=== PATIENT | female | born 1950 | race Caucasian/White ===

== ENCOUNTER 2017-09-19 11:42 | Emergency (ER) | payer MEDICARE, SELFPAY ==
[2017-09-19 11:43] VITALS: BP 149/78; PULSE 68; RESP 20; TEMP 36.5; O2SAT 95; BMI 23.8
--- NOTE | 2017-09-19 11:48 | EKG12_ITS ---
Test Reason : SOB Blood Pressure : / mmHG Vent. Rate : 060 BPM Atrial Rate : 060 BPM P-R Int : 176 ms QRS Dur : 076 ms QT Int : 402 ms P-R-T Axes : 073 049 053 degrees QTc Int : 402 ms Normal sinus rhythm Normal ECG Confirmed by GHULAM KIM, REJI ([id number]), marketing editor BAIRON DONOHUE ([id number] on 09/22/2017 10:47:05 AM Referred By: DIANA Confirmed By:REJI PARMAR MD
[2017-09-19 12:00] VITALS: O2SAT 97
--- NOTE | 2017-09-19 12:07 | RAD_ITS ---
STUDY: X-RAY CHEST REASON FOR EXAM: Female, 66 years old. Shortness of breath. Dyspnea. TECHNIQUE: AP upright portable view. COMPARISON: 06/14/2016. FINDINGS: Pulmonary hyperinflation with flattening of the hemidiaphragms. Asymmetric bilateral upper lobe bullous emphysema, right greater than left. No confluent infiltrates. No suspicious pulmonary nodules. Oblique linear scarring in the left lower lobe. Left pleural thickening is unchanged. Normal size heart. Normal mediastinum and mateus. Normal visualized pulmonary arteries. Normal visualized aortic arch and descending thoracic aorta. Dextroscoliosis of the thoracolumbar junction may be positional. Normal visualized ribs, clavicles, and shoulders. There is no demonstrated abnormality of the visualized soft tissue structures of the upper abdomen. RAD/Chest 1 View (Portable) IMPRESSION: 1. No acute cardiopulmonary pathology. 2. 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 3. No interval changes when compared to 06/14/2016. Electronically Signed: Gaston Sanders MD at 12:28 EDT , Service support ,
--- NOTE | 2017-09-19 12:11 | ED.DCSUM_ITS ---
- ER Visit Summary Date of Service: 09/19/17 Chief Complaint: [] Cough right sided chest pain with cough history of COPD on home O2 History of Present Illness: The patient is a 66 F [] patient has COPD home O2 chronic cough she gets for the last 3 days every time she coughs she has sharp pain to the right upper chest when she is not coughing she has no pain her COPD and general medical conditions have been stable no fever cough is dry minimally productive something she has had long-standing she has all her home meds she is eating and drinking well bowel bladder habits have been normal Physical Examination: [] Her vital signs are within normal range she is in no distress speaking full sentences her lungs are markedly diminished bilaterally the heart tones are regular the abdomen is soft nontender upper lower extremities unremarkable she is very thin and frail-appearing woman Has a history of left-sided pneumothorax and prior lower extremity DVT related to long prolonged hospitalization no history she can recall of PE Test Results: [] Emergency Department Course and Treatment: [] Fluids screening labs Chest x-ray shows nothing acute EKG labs are unremarkable except her d-dimer returns at 0.5 on reevaluation she is feeling better I discussed the d-dimer with her the concept of PE potential lethal nature of PE she understands all the above but she does not wish to have a CTA done she is feeling better wants to go home, she her chief concern was whether she had a pneumothorax, at this time should continue all of her therapy at home she will be given Continental to use as needed and to follow with her doctors tomorrow return for change in symptoms Treatment Plan: [] Disposition: [] Home stable Impression: [] Sharp right-sided chest pain with coughing COPD exacerbation This note was generated with [employer] dictation software. It may contain incorrect words, spelling, and punctuation that were not noted in review of the chart prior to signing ED Disposition - Plan for ED Patient: Chief Complaint: Shortness of Breath Referrals: Sally Fan DO [Primary Care Provider] -
[2017-09-19 12:38] LABS: Anion Gap 5 (5-15); BUN 19 mg/dL (7-18); BUN/Creat Ratio 28.6 RATIO (10-20); Calcium,Total 9.7 mg/dL (8.5-10.1); Chloride 105 mmol/L (98-107); Creatinine, Serum 0.66 mg/dL (0.55-1.02); EST Glomerular Filtration Rate 94 mL/min (>60); Est Glom Filt Rate - Afr Amer 114 mL/min (>60); Estimated Creatinine Clearance 41.19 ml/min; Glucose 87 mg/dL (74-106); Potassium 4.5 mmol/L (3.5-5.1); Sodium Level 143 mmol/L (136-145)
[2017-09-19 12:41] LABS: Absolute Lymphocyte Count 1.16 X10^3/ul (0.83-4.51); Absolute Neutrophil Count 4.4 X10^3/uL (2.0-7.7); Basophil# 0.01 X10^3/uL; Basophil% 0.2 % (0-1); Eosinophil# 0.27 X10^3/uL; Eosinophils% 4.2 % (0-5); Hematocrit 39.6 % (37-47); Hemoglobin 11.8 g/dl (12.0-15.0); Lymphocyte # 1.16 X10^3/ul (4.0); Lymphocyte % 18.2 % (19-41); Mean Corp Hgb Conc 29.8 g/gl (32-36); Mean Corpuscular Hgb 25.7 pg (27.0-32.0); Mean Corpuscular Volume 86.3 fL (81-99); Mean Platelet Vol. 12.3 fl (6.2-12.0); Monocyte# 0.55 X10^3/uL; Monocyte% 8.6 % (0-10); Neutrophil # 4.38 X10^3/uL (2.7-7.7); Neutrophil % 68.6 % (47-70); Platelet Count 160 K/mm3 (150-450); RBC Distribution Width CV 14.8 % (11.6-14.6); RBC Distribution Width SD 46.6 fl (35.1-43.9); Red Blood Count 4.59 M/mm3 (4.2-5.4); White Blood Count 6.4 K/mm3 (4.4-11.0)
[2017-09-19 12:46] LABS: POSITIVE DIFFERENTIAL NO
[2017-09-19 12:47] LABS: Differential Indicated SCAN CRITERIA MET; POSITIVE COUNT YES; POSITIVE MORPHOLOGY YES
[2017-09-19 13:00] LABS: Differential Comment SCANNED
[2017-09-19 13:24] LABS: D-Dimer Quantitative (DVT/PE) 0.53 FEU/ug/m (0.27-0.49)
--- NOTE | 2017-09-19 13:25 | ED.RN ---
CRITICAL VALUED CALLED BY LAB. FINDINGS GIVEN TO DR. ORTIZ.
[2017-09-19 14:01] VITALS: BP 154/64; PULSE 60; RESP 20; O2SAT 97
--- NOTE | 2017-09-19 14:31 | ED.DEP ---
ED Disposition - Plan for ED Patient: Chief Complaint: Shortness of Breath Instructions: ED COPD Flare Referrals: Sally Fan DO [Primary Care Provider] -
[2017-09-19 14:47] VITALS: BP 150/81; PULSE 67; RESP 24; O2SAT 98
--- NOTE | 2017-09-21 11:10 | CM.ED ---
ED CALLBACK: Follow-up call placed to patient with no answer. Voicemail left with return contact information.
== END 2017-09-19 14:50 | disposition home or self-care (01) ==
PROVIDERS: Emergency Provider Emergency Medicine; Family Provider Internal Medicine; PCP Internal Medicine
DX: J44.1 Chronic obstructive pulmonary disease with (acute) exacerbation (principal); R74.8 Abnormal levels of other serum enzymes; R06.02 Shortness of breath; Z99.81 Dependence on supplemental oxygen; Z79.82 Long term (current) use of aspirin; Z79.899 Other long term (current) drug therapy; Z86.718 Personal history of other venous thrombosis and embolism
CPT/HCPCS: 71045; 80048; 83880; 84484; 85025; 85379; 93005; 99284; A4216

== ENCOUNTER 2017-10-05 19:25 | Emergency (ER) | payer MEDICARE, SELFPAY ==
[2017-10-05] VITALS (8 sets, daily range): BP systolic 119–155; BP diastolic 63–129; PULSE 87–105; RESP 16–24; TEMP 37.2; O2SAT 86–96; BMI 24.0
[2017-10-05 20:23] LABS: Absolute Neutrophil Count 5.8 X10^3/uL (2.0-7.7); Basophil# 0.02 X10^3/uL; Basophil% 0.2 % (0-1); Eosinophil# 0.24 X10^3/uL; Eosinophils% 2.8 % (0-5); Hematocrit 39.4 % (37-47); Hemoglobin 11.7 g/dl (12.0-15.0); Mean Corp Hgb Conc 29.7 g/gl (32-36); Mean Corpuscular Hgb 25.8 pg (27.0-32.0); Mean Platelet Vol. 11.6 fl (6.2-12.0); Monocyte# 0.71 X10^3/uL; Monocyte% 8.2 % (0-10); Neutrophil # 5.76 X10^3/uL (2.7-7.7); Neutrophil % 66.7 % (47-70); Platelet Count 252 K/mm3 (150-450); RBC Distribution Width CV 14.7 % (11.6-14.6); RBC Distribution Width SD 46.6 fl (35.1-43.9); Red Blood Count 4.53 M/mm3 (4.2-5.4); White Blood Count 8.6 K/mm3 (4.4-11.0)
[2017-10-05 20:24] LABS: POSITIVE COUNT NO; POSITIVE DIFFERENTIAL NO; POSITIVE MORPHOLOGY NO
[2017-10-05] MEDS: Albuterol 2.5 MG/3 ML VIAL.NEB. INHALATION ×2 (20:30)
[2017-10-05] MEDS: Ipratropium/Albuterol Sulfate 3 ML AMPUL.NEB INHALATION (20:30)
[2017-10-05 20:45] LABS: Anion Gap 7 (5-15); BUN 22 mg/dL (7-18); BUN/Creat Ratio 26.9 RATIO (10-20); Calcium,Total 9.6 mg/dL (8.5-10.1); Chloride 103 mmol/L (98-107); Creatinine, Serum 0.82 mg/dL (0.55-1.02); EST Glomerular Filtration Rate 74 mL/min (>60); Est Glom Filt Rate - Afr Amer 90 mL/min (>60); Estimated Creatinine Clearance 50.24 ml/min; Glucose 123 mg/dL (74-106); Sodium Level 140 mmol/L (136-145)
--- NOTE | 2017-10-05 23:37 | ED.DCSUM_ITS ---
- ER Visit Summary Date of Service: 10/05/17 Chief Complaint: inhaled corn History of Present Illness: The patient is a 66 F who presents for cough after concern she inhaled corn while eating dinner. It occurred 1 hr prior to presentation. Patient accidentally inhaled a piece of corn and immediately began coughing. Since episode, she has had a persistent cough. History of significant COPD, on home O2, and patient denies any change in her breathing or speech. No chest pain, fever, or other complaints other than the continued cough. Physical Examination: Vital signs: afebrile, normotensive, mild tachycardia, 87% on NC, hypoxic General: well nourished, well developed, appears SOB, frequent moist cough Skin: warm, dry, no rash, no pallor HEENT: normocephalic, atraumatic; PERRL, EOMI, moist mucous membranes Cardiovascular: tachycardic rate and rhythm without murmurs,no peripheral edema , 2+ pulses all distal extremities Respiratory: Mild tachypnea with mild increased work of breathing, lungs are diffusely rhonchorous and wheezing all ritchie, no stridor Abdominal: Abdomen is soft, nontender with normoactive bowel sounds, no guarding or rebound, no masses MSK: Moves all extremities, no deformities, normal strength Neuro: Awake and alert, oriented ?4. No facial droop, sensation and motor function intact and symmetric Test Results: Abnormal Lab Results 10/05/17 10/05/17 19:35 19:35 WBC 8.6 RBC 4.53 Hgb 11.7 L Hct 39.4 MCV 87.0 MCH 25.8 L MCHC 29.7 L RDW 14.7 H RDW Differential 46.6 H Plt Count 252 MPV 11.6 Immature Gran % (Auto) 0.100 Neut % (Auto) 66.7 Lymph % (Auto) 22.0 [place] % (Auto) 8.2 Eos % (Auto) 2.8 Baso % (Auto) 0.2 Absolute Neuts (auto) 5.8 Absolute Lymphs (auto) 1.90 Total Counted Not Reportable Sodium 140 Potassium 4.0 Chloride 103 Carbon Dioxide 30.0 Anion Gap 7 BUN 22 H Creatinine 0.82 Estim Creat Clear Calc 50.24 Est GFR (MDRD) Af Amer 90 Est GFR (MDRD) Non-Af 74 BUN/Creatinine Ratio 26.9 H Glucose 123 H Calcium 9.6 Troponin I < 0.015 Clinical Impression(s) from Imaging Studies Chest X-Ray 10/05/17 21:30 IMPRESSION: COPD and right lower lobe airspace disease. Small effusions. Electronically Signed: Ever Don MD at 21:49 EDT , Service support , Medications Given Discontinued Medications Albuterol Sulfate (Ventolin Aerosols) 2.5 mg INHALATION Q20M SATINDER Stop: 10/05/17 20:56 Last Admin: 10/05/17 20:53 Dose: Not Given Admin: 10/05/17 20:30 Dose: 2.5 mg Admin: 10/05/17 20:30 Dose: 2.5 mg Albuterol/Ipratropium (Duoneb) 3 ml INHALATION X1 ONE Stop: 10/05/17 20:15 Last Admin: 10/05/17 20:30 Dose: 3 ml Azithromycin (Zithromax) 500 mg PO X1 ONE Stop: 10/05/17 23:35 Last Admin: 10/05/17 23:53 Dose: 500 mg Prednisone () 40 mg PO X1 ONE Stop: 10/05/17 23:36 Last Admin: 10/05/17 23:53 Dose: 40 mg Emergency Department Course and Treatment: Patient presents concerned for persistent cough after suspected aspiration of a kernel of corn. Patient is below her baseline O2 sat on her home O2 on presentation, and lung exam is consistent with COPD. Patient was given breathing treatments and had resolution of her cough and improvement in her O2 sat, respiratory effort, and subjective breathing effort. Chest XR showed concern for RLL infiltrate, although it would be too early for a change due to 1 hour of corn aspiration. EKG showed no ischemic changes, and trop negative. Labs unremarkable. Given that patient had remarkable improvement with treatment for COPD exacerbation, she was started on azithromycin and prednisone, with the antibiotic also being for coverage of the concerning RLL finding. Patient was discussed with her partner manager, Dr Caldera , who requests patient to call office in the AM to arrange for a re-evaluation within 48 hours. He encouraged hydration of patient at home to help mobilize respiratory secretions to help cough up corn if it is in her lungs. Patient agreed with this plan and was dc home with rx for azithromycin and prednisone. Treatment Plan: [] Disposition: [] Impression: COPD exacerbation, suspected foreign body aspiration This note was generated with [employer] dictation software. It may contain incorrect words, spelling, and punctuation that were not noted in review of the chart prior to signing ED Disposition - Plan for ED Patient: Disposition: Home or Assisted Living Chief Complaint: Shortness of Breath Instructions: ED COPD Flare Prescriptions: Azithromycin [Zithromax] 250 mg PO DAILY #4 tab Prednisone 40 mg PO DAILY #8 tab Referrals: Sally Fan DO [Primary Care Provider] - As Needed Willy Caldera MD [STAFF PHYSICIAN] - 1 Day Additional Instructions: Call Dr. Caldera's office first thing in the morning tomorrow to make an appointment for within 24-48 hours for reevaluation of the possible inhaled corn. Take the antibiotic daily as prescribed. Take the first dose tomorrow evening. Take the prednisone as prescribed, again taking the first dose tomorrow evening. Continue your home medications for COPD as prescribed. Return to the emergency department if you develop fever, worsening shortness of breath, or any other concerns.
[2017-10-05] MEDS: Azithromycin 250 MG Tablet 500 MG PO (23:53)
[2017-10-05] MEDS: predniSONE 20 MG Tablet 40 MG PO (23:53)
== END 2017-10-06 00:06 | disposition home or self-care (01) ==
PROVIDERS: Emergency Provider Emergency Medicine; Family Provider Internal Medicine; PCP Internal Medicine
DX: J44.1 Chronic obstructive pulmonary disease with (acute) exacerbation (principal); R09.02 Hypoxemia; R91.8 Other nonspecific abnormal finding of lung field; Z99.81 Dependence on supplemental oxygen; Z79.82 Long term (current) use of aspirin; Z79.899 Other long term (current) drug therapy
CPT/HCPCS: 71046; 80048; 84484; 85025; 93005; 94640; 99285; A4216

== ENCOUNTER → 2017-11-08 15:35 | Outpatient (CLI) | payer MEDICARE, SELFPAY ==
--- NOTE | 2017-11-08 15:37 | RAD_ITS ---
STUDY: X-RAY CHEST REASON FOR EXAM: Female, 67 years old. Cough. TECHNIQUE: PA and lateral views of the chest. COMPARISON: Comparison is made with prior study dated October 05, 2017. FINDINGS: Hyperinflation. Stable increased markings at both lung bases with blunting of both costophrenic angle. This most likely advance chronic pleural parenchymal changes. There is also evidence of increased markings in the left upper lobe suggestive of scarring. Decreased bronchovascular markings in the right upper lobe suggestive of emphysematous changes. Normal size heart. Normal mediastinum and mateus. Normal visualized pulmonary arteries. Normal visualized aortic arch and descending thoracic aorta. Normal visualized thoracic spine. Normal visualized ribs, clavicles, and shoulders. There is no demonstrated abnormality of the visualized soft tissue structures of the upper abdomen. RAD/Chest PA and Lateral IMPRESSION: Stable increased markings at both lung bases with blunting of both costophrenic angles suggestive of chronic scarring. Hyperinflation. Electronically Signed: Jose Grayson MD at 15:56 EDT Tel [phone], Service support ,
== END ==
PROVIDERS: Family Provider Internal Medicine; PCP Internal Medicine; Visit Provider Nurse Practitioner Gerontology
DX: R05 Cough (principal)
CPT/HCPCS: 71046

== ENCOUNTER → 2017-12-10 14:19 | Outpatient (CLI) | payer MEDICARE, SELFPAY ==
[2017-12-10 16:01] LABS: Absolute Lymphocyte Count 1.43 X10^3/ul (0.83-4.51); Absolute Neutrophil Count 3.6 X10^3/uL (2.0-7.7); Basophil# 0.01 X10^3/uL; Basophil% 0.2 % (0-1); Eosinophil# 0.26 X10^3/uL; Eosinophils% 4.6 % (0-5); Hematocrit 37.8 % (37-47); Hemoglobin 11.2 g/dl (12.0-15.0); Lymphocyte # 1.43 X10^3/ul (4.0); Lymphocyte % 25.1 % (19-41); Mean Corp Hgb Conc 29.6 g/gl (32-36); Mean Corpuscular Volume 87.7 fL (81-99); Mean Platelet Vol. 11.1 fl (6.2-12.0); Monocyte# 0.38 X10^3/uL; Monocyte% 6.7 % (0-10); Neutrophil # 3.61 X10^3/uL (2.7-7.7); Neutrophil % 63.2 % (47-70); Platelet Count 227 K/mm3 (150-450); RBC Distribution Width CV 15.6 % (11.6-14.6); RBC Distribution Width SD 49.7 fl (35.1-43.9); Red Blood Count 4.31 M/mm3 (4.2-5.4); White Blood Count 5.7 K/mm3 (4.4-11.0)
[2017-12-10 16:03] LABS: POSITIVE COUNT NO; POSITIVE DIFFERENTIAL NO; POSITIVE MORPHOLOGY NO
[2017-12-10 16:41] LABS: ALB/GLOB Ratio 0.9 RATIO (0.9-2.4); AST(SGOT) 15 U/L (15-37); Alanine Aminotransfer ALT/SGPT 20 U/L (13-56); Albumin, Serum 3.4 g/dL (3.2-5.0); Alkaline Phosphatase 60 U/L (45-117); Anion Gap 7 (5-15); BUN 21 mg/dL (7-18); BUN/Creat Ratio 30.2 RATIO (10-20); Calcium,Total 9.4 mg/dL (8.5-10.1); Chloride 104 mmol/L (98-107); Cholesterol 154 mg/dL (200); EST Glomerular Filtration Rate 89 mL/min (>60); Est Glom Filt Rate - Afr Amer 108 mL/min (>60); Globulin 3.6 g/dL (2.2-4.2); Glucose 86 mg/dL (74-106); High Density Lipoprotein 79 mg/dL; Potassium 4.6 mmol/L (3.5-5.1); Sodium Level 142 mmol/L (136-145); Thyroid Stim Hormone (TSH) 1.58 uIU/mL (0.358-3.74); Triglycerides 69 mg/dL; Very Low Density Lipoprotein 14 mg/dL (5-40)
[2017-12-10 16:45] LABS: Vitamin D,25 Hydroxy 23.4 ng/mL (29.95-100.01)
== END ==
PROVIDERS: Family Provider Internal Medicine; PCP Internal Medicine; Referring Provider Internal Medicine; Visit Provider Internal Medicine
DX: E78.2 Mixed hyperlipidemia (principal); E55.9 Vitamin D deficiency, unspecified; R41.3 Other amnesia
CPT/HCPCS: 36415; 80053; 80061; 82306; 84443; 85025

== ENCOUNTER 2018-02-25 13:28 | Emergency (ER) | payer MEDICARE, SELFPAY ==
[2018-02-25 13:29] VITALS: PULSE 69; RESP 18; TEMP 36.6; O2SAT 93; BMI 23.0
--- NOTE | 2018-02-25 13:59 | CT_ITS ---
STUDY: CT BRAIN WITHOUT CONTRAST REASON FOR EXAM: Female, 67 years old. Status post fall with contusion to the left chin/jaw RADIATION DOSAGE (If Supplied By Facility): CTDIvol = ( 44.99 ) mGy, DLP = ( 779.24 ) mGycm TECHNIQUE: Transaxial CT imaging of the brain was performed without administration of intravenous contrast material. Individualized dose optimization techniques were used for this CT. COMPARISON: None. FINDINGS: Normal soft tissue structures. Normal calvarium. There is mild cerebral atrophy with widening of the extra-axial spaces and ventricular dilatation. There are areas of decreased attenuation within the white matter tracts of the supratentorial brain, consistent with microvascular disease changes. Normal basal ganglia and thalami. Normal brainstem. There is mild cerebellar atrophy. There is no intracranial hemorrhage. There are no findings of an acute ischemic infarction. There is mucoperiosteal inflammatory disease of the paranasal sinuses consistent with mild chronic sinusitis. CT/Brain/Head without Contrast IMPRESSION: Chronic involutional changes of the brain. Electronically Signed: Janes Montano DO at 14:22 EST Tel , Service support ,
--- NOTE | 2018-02-25 13:59 | RAD_ITS ---
STUDY: X-RAY CHEST REASON FOR EXAM: Female, 67 years old. Status post fall at home. Right-sided chest pain. TECHNIQUE: PA and lateral views of the chest. COMPARISON: None. FINDINGS: There is hyperinflation of the lungs consistent with chronic obstructive lung disease (COPD). No acute airspace disease. There is no demonstrated pleural abnormality. There is borderline cardiomegaly. Normal mediastinum and mateus. Normal visualized pulmonary arteries. Normal visualized aortic arch and descending thoracic aorta. Normal visualized thoracic spine. Normal visualized ribs, clavicles, and shoulders. There is no demonstrated abnormality of the visualized soft tissue structures of the upper abdomen. RAD/Chest PA and Lateral IMPRESSION: COPD. Borderline cardiomegaly. No acute airspace disease. Electronically Signed: Janes Montano DO at 14:30 EST Tel , Service support ,
--- NOTE | 2018-02-25 15:45 | ED.VISSUMM ---
- ER Visit Summary Date of Service: 02/25/18 Chief Complaint: Fall History of Present Illness: The patient is a 67 F who sustained a mechanical fall walking on ice. No loss of consciousness she sustained facial injuries and she is complaining of right chest wall pain. She has no other complaints. No wrist injury no ankle injury. No loss of consciousness. Physical Examination: Not appear in acute distress. Moist mucous membranes, there are few abrasions, nasal contusion. No nasal septal hematoma normal bite. No tenderness over the mandible or maxilla. No C-spine tenderness supple neck. Regular rate and rhythm without any obvious murmurs Course lungs bilaterally speaking in full sentences without any obvious respiratory distress Abdomen soft and nontender no guarding or rebound Moves all extremities without any difficulty or pain. Skin does not show any obvious rashes or lesions, no trauma. Alert oriented ?3 with no gross focal deficit Emergency Department Course and Treatment: CT head and chest x-ray were negative. Patient was reassured L discharged in stable condition. Disposition: Discharge stable condition Impression: Concussion without loss of consciousness Chest wall contusion This note was generated with [employer] dictation software. It may contain incorrect words, spelling, and punctuation that were not noted in review of the chart prior to signing ED Disposition - Plan for ED Patient: Chief Complaint: Fall Instructions: ED Mechanical Fall Referrals: Sally Fan DO [Primary Care Provider] - 3-5 Days
[2018-02-25 15:59] VITALS: BP 143/71; PULSE 72; RESP 16; O2SAT 94
== END 2018-02-25 16:00 | disposition home or self-care (01) ==
LOC: ED 14:00
PROVIDERS: Emergency Provider Emergency Medicine; Family Provider Internal Medicine; PCP Internal Medicine
DX: S06.0X0A Concussion without loss of consciousness, initial encounter (principal); S20.211A Contusion of right front wall of thorax, initial encounter; S00.33XA Contusion of nose, initial encounter; W00.0XXA Fall on same level due to ice and snow, initial encounter; Y93.01 Activity, walking, marching and hiking; Y92.9 Unspecified place or not applicable; Y99.9 Unspecified external cause status; J44.9 Chronic obstructive pulmonary disease, unspecified; I10 Essential (primary) hypertension; Z79.899 Other long term (current) drug therapy
CPT/HCPCS: 70450; 71046; 99283

== ENCOUNTER 2018-02-28 10:13 | Emergency (ER) | payer MEDICARE, SELFPAY ==
[2018-02-28 10:15] VITALS: BP 164/87; PULSE 90; RESP 18; RESP 20; TEMP 36.9; O2SAT 91; O2SAT 98; BMI 23.6
[2018-02-28 10:24] VITALS: O2SAT 98
--- NOTE | 2018-02-28 10:27 | CT_ITS ---
STUDY: CT CHEST WITHOUT CONTRAST REASON FOR EXAM: Female, 67 years old. Fall on 02/25/2018, right rib pain RADIATION DOSAGE (If Supplied By Facility): CTDIvol = ( 11.55 ) mGy, DLP = ( 418.61 ) mGycm TECHNIQUE: Transaxial imaging was performed without the administration of intravenous contrast material. Individualized dose optimization techniques were used for this CT. COMPARISON: 06/14/2016 FINDINGS: Pulmonary emphysema. Tracheobronchial calcifications. There is no demonstrated pleural abnormality. Normal heart and pericardium. Normal mediastinum. Normal hilar regions. Normal unenhanced pulmonary arteries. Normal aorta arch and descending thoracic aorta. Debris is present in the left upper lobe bronchus, left mainstem bronchus, and trachea. There is significant narrowing of the left upper lobe bronchus. Extensive left upper lobe and left lower lobe atelectasis and left lung volume loss. Normal osseous structures. There is no demonstrated abnormality of the visualized upper abdomen. CT/Chest without Contrast IMPRESSION: No CT evidence of acute injury involving the chest. Secretions are present in the left upper lobe bronchus, left mainstem bronchus, and trachea. There is significant narrowing of the left upper lobe bronchus. Extensive left upper lobe and left lower lobe atelectasis and left lung volume loss. Electronically Signed: Kane Blanco MD at 11:16 EST Tel , Service support ,
--- NOTE | 2018-02-28 11:43 | ED.DCSUM_ITS ---
- ER Visit Summary Date of Service: 02/28/18 Chief Complaint: Chest pain History of Present Illness: The patient is a 67 F who states that she is post trauma day 3 from a fall. She was seen on Wednesday had a chest x-ray is negative. She states that she feels a popping sensation of the right anterior chest where it is bruised. She states that she is not taking anything for the pain. She is concerned that something is wrong with her lungs. Physical Examination: Afebrile vital signs are stable Gen: Well-nourished well-developed Head: Normocephalic contusion of the face and the chin Eyes: Perrl EOMI ENT: TMs clear no rhinorrhea moist mucous membranes Neck: Supple no lymphadenopathy no JVD nontender CVS: Regular rate rhythm no murmurs normal S1-S2 Respiratory: No distress clear to auscultation bilaterally ecchymosis and tenderness over the right anterior chest Abdomen: Soft nontender nondistended normal bowel sounds no masses Back: Nontender Extremity: Nontender no edema Skin: Normal color no rash Neuro: alert orientated ?3 CN II-XII intact normal strength sensation reflexes gait cerebellar Psych: Normal affect normal mood Test Results: Chest CT was reviewed by myself and demonstrates a nondisplaced rib fracture on the right Emergency Department Course and Treatment: Patient will be discharged home with supportive care return if worsening or concerns Impression: 1. Right rib fracture This note was generated with [employer] dictation software. It may contain incorrect words, spelling, and punctuation that were not noted in review of the chart prior to signing ED Disposition - Plan for ED Patient: Disposition: Home or Assisted Living Chief Complaint: Chest Other Instructions: Rib Fracture (Broken Rib) Referrals: Sally Fan DO [Primary Care Provider] - 1-2 Weeks
[2018-02-28 11:56] VITALS: BP 134/77; PULSE 61; RESP 17; O2SAT 97
== END 2018-02-28 12:36 | disposition home or self-care (01) ==
PROVIDERS: Emergency Provider Emergency Medicine; Family Provider Internal Medicine; PCP Internal Medicine
DX: S22.31XA Fracture of one rib, right side, initial encounter for closed fracture (principal); W19.XXXA Unspecified fall, initial encounter; Y93.9 Activity, unspecified; Y92.9 Unspecified place or not applicable; Y99.9 Unspecified external cause status; S00.83XD Contusion of other part of head, subsequent encounter; W19.XXXD Unspecified fall, subsequent encounter; Z79.899 Other long term (current) drug therapy
CPT/HCPCS: 71250; 99284

== ENCOUNTER → 2018-11-09 15:10 | Outpatient (CLI) | payer MEDICARE, SELFPAY ==
--- NOTE | 2018-11-09 15:31 | BI_ITS ---
MAMMOGRAPHY - BILATERAL SCREENING REASON FOR EXAM: Female, 68 years old. Routine annual screening examination. PERTINENT HISTORY: Non-contributory. TECHNIQUE: Digital bilateral breast socrates (3D mammographic acquisition) in the CC and MLO projections. 2-D mediolateral oblique (MLO) and craniocaudad (CC) views of both breasts were obtained. CAD: Full Field Digital Mammography with Computer Added Detection was performed. COMPARISON: Comparison is made with prior examination dated January 19, 2017 and June 07, 2014. FINDINGS: Breast Composition: The breasts are almost entirely fatty. There are no dominant masses or suspicious calcifications. Stable appearance of the benign appearing axillary lymph nodes. Stable 7.7 mm well-defined nodule in the upper lateral aspect of the left breast. This most likely represents a small lymph node. No other significant abnormalities are identified. There has been no significant change since the prior study. BI/SCREEN MAMM (CAD) W/SOCRATES BILAT IMPRESSION: Stable bilateral screening mammogram. Yearly follow-up mammogram recommended. (A) ASSESSMENT CATEGORY: BIRADS Category 2: Benign. A letter regarding these results will be sent to the patient by the facility within 30 days. Approximately 10% of breast cancers are not detected by mammography. A normal mammogram should not delay biopsy of a clinically suspicious abnormality. [id number] Electronically Signed: Jose Grayson, at 8:25 EDT , Service support ,
== END ==
PROVIDERS: Family Provider Internal Medicine; PCP Internal Medicine; Referring Provider Internal Medicine; Visit Provider Internal Medicine
DX: Z12.31 Encounter for screening mammogram for malignant neoplasm of breast (principal)
CPT/HCPCS: 77063; 77067

== ENCOUNTER → 2019-01-10 14:48 | Outpatient (CLI) | payer MEDICARE, SELFPAY ==
[2019-01-10 16:04] LABS: Potassium 4.8 mmol/L (3.5-5.1)
== END ==
PROVIDERS: Family Provider Internal Medicine; PCP Internal Medicine; Referring Provider Internal Medicine; Visit Provider Internal Medicine
DX: E87.5 Hyperkalemia (principal)
CPT/HCPCS: 36415; 84132

== ENCOUNTER → 2019-11-15 13:28 | Outpatient (CLI) | payer MEDICARE, MEDICAID, SELFPAY ==
--- NOTE | 2019-11-15 13:45 | CT_ITS ---
STUDY: CT ABDOMEN AND PELVIS WITHOUT CONTRAST REASON FOR EXAM: Female, 69 years old. LLQ pain x 2 months. Prior tubal ligation, hypertension, COPD, emphysema. RADIATION DOSAGE (If Supplied By Facility): CTDIvol = ( 9.57 ) mGy, DLP = ( 411.89 ) mGycm TECHNIQUE: Transaxial images were obtained from the dome of the diaphragm to the symphysis pubis without oral contrast, and without intravenous contrast. Sagittal and coronal images were reconstructed. Individualized dose optimization techniques were used for this CT. COMPARISON: None. FINDINGS: There are increased linear markings at the left lung base suggestive of a left basilar scarring. Mild degree of scarring at the right lung base. This is unchanged as compared to prior CT scan of thorax dated 02/28/2018. Small pericardial effusion. Coronary artery calcification. Normal liver. Normal gallbladder and extrahepatic biliary system. Normal spleen. Suspect small cysts in the head and uncinate process of the pancreas. A repeat CT scan with IV contrast and thin cuts through the pancreas is recommended Normal bilateral adrenal glands. Normal right kidney. Normal left kidney. There is a small hiatal hernia. Normal small intestine. There are multiple colonic diverticula consistent with diverticulosis. The appendix is visualized and appears normal. There is diffuse atherosclerotic calcification of the abdominal aorta and its major visceral branches, without a demonstrated aneurysm. Normal inferior vena cava. Normal retroperitoneum. Normal urinary bladder. Small benign-appearing bilateral inguinal lymph nodes. Normal abdominal wall. There are degenerative changes of the visualized lumbar spine. CT/Abdomen/Pelvis without Cont IMPRESSION: Sigmoid diverticulosis. Findings suggestive of multiple small cysts in the region of the head of the pancreas and uncinate process. A dedicated CT scan of the pancreas is recommended for further evaluation. Stable scarring in the left lower lobe. Small pericardial effusion. Electronically Signed: Jose Grayson, at 14:45 EDT , Service support ,
[2019-11-15 13:58] LABS: Absolute Lymphocyte Count 1.26 X10^3/uL (0.83-4.51); Absolute Neutrophil Count 5.2 X10^3/uL (2.0-7.7); Basophil# 0.02 X10^3/uL; Basophil% 0.3 % (0-1); Eosinophil# 0.17 X10^3/uL; Eosinophils% 2.4 % (0-5); Hematocrit 40.5 % (37-47); Lymphocyte # 1.26 X10^3/ul (4.0); Lymphocyte % 17.4 % (19-41); Mean Corp Hgb Conc 29.6 g/dL (32-36); Mean Corpuscular Hgb 26.4 pg (27.0-32.0); Mean Platelet Vol. 10.9 fl (6.2-12.0); Monocyte# 0.58 X10^3/uL; NRBC Flagged by Analyzer 0 % (0-5); Neutrophil # 5.17 X10^3/uL (2.7-7.7); Neutrophil % 71.5 % (47-70); Platelet Count 229 K/mm3 (150-450); RBC Distribution Width CV 14.2 % (11.6-14.6); RBC Distribution Width SD 45.7 fl (35.1-43.9); Red Blood Count 4.55 M/mm3 (4.2-5.4); White Blood Count 7.2 K/mm3 (4.4-11.0)
[2019-11-15 14:36] LABS: Vitamin D,25 Hydroxy 71.8 ng/mL
[2019-11-15 14:47] LABS: ALB/GLOB Ratio 0.8 RATIO (0.9-2.4); AST(SGOT) 18 U/L (15-37); Alanine Aminotransfer ALT/SGPT 20 U/L (13-56); Albumin, Serum 3.5 g/dL (3.2-5.0); Alkaline Phosphatase 66 U/L (45-117); Anion Gap 2 (5-15); BUN 22 mg/dL (7-18); BUN/Creat Ratio 30.1 RATIO (10-20); Calcium,Total 9.8 mg/dL (8.5-10.1); Chloride 102 mmol/L (98-107); Cholesterol 151 mg/dL (200); Creatinine, Serum 0.73 mg/dL (0.55-1.02); EST Glomerular Filtration Rate 84 mL/min (>60); Est Glom Filt Rate - Afr Amer 101 mL/min (>60); Globulin 4.2 g/dL (2.2-4.2); Glucose 92 mg/dL (74-106); High Density Lipoprotein 82 mg/dL; Potassium 4.5 mmol/L (3.5-5.1); Protein, Total 7.7 g/dL (6.4-8.2); Sodium Level 137 mmol/L (136-145); Thyroid Stim Hormone (TSH) 1.97 uIU/mL (0.358-3.74); Triglycerides 79 mg/dL; Very Low Density Lipoprotein 16 mg/dL (5-40)
== END ==
PROVIDERS: PCP Internal Medicine; Referring Provider Internal Medicine; Visit Provider Internal Medicine
DX: R10.32 Left lower quadrant pain (principal); E78.2 Mixed hyperlipidemia; E55.9 Vitamin D deficiency, unspecified; F41.9 Anxiety disorder, unspecified
CPT/HCPCS: 36415; 74176; 80053; 80061; 82306; 84443; 85025

== ENCOUNTER → 2019-12-16 08:39 | Outpatient (CLI) | payer MEDICARE, MEDICAID, SELFPAY ==
--- NOTE | 2019-12-16 08:41 | US_ITS ---
STUDY: ABDOMINAL ULTRASOUND - RIGHT UPPER QUADRANT REASON FOR VISIT: Female, [address] TECHNIQUE: Ultrasound evaluation of the right upper quadrant was performed with real-time and static arredondo-scale imaging. TECHNICAL QUALITY: Adequate. COMPARISON: CT 11/15/2019 FINDINGS: Liver: The liver measures 14.8 cm. There is normal echogenicity of the liver. The bile ducts are within normal limits. There is hepatic color flow. The direction of portal flow is hepatopetal. There is no demonstrated mass lesion. Gallbladder: Normal distended gallbladder. The gallbladder wall measures 2 mm. There is a negative sonographic Olmstead''s sign. There is no pericholecystic fluid. There are no gallstones. Common Bile Duct (C.B.D.): The common bile duct measures 2 mm. Pancreas: Normal size of the head, body and tail of the pancreas. There is normal echogenicity of the pancreas. There is no demonstrated pancreatic mass or cyst. Right Kidney: Normal size of the right kidney. The right kidney measures 10.4 cm. Normal renal cortex. The right cortex measures 1.3 cm. 8 mm cyst in the midsection of the right kidney. There is no right hydronephrosis. US/Abdomen Limited IMPRESSION: Normal right upper quadrant ultrasound examination. Correlation with pancreas protocol CT or MRI with contrast is recommended for evaluation of pancreatic lesions. Electronically Signed: Noel Meza MD at 10:01 EDT Tel , Service support ,
== END ==
PROVIDERS: PCP Internal Medicine; Referring Provider Internal Medicine; Visit Provider Internal Medicine
DX: R93.5 Abnormal findings on diagnostic imaging of other abdominal regions, including retroperitoneum (principal)
CPT/HCPCS: 76705

== ENCOUNTER → 2019-12-26 10:11 | Outpatient (CLI) | payer MEDICARE, MEDICAID, SELFPAY ==
--- NOTE | 2019-12-26 10:13 | US_ITS ---
STUDY: ABDOMINAL ULTRASOUND - left lower QUADRANT REASON FOR VISIT: Female, 69 years old LLQ PAIN TECHNIQUE: Ultrasound evaluation of the left lower quadrant was performed with real-time and static arredondo-scale imaging. TECHNICAL QUALITY: Adequate. COMPARISON: None. FINDINGS: Left Kidney: Normal size of the left kidney. The left kidney measures 10.6 cm x 4.4 cm x 4.4 cm. Normal renal cortex. The left cortex measures 1.0 cm. There is no demonstrated renal mass or cyst. There is no left hydronephrosis. Imaging of the left lower quadrant was unremarkable. US/Abdomen Limited IMPRESSION: Normal left lower quadrant ultrasound examination. Electronically Signed: Jose Grayson, at 12:10 EST , Service support ,
== END ==
PROVIDERS: PCP Internal Medicine; Referring Provider Internal Medicine; Visit Provider Internal Medicine
DX: R10.32 Left lower quadrant pain (principal)
CPT/HCPCS: 76705

== ENCOUNTER 2020-01-11 08:41 | Emergency (ER) | payer MEDICARE, MEDICAID, SELFPAY ==
[2020-01-11 08:42] VITALS: BP 164/70; PULSE 78; RESP 12; TEMP 35.9; O2SAT 95; BMI 25.4
--- NOTE | 2020-01-11 09:04 | EKG12_ITS ---
Test Reason : EB Blood Pressure : / mmHG Vent. Rate : 075 BPM Atrial Rate : 075 BPM P-R Int : 162 ms QRS Dur : 078 ms QT Int : 402 ms P-R-T Axes : 077 055 055 degrees QTc Int : 448 ms Normal sinus rhythm Normal ECG Confirmed by NEVIN KIM, LAVINIA ([id number]), managing editor MAHSA LOPEZ ([id number]) on 01/12/2020 11:13:52 AM Referred By: MR Confirmed By:LAVINIA ROONEY MD
--- NOTE | 2020-01-11 09:04 | RAD_ITS ---
STUDY: X-RAY CHEST REASON FOR EXAM: Female, 69 years old. DIZZINESS AND SHORTNESS OF BREATH, HX COPD TECHNIQUE: Single AP portable view of the chest. COMPARISON: 02/25/2018. FINDINGS: The lungs are hyperexpanded. There are coarsened interstitial markings suggestive of mild chronic fibrosis. Stable prominent scarring in both lung bases. Stable blunting of the left costophrenic angle most consistent with scarring. No gross focal infiltrates. No gross effusions. Normal size heart. Normal mediastinum and mateus. Normal visualized pulmonary arteries. Normal visualized aortic arch and descending thoracic aorta. Normal visualized thoracic spine. Normal visualized ribs, clavicles, and shoulders. There is no demonstrated abnormality of the visualized soft tissue structures of the upper abdomen. RAD/Chest 1 View (Portable) IMPRESSION: No change or acute abnormality. COPD with areas of fibrosis and scarring most pronounced in the left lung base. Electronically Signed: Johnny Pathak MD at 12:23 EST , Service support ,
[2020-01-11 09:12] LABS: Absolute Lymphocyte Count 1.53 X10^3/uL (0.83-4.51); Absolute Neutrophil Count 5.3 X10^3/uL (2.0-7.7); Basophil# 0.02 X10^3/uL; Basophil% 0.3 % (0-1); Eosinophil# 0.39 X10^3/uL; Eosinophils% 4.9 % (0-5); Hematocrit 39.5 % (37-47); Hemoglobin 11.8 g/dL (12.0-15.0); Lymphocyte # 1.53 X10^3/ul (4.0); Lymphocyte % 19.3 % (19-41); Mean Corp Hgb Conc 29.9 g/dL (32-36); Mean Corpuscular Hgb 26.7 pg (27.0-32.0); Mean Corpuscular Volume 89.4 fL (81-99); Mean Platelet Vol. 11.4 fl (6.2-12.0); Monocyte# 0.66 X10^3/uL; Monocyte% 8.3 % (0-10); NRBC Flagged by Analyzer 0 % (0-5); Neutrophil # 5.27 X10^3/uL (2.7-7.7); Neutrophil % 66.4 % (47-70); Platelet Count 240 K/mm3 (150-450); RBC Distribution Width CV 13.7 % (11.6-14.6); RBC Distribution Width SD 44.7 fl (35.1-43.9); Red Blood Count 4.42 M/mm3 (4.2-5.4); White Blood Count 7.9 K/mm3 (4.4-11.0)
[2020-01-11] MEDS: Ipratropium/Albuterol Sulfate 3 ML AMPUL.NEB INHALATION ×2 (09:18→10:13)
[2020-01-11 09:19] VITALS: PULSE 70; RESP 14
[2020-01-11 09:25] LABS: Anion Gap 2 (5-15); BUN 25 mg/dL (7-18); BUN/Creat Ratio 38.1 RATIO (10-20); Calcium,Total 9.4 mg/dL (8.5-10.1); Chloride 107 mmol/L (98-107); Creatinine, Serum 0.66 mg/dL (0.55-1.02); EST Glomerular Filtration Rate 95 mL/min (>60); Est Glom Filt Rate - Afr Amer 114 mL/min (>60); Glucose 112 mg/dL (74-106); Potassium 4.1 mmol/L (3.5-5.1); Sodium Level 142 mmol/L (136-145)
--- NOTE | 2020-01-11 09:28 | ED.VIS.GEN ---
History of Present Illness Chief Complaint: Dizziness Narrative: Patient presenting for evaluation secondary to lightheadedness. Patient has an underlying history of COPD, she is chronically on 2-1/2 L nasal cannula. Patient states that she has been dealing with some left-sided abdominal pain recently, and has been undergoing work-up by her primary care. She states that she had normal ultrasounds recently. Patient states that typically in the morning she will get lightheaded upon awakening and trying to get out of bed. This morning she had a similar presentation but it was somewhat worse and it did not relent, and it resulted in her having a controlled fall to the floor where she could not get up. She states that this was a lightheadedness, denies vertigo. She denies any preceding chest pain palpitations. She has baseline shortness of breath secondary to her COPD. She denies recent infectious signs or symptoms such as fever cough nausea vomiting or diarrhea. Patient denies any lateralizing weakness associated with this. She denies any urinary signs or symptoms. She denies that when she went to the ground that she hit her head or loss consciousness. Review of systems otherwise negative. Past Medical History - Allergies and Home Meds Allergies/Adverse Reactions: Allergies No Known Allergies Allergy (Verified 02/28/18 10:14) Primary Care Physician: Sally Fan DO [Primary Care Provider] - Prior records reviewed: Yes Past Medical History: - - Lung abscess, COPD, hypertension, hyperlipidemia Surgical History: no surgical history, - - Tubal ligation chest 2 Smoking Status: Former smoker Alcohol: None Drugs: None - Family History Maternal Family History: Reports: Unknown Review of Systems All systems negative except as indicated General: Reports: - - Lightheadedness Eyes: Denies: Visual changes - bilaterally, Diplopia ENT: Denies: Rhinorrhea, Sore throat Cardiovascular: Denies: Chest pain, Palpitations Respiratory: Reports: Dyspnea - At baseline unchanged Gastrointestinal: Reports: Abdominal pain Genitourinary: Denies: Dysuria, Hematuria, Frequency Musculoskeletal: Denies: Back pain, Extremity Pain Skin: Denies: Rash, Wounds Neurological: Denies: Headache, Weakness, Numbness Physical Exam Vital Signs/Narrative: Vital Signs Temp Pulse Resp BP Pulse Ox 01/11/20 09:19 70 14 01/11/20 08:42 96.6 F L 78 12 164/70 H 95 Inital Vital Signs reviewed: Yes General: Well nourished, Well developed, No Acute Distress Head: Normocephalic, Atraumatic Eyes: Perrl, EOMI ENT: Moist mucous membranes, No rhinorrhea Neck: Supple, Nontender Cardiovascular: Regular rate, Regular rhythm, No murmurs Respiratory: - - Poor air movement throughout the lung ritchie with wheezes, slightly diminished at the right base. No evidence of rhonchi or rales. Abdomen: Soft, Nontender - No reproducible tenderness upon palpation. No evidence of pulsatile mass or palpable masses or organomegaly, Nondistended, Normal bowel sounds Back: Nontender, Normal Inspection Extremities: Nontender, No edema, - - 2+ radial, 2+ DP pulses bilaterally symmetric Neurological: Alert, Oriented x3, Cranial nerves II-XII grossly intact, Normal Strength, Normal Sensation Psychological: Normal affect, Normal Mood Diagnostic/Tx/Re-eval Laboratory Data 01/11/20 01/11/20 01/11/20 08:45 08:45 11:00 WBC 7.9 RBC 4.42 Hgb 11.8 L Hct 39.5 MCV 89.4 MCH 26.7 L MCHC 29.9 L RDW Std Deviation 44.7 H RDW Coeff of Mary 13.7 Plt Count 240 MPV 11.4 Immature Gran % (Auto) 0.800 Neut % (Auto) 66.4 Lymph % (Auto) 19.3 [place] % (Auto) 8.3 Eos % (Auto) 4.9 Baso % (Auto) 0.3 Absolute Neuts (auto) 5.3 Absolute Lymphs (auto) 1.53 Nucleated RBC % 0 Sodium 142 Potassium 4.1 Chloride 107 Carbon Dioxide 33.0 H Anion Gap 2 L BUN 25 H Creatinine 0.66 Estim Creat Clear Calc 39.50 Est GFR (MDRD) Af Amer 114 Est GFR (MDRD) Non-Af 95 BUN/Creatinine Ratio 38.1 H Glucose 112 H Calcium 9.4 Troponin I < 0.015 Urine Color Yellow Urine Clarity Sl. Cloudy Urine pH 5.0 Ur Specific [place] 1.020 Urine Protein Negative Urine Glucose (UA) Normal Urine Ketones Negative Urine Occult Blood Negative Urine Nitrite Negative Urine Bilirubin Negative Urine Urobilinogen Normal Ur Leukocyte Esterase 100 H Urine RBC 0 SEEN Urine WBC 0-5 SEEN Ur Squamous Epith Cells 0-5 SEEN Urine Bacteria 1+ Urine Mucus RARE - EKG Initial EKG Interpretation: - - Sinus rhythm at [address] segments, normal T waves, normal MD and QTc intervals, normal QRS duration. No gross changes from September 2017. No acute ischemia or arrhythmia. - Medical Decision Making Patient presented secondary to a near syncopal episode. Patient reported that she had been dealing with these basically every morning, today was just slightly worse and was not associated with any concerning symptoms such as chest pain or palpitations. Work-up was obtained. EKG was found to be unchanged. Chest x-ray by my personal interpretation demonstrates chronic changes with elevation of the patient's left hemidiaphragm, no evidence of discrete infiltrates. CBC, chemistry, troponin unremarkable. Urinalysis does not show signs of infection, shows trace bacteria but no evidence of white blood cells. Coronavirus antigen testing was found to be negative. Patient was given gentle fluids in the ED, as well as couple of breathing treatments and states that she feels well. Given the fact that this is a chronic issue, she really was not syncopal completely, and likely this was more associated with some orthostasis at home feel that the patient requires admission. Patient was given reassurance, she was discharged in stable condition. ED Disposition - Plan for ED Patient: Disposition: Home or Assisted Living Diagnosis: Near syncope Instructions: ED Hypotension Orthostatic Referrals: Sally Fan DO [Primary Care Provider] - 3-5 Days
[2020-01-11 10:13] VITALS: PULSE 87; RESP 17
[2020-01-11 10:42] VITALS: BP 137/67; PULSE 76; RESP 18; O2SAT 100
[2020-01-11 11:05] LABS: Red Blood Cells-Urine 0 SEEN /hpf (0-5)
[2020-01-11 11:06] LABS: Color, Urine Yellow (Yellow); Glucose, Dipstick Normal (Normal); Ketone-Dipstick Negative (Negative); Leukocyte Esterase-Dipstick 100 /ul (Negative); Nitrite-Dipstick Negative (Negative); Occult Blood-Urine Negative /ul (Negative); Protein-Dipstick Negative (Negative); Urine Bilirubin Dipstick Negative (Negative); Urine Clarity Sl. Cloudy (Clear); Urine Urobilinogen Normal (Normal)
[2020-01-11 11:21] LABS: Bacteria 1+ /hpf (None Seen); Mucous, Urine RARE /hpf (<or=2+); Squamous Epithelial Cells - UA 0-5 SEEN /hpf (5-10); White Blood Cells 0-5 SEEN /hpf (0-5)
[2020-01-11 12:39] VITALS: BP 154/71; PULSE 71; RESP 16; O2SAT 98
== END 2020-01-11 12:46 | disposition home or self-care (01) ==
PROVIDERS: Emergency Provider Emergency Medicine; PCP Internal Medicine
DX: R55 Syncope and collapse (principal); J44.9 Chronic obstructive pulmonary disease, unspecified; I10 Essential (primary) hypertension; E78.5 Hyperlipidemia, unspecified; R10.9 Unspecified abdominal pain; Z99.81 Dependence on supplemental oxygen; Z79.899 Other long term (current) drug therapy; Z87.891 Personal history of nicotine dependence
CPT/HCPCS: 71045; 80048; 81001; 84484; 85025; 87426; 93005; 94640; 96360; 99285

== ENCOUNTER 2020-07-04 22:19 | Emergency (ER) | payer MEDICARE, MEDICAID, SELFPAY ==
[2020-07-04 22:24] VITALS: BP 158/67; PULSE 81; RESP 20; TEMP 36.8; O2SAT 95; BMI 26.2
[2020-07-04 22:27] VITALS: BP 158/67; PULSE 81; RESP 20; TEMP 36.8; O2SAT 95
[2020-07-04 22:28] VITALS: O2SAT 95
--- NOTE | 2020-07-04 22:38 | RAD_ITS ---
HISTORY: SOB EXAMINATION/TECHNIQUE: XR Chest 1 View: Portable upright AP chest x-ray COMPARISON: None FINDINGS: LINES/DEVICES: None. LUNGS: Hazy airspace opacities right lower lung field, minimally at the left lung base with persistent blunting of the left costophrenic angle. No pneumothorax. MEDIASTINUM AND CARDIOVASCULAR STRUCTURES: Cardiac silhouette not enlarged. Central airways and mediastinal contour are unremarkable. BONES AND SOFT TISSUES: No acute bony abnormalities. RAD/Chest 1 View (Portable) IMPRESSION: Hazy bibasilar airspace disease suspicious for pneumonia. Left pleural thickening versus small left pleural effusion. at 0008 Reported and signed by: Darrel Guevara MD Electronically Signed: Darrel Guevara MD at 0:07 EDT Tel , Service support ,
--- NOTE | 2020-07-04 22:39 | EKG12_ITS ---
Test Reason : SOB Blood Pressure : / mmHG Vent. Rate : 073 BPM Atrial Rate : 073 BPM P-R Int : 150 ms QRS Dur : 086 ms QT Int : 392 ms P-R-T Axes : 072 050 041 degrees QTc Int : 431 ms Normal sinus rhythm Normal ECG Confirmed by TRACY KIM, CANDY ([id number]), technical editor MAHSA LOPEZ ([id number]) on 07/09/2020 10:07:35 A M Referred By: JUNIOR Confirmed By:SHALOM MOLINA MD
[2020-07-04] MEDS: Ipratropium/Albuterol Sulfate 3 ML AMPUL.NEB INHALATION (22:52)
[2020-07-04 22:53] VITALS: PULSE 79; RESP 16
--- NOTE | 2020-07-04 22:55 | US_ITS ---
HISTORY: SOB EXAMINATION: US Venous Duplex LE Bilat Complete: TECHNIQUE: Butt scale, pulse wave, and color flow Doppler imaging was performed of the lower extremity venous system. The bilateral greater saphenous, common femoral, femoral, popliteal, peroneal and posterior tibial veins were interrogated. COMPARISON: None FINDINGS: # of images incl. paperwork: 29 There is normal compression, augmentation, and color flow signal throughout the visualized deep lower extremity veins. US/Venous Duplex Imag/Giuseppe Extrem IMPRESSION: No sonographic evidence of deep venous thrombosis. at 2340 Reported and signed by: Darrel Guevara MD Electronically Signed: Darrel Guevara MD at 23:39 EDT Tel , Service support ,
[2020-07-04 23:27] VITALS: BP 141/66; PULSE 85; RESP 21; TEMP 36.8; O2SAT 95
[2020-07-04] MEDS: MethylPREDNISolone 125 MG/2 ML Vial IV (23:43)
[2020-07-05] VITALS: BP 148/71; PULSE 82; RESP 19; TEMP 36.7; O2SAT 96
[2020-07-05 00:06] LABS: Absolute Neutrophil Count 7.3 X10^3/uL (2.0-7.7); Basophil# 0.03 X10^3/uL; Basophil% 0.3 % (0-1); Eosinophil# 0.38 X10^3/uL; Eosinophils% 3.5 % (0-5); Hematocrit 37.3 % (37-47); Hemoglobin 10.9 g/dL (12.0-15.0); Lymphocyte % 20.4 % (19-41); Mean Corp Hgb Conc 29.2 g/dL (32-36); Mean Platelet Vol. 11.6 fl (6.2-12.0); Monocyte# 0.81 X10^3/uL; Monocyte% 7.5 % (0-10); NRBC Flagged by Analyzer 0 % (0-5); Neutrophil # 7.34 X10^3/uL (2.7-7.7); Platelet Count 228 K/mm3 (150-450); RBC Distribution Width CV 14.6 % (11.6-14.6); RBC Distribution Width SD 46.8 fl (35.1-43.9); Red Blood Count 4.19 M/mm3 (4.2-5.4); White Blood Count 10.8 K/mm3 (4.4-11.0)
[2020-07-05 00:11] LABS: Lactic Acid 0.9 mmol/L (0.4-1.9)
[2020-07-05 00:18] LABS: Anion Gap 1 (5-15); BUN 26 mg/dL (7-18); BUN/Creat Ratio 19.7 RATIO (10-20); Calcium,Total 9.7 mg/dL (8.5-10.1); Chloride 104 mmol/L (98-107); Creatinine, Serum 1.32 mg/dL (0.55-1.02); EST Glomerular Filtration Rate 42 mL/min (>60); Est Glom Filt Rate - Afr Amer 51 mL/min (>60); Estimated Creatinine Clearance 29.93 ml/min; Glucose 113 mg/dL (74-106); Potassium 4.5 mmol/L (3.5-5.1); Sodium Level 140 mmol/L (136-145)
[2020-07-05 00:19] VITALS: PULSE 86
[2020-07-05 00:35] LABS: BNP,B-Type NATRIURETIC PEPTIDE 45.8 pg/mL (0-100)
[2020-07-05] MEDS: Doxycycline 100 MG CAPSULE PO (01:04)
[2020-07-05 01:09] VITALS: RESP 19; O2SAT 97
--- NOTE | 2020-07-05 01:10 | EX.ED.DYSGE1 ---
HPI History of Present Illness Chief Complaint: Shortness of Breath Narrative Narrative: Patient reports that she has chronic shortness of breath that has worsened over the past 2 days. It is severe at worst and moderate currently. It is worsened by exertion or laying flat. She states that she is on 3 L of home O2 and has not had to increase this. She is using her albuterol with minimal relief. Patient denies any fever, chills, cough, or chest pain. Patient is concerned because she had cramping in her feet bilaterally a week and a half ago. This resolved, but she now has left ankle swelling and pain. States that she is worried that this may be due to a DVT. She does have a history of DVT. She has not been on Coumadin for approximately 2 years. [facility] Medical History Asthma COPD (chronic obstructive pulmonary disease) Former smoker On home oxygen therapy Home Medications Cetirizine Hcl [Zyrtec] 10 mg PO DAILY 09/21/15 [History Last Taken Unknown] albuterol sulfate 2.5 mg INHALATION Q2H PRN PRN 09/21/15 [History Last Taken Unknown] fluticasone furoate-vilanterol [Breo Ellipta Inhaler] 1 ea IH DAILY 09/21/15 [History Last Taken Unknown] mirtazapine 30 mg PO QHS 09/21/15 [History Last Taken Unknown] montelukast 10 mg PO DAILY 09/21/15 [History Last Taken Unknown] oxybutynin chloride 15 mg PO BID 09/21/15 [History Last Taken Unknown] roflumilast [Daliresp] 500 mcg PO DAILY 09/21/15 [History Last Taken Unknown] umeclidinium [Incruse Ellipta] 62.5 mcg IH DAILY 09/21/15 [History Last Taken Unknown] metoprolol succinate 50 mg PO DAILY 06/14/16 [History Last Taken Unknown] rosuvastatin 10 mg PO DAILY 09/19/17 [History Last Taken Unknown] lorazepam 1 tab PO TID PRN 02/25/18 [History Last Taken Unknown] Cholecalciferol (Vitamin D3) [Vitamin D3] 5,000 unit PO DAILY 01/11/20 [History Last Taken Unknown] multivitamin with minerals 1 ea PO DAILY 01/11/20 [History Last Taken Unknown] doxycycline monohydrate 100 mg PO BID #14 cap 07/05/20 [Rx Last Taken Unknown] prednisone 40 mg PO DAILY #10 tab 07/05/20 [Rx Last Taken Unknown] Allergy/AdvReac Type Severity Reaction Status Date / Time No Known Allergies Allergy Verified 07/04/20 22:28 Social History Smoking Status: Former smoker ROS ROS ED Constitutional Constitutional ED: Denies chills, fever(s) or sweats Eyes Eyes: Denies change in vision ENT ENT ED: Denies sore throat Cardiovascular Cardiovascular: Denies chest pain Respiratory/Chest Respiratory/Chest: Reports dyspnea; Denies cough or dyspnea on exertion Gastrointestinal Gastrointestinal: Denies abdominal pain, diarrhea, melena, nausea or vomiting Genitourinary Genitourinary ED: Denies dysuria or urinary frequency Musculoskeletal Musculoskeletal: Denies myalgias Integumentary Reports rash Neurologic Neurologic: Denies headache(s), paresthesias or weakness EXAM Physical Exam Const Vital Signs: 07/04/20 22:24 07/04/20 22:27 07/04/20 22:28 Temperature 98.3 F 98.3 F Temperature Source Oral Oral Pulse Rate 81 81 Respiratory Rate 20 H 20 H Respiratory Effort Normal Non-Labored Respiratory Depth Normal Respiratory Pattern Normal Blood Pressure 158/67 H 158/67 H Blood Pressure Mean 97 97 Pulse Ox 95 95 Oxygen Delivery Method Nasal Cannula Nasal Cannula Nasal Cannula Oxygen Flow Rate (L/min) 6 6 3 07/04/20 22:53 07/04/20 23:27 07/05/20 00:00 Temperature 98.3 F 98.1 F Temperature Source Temporal Oral Pulse Rate 79 85 82 Respiratory Rate 16 21 H 19 H Respiratory Effort Respiratory Depth Respiratory Pattern Blood Pressure 141/66 H 148/71 H Blood Pressure Mean 91 96 Pulse Ox 95 96 Oxygen Delivery Method Nasal Cannula Nasal Cannula Oxygen Flow Rate (L/min) 3 3 07/05/20 00:19 07/05/20 01:09 Temperature Temperature Source Pulse Rate 86 Respiratory Rate 19 H Respiratory Effort Respiratory Depth Respiratory Pattern Blood Pressure Blood Pressure Mean Pulse Ox 97 Oxygen Delivery Method Oxygen Flow Rate (L/min) Positive well nourished and well developed General Appearance ED: well developed HEENT Reports normocephalic and head/scalp atraumatic Eyes PERRL Neck no lymphadenopathy, supple and no JVD General: Negative for tenderness Resp normal respiratory effort and clear to auscultation bilaterally Resp Narrative: Very poor air movement. Cardio regular rate, regular rhythm and no murmurs GI normal to inspection, nondistended, normoactive bowel sounds and non-tender GI Narrative: No guarding, rebound, or peritoneal signs. Palpation: soft Back/Spine Back/Spine Narrative: Nontender. Extremity Extremity Narrative: Slight erythema to the medial side of her left distal leg. There is mild warmth here. 2+ dorsalis pedis pulse bilaterally. General Extremety ED: Negative for edema or tenderness General Extremity: Negative for edema Neuro oriented x3, CN's II-XII intact bilaterally and no sensory deficits noted Sensorium / Orientation: alert Motor Exam: strength 5/5 throughout Psych mental status grossly normal Skin no rashes or lesions noted MDM MDM Lab Data Labs: Laboratory Results - last 24 hr 07/04/20 07/04/20 07/04/20 23:35 23:35 23:35 WBC Cancelled Corrected WBC Cancelled RBC Cancelled Hgb Cancelled Hct Cancelled MCV Cancelled MCH Cancelled MCHC Cancelled RDW Std Deviation Cancelled RDW Coeff of Mary Cancelled Plt Count Cancelled MPV Cancelled Immature Gran % (Auto) Cancelled Neut % (Auto) Cancelled Lymph % (Auto) Cancelled [place] % (Auto) Cancelled Eos % (Auto) Cancelled Baso % (Auto) Cancelled Absolute Neuts (auto) Cancelled Absolute Lymphs (auto) Cancelled Total Counted Cancelled Neutrophils % (Manual) Cancelled Band Neutrophils % Cancelled Lymphocytes % (Manual) Cancelled Monocytes % (Manual) Cancelled Eosinophils % (Manual) Cancelled Basophils % (Manual) Cancelled Metamyelocytes % Cancelled Myelocytes % Cancelled Promyelocytes % Cancelled Blast Cells % Cancelled Plasma Cell % (Manual) Cancelled Other Cells % Cancelled Nucleated RBC % Cancelled Nucleated RBCs/100 WBC Cancelled Differential Comment Cancelled Diff Path Review Cancelled Hypersegmented Neuts Cancelled Atypical Lymphocytes Cancelled Reactive Lymphocytes Cancelled Smudge Cells Cancelled Toxic Granulation Cancelled Toxic Vacuolation Cancelled Dohle Bodies Cancelled Velia Rods Cancelled Platelet Estimate Cancelled Plt Morphology Comment Cancelled RBC Morphology Cancelled Polychromasia Cancelled Hypochromasia Cancelled Poikilocytosis Cancelled Basophilic Stippling Cancelled Anisocytosis Cancelled Microcytosis Cancelled Macrocytosis Cancelled Spherocytes Cancelled Sickle Cells Cancelled Target Cells Cancelled Tear Drop Cells Cancelled Ovalocytes Cancelled Stomatocytes Cancelled [place] Bodies Cancelled Jesus Cells Cancelled Bite Cells Cancelled Crenated Cell Cancelled Acanthocytes (Spur) Cancelled Rouleaux Cancelled Schistocytes Cancelled Sodium 140 Potassium 4.5 Chloride 104 Carbon Dioxide 35.0 H Anion Gap 1 L BUN 26 H Creatinine 1.32 H Estim Creat Clear Calc 29.93 Est GFR (MDRD) Af Amer 51 L Est GFR (MDRD) Non-Af 42 L BUN/Creatinine Ratio 19.7 Glucose 113 H Lactic Acid 0.9 Calcium 9.7 Troponin I < 0.015 B-Natriuretic Peptide 07/04/20 07/04/20 23:58 23:58 WBC 10.8 Corrected WBC RBC 4.19 L Hgb 10.9 L Hct 37.3 MCV 89.0 MCH 26.0 L MCHC 29.2 L RDW Std Deviation 46.8 H RDW Coeff of Mary 14.6 Plt Count 228 MPV 11.6 Immature Gran % (Auto) 0.300 Neut % (Auto) 68.0 Lymph % (Auto) 20.4 [place] % (Auto) 7.5 Eos % (Auto) 3.5 Baso % (Auto) 0.3 Absolute Neuts (auto) 7.3 Absolute Lymphs (auto) 2.20 Total Counted Neutrophils % (Manual) Band Neutrophils % Lymphocytes % (Manual) Monocytes % (Manual) Eosinophils % (Manual) Basophils % (Manual) Metamyelocytes % Myelocytes % Promyelocytes % Blast Cells % Plasma Cell % (Manual) Other Cells % Nucleated RBC % 0 Nucleated RBCs/100 WBC Differential Comment Diff Path Review Hypersegmented Neuts Atypical Lymphocytes Reactive Lymphocytes Smudge Cells Toxic Granulation Toxic Vacuolation Dohle Bodies Velia Rods Platelet Estimate Plt Morphology Comment RBC Morphology Polychromasia Hypochromasia Poikilocytosis Basophilic Stippling Anisocytosis Microcytosis Macrocytosis Spherocytes Sickle Cells Target Cells Tear Drop Cells Ovalocytes Stomatocytes [place] Bodies [place] Cells Bite Cells Crenated Cell Acanthocytes (Spur) Rouleaux Schistocytes Sodium Potassium Chloride Carbon Dioxide Anion Gap BUN Creatinine Estim Creat Clear Calc Est GFR (MDRD) Af Amer Est GFR (MDRD) Non-Af BUN/Creatinine Ratio Glucose Lactic Acid Calcium Troponin I B-Natriuretic Peptide 45.8 Radiography Chest X-Ray - ED: 1 View, Read by ED Physician and Read by Radiologist Diagnostic Testing: Radiology Impression Chest X-Ray 07/04/20 22:38 IMPRESSION: Hazy bibasilar airspace disease suspicious for pneumonia. Left pleural thickening versus small left pleural effusion. at 0008 Reported and signed by: Darrel Guevara MD Electronically Signed: Darrel Guevara MD at 0:07 EDT Tel , Service support , Venous Duplex 07/04/20 22:55 IMPRESSION: No sonographic evidence of deep venous thrombosis. at 2340 Reported and signed by: Darrel Guevara MD Electronically Signed: Darrel Guevara MD at 23:39 EDT Tel , Service support , In my opinion her chest x-ray shows chronic changes and is underpenetrated compared to prior. I do not appreciate an acute infiltrate. EKG Initial EKG: Attestation: I personally reviewed and interpreted this EKG as follows: Interpretation: Sinus Rhythm and Non-Specific ST Changes Comments: Normal sinus rhythm at 73. Nonspecific ST changes. Unchanged from 2018. Prior: Unchanged Treatment and Re-Evaluation Comments:: Emergency department course: Patient had an IV placed. She was given a dose of Solu-Medrol IV. She was given albuterol/Atrovent aerosol. Following this her air movement is much improved and her dyspnea has improved greatly. Treatment plan: The radiologist read her chest x-ray as possible pneumonia. Patient denies a cough. She has a normal white count. She has a normal lactic acid. I discussed with her these findings and she does not feel as though she has a cough. In my opinion her chest x-ray is underpenetrated compared to her past. I do not appreciate an acute infiltrate. Patient feels well and would like to go home. She will be discharged with doxycycline which will cover her for her COPD as well as this mild erythema to her left leg. She will be placed on a 5-day burst of prednisone. Instructed follow-up with Dr. Fan in 2 days for repeat exam. Return to the emergency department for any worsening symptoms. Disposition: To home in improved and stable condition. Discharge Plan Triage Chief Complaint: Shortness of Breath ED Provider: Jesus Healy Dx/Rx/DC Orders Clinical Impression: Acute exacerbation of chronic obstructive pulmonary disease, Acute renal insufficiency Instructions: ED COPD Flare Prescriptions: New prednisone 20 MG tablet 40 mg PO DAILY Qty: 10 RF: 0 doxycycline monohydrate 100 MG capsule 100 mg PO BID Qty: 14 RF: 0 No Action albuterol sulfate 2.5 MG/3 ML solution for nebulization 2.5 mg inhalation Q2H PRN PRN (Reason: Sob &/Or Wheezing) RF: 0 mirtazapine 30 MG tablet 30 mg PO QHS RF: 0 montelukast 10 MG tablet 10 mg PO DAILY RF: 0 oxybutynin chloride 5 MG tablet 15 mg PO BID RF: 0 Daliresp 500 MCG tablet 500 mcg PO DAILY RF: 0 Breo Ellipta 1 EACH blister with device 1 ea IH DAILY RF: 0 Incruse Ellipta 62.5 MCG blister with device 62.5 mcg IH DAILY RF: 0 Cetirizine Hcl [Zyrtec] 10 MG tablet 10 mg PO DAILY RF: 0 metoprolol succinate 50 MG tablet 50 mg PO DAILY RF: 0 rosuvastatin 10 MG tablet 10 mg PO DAILY RF: 0 lorazepam 0.5 MG tablet 1 tab PO TID PRN (Reason: Anxiety) RF: 0 multivitamin with minerals 1 EACH tablet 1 ea PO DAILY RF: 0 Cholecalciferol (Vitamin D3) [Vitamin D3] 5,000 UNIT capsule 5,000 unit PO DAILY RF: 0 Primary Care Provider: Sally Fan Referrals: Sally Fan DO [Primary Care Provider] - 2 Days
== END 2020-07-05 01:25 | disposition home or self-care (01) ==
LOC: ED 22:59
PROVIDERS: Emergency Provider Emergency Medicine; PCP Internal Medicine
DX: J44.1 Chronic obstructive pulmonary disease with (acute) exacerbation (principal); N28.9 Disorder of kidney and ureter, unspecified; M79.89 Other specified soft tissue disorders; Z99.81 Dependence on supplemental oxygen; Z79.52 Long term (current) use of systemic steroids; Z79.51 Long term (current) use of inhaled steroids; Z87.891 Personal history of nicotine dependence; Z86.718 Personal history of other venous thrombosis and embolism
CPT/HCPCS: 36415; 71045; 80048; 83605; 83880; 84484; 85025; 87040; 93005; 93970; 94640; 96374; 99285; A4216

== ENCOUNTER 2021-01-28 12:54 | Emergency (ER) | payer MEDICARE, MEDICAID, SELFPAY ==
[2021-01-28 12:56] VITALS: BP 137/64; PULSE 77; RESP 18; TEMP 38.8; O2SAT 100; BMI 24.1
[2021-01-28 13:50] LABS: Absolute Lymphocyte Count 0.42 X10^3/uL (0.83-4.51); Absolute Neutrophil Count 2.7 X10^3/uL (2.0-7.7); Eosinophil# 0.01 X10^3/uL; Eosinophils% 0.3 % (0-5); Hematocrit 39.5 % (37-47); Hemoglobin 11.6 g/dL (12.0-15.0); Lymphocyte # 0.42 X10^3/ul (0.83-4.51); Lymphocyte % 11.7 % (19-41); Mean Corp Hgb Conc 29.4 g/dL (32-36); Mean Corpuscular Hgb 25.8 pg (27.0-32.0); Mean Platelet Vol. 11.3 fl (6.2-12.0); Monocyte# 0.48 X10^3/uL; Monocyte% 13.3 % (0-10); NRBC Flagged by Analyzer 0 % (0-5); Neutrophil # 2.68 X10^3/uL (2.7-7.7); Neutrophil % 74.4 % (47-70); POSITIVE DIFFERENTIAL YES; Platelet Count 167 K/mm3 (150-450); RBC Distribution Width CV 14.6 % (11.6-14.6); RBC Distribution Width SD 46.8 fl (35.1-43.9); Red Blood Count 4.49 M/mm3 (4.2-5.4); White Blood Count 3.6 K/mm3 (4.4-11.0)
[2021-01-28 13:52] LABS: Differential Indicated SCAN CRITERIA MET
[2021-01-28 14:03] LABS: Anion Gap 4 (5-15); BUN 21 mg/dL (7-18); BUN/Creat Ratio 26.5 RATIO (10-20); Calcium,Total 9.8 mg/dL (8.5-10.1); Chloride 100 mmol/L (98-107); Creatinine, Serum 0.79 mg/dL (0.55-1.02); EST Glomerular Filtration Rate 76 mL/min (>60); Est Glom Filt Rate - Afr Amer 92 mL/min (>60); Estimated Creatinine Clearance 38.94 ml/min; Glucose 93 mg/dL (74-106); Potassium 4.5 mmol/L (3.5-5.1); Sodium Level 138 mmol/L (136-145)
--- NOTE | 2021-01-28 14:14 | RAD_ITS ---
STUDY: X-RAY CHEST REASON FOR EXAM: Female, 70 years old. SOB and fever, cough X 3 days TECHNIQUE: Single AP portable view of the chest. COMPARISON: 07/04/2020. FINDINGS: The lungs are normally expanded with the subtle linear densities within the right lower lobe likely representing confluence of markings and stable in the interval. Cannot exclude mild superimposed right lower lobe atelectasis. There is minimal left lower lobe atelectasis, stable. There is suggestion of bullous changes within the mid upper lung field with mild suprahilar scarring. There is no demonstrated pleural abnormality. Normal size heart. Normal mediastinum and mateus. Normal visualized pulmonary arteries. There is atherosclerotic calcification of the aortic arch with tortuosity. There are diffuse degenerative changes of the visualized thoracic spine. There is degenerative osteoarthritis of the bilateral shoulders. Diffuse osteopenia. There is no demonstrated abnormality of the visualized soft tissue structures of the upper abdomen. RAD/Chest 1 View IMPRESSION: Bilateral basilar atelectasis, stable. Emphysematous changes with mild suprahilar scarring, otherwise no acute cardiopulmonary process visualized. Electronically Signed: Clare Carpenter MD at 2:13 EST , Service support ,
--- NOTE | 2021-01-28 15:21 | ED.VIS.DYS ---
HPI History of Present Illness Chief Complaint: Shortness of Breath Informant: patient Narrative Narrative: History of COPD on chronic 3.5 L nasal cannula. States her oxygen was increased 2 weeks ago from 3 L by the oxygen team. Reports over the last 3 days mild productive clear sputum fevers headaches myalgias and chills. No vomiting or diarrhea. Denies sore throat. States urine is darker. No dysuria. Using Motrin for her fevers. She is not vaccinated for Covid. Denies any sick contacts, reports since April and only 3 people's visit her home. No one was sick. Oxycodone denies any cardiac history. No chest pains. Not a diabetic. [facility] Medical History Asthma COPD (chronic obstructive pulmonary disease) Former smoker On home oxygen therapy Home Medications Cetirizine Hcl [Zyrtec] 10 mg PO DAILY 09/21/15 [History Last Taken Unknown] albuterol sulfate 2.5 mg INHALATION Q2H PRN PRN 09/21/15 [History Last Taken Unknown] fluticasone furoate-vilanterol [Breo Ellipta Inhaler] 1 ea IH DAILY 09/21/15 [History Last Taken Unknown] mirtazapine 30 mg PO QHS 09/21/15 [History Last Taken Unknown] montelukast 10 mg PO DAILY 09/21/15 [History Last Taken Unknown] oxybutynin chloride 15 mg PO BID 09/21/15 [History Last Taken Unknown] roflumilast [Daliresp] 500 mcg PO DAILY 09/21/15 [History Last Taken Unknown] umeclidinium [Incruse Ellipta] 62.5 mcg IH DAILY 09/21/15 [History Last Taken Unknown] metoprolol succinate 50 mg PO DAILY 06/14/16 [History Last Taken Unknown] rosuvastatin 10 mg PO DAILY 09/19/17 [History Last Taken Unknown] lorazepam 1 tab PO TID PRN 02/25/18 [History Last Taken Unknown] Cholecalciferol (Vitamin D3) [Vitamin D3] 5,000 unit PO DAILY 01/11/20 [History Last Taken Unknown] multivitamin with minerals 1 ea PO DAILY 01/11/20 [History Last Taken Unknown] doxycycline monohydrate 100 mg PO BID #14 cap 07/05/20 [Rx Last Taken Unknown] prednisone 40 mg PO DAILY #10 tab 07/05/20 [Rx Last Taken Unknown] dexamethasone 6 mg PO DAILY #9 tab 01/28/21 [Rx Last Taken Unknown] Allergy/AdvReac Type Severity Reaction Status Date / Time No Known Allergies Allergy Verified 01/28/21 12:55 Social History Smoking Status: Former smoker ROS ROS ED Constitutional Constitutional ED: Reports chills and fever(s); Denies sweats Eyes Eyes: Denies change in vision ENT ENT ED: Denies dysphagia or sore throat Cardiovascular Cardiovascular: Denies chest pain, leg edema, palpitations or racing heartbeat Respiratory/Chest Respiratory/Chest: Reports cough; Denies dyspnea or dyspnea on exertion Gastrointestinal Gastrointestinal: Denies abdominal pain, diarrhea, nausea or vomiting Genitourinary Genitourinary ED: Denies dysuria, hematuria or urinary frequency Musculoskeletal Musculoskeletal: Reports myalgias; Denies back pain, extremity pain or neck pain Integumentary Denies rash or wounds Neurologic Neurologic: Reports headache(s); Denies paresthesias or weakness EXAM Physical Exam Const Vital Signs: 01/28/21 12:56 01/28/21 15:34 01/28/21 15:36 Temperature 102 F H Temperature Source Temporal Pulse Rate 77 Respiratory Rate 18 22 H 22 H Respiratory Effort Respiratory Depth Respiratory Pattern Blood Pressure 137/64 H Blood Pressure Mean 88 Pulse Ox 100 94 93 Oxygen Delivery Method Nasal Cannula Nasal Cannula Nasal Cannula Oxygen Flow Rate (L/min) 3 3 3 01/28/21 15:42 01/28/21 16:06 01/28/21 16:29 Temperature 99.6 F H Temperature Source Pulse Rate 75 83 Respiratory Rate 20 H 20 H Respiratory Effort Short of Breath Respiratory Depth Normal Respiratory Pattern Normal Blood Pressure Blood Pressure Mean Pulse Ox 96 96 Oxygen Delivery Method Nasal Cannula Nasal Cannula Oxygen Flow Rate (L/min) 3 3 Positive well nourished and well developed Constitutional Narrative: Stable on 3.5 L oxygen with no respiratory distress pulse ox to be 92 to 93%. General Appearance ED: well developed and NAD HEENT HEENT Narrative: Mild dry mucosal membranes. normocephalic and atraumatic Eyes PERRL, EOMs intact bilaterally and conjunctivae normal General Eye ED: Yes normal appearance of both eyes Neck no lymphadenopathy and supple General: Negative for tenderness Chest Wall Chest: Negative for tenderness Resp normal respiratory effort and normal air movement Effort and Inspection: symmetric chest movement; Negative for respiratory distress Cardio regular rate, regular rhythm and no murmurs Peripheral Pulses: pulses 2+ throughout GI normal to inspection, nondistended, normoactive bowel sounds and non-tender Palpation: Negative for guarding or rebound tenderness present Back/Spine no CVA tenderness and no thoracic nor lumbar tenderness Extremity normal to inspection General Extremety ED: Negative for edema or tenderness General Extremity: Negative for edema Neuro oriented x3 and no sensory deficits noted Sensorium / Orientation: awake and alert Skin no rashes or lesions noted and no wounds MDM MDM MDM Narrative Medical decision making narrative: Patient febrile nontoxic. Work-up was initiated from triage, Covid testing returned positive. She is currently on her 3.5 L of oxygen. Nurses only able to ambulate her on 3 L of oxygen with the oxygen tank, she only went down to 90%. She was started on dexamethasone. Chest x-ray 1 view reviewed by myself did not note any acute process. Labs are stable urine was negative. Patient with difficulty with mobility on oxygen, she does qualify for monoclonal antibody treatment as she is on day 3 with chronic lung disease. She is not requiring more oxygen than her baseline. Fevers improved with Tylenol. I placed a consult into the Covid clinic, I spoke with fitter and turner and nursing there, she is discharged from the emergency room up to their facility to receive the monoclonal antibody treatment. Patient reports she did have a ride from someone who can pick her up from the department after she is finished. Return precautions discussed. Patient is being discharged under pandemic conditions under declared global, national and state disaster activation, with limited medical resources. Patient and community understands this. Results discussed in layman's terms to the patient satisfaction. All questions answered in layman's terms. Patient understands importance of follow-up care as directed. Patient has been instructed to return to the ED immediately if new symptoms, problems, or questions occur. We mutually agree with the plan of disposition. The patient understand that they may call or return with any questions or concerns at any time. Lab Data Attestation: I reviewed the patient's lab results. Labs: Laboratory Results - last 24 hr 01/28/21 01/28/21 01/28/21 13:40 13:40 15:39 WBC 3.6 L RBC 4.49 Hgb 11.6 L Hct 39.5 MCV 88.0 MCH 25.8 L MCHC 29.4 L RDW Std Deviation 46.8 H RDW Coeff of Mary 14.6 Plt Count 167 MPV 11.3 Immature Gran % (Auto) 0.300 Neut % (Auto) 74.4 H Lymph % (Auto) 11.7 L [place] % (Auto) 13.3 H Eos % (Auto) 0.3 Baso % (Auto) 0.0 Absolute Neuts (auto) 2.7 Absolute Lymphs (auto) 0.42 L Nucleated RBC % 0 Differential Comment COMMENT Diff Path Review May foll Sodium 138 Potassium 4.5 Chloride 100 Carbon Dioxide 34.0 H Anion Gap 4 L BUN 21 H Creatinine 0.79 Estim Creat Clear Calc 38.94 Est GFR (MDRD) Af Amer 92 Est GFR (MDRD) Non-Af 76 BUN/Creatinine Ratio 26.5 H Glucose 93 Calcium 9.8 Urine Color Yellow Urine Clarity Clear Urine pH 5.0 Ur Specific [place] 1.020 Urine Protein 15 H Urine Glucose (UA) Normal Urine Ketones 50 H Urine Occult Blood 10 H Urine Nitrite Negative Urine Bilirubin Negative Urine Urobilinogen Normal Ur Leukocyte Esterase Negative Urine RBC 0-5 SEEN Urine WBC 0-5 SEEN Ur Squamous Epith Cells 0-5 SEEN Urine Bacteria 0 SEEN Urine Mucus 0 SEEN Radiography Chest X-Ray - ED: 1 View, Read by ED Physician and No Acute Disease Discharge Plan Triage Chief Complaint: Shortness of Breath Other Complaint: Fever ED Provider: Stevie Parrish Dx/Rx/DC Orders Clinical Impression: COVID-19 virus infection, COPD (chronic obstructive pulmonary disease) Instructions: Coronavirus Disease 2019 (COVID-19): Caring for Yourself or Others, Discharge Instructions: COPD Prescriptions: New dexamethasone 6 mg tablet 6 mg PO DAILY Qty: 9 RF: 0 No Action albuterol sulfate 2.5 MG/3 ML solution for nebulization 2.5 mg inhalation Q2H PRN PRN (Reason: Sob &/Or Wheezing) RF: 0 mirtazapine 30 MG tablet 30 mg PO QHS RF: 0 montelukast 10 MG tablet 10 mg PO DAILY RF: 0 oxybutynin chloride 5 MG tablet 15 mg PO BID RF: 0 Daliresp 500 MCG tablet 500 mcg PO DAILY RF: 0 Breo Ellipta 1 EACH blister with device 1 ea IH DAILY RF: 0 Incruse Ellipta 62.5 MCG blister with device 62.5 mcg IH DAILY RF: 0 Cetirizine Hcl [Zyrtec] 10 MG tablet 10 mg PO DAILY RF: 0 metoprolol succinate 50 MG tablet 50 mg PO DAILY RF: 0 rosuvastatin 10 MG tablet 10 mg PO DAILY RF: 0 lorazepam 0.5 MG tablet 1 tab PO TID PRN (Reason: Anxiety) RF: 0 multivitamin with minerals 1 EACH tablet 1 ea PO DAILY RF: 0 Cholecalciferol (Vitamin D3) [Vitamin D3] 5,000 UNIT capsule 5,000 unit PO DAILY RF: 0 prednisone 20 MG tablet 40 mg PO DAILY Qty: 10 RF: 0 doxycycline monohydrate 100 MG capsule 100 mg PO BID Qty: 14 RF: 0 Other Ambulatory Orders: COVID Outpatient Monoclonal Antibody Referral (Routine) Timeframe: 1 Day Facility: [facility] - Location: [facility] Ordered By: Dr. Stevie Parrish Primary Care Provider: Sally Fan Referrals: Sally Fan DO [Primary Care Provider] - 3-5 Days Activity Restrictions/Additional Instructions: Covid infection noted. Labs are stable. Are stable on her chronic 3.5 L of oxygen. You are started on dexamethasone, 9 additional days are sent to your pharmacy. You are being discharged up to the infusion center to get your monoclonal antibody treatment. Follow-up with your doctor. Return if any worsening symptoms. Disposition Disposition: Home, Self Care Discharge Date/Time: 01/28/21 16:32
[2021-01-28 15:34] VITALS: RESP 22; O2SAT 92; O2SAT 94
[2021-01-28 15:36] VITALS: RESP 22; O2SAT 93
[2021-01-28] MEDS: Acetaminophen 500 MG Tablet 1000 MG PO (15:37)
[2021-01-28] MEDS: dexAMETHasone 4 MG Tablet 6 MG PO (15:37)
[2021-01-28 15:42] VITALS: O2SAT 92
[2021-01-28 15:49] LABS: Bacteria 0 SEEN /hpf (None Seen); Mucous, Urine 0 SEEN /hpf (<or=2+)
[2021-01-28 16:01] LABS: Color, Urine Yellow (Yellow); Glucose, Dipstick Normal (Normal); Ketone-Dipstick 50 mg/dl (Negative); Leukocyte Esterase-Dipstick Negative /ul (Negative); Nitrite-Dipstick Negative (Negative); Occult Blood-Urine 10 /ul (Negative); Protein-Dipstick 15 mg/dl (Negative); Urine Bilirubin Dipstick Negative (Negative); Urine Clarity Clear (Clear); Urine Urobilinogen Normal (Normal)
[2021-01-28 16:06] VITALS: PULSE 75; RESP 20; O2SAT 96
[2021-01-28 16:10] LABS: Red Blood Cells-Urine 0-5 SEEN /hpf (0-5); Squamous Epithelial Cells - UA 0-5 SEEN /hpf (5-10); White Blood Cells 0-5 SEEN /hpf (0-5)
[2021-01-28 16:29] VITALS: PULSE 83; RESP 20; TEMP 37.6; O2SAT 96
[2021-01-29 14:01] LABS: Pathologist Review Reviewed
== END 2021-01-28 16:32 | disposition home or self-care (01) ==
PROVIDERS: Emergency Provider Emergency Medicine; PCP Internal Medicine
DX: U07.1 COVID-19 (principal); J44.9 Chronic obstructive pulmonary disease, unspecified; Z99.81 Dependence on supplemental oxygen; Z79.51 Long term (current) use of inhaled steroids; Z79.899 Other long term (current) drug therapy; Z87.891 Personal history of nicotine dependence
CPT/HCPCS: 71045; 80048; 81001; 85025; 87426; 94760; J7040; A4216

== ENCOUNTER 2021-01-28 16:46 | Outpatient (CLI) | payer MEDICARE, MEDICAID, SELFPAY ==
[2021-01-28 16:58] VITALS: BP 104/50; PULSE 78; RESP 18; TEMP 37.6; O2SAT 97; BMI 23.8
[2021-01-28] MEDS: 0.9% Saline Lock 10 ML Syringe IV (16:59)
[2021-01-28 17:36] VITALS: BP 122/96; PULSE 73; RESP 16; TEMP 37.4; O2SAT 98
[2021-01-28 18:11] VITALS: BP 115/55; PULSE 70; RESP 18; TEMP 37.1; O2SAT 96
== END 2021-01-28 18:36 | disposition home or self-care (01) ==
LOC: MS3OUT 16:46 → MS3 16:47
PROVIDERS: PCP Internal Medicine; Referring Provider Nurse Practitioner Acute Care; Visit Provider Nurse Practitioner Acute Care
DX: Z23 Encounter for immunization (principal); U07.1 COVID-19; J44.9 Chronic obstructive pulmonary disease, unspecified; Z99.81 Dependence on supplemental oxygen; Z79.51 Long term (current) use of inhaled steroids; Z79.899 Other long term (current) drug therapy; Z87.891 Personal history of nicotine dependence
CPT/HCPCS: 71045; 80048; 81001; 85025; 87426; 94760; 96360; 99285; J7040; J7050; M0243; A4216; Q0244

== ENCOUNTER 2021-03-14 15:47 | Outpatient (CLI) | payer MEDICAID, MEDICARE, SELFPAY ==
--- NOTE | 2021-03-14 15:51 | RAD_ITS ---
STUDY: X-RAY CHEST REASON FOR EXAM: Female, 70 years old. CHEST PAIN COPD TECHNIQUE: XR Chest 2 Views COMPARISON: 01.28.[address] of 02.28.18 FINDINGS: There are bilateral pleural effusions. There are bilateral infiltrates. Normal size heart. Normal mediastinum and mateus. Normal visualized pulmonary arteries. There is atherosclerotic calcification of the aortic arch with tortuosity. There are diffuse degenerative changes of the visualized thoracic spine. There is degenerative osteoarthritis of the bilateral shoulders. There is no demonstrated abnormality of the visualized soft tissue structures of the upper abdomen. Slight increase in the degree of the compression deformity in the lower thoracic spine since the prior CT scan. RAD/Chest PA and Lateral IMPRESSION: There are bilateral pleural effusions. There are bilateral infiltrates. Slight increase in the degree of the compression deformity in the lower thoracic spine since the prior CT scan. Electronically Signed: Gareth Crabtree MD at 19:01 EST ,
== END 2021-03-14 23:59 | disposition short-term general hospital (02) ==
PROVIDERS: PCP Internal Medicine; Referring Provider Internal Medicine Pulmonary Disease; Visit Provider Internal Medicine Pulmonary Disease
DX: J44.9 Chronic obstructive pulmonary disease, unspecified (principal)
CPT/HCPCS: 71046

== ENCOUNTER 2021-05-01 09:02 | Inpatient (IN) | payer MEDICARE, MEDICAID, SELFPAY ==
[2021-05-01] VITALS (20 sets, daily range): BP systolic 124–206; BP diastolic 63–84; PULSE 96–114; RESP 12–31; TEMP 36.5–37.2; O2SAT 87–100; BMI 24.2; BMI 22.6
--- NOTE | 2021-05-01 09:12 | RAD_ITS ---
STUDY: X-RAY CHEST REASON FOR EXAM: Female, 70 years old. Shortness of Breath TECHNIQUE: AP COMPARISON: 03/14/2021, 01/11/2020 FINDINGS: EKG leads project over the chest. There are interstitial fibrotic changes of the lungs, similar since 2019. There is pleural fibrotic scarring of the bilateral costophrenic angles. Normal size heart. Normal mediastinum and mateus. Normal visualized pulmonary arteries. There is atherosclerotic calcification of the aortic arch with tortuosity. Normal visualized thoracic spine. Normal visualized ribs, clavicles, and shoulders. There is no demonstrated abnormality of the visualized soft tissue structures of the upper abdomen. RAD/Chest 1 View (Portable) IMPRESSION: No airspace consolidation or pleural effusion. Bibasilar parenchymal and pleural fibrotic changes similar since 2019. Electronically Signed: Bjorn Kaur MD ([place]) at 9:50 EDT ,
--- NOTE | 2021-05-01 09:12 | EKG12_ITS ---
Test Reason : SOB Blood Pressure : / mmHG Vent. Rate : 100 BPM Atrial Rate : 100 BPM P-R Int : 144 ms QRS Dur : 074 ms QT Int : 348 ms P-R-T Axes : 074 045 037 degrees QTc Int : 448 ms Normal sinus rhythm Normal ECG Confirmed by TRACY KIM, CANDY ([id number]), editor producer MAHSA LOPEZ ([id number]) on 05/05/2021 9:52:44 AM Referred By: SAMMY Confirmed By:SHALOM MOLINA MD
--- NOTE | 2021-05-01 09:15 | EDS_ITS ---
HPI History of Present Illness Chief Complaint: Shortness of Breath Narrative Narrative: History and physical is limited secondary to patient condition. She presents via EMS with difficulty breathing. She has past medical history of COPD and wears 4 L of oxygen. She received a DuoNeb aerosolized treatment per EMS. She has difficulty breathing and shortness of breath. She told the respiratory therapist that she has never been intubated or wore BiPAP for her breathing difficulties. 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 She is a non-smoker. [facility] Medical History Asthma COPD (chronic obstructive pulmonary disease) Former smoker On home oxygen therapy Home Medications Cetirizine Hcl [Zyrtec] 10 mg PO DAILY 09/21/15 [History Last Taken Unknown] albuterol sulfate 2.5 mg INHALATION Q2H PRN PRN 09/21/15 [History Last Taken Unknown] fluticasone furoate-vilanterol [Breo Ellipta Inhaler] 1 ea IH DAILY 09/21/15 [History Last Taken Unknown] mirtazapine 30 mg PO QHS 09/21/15 [History Last Taken Unknown] montelukast 10 mg PO DAILY 09/21/15 [History Last Taken Unknown] oxybutynin chloride 15 mg PO BID 09/21/15 [History Last Taken Unknown] roflumilast [Daliresp] 500 mcg PO DAILY 09/21/15 [History Last Taken Unknown] umeclidinium [Incruse Ellipta] 62.5 mcg IH DAILY 09/21/15 [History Last Taken Unknown] metoprolol succinate 50 mg PO DAILY 06/14/16 [History Last Taken Unknown] rosuvastatin 10 mg PO DAILY 09/19/17 [History Last Taken Unknown] lorazepam 1 tab PO TID PRN 02/25/18 [History Last Taken Unknown] Cholecalciferol (Vitamin D3) [Vitamin D3] 5,000 unit PO DAILY 01/11/20 [History Last Taken Unknown] multivitamin with minerals 1 ea PO DAILY 01/11/20 [History Last Taken Unknown] doxycycline monohydrate 100 mg PO BID #14 cap 07/05/20 [Rx Last Taken Unknown] prednisone 40 mg PO DAILY #10 tab 07/05/20 [Rx Last Taken Unknown] dexamethasone 6 mg PO DAILY #9 tab 01/28/21 [Rx Last Taken Unknown] Allergy/AdvReac Type Severity Reaction Status Date / Time No Known Allergies Allergy Verified 05/01/21 09:08 Social History Smoking Status: Former smoker EXAM Physical Exam Narrative Exam Narrative: Afebrile. Vital signs noted. HEENT: Normocephalic. Atraumatic. PERRL, EOMI. Neck soft and supple. No point tenderness or step off. Cardiovascular: Positive tachycardia at 107. No murmurs, rubs, or gallops appreciated. Respiratory: Positive tachypnea. Diminished breath sounds diffusely. Patient moving a fair amount of air. Mild to moderate respiratory distress. Gastrointestinal: Abdomen soft, nontender, with normoactive bowel sounds. No rebound or guarding. Neurological: Awake. Alert. Nonfocal, nonlateralizing. Skin: No rash. Normal color. No pallor. Musculoskeletal: No pedal edema. Full range of motion extremities. Const Vital Signs: 05/01/21 09:03 05/01/21 09:08 05/01/21 09:14 Temperature 98.6 F Temperature Source Temporal Pulse Rate 107 H 102 H Respiratory Rate 31 H 24 H Respiratory Effort Short of Breath Labored Accessory Muscle Use Respiratory Pattern Tachypnea Blood Pressure 206/81 H 192/84 H Blood Pressure Mean 122 120 Pulse Ox 87 100 Oxygen Delivery Method Nasal Cannula Nasal Cannula Nasal Cannula Oxygen Flow Rate (L/min) 5 6 6 Fraction of Inspired Oxygen (FIO2) 05/01/21 09:20 05/01/21 09:59 05/01/21 10:30 Temperature Temperature Source Pulse Rate 102 H 101 H 97 Respiratory Rate 22 H 21 H 16 Respiratory Effort Respiratory Pattern Blood Pressure 159/74 H Blood Pressure Mean 102 Pulse Ox 93 97 93 Oxygen Delivery Method Bi-pap Oxygen Flow Rate (L/min) Fraction of Inspired Oxygen (FIO2) 40 40 35 05/01/21 10:49 Temperature Temperature Source Pulse Rate 98 Respiratory Rate 17 Respiratory Effort Respiratory Pattern Blood Pressure 129/67 H Blood Pressure Mean 87 Pulse Ox 94 Oxygen Delivery Method Bi-pap Oxygen Flow Rate (L/min) Fraction of Inspired Oxygen (FIO2) 35 MDM MDM MDM Narrative Medical decision making narrative: Upon arrival, she was given albuterol aerosolized treatments. She will also be administered Solu-Medrol. COPD work- up was pursued. I reviewed her chart. I will obtain further history upon improvement of the patient's respiratory status. After Solu-Medrol and the patient being placed on BiPAP at 01/20, she is improving. Her oxygen requirement was weaned to 35% on BiPAP. Her chest x-ray shows chronic changes but no acute infiltrate. This is upon my interpretation of her chest x-ray. Radiology confirms and states no significant change in her bilateral pleural and fibrotic changes since 2019. She has a slightly elevated white count of 12.9 which I think is nonspecific. Hemoglobin normal at 12.7. CO2 on BMP is elevated chronically, today at 35. Troponin negative at 9. BNP elevated at 108. EKG demonstrates normal sinus rhythm at 100 bpm without ectopy or acute ST changes. I do feel that this is more of a COPD exacerbation. Currently, I do not feel that antibiotics are indicated. Patient states that her symptoms began this morning and that she was doing well on her 4 L of oxygen yesterday. I will discuss patient with the hospitalist for admission for COPD exacerbation. As the patient is on BiPAP, I discussed the patient with Dr. Guidry. I then discussed the patient with Dr. Roth who states that the patient can be placed on PCU stepdown status while on BiPAP. She will be admitted to PCU stepdown in improved, and stable condition. Lab Data Labs: Laboratory Results - last 24 hr 05/01/21 05/01/21 05/01/21 09:15 09:15 09:15 WBC 12.9 H RBC 4.50 Hgb 12.7 Hct 40.8 MCV 90.7 MCH 28.2 MCHC 31.1 L RDW Std Deviation 49.1 H RDW Coeff of Mary 14.7 H Plt Count 226 MPV 11.6 Immature Gran % (Auto) 0.400 Neut % (Auto) 80.6 H Lymph % (Auto) 10.2 L [place] % (Auto) 7.5 Eos % (Auto) 1.1 Baso % (Auto) 0.2 Absolute Neuts (auto) 10.4 H Absolute Lymphs (auto) 1.32 Nucleated RBC % 0 Sodium 139 Potassium 4.4 Chloride 104 Carbon Dioxide 35.0 H Anion Gap 0 L BUN 22 H Creatinine 0.61 Estim Creat Clear Calc 38.94 Est GFR (MDRD) Af Amer 123 Est GFR (MDRD) Non-Af 102 BUN/Creatinine Ratio 35.9 H Glucose 135 H Calcium 10.0 Troponin I High Sens 9 B-Natriuretic Peptide 108.0 H Radiography Diagnostic Testing: Clinical Impression(s) from Imaging Studies Chest X-Ray 05/01/21 09:12 IMPRESSION: No airspace consolidation or pleural effusion. Bibasilar parenchymal and pleural fibrotic changes similar since 2019. Electronically Signed: Bjorn Kaur MD ([place]) at 9:50 EDT , Discharge Plan Triage Chief Complaint: Shortness of Breath ED Provider: Gaston Irizarry Dx/Rx/DC Orders Prescriptions: No Action albuterol sulfate 2.5 MG/3 ML solution for nebulization 2.5 mg inhalation Q2H PRN PRN (Reason: Sob &/Or Wheezing) RF: 0 mirtazapine 30 MG tablet 30 mg PO QHS RF: 0 montelukast 10 MG tablet 10 mg PO DAILY RF: 0 oxybutynin chloride 5 MG tablet 15 mg PO BID RF: 0 Daliresp 500 MCG tablet 500 mcg PO DAILY RF: 0 Breo Ellipta 1 EACH blister with device 1 ea IH DAILY RF: 0 Incruse Ellipta 62.5 MCG blister with device 62.5 mcg IH DAILY RF: 0 Cetirizine Hcl [Zyrtec] 10 MG tablet 10 mg PO DAILY RF: 0 metoprolol succinate 50 MG tablet 50 mg PO DAILY RF: 0 rosuvastatin 10 MG tablet 10 mg PO DAILY RF: 0 lorazepam 0.5 MG tablet 1 tab PO TID PRN (Reason: Anxiety) RF: 0 multivitamin with minerals 1 EACH tablet 1 ea PO DAILY RF: 0 Cholecalciferol (Vitamin D3) [Vitamin D3] 5,000 UNIT capsule 5,000 unit PO DAILY RF: 0 prednisone 20 MG tablet 40 mg PO DAILY Qty: 10 RF: 0 doxycycline monohydrate 100 MG capsule 100 mg PO BID Qty: 14 RF: 0 dexamethasone 6 mg tablet 6 mg PO DAILY Qty: 9 RF: 0 Primary Care Provider: Sally Fan
--- NOTE | 2021-05-01 09:20 | CPS ---
Patient on 6lpm nasal cannula, tripoding in bed, unable to tolerate albuterol aerosol. Verbal order from Dr obtained for BiPAP, if needed. Patient stated she has not had to have BiPAP at the hospital before. Patient was reluctant to try. Patient encouraged, BiPAP pressures slowly increased as tolerated. Dr burris.
[2021-05-01] MEDS: MethylPREDNISolone 125 MG/2 ML Vial IV (09:21)
[2021-05-01] MEDS: Albuterol 2.5 MG/3 ML VIAL.NEB. INHALATION ×3 (09:28→10:29)
[2021-05-01 09:31] LABS: Absolute Lymphocyte Count 1.32 X10^3/uL (0.83-4.51); Absolute Neutrophil Count 10.4 X10^3/uL (2.0-7.7); Basophil# 0.03 X10^3/uL; Basophil% 0.2 % (0-1); Eosinophil# 0.14 X10^3/uL; Eosinophils% 1.1 % (0-5); Hematocrit 40.8 % (37-47); Hemoglobin 12.7 g/dL (12.0-15.0); Lymphocyte # 1.32 X10^3/ul (0.83-4.51); Lymphocyte % 10.2 % (19-41); Mean Corp Hgb Conc 31.1 g/dL (32-36); Mean Corpuscular Hgb 28.2 pg (27.0-32.0); Mean Corpuscular Volume 90.7 fL (81-99); Mean Platelet Vol. 11.6 fl (6.2-12.0); Monocyte# 0.97 X10^3/uL; Monocyte% 7.5 % (0-10); NRBC Flagged by Analyzer 0 % (0-5); Neutrophil # 10.38 X10^3/uL (2.7-7.7); Neutrophil % 80.6 % (47-70); Platelet Count 226 K/mm3 (150-450); RBC Distribution Width CV 14.7 % (11.6-14.6); RBC Distribution Width SD 49.1 fl (35.1-43.9); White Blood Count 12.9 K/mm3 (4.4-11.0)
[2021-05-01 09:54] LABS: Anion Gap 0 (5-15); BUN 22 mg/dL (7-18); BUN/Creat Ratio 35.9 RATIO (10-20); Chloride 104 mmol/L (98-107); Creatinine, Serum 0.61 mg/dL (0.55-1.02); EST Glomerular Filtration Rate 102 mL/min (>60); Est Glom Filt Rate - Afr Amer 123 mL/min (>60); Estimated Creatinine Clearance 38.94 ml/min; Glucose 135 mg/dL (74-106); Potassium 4.4 mmol/L (3.5-5.1); Sodium Level 139 mmol/L (136-145); Troponin-I HS 9 pg/mL (3.0-54.0)
--- NOTE | 2021-05-01 10:32 | CPS ---
Addendum entered by Katerine Caraballo 05/01/21 10:35: Patient resting, sitting up in bed, with eyes closed, says she is still not able to lay back. Tolerating BiPAP well. Original Note: Decreased FiO2 to 35%.
--- NOTE | 2021-05-01 11:44 | PCM.HP.STD ---
HPI - General General Date of Admission: 05/01/21 HPI Narrative DALTON KRUGER, is a 70 F who presents to the hospital with worsening shortness of breath. She states that she is normally on 4 L nasal cannula because of her COPD but over the last 24 hours or so she has been feeling more more short of breath. She has little bit of a nonproductive cough and no fevers but she has noted some chills. She does not have any sick contacts at home. In the ER she was found to be tachypneic and tachycardic and had to be placed on 6 L nasal cannula admission when she presented in her respiratory status deteriorated to the point where she needed to be placed on BiPAP. She has been given a dose of steroids as well as breathing treatment in the ER. [facility] Medical History (Updated 05/01/21 @ 11:[address] Antolin Guidry MD) Asthma COPD (chronic obstructive pulmonary disease) Former smoker On home oxygen therapy Home Medications Cetirizine Hcl [Zyrtec] 10 mg PO DAILY 09/21/15 [History Last Taken Unknown] albuterol sulfate 2.5 mg INHALATION Q2H PRN PRN 09/21/15 [History Last Taken Unknown] fluticasone furoate-vilanterol [Breo Ellipta Inhaler] 1 ea IH DAILY 09/21/15 [History Last Taken Unknown] mirtazapine 30 mg PO QHS 09/21/15 [History Last Taken Unknown] montelukast 10 mg PO DAILY 09/21/15 [History Last Taken Unknown] oxybutynin chloride 15 mg PO BID 09/21/15 [History Last Taken Unknown] roflumilast [Daliresp] 500 mcg PO DAILY 09/21/15 [History Last Taken Unknown] umeclidinium [Incruse Ellipta] 62.5 mcg IH DAILY 09/21/15 [History Last Taken Unknown] metoprolol succinate 50 mg PO DAILY 06/14/16 [History Last Taken Unknown] rosuvastatin 10 mg PO DAILY 09/19/17 [History Last Taken Unknown] lorazepam 1 tab PO TID PRN 02/25/18 [History Last Taken Unknown] Cholecalciferol (Vitamin D3) [Vitamin D3] 5,000 unit PO DAILY 01/11/20 [History Last Taken Unknown] multivitamin with minerals 1 ea PO DAILY 01/11/20 [History Last Taken Unknown] doxycycline monohydrate 100 mg PO BID #14 cap 07/05/20 [Rx Last Taken Unknown] prednisone 40 mg PO DAILY #10 tab 07/05/20 [Rx Last Taken Unknown] dexamethasone 6 mg PO DAILY #9 tab 01/28/21 [Rx Last Taken Unknown] Allergy/AdvReac Type Severity Reaction Status Date / Time No Known Allergies Allergy Verified 05/01/21 09:08 Family History (Updated 05/01/21 @ 11:[address] Antolin Guidry MD) Other Heart disease Surgical History (Updated 05/01/21 @ 11:[address] Antolin Guidry MD) Status post insertion of percutaneous endoscopic gastrostomy (PEG) tube Social History Smoking Status: Former smoker ROS Constitutional Constitutional: Reports chills; Denies fatigue, fever(s) or malaise Eyes Eyes: Denies blurry vision ENT HEENT: Denies headache(s) or nasal discharge Cardiovascular Cardiovascular: Denies chest pain, dyspnea on exertion or syncope Respiratory/Chest Respiratory/Chest: Reports cough and shortness of breath at rest; Denies shortness of breath with exertion Gastrointestinal Gastrointestinal: Denies constipation, diarrhea, nausea or vomiting Genitourinary Genitourinary: Denies dysuria Neurologic Neurologic: Denies focal weakness, numbness or tremor(s) Psychiatric Psychiatric: Denies anxiety or depression Vital Signs Vital Signs Vital Signs: 05/01/21 09:03 05/01/21 09:08 05/01/21 09:14 Temperature 98.6 F Temperature Source Temporal Pulse Rate 107 H 102 H Respiratory Rate 31 H 24 H Respiratory Effort Short of Breath Labored Accessory Muscle Use Respiratory Pattern Tachypnea Blood Pressure 206/81 H 192/84 H Blood Pressure Mean 122 120 Pulse Ox 87 100 Oxygen Delivery Method Nasal Cannula Nasal Cannula Nasal Cannula Oxygen Flow Rate (L/min) 5 6 6 Fraction of Inspired Oxygen (FIO2) 05/01/21 09:20 05/01/21 09:59 05/01/21 10:30 Temperature Temperature Source Pulse Rate 102 H 101 H 97 Respiratory Rate 22 H 21 H 16 Respiratory Effort Respiratory Pattern Blood Pressure 159/74 H Blood Pressure Mean 102 Pulse Ox 93 97 93 Oxygen Delivery Method Bi-pap Oxygen Flow Rate (L/min) Fraction of Inspired Oxygen (FIO2) 40 40 35 05/01/21 10:49 05/01/21 11:06 Temperature 98.3 F Temperature Source Temporal Pulse Rate 98 103 H Respiratory Rate 17 15 Respiratory Effort Respiratory Pattern Blood Pressure 129/67 H 124/63 H Blood Pressure Mean 87 83 Pulse Ox 94 92 Oxygen Delivery Method Bi-pap Bi-pap Oxygen Flow Rate (L/min) Fraction of Inspired Oxygen (FIO2) 35 35 Weight Weight: 128 lb 1.417 oz Body Mass Index (BMI) 24.2 Physical Exam Const alert, oriented x3 and no apparent distress General Appearance: cooperative HEENT normocephalic and moist oral mucous membranes Eyes PERRL, EOMs intact bilaterally and conjunctivae normal Neck supple and no JVD Resp normal respiratory effort Effort and Inspection: tachypneic and uses accessory muscles Auscultation: wheezes expiratory wheezes and diminished lung sounds; Negative for crackles, rales or rhonchi Cardio regular rhythm, S1 normal heart sound, S2 normal heart sound and no murmurs Rate: tachycardic GI soft to palpation, non-tender and non-distended; Negative for hepatosplenomegaly Extremity no clubbing, cyanosis or edema Skin no rashes or lesions noted Neuro no focal motor deficits and no sensory deficits noted Psych affect normal Appearance: appropriate Results Lab / Micro Data Result Diagrams: 05/01/21 09:15 05/01/21 09:15 Labs: Laboratory Results - last 24 hr 05/01/21 09:15: WBC 12.9 H, RBC 4.50, Hgb 12.7, Hct 40.8, MCV 90.7, MCH 28.2, MCHC 31.1 L, RDW Std Deviation 49.1 H, RDW Coeff of Mary 14.7 H, Plt Count 226, MPV 11.6, Immature Gran % (Auto) 0.400, Neut % (Auto) 80.6 H, Lymph % (Auto) 10.2 L, [place] % (Auto) 7.5, Eos % (Auto) 1.1, Baso % (Auto) 0.2, Absolute Neuts (auto) 10.4 H, Absolute Lymphs (auto) 1.32, Nucleated RBC % 0 05/01/21 09:15: Sodium 139, Potassium 4.4, Chloride 104, Carbon Dioxide 35.0 H, Anion Gap 0 L, BUN 22 H, Creatinine 0.61, Estim Creat Clear Calc 38.94, Est GFR (MDRD) Af Amer 123, Est GFR (MDRD) Non-Af 102, BUN/Creatinine Ratio 35.9 H, Glucose 135 H, Calcium 10.0, Troponin I High Sens 9 05/01/21 09:15: B-Natriuretic Peptide 108.0 H Micro: Microbiology 05/01/21 09:15 Nasal Secretion SARS-CoV-2 Antigen (Rapid) - Final Radiology Impression Chest X-Ray 05/01/21 09:12 IMPRESSION: No airspace consolidation or pleural effusion. Bibasilar parenchymal and pleural fibrotic changes similar since 2019. Electronically Signed: Bjorn Kaur MD ([place]) at 9:50 EDT , Assessment & Plan Assessment/Plan (1) Acute and chronic respiratory failure with hypoxia: (2) Acute exacerbation of chronic obstructive pulmonary disease: PLAN: 1. Acute on chronic hypoxic respiratory failure secondary to COPD exacerbation ?Continue with BiPAP and transition to PCU stepdown ?Continue with steroids and breathing treatments ?We will try to restart her home medications once they have been verified ?Baseline oxygen requirements 4 L nasal cannula ?He does have a leukocytosis, this may be reactive, will obtain a respiratory panel DVT: Lovenox Charges/Coding Visit Charges Inpatient E&M: 07887 Init Hosp L2
[2021-05-01] MEDS: 0.9% Saline Lock 10 ML Syringe IV (13:46)
--- NOTE | 2021-05-01 14:00 | CASEMGMT ---
JUANY MILLS assessment: Face to Face with patient for initial transition planning/care coordination assessment. JUANY MILLS introduced self and role at [facility], pt's daughter voices understanding and consents to assessment. Pt is sitting up in bed tachypnic on continuous bipap. Pt is too SOB to answer questions and is ok with daughter answering questions for her at this time. Care providers, pharmacy, and demographics verified/updated. Presentation: Pt c/o SOB beginning this am, hx COPD-EMS stated 85% on home 4L nc-dry cough, rib pain Admitting dx: COPD PCP: Mita Specialists: mindy Caldera Preferred Pharmacy: [facility] Insurance: [employer]SC/CRSC Prescription Benefit: MyCare[employer]SC/CRSC Living Will/HPOA: Pt does not have LW/HPOA and declines AD info. LNOK: Donald Mcclendon, son; Jeanie Mcclendon, daughter; Allison Worrell, sister Living Arrangements: Pt lives alone in apt and daughter states no concerns at home. Pt is independent with ADL's. Transportation: Pt's family drives and states no transportation concerns. DME/HHC: Pt has the following DME: tub bench, rollator, suction, nebulizer, and home oxygen thru [facility]. Per pt, her home order is for 4L. Call to [facility] and they state pt's order is for 3L at bedtime only. Daughter states they would like to switch DME companies at discharge and daughter aware that pt/family will need to call and request transfer, voices understanding and provided contact info for in-network. Pt denies need for any further DME. Pt states has had HHC in the past and has been to [facility] and [facility] in the past. Pt/daughter unsure of plans for discharge at this time. Pt is retired. Pt states does not smoke cigarettes or drink ETOH. Pt states no further concerns/needs. CM to follow for any increased home oxygen, therapy evals, and any further discharge planning/needs. Advised pt/daughter to ask for CM if any further questions/concerns/needs arise, voices understanding. Pt Goal: Home Plan: TBD, pending increased home oxygen need [place] JUANY MILLS
[2021-05-01] MEDS: Ipratropium/Albuterol Sulfate 3 ML AMPUL.NEB INHALATION ×3 (14:52→23:34)
--- NOTE | 2021-05-01 15:39 | CHAPLAIN ---
Type of Pastoral Visit _x__ Initial Visit ___ Follow-up Visit ___ On-call Visit ___ General Patient Visit ___ Spiritual Assessment ___ Family Conference ___ Bereavement ___ Rapid Response ___ Code Blue ___ Other (describe below) Pastoral Care Referral From _x__ Patient ___ Family ___ Nurse ___ Physician ___ Paving Inspector ___ Floral Associate ___ Other (describe below) Sacrament/Intervention ___ Active listening ___ Anointing ___ Mandaen ___ Bereavement ___ Communion ___ Carleen exploration ___ ___ Life review _x__ Prayer ___ Reconciliation ___ Sacrament of Sick _x__ Supportive presence ___ Wedding ___ Other (describe below) Pastoral Comments patient is on the bi-pap; family member in room with her; offer of support and prayer given; pt is unable to talk much so the visit was brief
[2021-05-01] MEDS: LORazepam 0.5 MG Tablet PO ×2 (16:05→22:21)
[2021-05-01] MEDS: Mirtazapine 30 MG Tablet PO (22:21)
[2021-05-01] MEDS: Atorvastatin Calcium 20 MG Tablet PO (22:21)
[2021-05-02] VITALS (14 sets, daily range): BP systolic 115–138; BP diastolic 54–67; PULSE 80–104; RESP 12–24; TEMP 35.8–37; O2SAT 95–100
[2021-05-02 05:35] LABS: Absolute Lymphocyte Count 0.68 X10^3/uL (0.83-4.51); Absolute Neutrophil Count 16.1 X10^3/uL (2.0-7.7); Basophil# 0.02 X10^3/uL; Basophil% 0.1 % (0-1); Hematocrit 35.3 % (37-47); Hemoglobin 10.9 g/dL (12.0-15.0); Lymphocyte # 0.68 X10^3/ul (0.83-4.51); Lymphocyte % 3.8 % (19-41); Mean Corp Hgb Conc 30.9 g/dL (32-36); Mean Corpuscular Hgb 26.8 pg (27.0-32.0); Mean Corpuscular Volume 86.9 fL (81-99); Mean Platelet Vol. 11.4 fl (6.2-12.0); Monocyte# 0.92 X10^3/uL; Monocyte% 5.2 % (0-10); NRBC Flagged by Analyzer 0 % (0-5); Neutrophil % 90.3 % (47-70); Platelet Count 191 K/mm3 (150-450); RBC Distribution Width SD 48.1 fl (35.1-43.9); Red Blood Count 4.06 M/mm3 (4.2-5.4); White Blood Count 17.8 K/mm3 (4.4-11.0)
[2021-05-02 05:58] LABS: Anion Gap 2 (5-15); BUN 21 mg/dL (7-18); BUN/Creat Ratio 38.3 RATIO (10-20); Calcium,Total 9.7 mg/dL (8.5-10.1); Chloride 101 mmol/L (98-107); Creatinine, Serum 0.55 mg/dL (0.55-1.02); EST Glomerular Filtration Rate 116 mL/min (>60); Est Glom Filt Rate - Afr Amer 141 mL/min (>60); Estimated Creatinine Clearance 38.94 ml/min; Glucose 156 mg/dL (74-106); Potassium 4.5 mmol/L (3.5-5.1); Sodium Level 137 mmol/L (136-145)
[2021-05-02] MEDS: 0.9% Saline Lock 10 ML Syringe IV ×2 (06:28→09:51)
[2021-05-02] MEDS: Ipratropium/Albuterol Sulfate 3 ML AMPUL.NEB INHALATION ×3 (06:53→19:33)
[2021-05-02] MEDS: Enoxaparin 40 MG/0.4 ML Syringe SC (08:35)
[2021-05-02] MEDS: Tolterodine Tartrate 4 MG CAP.SA PO (08:35)
[2021-05-02] MEDS: Metoprolol(XL)Succ 50 MG Tablet PO (08:35)
[2021-05-02] MEDS: LORazepam 0.5 MG Tablet PO ×3 (08:35→23:52)
[2021-05-02] MEDS: levoFLOXacin IV 750 MG/150 ML BAG 100 MG IV (09:47)
[2021-05-02] MEDS: 0.9% Normal Saline 1,000 ML 75 ML IV ×2 (10:57→23:48)
--- NOTE | 2021-05-02 11:41 | PCM.PN.HOSP ---
Subjective Subjective Feels that she is breathing a little bit better, white count is elevated still no fevers but she was complaining of chills, respiratory panel was negative. Objective Data Objective Data Vital Signs: Vital Signs Temp Pulse Resp BP Pulse Ox 96.5 F L 91 17 120/54 L 96 05/02/21 08:30 05/02/21 08:35 05/02/21 08:30 05/02/21 08:30 05/02/21 08:30 Oxygen Flow Rate (L/min) 6 Oxygen Delivery Method Bi-pap Weight: 119 lb 7.849 oz Body Mass Index (BMI) 22.6 Intake & Output: Intake and Output for Last 24 Hours 05/01/21 05/02/21 05/03/21 03:59 03:59 03:59 Intake Total 220 / 220 401.25 / 401.25 Output Total 250 / 250 Balance 220 / 220 151.25 / 151.25 Medical Nutrition Assessment Dietitian: Malnutrition Criteria Met Start: 05/01/21 17:44 Freq: Status: Active Protocol: Document 05/01/21 17:44 RMA (Rec: 05/01/21 17:44 RMA [id number]) Nutrition Malnutrition Evidence of Malnutrition Exists Yes Malnutrition (severe): Chronic Evidenced By Suboptimal Energy Intake ( Severe),Weight Loss (Severe) Clinical Problem Chronic Disease or Condition Related Malnutrition Etiology Severe protein-calorie malnutrition in the context of chronic disease related to increased energy expenditure and inadequate oral intake Signs/Symptoms as evidenced by ~7% wt loss x 3 months and PO meeting less than 50% estimated nutrition needs Status Active Problem Recommendation Dietitian Recommendations/Changes Will liberalize diet to Regular given signs/symptoms of malnutrition. Will add 120 ml ensure enlive 4 times per day w/ medpass as tolerated. Adjust ONS as needed to optimize oral intake and prevent further weight loss. Lab / Micro Data Result Diagrams: 05/02/21 05:02 05/02/21 05:02 Labs: Laboratory Results - last 24 hr 05/02/21 05:02: WBC 17.8 H, RBC 4.06 L, Hgb 10.9 L, Hct 35.3 L, MCV 86.9, MCH 26.8 L, MCHC 30.9 L, RDW Std Deviation 48.1 H, RDW Coeff of Mary 15.0 H, Plt Count 191, MPV 11.4, Immature Gran % (Auto) 0.600, Neut % (Auto) 90.3 H, Lymph % (Auto) 3.8 L, Henry % (Auto) 5.2, Eos % (Auto) 0.0, Baso % (Auto) 0.1, Absolute Neuts (auto) 16.1 H, Absolute Lymphs (auto) 0.68 L, Nucleated RBC % 0 05/02/21 05:02: Sodium 137, Potassium 4.5, Chloride 101, Carbon Dioxide 34.0 H, Anion Gap 2 L, BUN 21 H, Creatinine 0.55, Estim Creat Clear Calc 38.94, Est GFR (MDRD) Af Amer 141, Est GFR (MDRD) Non-Af 116, BUN/Creatinine Ratio 38.3 H, Glucose 156 H, Calcium 9.7 Micro: Microbiology 05/01/21 13:05 Interface Orders Respiratory Panel (PCR) - Final 05/01/21 09:15 Nasal Secretion SARS-CoV-2 Antigen (Rapid) - Final Physical Exam Const alert, oriented x3 and no apparent distress General Appearance: cooperative HEENT normocephalic and moist oral mucous membranes Eyes PERRL, EOMs intact bilaterally and conjunctivae normal Neck supple and no JVD Resp normal respiratory effort Effort and Inspection: tachypneic and uses accessory muscles Auscultation: wheezes expiratory wheezes and diminished lung sounds; Negative for crackles, rales or rhonchi Cardio regular rhythm, S1 normal heart sound, S2 normal heart sound and no murmurs Rate: tachycardic GI soft to palpation, non-tender and non-distended; Negative for hepatosplenomegaly Extremity no clubbing, cyanosis or edema Skin no rashes or lesions noted Neuro no focal motor deficits and no sensory deficits noted Psych affect normal Appearance: appropriate Assessment & Plan Assessment/Plan (1) Acute and chronic respiratory failure with hypoxia: (2) Acute exacerbation of chronic obstructive pulmonary disease: PLAN: 1. Acute on chronic hypoxic respiratory failure secondary to COPD exacerbation ?Continue with BiPAP, will add Levaquin ?Continue with steroids and breathing treatments ?We will try to restart her home medications once they have been verified ?Baseline oxygen requirements 4 L nasal cannula ?He does have a leukocytosis, this may be reactive, respiratory panel was negative ?BNP was minimally elevated to 108 on admission, if there is no improvement in respiratory status may benefit from an echo for further evaluation. DVT: Lovenox Charges/Coding Visit Charges Inpatient E&M: 09261 Subs Hosp L2
--- NOTE | 2021-05-02 13:21 | CASEMGMT ---
Pt declines need for new nebulizer at this time. Green sheet on chart for increased home oxygen need. Per Noel, pt's order is for 3L at bedtime only, so pt will need tested on room air at rest and with exertion prior to discharge. Pt is still on 40% bipap. Daughter, Jeanie, updated and states she will be in later this afternoon to see pt. Erma HARRINGTON CM
--- NOTE | 2021-05-02 15:21 | NURSING ---
Addendum entered by Ro See 05/02/21 15:30: Pt off bipap for 20 mins. Original Note: Pt agreed to break from bipap. Placed on 4.5L NC. SpO2 remains 94-98%. Provided PRN for anxiety, see MAR.
[2021-05-02] MEDS: Mirtazapine 30 MG Tablet PO (21:04)
[2021-05-02] MEDS: Atorvastatin Calcium 20 MG Tablet PO (21:04)
[2021-05-03] VITALS (14 sets, daily range): BP systolic 147–153; BP diastolic 64–77; PULSE 71–107; RESP 12–21; TEMP 36.1–36.8; O2SAT 92–100
[2021-05-03] MEDS: LORazepam 0.5 MG Tablet PO ×3 (05:30→23:06)
[2021-05-03 05:31] LABS: Absolute Lymphocyte Count 0.52 X10^3/uL (0.83-4.51); Absolute Neutrophil Count 9.6 X10^3/uL (2.0-7.7); Basophil# 0.01 X10^3/uL; Basophil% 0.1 % (0-1); Hematocrit 36.4 % (37-47); Hemoglobin 11.2 g/dL (12.0-15.0); Lymphocyte # 0.52 X10^3/ul (0.83-4.51); Lymphocyte % 4.9 % (19-41); Mean Corp Hgb Conc 30.8 g/dL (32-36); Mean Corpuscular Hgb 27.5 pg (27.0-32.0); Mean Corpuscular Volume 89.4 fL (81-99); Mean Platelet Vol. 12.3 fl (6.2-12.0); Monocyte# 0.38 X10^3/uL; Monocyte% 3.6 % (0-10); NRBC Flagged by Analyzer 0 % (0-5); Neutrophil % 90.9 % (47-70); POSITIVE DIFFERENTIAL YES; Platelet Count 190 K/mm3 (150-450); RBC Distribution Width CV 15.2 % (11.6-14.6); RBC Distribution Width SD 49.9 fl (35.1-43.9); Red Blood Count 4.07 M/mm3 (4.2-5.4); White Blood Count 10.6 K/mm3 (4.4-11.0)
[2021-05-03 05:37] LABS: Differential Indicated SCAN CRITERIA MET
[2021-05-03 06:02] LABS: Differential Comment SCANNED
[2021-05-03 06:06] LABS: Anion Gap 1 (5-15); BUN 30 mg/dL (7-18); BUN/Creat Ratio 52.3 RATIO (10-20); Chloride 105 mmol/L (98-107); Creatinine, Serum 0.57 mg/dL (0.55-1.02); EST Glomerular Filtration Rate 110 mL/min (>60); Est Glom Filt Rate - Afr Amer 133 mL/min (>60); Estimated Creatinine Clearance 38.94 ml/min; Glucose 122 mg/dL (74-106); Potassium 4.8 mmol/L (3.5-5.1); Sodium Level 140 mmol/L (136-145)
[2021-05-03] MEDS: Ipratropium/Albuterol Sulfate 3 ML AMPUL.NEB INHALATION ×4 (06:48→19:38)
[2021-05-03] MEDS: levoFLOXacin IV 750 MG/150 ML BAG 100 MG IV (08:30)
[2021-05-03] MEDS: Metoprolol(XL)Succ 50 MG Tablet PO (08:32)
[2021-05-03] MEDS: Enoxaparin 40 MG/0.4 ML Syringe SC (08:33)
[2021-05-03] MEDS: Tolterodine Tartrate 4 MG CAP.SA PO (08:33)
--- NOTE | 2021-05-03 10:14 | PCM.PN.HOSP ---
Subjective Subjective Well, she tolerated the being off the BiPAP yesterday, she does get a little bit nervous when she is on her nasal cannula at this time. Objective Data Objective Data Vital Signs: Vital Signs Temp Pulse Resp BP Pulse Ox 97 F L 82 18 153/70 H 93 05/03/21 08:21 05/03/21 08:32 05/03/21 08:21 05/03/21 08:21 05/03/21 08:21 Oxygen Flow Rate (L/min) 4.5 Oxygen Delivery Method Bi-pap Weight: 119 lb 7.849 oz Body Mass Index (BMI) 22.6 Intake & Output: Intake and Output for Last 24 Hours 05/02/21 05/03/21 05/04/21 03:59 03:59 03:59 Intake Total 220 / 220 2060.00 / 2060.00 50 / 50 Output Total 850 / 850 120 / 120 Balance 220 / 220 1210.00 / 1210.00 -70 / -70 Medical Nutrition Assessment Dietitian: Malnutrition Criteria Met Start: 05/01/21 17:44 Freq: Status: Active Protocol: Document 05/01/21 17:44 RMA (Rec: 05/01/21 17:44 RMA [id number]) Nutrition Malnutrition Evidence of Malnutrition Exists Yes Malnutrition (severe): Chronic Evidenced By Suboptimal Energy Intake ( Severe),Weight Loss (Severe) Clinical Problem Chronic Disease or Condition Related Malnutrition Etiology Severe protein-calorie malnutrition in the context of chronic disease related to increased energy expenditure and inadequate oral intake Signs/Symptoms as evidenced by ~7% wt loss x 3 months and PO meeting less than 50% estimated nutrition needs Status Active Problem Recommendation Dietitian Recommendations/Changes Will liberalize diet to Regular given signs/symptoms of malnutrition. Will add 120 ml ensure enlive 4 times per day w/ medpass as tolerated. Adjust ONS as needed to optimize oral intake and prevent further weight loss. Lab / Micro Data Result Diagrams: 05/03/21 03:58 05/03/21 03:58 Labs: Laboratory Results - last 24 hr 05/03/21 03:58: WBC 10.6, RBC 4.07 L, Hgb 11.2 L, Hct 36.4 L, MCV 89.4, MCH 27.5, MCHC 30.8 L, RDW Std Deviation 49.9 H, RDW Coeff of Mary 15.2 H, Plt Count 190, MPV 12.3 H, Immature Gran % (Auto) 0.500, Neut % (Auto) 90.9 H, Lymph % (Auto) 4.9 L, [place] % (Auto) 3.6, Eos % (Auto) 0.0, Baso % (Auto) 0.1, Absolute Neuts (auto) 9.6 H, Absolute Lymphs (auto) 0.52 L, Nucleated RBC % 0, Differential Comment SCANNED 05/03/21 03:58: Sodium 140, Potassium 4.8, Chloride 105, Carbon Dioxide 34.0 H, Anion Gap 1 L, BUN 30 H, Creatinine 0.57, Estim Creat Clear Calc 38.94, Est GFR (MDRD) Af Amer 133, Est GFR (MDRD) Non-Af 110, BUN/Creatinine Ratio 52.3 H, Glucose 122 H, Calcium 10.0 Micro: Microbiology 05/01/21 13:05 Interface Orders Respiratory Panel (PCR) - Final 05/01/21 09:15 Nasal Secretion SARS-CoV-2 Antigen (Rapid) - Final Physical Exam Narrative Const alert, oriented x3 and no apparent distress General Appearance: cooperative HEENT normocephalic and moist oral mucous membranes Eyes PERRL, EOMs intact bilaterally and conjunctivae normal Neck supple and no JVD Resp normal respiratory effort Auscultation: Expiratory wheezes and diminished lung sounds; Negative for crackles, rales or rhonchi Cardio Regular rate and regular rhythm, S1 normal heart sound, S2 normal heart sound and no murmurs GI soft to palpation, non-tender and non-distended; Negative for hepatosplenomegaly Extremity no clubbing, cyanosis or edema Skin no rashes or lesions noted Neuro no focal motor deficits and no sensory deficits noted Psych affect normal Appearance: appropriate Assessment & Plan Assessment/Plan (1) Acute and chronic respiratory failure with hypoxia: (2) Acute exacerbation of chronic obstructive pulmonary disease: PLAN: 1. Acute on chronic hypoxic respiratory failure secondary to COPD exacerbation ?Continue with BiPAP, continue with Levaquin ?Continue with steroids and breathing treatments ?She did seem to do okay yesterday on 5 L nasal cannula, she just does appear to be nervous off the BiPAP at times ?Baseline oxygen requirements 4 L nasal cannula ?She did have a leukocytosis, this may be reactive, respiratory panel was negative ?BNP was minimally elevated to 108 on admission, if there is no improvement in respiratory status may benefit from an echo for further evaluation. 2. HTN/HLD ?Blood pressures are stable ?Continue with Crestor 3. Anxiety ?Stable ?Continue with Ativan as needed DVT: Lovenox Charges/Coding Visit Charges Inpatient E&M: 19984 Subs Hosp L2
[2021-05-03] MEDS: 0.9% Normal Saline 1,000 ML 75 ML IV (12:54)
[2021-05-03] MEDS: NYSTATIN 500,000 UNIT/5 ML UDC 500000 UNIT PO ×2 (17:27→21:05)
[2021-05-03] MEDS: Atorvastatin Calcium 20 MG Tablet PO (21:05)
[2021-05-03] MEDS: Mirtazapine 30 MG Tablet PO (21:06)
[2021-05-04] VITALS (15 sets, daily range): BP systolic 130–149; BP diastolic 54–64; PULSE 59–88; RESP 16–20; TEMP 36.1–36.4; O2SAT 95–100
[2021-05-04] MEDS: 0.9% Normal Saline 1,000 ML 75 ML IV ×2 (01:12→15:23)
--- NOTE | 2021-05-04 02:06 | CPS ---
Pt did not want to wear bipap tonight. RN aware
[2021-05-04 05:43] LABS: Absolute Lymphocyte Count 0.44 X10^3/uL (0.83-4.51); Absolute Neutrophil Count 6.4 X10^3/uL (2.0-7.7); Hematocrit 34.9 % (37-47); Hemoglobin 10.4 g/dL (12.0-15.0); Lymphocyte # 0.44 X10^3/ul (0.83-4.51); Lymphocyte % 6.1 % (19-41); Mean Corp Hgb Conc 29.8 g/dL (32-36); Mean Corpuscular Hgb 26.7 pg (27.0-32.0); Mean Corpuscular Volume 89.7 fL (81-99); Mean Platelet Vol. 11.8 fl (6.2-12.0); Monocyte# 0.35 X10^3/uL; Monocyte% 4.8 % (0-10); NRBC Flagged by Analyzer 0 % (0-5); Neutrophil # 6.42 X10^3/uL (2.7-7.7); Neutrophil % 88.4 % (47-70); POSITIVE DIFFERENTIAL YES; Platelet Count 191 K/mm3 (150-450); RBC Distribution Width CV 15.1 % (11.6-14.6); RBC Distribution Width SD 49.5 fl (35.1-43.9); Red Blood Count 3.89 M/mm3 (4.2-5.4); White Blood Count 7.3 K/mm3 (4.4-11.0)
[2021-05-04 06:08] LABS: Differential Indicated SCAN CRITERIA MET
[2021-05-04 06:22] LABS: Anion Gap 1 (5-15); BUN 33 mg/dL (7-18); BUN/Creat Ratio 51.6 RATIO (10-20); Calcium,Total 9.6 mg/dL (8.5-10.1); Chloride 110 mmol/L (98-107); Creatinine, Serum 0.64 mg/dL (0.55-1.02); EST Glomerular Filtration Rate 97 mL/min (>60); Est Glom Filt Rate - Afr Amer 118 mL/min (>60); Estimated Creatinine Clearance 38.94 ml/min; Glucose 160 mg/dL (74-106); Potassium 4.7 mmol/L (3.5-5.1); Sodium Level 144 mmol/L (136-145)
[2021-05-04 07:04] LABS: Differential Comment SCANNED
[2021-05-04] MEDS: Ipratropium/Albuterol Sulfate 3 ML AMPUL.NEB INHALATION ×4 (07:08→19:31)
[2021-05-04] MEDS: NYSTATIN 500,000 UNIT/5 ML UDC 500000 UNIT PO ×4 (09:29→21:14)
[2021-05-04] MEDS: levoFLOXacin IV 750 MG/150 ML BAG 100 MG IV (09:29)
[2021-05-04] MEDS: Metoprolol(XL)Succ 50 MG Tablet PO (09:30)
[2021-05-04] MEDS: Tolterodine Tartrate 4 MG CAP.SA PO (09:30)
[2021-05-04] MEDS: Enoxaparin 40 MG/0.4 ML Syringe SC (09:31)
[2021-05-04] MEDS: Sodium Chloride 0.65% 1 SPRAY SPRAY.BTL 2 SPRAY NASAL (09:36)
--- NOTE | 2021-05-04 10:00 | PN.HOSP_ITS ---
Subjective Subjective She is back down to her baseline level of oxygen but she is having significant sputum and does not feel comfortable going home because of everything that she is coughing up Objective Data Objective Data Vital Signs: Vital Signs Temp Pulse Resp BP Pulse Ox 97.2 F L 65 20 H 142/58 H 98 05/04/21 09:17 05/04/21 09:30 05/04/21 09:17 05/04/21 09:17 05/04/21 09:17 Oxygen Flow Rate (L/min) 4 Oxygen Delivery Method Nasal Cannula Weight: 119 lb 7.849 oz Body Mass Index (BMI) 22.6 Intake & Output: Intake and Output for Last 24 Hours 05/03/21 05/04/21 05/05/21 03:59 03:59 03:59 Intake Total 2060.00 / 2060.00 2311.25 / 2311.25 Output Total 850 / 850 620 / 620 550 / 550 Balance 1210.00 / 1210.00 1691.25 / 1691.25 -550 / -550 Medical Nutrition Assessment Dietitian: Malnutrition Criteria Met Start: 05/01/21 17: 44 Freq: Status: Active Protocol: Document 05/01/21 17:44 RMA (Rec: 05/01/21 17:44 RMA [id number]) Nutrition Malnutrition Evidence of Malnutrition Exists Yes Malnutrition (severe): Chronic Evidenced By Suboptimal Energy Intake ( Severe),Weight Loss (Severe) Clinical Problem Chronic Disease or Condition Related Malnutrition Etiology Severe protein-calorie malnutrition in the context of chronic disease related to increased energy expenditure and inadequate oral intake Signs/Symptoms as evidenced by ~7% wt loss x 3 months and PO meeting less than 50% estimated nutrition needs Status Active Problem Recommendation Dietitian Recommendations/Changes Will liberalize diet to Regular given signs/symptoms of malnutrition. Will add 120 ml ensure enlive 4 times per day w/ medpass as tolerated. Adjust ONS as needed to optimize oral intake and prevent further weight loss. Lab / Micro Data Result Diagrams: 05/04/21 05:03 05/04/21 05:03 Labs: Laboratory Results - last 24 hr 05/04/21 05:03: WBC 7.3, RBC 3.89 L, Hgb 10.4 L, Hct 34.9 L, MCV 89.7, MCH 26.7 L, MCHC 29.8 L, RDW Std Deviation 49.5 H, RDW Coeff of Mary 15.1 H, Plt Count 191, MPV 11.8, Immature Gran % (Auto) 0.700, Neut % (Auto) 88.4 H, Lymph % (Auto) 6.1 L, [place] % (Auto) 4.8, Eos % (Auto) 0.0, Baso % (Auto) 0.0, Absolute Neuts (auto) 6.4, Absolute Lymphs (auto) 0.44 L, Nucleated RBC % 0, Differential Comment SCANNED 05/04/21 05:03: Sodium 144, Potassium 4.7, Chloride 110 H, Carbon Dioxide 33.0 H , Anion Gap 1 L, BUN 33 H, Creatinine 0.64, Estim Creat Clear Calc 38.94, Est GFR (MDRD) Af Amer 118, Est GFR (MDRD) Non-Af 97, BUN/Creatinine Ratio 51.6 H, Glucose 160 H, Calcium 9.6 Micro: Microbiology 05/01/21 09:25 Blood Culture (Wb) #2 - Anticubital Right Blood Culture - Preliminary No growth in 48 hours. 05/01/21 09:15 Blood Culture (Wb) - Anticubital Left Blood Culture - Preliminary No growth in 48 hours. 05/01/21 13:05 Interface Orders Respiratory Panel (PCR) - Final 05/01/21 09:15 Nasal Secretion SARS-CoV-2 Antigen (Rapid) - Final Physical Exam Narrative Const alert, oriented x3 and no apparent distress General Appearance: cooperative HEENT normocephalic and moist oral mucous membranes Eyes PERRL, EOMs intact bilaterally and conjunctivae normal Neck supple and no JVD Resp normal respiratory effort Auscultation: Expiratory wheezes, improved, and diminished lung sounds; Negative for crackles, rales or rhonchi Cardio Regular rate and regular rhythm, S1 normal heart sound, S2 normal heart sound and no murmurs GI soft to palpation, non-tender and non-distended; Negative for hepatosplenomegaly Extremity no clubbing, cyanosis or edema Skin no rashes or lesions noted Neuro no focal motor deficits and no sensory deficits noted Psych affect normal Appearance: appropriate Assessment & Plan Assessment/Plan (1) Acute and chronic respiratory failure with hypoxia: (2) Acute exacerbation of chronic obstructive pulmonary disease: PLAN: 1. Acute on chronic hypoxic respiratory failure secondary to COPD exacerbation ?Continue with BiPAP, continue with Levaquin ?Continue with steroids and breathing treatments ?Tolerating baseline oxygen but has significant mucus, start PEP therapy ?Baseline oxygen requirements 4 L nasal cannula ?She did have a leukocytosis, this may be reactive, respiratory panel was negative ?BNP was minimally elevated to 108 on admission, if there is no improvement in respiratory status may benefit from an echo for further evaluation. 2. HTN/HLD ?Blood pressures are stable ?Continue with Crestor 3. Anxiety ?Stable ?Continue with Ativan as needed DVT: Lovenox Charges/Coding Visit Charges Inpatient E&M: 53827 Subs Hosp L2
[2021-05-04] MEDS: guaiFENesin 1,200 MG Tablet 1200 MG PO ×2 (12:56→21:16)
[2021-05-04] MEDS: 0.9% Saline Lock 10 ML Syringe IV ×2 (21:14→21:52)
[2021-05-04] MEDS: Atorvastatin Calcium 20 MG Tablet PO (21:15)
[2021-05-04] MEDS: Mirtazapine 30 MG Tablet PO (21:16)
[2021-05-04] MEDS: LORazepam 0.5 MG Tablet PO (21:19)
[2021-05-05] VITALS (17 sets, daily range): BP systolic 135–173; BP diastolic 61–77; PULSE 82–96; RESP 16–32; TEMP 36.1–36.9; O2SAT 90–98
[2021-05-05] MEDS: 0.9% Normal Saline 1,000 ML 75 ML IV (02:54)
[2021-05-05] MEDS: LORazepam 0.5 MG Tablet PO ×2 (03:29→22:51)
--- NOTE | 2021-05-05 04:05 | PCM.PN.BLA ---
Progress Note Patient on normal saline at 75 mLs per hour. Per nurse patient has fine crackles at bases and unproductive cough. Patient is requesting that IVF be stopped at this time. IV fluids discontinued.
[2021-05-05 05:53] LABS: Anion Gap 0 (5-15); BUN 27 mg/dL (7-18); BUN/Creat Ratio 42.7 RATIO (10-20); Calcium,Total 9.4 mg/dL (8.5-10.1); Chloride 110 mmol/L (98-107); Creatinine, Serum 0.63 mg/dL (0.55-1.02); EST Glomerular Filtration Rate 98 mL/min (>60); Est Glom Filt Rate - Afr Amer 119 mL/min (>60); Estimated Creatinine Clearance 38.94 ml/min; Glucose 112 mg/dL (74-106); Sodium Level 143 mmol/L (136-145)
[2021-05-05] MEDS: Ipratropium/Albuterol Sulfate 3 ML AMPUL.NEB INHALATION ×4 (06:53→17:51)
[2021-05-05] MEDS: NYSTATIN 500,000 UNIT/5 ML UDC 500000 UNIT PO ×3 (07:51→21:41)
[2021-05-05] MEDS: Metoprolol(XL)Succ 50 MG Tablet PO (07:51)
[2021-05-05] MEDS: Enoxaparin 40 MG/0.4 ML Syringe SC (07:52)
[2021-05-05] MEDS: predniSONE 20 MG Tablet 40 MG PO (07:52)
[2021-05-05] MEDS: guaiFENesin 1,200 MG Tablet 1200 MG PO ×2 (07:52→21:41)
[2021-05-05] MEDS: Tolterodine Tartrate 4 MG CAP.SA PO (07:52)
[2021-05-05] MEDS: clonazePAM 0.5 MG Tablet PO ×2 (08:39→21:41)
[2021-05-05] MEDS: levoFLOXacin IV 750 MG/150 ML BAG 100 MG IV (09:17)
[2021-05-05] MEDS: Acetaminophen 325 MG Tablet 650 MG PO (09:23)
--- NOTE | 2021-05-05 09:46 | CASEMGMT ---
Physician indicated patient needs to go to a long term facility. Patient told SW to call her daughter. SW called patient's daughter Jeanie and explained recommendation. SW told Jeanie that patient is deferring the decision on where to go to her. Jeanie did not know and said she is leaving this up to patient. SW then went back to patient's room and let her know that her daughter wants her to pick where she will go. Patient said her daughter will be in after work today. SW told patient that SW needs to know this morning as SW has to get the process started as her insurance has to approve. Patient said she will just go home. SW told her physician is recommending she go somewhere for rehab. Patient said she will go home. SW told patient therapy will be around to see her and we can see how she does. Beverley MIRANDA
--- NOTE | 2021-05-05 09:53 | CASEMGMT ---
JUANY MILLS updated that hospitalist requesting palliative consult. JUANY MILLS completed palliative screening tool and referral made to [facility].
--- NOTE | 2021-05-05 10:45 | CASEMGMT ---
Addendum entered by Angelika Bolivar 05/05/21 12:27: Faxed over referral to Claudette at the [facility]. Will follow up. Angelika Bolivar Discharge Enterprise Infrastructure Architect Original Note: Discharge Enterprise Infrastructure Architect
--- NOTE | 2021-05-05 10:47 | CASEMGMT ---
NICOLAS received a call from patient's daughter Jeanie. Jeanie asked if patient could go to [facility]. NICOLAS told her we will send a referral. Jeanie said she is going to call patient and talk with her. NICOLAS asked d/c transportation planning engineer Angelika to send a referral to [facility]. Beverley MIRANDA
--- NOTE | 2021-05-05 12:19 | PN.HOSP_ITS ---
Subjective Subjective Patient with no acute events overnight per discussion with nursing staff and patient remained stable on continued decreased oxygen supplementation down to home chronic level. Patient upon evaluation is very anxious and states that she does not feel comfortable still going home and feels as though she is still havi ng difficulty breathing. Discussed at length that her oxygen level was 97 to 98% on her chronic supplementation and that if she could not care for herself at home we would certainly be able to assess her for skilled facility placement to which she was eventually amenable. Patient during evaluation does occasionally cough but there is no productive sputum with this. Patient denies fevers, chills, nausea, emesis, abdominal pain, chest pain. Objective Data Objective Data Vital Signs: Vital Signs Temp Pulse Resp BP Pulse Ox 97.9 F 96 32 H 173/77 H 96 05/05/21 07:46 05/05/21 11:00 05/05/21 10:26 05/05/21 07:51 05/05/21 10:27 Oxygen Flow Rate (L/min) 4.5 Oxygen Delivery Method Nasal Cannula Weight: 119 lb 7.849 oz Body Mass Index (BMI) 22.6 Intake & Output: Intake and Output for Last 24 Hours 05/03/21 05/04/21 05/05/21 23:59 23:59 23:59 Intake Total 1388.75 / 1388.75 2552.5 / 2552.5 1105.00 / 1105.00 Output Total 120 / 620 1500 / 1850 350 / 350 Balance 1268.75 / 768.75 1052.5 / 702.5 755.00 / 755.00 Medical Nutrition Assessment Dietitian: Malnutrition Criteria Met Start: 05/01/21 17:44 Freq: Status: Active Protocol: Document 05/01/21 17:44 RMA (Rec: 05/01/21 17:44 RMA [id number]) Nutrition Malnutrition Evidence of Malnutrition Exists Yes Malnutrition (severe): Chronic Evidenced By Suboptimal Energy Intake ( Severe),Weight Loss (Severe) Clinical Problem Chronic Disease or Condition Related Malnutrition Etiology Severe protein-calorie malnutrition in the context of chronic disease related to increased energy expenditure and inadequate oral intake Signs/Symptoms as evidenced by ~7% wt loss x 3 months and PO meeting less than 50% estimated nutrition needs Status Active Problem Recommendation Dietitian Recommendations/Changes Will liberalize diet to Regular given signs/symptoms of malnutrition. Will add 120 ml ensure enlive 4 times per day w/ medpass as tolerated. Adjust ONS as needed to optimize oral intake and prevent further weight loss. Lab / Micro Data Result Diagrams: 05/04/21 05:03 05/05/21 04:49 Labs: Laboratory Results - last 24 hr 05/05/21 04:49: Sodium 143, Potassium 5.0, Chloride 110 H, Carbon Dioxide 33.0 H , Anion Gap 0 L, BUN 27 H, Creatinine 0.63, Estim Creat Clear Calc 38.94, Est GFR (MDRD) Af Amer 119, Est GFR (MDRD) Non-Af 98, BUN/Creatinine Ratio 42.7 H, Glucose 112 H, Calcium 9.4 Micro: Microbiology 05/01/21 09:25 Blood Culture (Wb) #2 - Anticubital Right Blood Culture - Preliminary No growth in 48 hours. 05/01/21 09:15 Blood Culture (Wb) - Anticubital Left Blood Culture - Preliminary No growth in 48 hours. 05/01/21 13:05 Interface Orders Respiratory Panel (PCR) - Final 05/01/21 09:15 Nasal Secretion SARS-CoV-2 Antigen (Rapid) - Final Physical Exam Narrative Physical Examination: General: Awake, alert, oriented x 3 and cooperative, seated upright in the PCU bed, no obvious distress but she is anxious appearing. Skin: Normal color, normal turgor, no icterus, no cyanosis. HEENT: AT/NC, EOMI, PERRLA, MMM. Lungs: Diminished, greater bases, appropriate effort although patient does repor t being dyspneic which is suspected to be chronic and an anxiolytic component, no rales, ronchi or marked wheezing. Heart: Currently regular rate and rhythm; no gallop, rub audible. Abdomen: Soft, NTTP, ND, mildly hyperactive BS. Extremities: No cyanosis, clubbing, or edema. Neurological: Patient awake, alert, oriented as noted, cognitive function intact; pupils equally reactive to light and accommodation, cranial nerves II- XII grossly normal, moving all 4 extremities, no focal deficits, strength moderately global decreased but improving. Psychiatric: Affect appears extremely anxious, very fearful to return to home, no acute evidence of depressive feelings. Assessment & Plan Assessment/Plan (1) Acute and chronic respiratory failure with hypoxia: (2) Acute exacerbation of chronic obstructive pulmonary disease: PLAN: The patient is a 70 y/o F w/ PMHx: Chronic COPD/Asthma w/ Chronic Hypoxic Respiratory Failure (4-5L NC), Anxiety and Depression, Allergic Rhinitis, HTN, HLD, Former tobacco use who presents to the [facility] ED on 05/01/21 with history of progressively worsening dyspnea more severe over the last 24 hours with a nonproductive cough with no fevers but subjective chills with no recent ill contacts with increased work of breathing accessory muscle usage prompting ED evaluation where she was immediately placed on BiPAP. #1. Acute on Chronic Hypoxic Respiratory Failure secondary to Acute on chronic COPD/Asthma exacerbation with allergic rhinitis: CXR w/ chronic changes with noted bibasilar parenchymal and pleural fibrotic changes similar since 2019, CBC on admission mildly elevated with WBC 12.9 with shift. Patient was admitted to PCU and maintained on telemetry, initially on BiPAP however eventually transitioned off, will maintain on oxygen with wean as tolerated to home oxygen supplementation, continue ATC duonebs, PRN albuterol, IV methylprednisolone initially administered and transitioned 05/04/2021 to oral prednisone therapy with plan upon discharge for 12-day taper given severity of history, HOB, IS parameters, IV Levaquin initiated per admitting physician secondary to bacterial concerns with initial dosing 05/02/2021 with plan for 5-day regimen, blood culture with no growth x48 hours, SARS Covid antigen rapid is negative however patient did have a positive Covid test on 01/28/2021 of note, respiratory panel negative. Do suspect that anxiety is associated with patient's dyspnea sensation, requested palliative consultation to assist with symptoms and will p lace on low-dose Klonopin and continue previously ordered low-dose Ativan with hold for sedation. We will continue patient's home Daliresp and Zyrtec regimen concurrently. Given patient fear and severe anxiety upon returning to home to discuss options and patient was amenable to consideration for skilled facility, PT and OT assessment as well as case management interventions pending. #2. Anxiety and depression: We will continue patient home mirtazapine regimen, added low-dose scheduled Klonopin given severity of dyspnea complaints with overlapping low-dose as needed Ativan, pending palliative evaluation for symptom control with his #1 as noted. Do suspect the patient's anxiety is significantly related to her dyspnea complaints. #3. Hypertension: Continue home regimen including metoprolol although given acute presentation and history may need to consider alternate agent, PRN hydral azine. #4. Hyperlipidemia: We will continue patient on statin therapy. #5. DVT prophylaxis: SCDs, Lovenox. #6. CODE STATUS: DNR CCA with intubation Charges/Coding Visit Charges Inpatient E&M: 41426 Subs Hosp L2
--- NOTE | 2021-05-05 12:32 | CASEMGMT ---
Discharge Art Tracer Claudette called [facility]. [facility] will start pre-cert. Beverley VALENZUELA notified. Angelika Bolivar Discharge Art Tracer
--- NOTE | 2021-05-05 13:24 | CASEMGMT ---
NICOLAS updated patient and her daughter that [facility] can accept patient. NICOLAS also explained patient will stay at [facility] until her insurance approves. This will likely be tomorrow or the next day. Plan: d/c to Kellen at [facility] pending insurance approval. Beverley MIRANDA
[2021-05-05] MEDS: Sodium Chloride 0.65% 1 SPRAY SPRAY.BTL 2 SPRAY NASAL (13:44)
[2021-05-05] MEDS: Mirtazapine 30 MG Tablet PO (21:41)
[2021-05-05] MEDS: Atorvastatin Calcium 20 MG Tablet PO (21:41)
[2021-05-06] VITALS (27 sets, daily range): BP systolic 123–172; BP diastolic 61–85; PULSE 20–98; RESP 12–20; TEMP 36.6–36.8; O2SAT 82–99
[2021-05-06] MEDS: Acetaminophen 325 MG Tablet 650 MG PO (03:31)
[2021-05-06 06:03] LABS: Absolute Neutrophil Count 7.4 X10^3/uL (2.0-7.7); Basophil# 0.01 X10^3/uL; Basophil% 0.1 % (0-1); Eosinophil# 0.04 X10^3/uL; Eosinophils% 0.4 % (0-5); Hematocrit 38.3 % (37-47); Hemoglobin 11.2 g/dL (12.0-15.0); Lymphocyte % 8.5 % (19-41); Mean Corp Hgb Conc 29.2 g/dL (32-36); Mean Corpuscular Hgb 26.3 pg (27.0-32.0); Mean Corpuscular Volume 89.9 fL (81-99); Mean Platelet Vol. 11.8 fl (6.2-12.0); Monocyte# 1.12 X10^3/uL; NRBC Flagged by Analyzer 0 % (0-5); Neutrophil # 7.36 X10^3/uL (2.7-7.7); Neutrophil % 78.6 % (47-70); Platelet Count 177 K/mm3 (150-450); RBC Distribution Width CV 14.8 % (11.6-14.6); RBC Distribution Width SD 48.8 fl (35.1-43.9); Red Blood Count 4.26 M/mm3 (4.2-5.4); White Blood Count 9.4 K/mm3 (4.4-11.0)
[2021-05-06 06:36] LABS: ALB/GLOB Ratio 0.8 RATIO (0.9-2.4); AST(SGOT) 14 U/L (15-37); Alanine Aminotransfer ALT/SGPT 19 U/L (13-56); Albumin, Serum 2.8 g/dL (3.2-5.0); Alkaline Phosphatase 57 U/L (45-117); Anion Gap 1 (5-15); BUN 19 mg/dL (7-18); Calcium,Total 9.2 mg/dL (8.5-10.1); Chloride 98 mmol/L (98-107); Creatinine, Serum 0.51 mg/dL (0.55-1.02); EST Glomerular Filtration Rate 125 mL/min (>60); Est Glom Filt Rate - Afr Amer 151 mL/min (>60); Estimated Creatinine Clearance 38.94 ml/min; Globulin 3.6 g/dL (2.2-4.2); Glucose 109 mg/dL (74-106); Potassium 4.3 mmol/L (3.5-5.1); Protein, Total 6.4 g/dL (6.4-8.2); Sodium Level 137 mmol/L (136-145)
--- NOTE | 2021-05-06 06:46 | PN.HOSP_ITS ---
Objective Data Objective Data Vital Signs: Vital Signs Temp Pulse Resp BP Pulse Ox 97.8 F 20 L 12 172/85 H 98 05/06/21 03:38 05/06/21 04:35 05/06/21 04:35 05/06/21 03:38 05/06/21 04:35 Oxygen Flow Rate (L/min) 6 Oxygen Delivery Method Bi-pap Weight: 119 lb 7.849 oz Body Mass Index (BMI) 22.6 Intake & Output: Intake and Output for Last 24 Hours 05/04/21 05/05/21 05/06/21 23:59 23:59 23:59 Intake Total 2552.5 / 2552.5 1730.00 / 1930.00 300 / 300 Output Total 1500 / 1850 1175 / 2275 1425 / 1425 Balance 1052.5 / 702.5 555.00 / -345.00 -1125 / -1125 Medical Nutrition Assessment Dietitian: Malnutrition Criteria Met Start: 05/01/21 17:44 Freq: Status: Active Protocol: Document 05/05/21 14:03 MAITE (Rec: 05/05/21 14:03 MAITE [id number]) Nutrition Malnutrition Evidence of Malnutrition Exists Yes Malnutrition (severe): Chronic Clinical Problem Chronic Disease or Condition Related Malnutrition Etiology Severe protein-calorie malnutrition in the context of chronic disease related to increased energy expenditure and inadequate oral intake Signs/Symptoms as evidenced by ~7% wt loss x 3 months and PO meeting less than 50% estimated nutrition needs Status Active Problem Recommendation Dietitian Recommendations/Changes Will continue liberalized diet of Regular given signs/ symptoms of malnutrition. Will d/c 120 ml ensure enlive 4 times per day w/ medpass d/t refusals. Lab / Micro Data Result Diagrams: 05/06/21 04:16 05/06/21 04:16 Labs: Laboratory Results - last 24 hr 05/06/21 04:16: WBC 9.4, RBC 4.26, Hgb 11.2 L, Hct 38.3, MCV 89.9, MCH 26.3 L, MCHC 29.2 L, RDW Std Deviation 48.8 H, RDW Coeff of Mary 14.8 H, Plt Count 177, MPV 11.8, Immature Gran % (Auto) 0.400, Neut % (Auto) 78.6 H, Lymph % (Auto) 8.5 L, [place] % (Auto) 12.0 H, Eos % (Auto) 0.4, Baso % (Auto) 0.1, Absolute Neuts (auto) 7.4, Absolute Lymphs (auto) 0.80 L, Nucleated RBC % 0 05/06/21 04:16: Sodium 137, Potassium 4.3, Chloride 98, Carbon Dioxide 38.0 H, Anion Gap 1 L, BUN 19 H, Creatinine 0.51 L, Estim Creat Clear Calc 38.94, Est GFR (MDRD) Af Amer 151, Est GFR (MDRD) Non-Af 125, BUN/Creatinine Ratio 37.0 H, Glucose 109 H, Calcium 9.2, Total Bilirubin 0.50, AST 14 L, ALT 19, Alkaline Phosphatase 57, Total Protein 6.4, Albumin 2.8 L, Globulin 3.6, Albumin/Globulin Ratio 0.8 L Micro: Microbiology 05/01/21 09:25 Blood Culture (Wb) #2 - Anticubital Right Blood Culture - Preliminary No growth in 48 hours. 05/01/21 09:15 Blood Culture (Wb) - Anticubital Left Blood Culture - Preliminary No growth in 48 hours. 05/01/21 13:05 Interface Orders Respiratory Panel (PCR) - Final 05/01/21 09:15 Nasal Secretion SARS-CoV-2 Antigen (Rapid) - Final
[2021-05-06] MEDS: Ipratropium/Albuterol Sulfate 3 ML AMPUL.NEB INHALATION ×2 (07:00→14:25)
[2021-05-06] MEDS: clonazePAM 0.5 MG Tablet PO (08:30)
[2021-05-06] MEDS: guaiFENesin 1,200 MG Tablet 1200 MG PO (08:31)
[2021-05-06] MEDS: Tolterodine Tartrate 4 MG CAP.SA PO (08:31)
[2021-05-06] MEDS: Metoprolol(XL)Succ 50 MG Tablet PO (08:31)
[2021-05-06] MEDS: predniSONE 20 MG Tablet 40 MG PO (08:31)
[2021-05-06] MEDS: Enoxaparin 40 MG/0.4 ML Syringe SC (08:31)
[2021-05-06] MEDS: NYSTATIN 500,000 UNIT/5 ML UDC 500000 UNIT PO ×3 (08:31→17:02)
--- NOTE | 2021-05-06 09:30 | CON.PCM.PA_ITS ---
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 Patient is struggling to get back to baseline O2 of 4 liters. Palliative plan would be as follows: 1) Acute and chronic respiratory failure with hypoxia: Patient appears to be end-stage COPD, struggling with recovering from exacerbation. Prognosis appears poor at this time. Plan is to discharge to [facility] for skilled therapy. At this time, patient is a pivot to transfer and desaturates with any activity. Continue antibiotic regimen and steroid taper. Palliative can continue to encourage compliance with medications. breathing treatments and pulmonary follow up appointments. Hospice was discussed and can transition patient to hospice if baseline oxygen requirement and/or quality of life is not regained. Low dose Roxanol may benefit the feelings of air hunger and increase quality of life. 2) Anxiety about health: Patient is anxious about dyspnea and beeping machines add to the anxiety. Has had 2 doses of Klonopin. Continue with PRN Ativan. Patient has been on Ativan for awhile. Does not remember who prescribed it. Palliative willing to follow and manage anxiety with medications and emotional support as needed. 3) HTN/ Dyslipidemia/ COPD/ tracheo-cutaneous fistula: complicate overall prognosis, care and management. Defer to PCP and specialists for management. Thank you for the opportunity to participate in this patient's care, please do not hesitate to contact [facility] with any further questions or concerns, direct line is [phone]. We will follow up after discharge and will discuss palliative services further at that time. Contact information left with the patient. Palliative liaison will reach out at discharge to [facility]. Greater than 50% of F visit dedicated to education and counseling of palliative care services, medications, comorbid conditions and potential assistance with management, and plan of care moving forward. Start time: 08:30 End time: 10:08 HPI Consult Data Date of Consult: 05/06/21 HPI Narrative HPI Narrative: DALTON KRUGER, is a 70 year old female that presented to [facility] on 05/01/21 with worsening shortness of breath. She is a former smoker and typically uses 4 liters of oxygen baseline, but has required more due to worsening shortness of breath. She had a slight nonproductive cough and no fevers but she has noted some chills. Denies any sick contacts at home. In the ER she was found to be tachypneic and tachycardic and had to be placed on 6 L nasal cannula on admission. Respiratory status deteriorated to the point where she needed to be placed on BiPAP. She has been given a dose of steroids as well as breathing treatment in the ER. Chest Xray showed No airspace consolidation or pleural effusion. Bibasilar parenchymal and pleural fibrotic changes similar since . She was continued on Bipap, steroids and breathing treatments. Leukocystosis but negative respiratory panel. BNP 108, monitoring for possible ECHO. Started on Levaquin due to continued Luekocytosis. Continued Bipap with baseline O2 at 4 liters. Off bipap during the day on 05/02/21 at 5 liters. Patient is very anxious about going home. Ativan was added PRN due to anxiety component of dyspnea. On 05/04/21 starting to have productive cough and concerned about going home. Start PEP therapy. 05/05/21 Sats are 96-97% with supplemental oxygen. Patient is hesitant to go home and ECF placement discussed. Klonopin was added with PRN Ativan along with Palliative consult. PCP: [facility] Specialists: mindy Caldera, Preferred Pharmacy: [facility], Living Will/HPOA: Pt does not have LW/HPOA and declines AD info. LNOK: Donald Kruger, son; Jeanie Kruger, daughter; Allison Worrell, sister. Pt lives alone in apt and daughter states no concerns at home. Pt is independent with ADL's. Pt's family drives and states no transportation concerns. Pt has the following DME: tub bench, rollator, suction, nebulizer, and home oxygen thru [facility] [place]. Per pt, her home order is for 4L. Call to [facility] [place] and they state pt's order is for 3L at bedtime only. Pt states has had HHC in the past and has been to [facility] and [facility] in the past. Plan is to [facility] PT[facility]OT. Seen today in her room sitting in bedside chair. Nonrebreather at [address]. Oxygen decreased to nasal cannula at 8 liters and unable to tolerate to sat dipping to 85% at rest and nonbreather replaced at 15 liters. Patient is alert oriented and pleasant. Conversational dyspnea with 4-5 words. Reports that cough is improved. Chest tightness is improved. Uses Yonker to suction mouth and throat at home. Reports that anxiety is the same with Klonopin but has only had 2 doses. Has been on long-term Ativan. Does not remember who prescribes. Appetite is fair. Does not eat much. Last bowel movement on Wednesday. Slept better last evening. Has not slept the last 2 evenings. Denies pain or discomfort. Denies any chest pain or dizziness. Currently, only a transfer to bedside commode due to dyspnea and decompensation. Palliative versus hospice described. Patient appears overwhelmed at this time. Son had due to Covid-19 in the fall. Emotional support provided. Palliative brochure and business card left. Assured that Palliative liaison will reach out at discharge to the [facility] Medical History Asthma COPD (chronic obstructive pulmonary disease) Former smoker On home oxygen therapy Home Medications Cetirizine Hcl [Zyrtec] 10 mg PO DAILY 09/21/15 [History Last Taken 05/01/21] albuterol sulfate 2.5 mg INHALATION Q2H PRN PRN 09/21/15 [History Last Taken 04/30/21] mirtazapine 30 mg PO QHS 09/21/15 [History Last Taken 04/30/21] oxybutynin chloride 15 mg PO BID 09/21/15 [History Last Taken Unknown] roflumilast [Daliresp] 500 mcg PO DAILY 09/21/15 [History Last Taken 04/30/21] metoprolol succinate 50 mg PO DAILY 06/14/16 [History Last Taken 04/30/21] rosuvastatin 10 mg PO DAILY 09/19/17 [History Last Taken 04/30/21] lorazepam 1 tab PO TID PRN 02/25/18 [History Last Taken Unknown] Cholecalciferol (Vitamin D3) [Vitamin D3] 5,000 unit PO DAILY 01/11/20 [History Last Taken 05/01/21] multivitamin with minerals 1 ea PO DAILY 01/11/20 [History Last Taken 04/30/21] budesonide [Pulmicort] 0.5 mg INHALATION BID 05/01/21 [History Last Taken Unknown] Allergy/AdvReac Type Severity Reaction Status Date / Time No Known Allergies Allergy Verified 05/01/21 09:08 Family History Other Heart disease Surgical History Status post insertion of percutaneous endoscopic gastrostomy (PEG) tube Social History household members: none housing: apartment Smoking Status: Former smoker ROS Constitutional Constitutional: Reports fatigue and weakness; Denies chills or fever(s) Cardiovascular Cardiovascular: Denies chest pain, clubbing, cyanosis, diaphoresis or dizziness Respiratory/Chest Respiratory/Chest: Reports dry cough and dyspnea on exertion; Denies chest tig htness, hemoptysis or hoarseness Gastrointestinal Gastrointestinal: Reports none Genitourinary Genitourinary: Denies abdominal discomfort or dysuria Psychiatric Psychiatric: Reports anxiety; Denies behavioral changes or change in appetite Physical Exam Const alert and oriented x3 General Appearance: anxious Nutritional Appearance: thin HEENT normocephalic and head/scalp atraumatic Mouth: thrush Teeth and Gingiva: edentulous Eyes PERRL, EOMs intact bilaterally and conjunctivae normal General Eye: normal appearance of both eyes Neck General: trachea midline Resp Resp Narrative: 4-5 word dyspnea Effort and Inspection: tachypneic and uses accessory muscles Auscultation: diminished lung sounds Cardio regular rate, regular rhythm, S1 normal heart sound and S2 normal heart sound GI normal to inspection, nondistended, normoactive bowel sounds Back/Spine normal ROM and normal to inspection Extremity no clubbing, cyanosis or edema Skin no rashes or lesions noted General Skin Exam: no breakdown Neuro CN's II-XII intact bilaterally, moves all extremities, no focal motor deficits and no sensory deficits noted Psych Activity / Motor Behavior: appropriate eye contact Mood & Affect: anxious Thought Process: normal thought process
[2021-05-06] MEDS: levoFLOXacin IV 750 MG/150 ML BAG 100 MG IV (09:59)
--- NOTE | 2021-05-06 11:52 | CASEMGMT ---
NICOLAS received a call from patient's daughter, Jeanie. She wondered the status of patient's discharge. NICOLAS let Jeanie know that we are waiting on insurance to approve. NICOLAS will let her know when NICOLAS hears back. NICOLAS did call Claudette at [facility] and asked that she call NICOLAS when she gets approval for patient. Beverley MIRANDA
--- NOTE | 2021-05-06 13:42 | CASEMGMT ---
Social Work PCU Received call from Resident Service Coordinator at [facility] inquiring about patient's status as received alerts from [facility] of patient's hospitalization and plan for [facility] [place]. Confirmed admission date, reason for admission and discharge plan after reviewing chart. Patient's Resident Service Coordinator at the [facility] is Tara Shearer, . Fax number for discharge instructions/summary is [phone]. The only waiver services patient has been receiving has been Emergency Response System. Handoff to PHARMACIST ASSISTANT LINA and NICOLAS. -JANNETH Shine, KEYSMITH
--- NOTE | 2021-05-06 15:00 | PCM.TXEXTCAR ---
Diet 05/01/21 17:45 Diet: Regular - General Food consistency:: Regular Liquid Consistency:: Regular/Thin Routine Orders/Code Status Enema Type: Fleetz Enema Frequency: Daily PRN Suppository Type: Dulcolax 10mg Suppository Frequency: Daily PRN O2 Liters per Minute: 4-5 rest and 7-8L with activity with therapies. BIPAP with sleep/naps. O2 Frequency: Goal oxygenation 88-92% Keep PO Greater than or Equal to (%): 90 Code Status: DNRCC-A (DNR-CCA with intubation.) Suggestions for Active Care Change Position every (hours): 2 Hours to sit in a chair: 4 Times a day to sit in chair: 3 Therapies Weight Bearing: Full weight bearing Physical Therapy: Eval and Treat Occupational Therapy: Eval and Treat Problem/Diagnosis (1) Acute and chronic respiratory failure with hypoxia: Status: Chronic (2) Dyslipidemia: Status: Chronic (3) Hypertension: Status: Chronic (4) Chronic obstructive asthma: Status: Chronic (5) Emphysema: Status: Chronic (6) History of tobacco use: Status: Chronic (7) History of lung abscess: Status: Chronic Comment: LLL (8) Tracheo-cutaneous fistula: Status: Acute (9) Anxiety about health: Status: Acute Allergies/Procedures Done in Hospital Allergies No Known Allergies Allergy (Verified 05/01/21 09:08) Procedures: EKG Type of Care/Length of Stay Estimated LOS: Convalescent Care Less Than 30 days Type of Care Needed: Skilled Rehab Potential: Fair Prognosis: Fair Additional Orders/Day of Discharge Additional Orders: (1) Continue BIPAP q HS and if sleeping during day, (2) Fall and aspiration precautions, (3) Encourage continued IS 10x/hr 7a-7p, (4) Encourage turn head and cough frequently, (5) Would benefit from continued evaluation and treatment of anxiety as contributes to her dyspnea complaints, (6) Continue palliative care evaluations at SNF for dyspnea chronic complaints. Day of Discharge: 05/06/21 Dietary and Speech Recommendations Dietitian Recommendations/Changes: Will continue liberalized diet of Regular given signs/symptoms of malnutrition. Will d/c 120 ml ensure enlive 4 times per day w/ medpass d/t refusals. Discharge Plan Admission Admit Date/Time: 05/01/21 11:34 Primary Reason for Your Visit: Acute on Chronic Resp Failure, COPD/asthma exac, Anxiety Attending Provider: Shelby Ken Primary Care Provider: Sally Fan Consulting Providers: Radha Wilson ; Brennen Dietz ; Preeti Santos ; Savita Avila ; Rosie Santos ; Micheline Daly AUTOMOTIVE MECHANIC Discharge Orders/Prescriptions Prescriptions: New nystatin 100,000 unit/mL Suspension 500,000 unit PO 4X/DAY 10 Days Qty: 0 RF: 0 clonazepam 0.5 mg Tablet 0.5 mg PO BID 5 Days Qty: 10 RF: 0 Mucus Relief ER 1,200 mg Tablet Extended Release 12hr 1,200 mg PO BID 10 Days Qty: 0 RF: 0 prednisone 10 mg tablet See Taper mg PO DAILY 12 Days Qty: 30 RF: 0 Continued albuterol sulfate 2.5 MG/3 ML solution for nebulization 2.5 mg inhalation Q2H PRN PRN (Reason: Sob &/Or Wheezing) RF: 0 mirtazapine 30 MG tablet 30 mg PO QHS RF: 0 oxybutynin chloride 5 MG tablet 15 mg PO BID RF: 0 Daliresp 500 MCG tablet 500 mcg PO DAILY RF: 0 Cetirizine Hcl [Zyrtec] 10 MG tablet 10 mg PO DAILY RF: 0 metoprolol succinate 50 MG tablet 50 mg PO DAILY RF: 0 rosuvastatin 10 MG tablet 10 mg PO DAILY RF: 0 multivitamin with minerals 1 EACH tablet 1 ea PO DAILY RF: 0 Cholecalciferol (Vitamin D3) [Vitamin D3] 5,000 UNIT capsule 5,000 unit PO DAILY RF: 0 budesonide [Pulmicort] 1 mg/2 mL Suspension For Nebulization 0.5 mg INHALATION BID RF: 0 lorazepam 0.5 MG tablet 1 tab PO TID PRN (Reason: Anxiety) 5 Days Qty: 15 RF: 0 Referrals / Follow Up: Sally Fan DO [Primary Care Provider] - (Follow-up within 2-3 days discharge.) Memo Dudley MD [NON-STAFF] - (Follow-up with pulmonary within 1 week.) Disposition Disposition (needs filled in before D/C Order can be placed): [facility]
--- NOTE | 2021-05-06 15:00 | CASEMGMT ---
NICOLAS received a call from [facility] and patient was approved. NICOLAS notified physician. Beverley MIRANDA
--- NOTE | 2021-05-06 15:07 | CASEMGMT ---
NICOLAS noted patient was on 15L this am. SW notified physician and RN said it was more anxiety. Beverley MIRANDA
--- NOTE | 2021-05-06 15:15 | DS.PCM_ITS ---
Providers Date of Admission: 05/01/21 Primary Care Physician: Dr. Sally Fan, DO Consultations 05/05/21 08:17 Consult: Hospice / Palliative Care Routine Consulting Provider: [facility] Reason for Consult: Palliative consult, dyspnea sensation issues. EMERGENT Consult: No MD Notified: Yes Date Notified: 05/05/21 Time Notified: 08:18 Method of Notification: Verbal Reason For Visit: COPD Diagnosis Discharge Diagnosis (1) Acute and chronic respiratory failure with hypoxia: Status: Chronic Code(s): J96.21 - Acute and chronic respiratory failure with hypoxia (2) Dyslipidemia: Status: Chronic Code(s): E78.5 - Hyperlipidemia, unspecified (3) Hypertension: Status: Chronic Code(s): I10 - Essential (primary) hypertension (4) Chronic obstructive asthma: Status: Chronic Code(s): J44.9 - Chronic obstructive pulmonary disease, unspecified; J45.909 - Unsp ecified asthma, uncomplicated (5) Emphysema: Status: Chronic Code(s): J43.9 - Emphysema, unspecified (6) History of tobacco use: Status: Chronic Code(s): Z87.891 - Personal history of nicotine dependence (7) History of lung abscess: Status: Chronic Code(s): Z87.09 - Personal history of other diseases of the respiratory system (8) Tracheo-cutaneous fistula: Status: Acute Code(s): Q32.1 - Other congenital malformations of trachea (9) Anxiety about health: Status: Acute Code(s): F41.8 - Other specified anxiety disorders Medications at Discharge Home Medications Cetirizine Hcl [Zyrtec] 10 mg PO DAILY 09/21/15 Daliresp 500 mcg PO DAILY 09/21/15 albuterol sulfate 2.5 mg INHALATION Q2H PRN PRN 09/21/15 mirtazapine 30 mg PO QHS 09/21/15 oxybutynin chloride 15 mg PO BID 09/21/15 metoprolol succinate 50 mg PO DAILY 06/14/16 rosuvastatin 10 mg PO DAILY 09/19/17 Cholecalciferol (Vitamin D3) [Vitamin D3] 5,000 unit PO DAILY 01/11/20 multivitamin with minerals 1 ea PO DAILY 01/11/20 budesonide [Pulmicort] 0.5 mg INHALATION BID 05/01/21 clonazepam 0.5 mg PO BID 5 Days #10 tab 05/06/21 guaifenesin [Mucus Relief ER] 1,200 mg PO BID 10 Days #0 tab 05/06/21 lorazepam 1 tab PO TID PRN 5 Days #15 tab 05/06/21 nystatin 500,000 unit PO 4X/DAY 10 Days #0 ml 05/06/21 prednisone See Taper PO DAILY 12 Days #30 tab 05/06/21 Hospital Course Operations None Procedures EKG and - (BIPAP continuous initially, high flow initially) Summary of Care Provided Minutes Spent on Discharge: 35 Hospital Course: Discharge Diagnoses: #1. Acute on chronic hypoxic respiratory failure secondary to Acute COPD/Asthma Exacerbation complicated by Severe Anxiety #2. Anxiety and Depression, Uncontrolled complicating dyspnea presentation #3. Hx Tracheo-cutaneous fistula #4. Hx Lung abscess #5. Hypertension #6. Hyperlipidemia #7. Former tobacco use #8. Allergic rhinitis #9. CODE status: DNR-CCA, with intubation. Discharge Summary: The patient is a 70 y/o F w/ PMHx: Chronic COPD/Asthma w/ Chronic Hypoxic Respiratory Failure (4-5L NC), Anxiety and Depression, Allergic Rhinitis, HTN, HLD, Former tobacco use who preseneds to the [facility] ED on 05/01/21 with history of progressively worsening dyspnea more severe over the last 24 hours with a nonproductive cough with no fevers but subjective chills with no recent ill contacts with increased work of breathing accessory muscle usage prompting ED evaluation where she was immediately placed on BiPAP. ED evaluation with CXR w/ chronic changes with noted bibasilar parenchymal and pleural fibrotic changes similar since 2019, CBC on admission mildly elevated with WBC 12.9 with shift. Patient was admitted to PCU and maintained on telemetry, initially on BiPAP however eventually transitioned off, will maintain on oxygen with wean as tolerated to home oxygen supplementation, continue ATC duonebs, PRN albuterol, IV methylprednisolone initially administered and transitioned 05/04/2021 to oral prednisone therapy with plan upon discharge for 12-day taper given severity of history, HOB, IS parameters, IV Levaquin initiated per admitting physician secondary to bacterial concerns with initial dosing 05/02/2021 with plan for 5-day regimen, blood culture with no growth x 48 hours, SARS Covid antigen rapid is negative however patient did have a positive Covid test on 01/28/2021 of note, respiratory panel negative. Patient with dyspnea worsened with anxiety, improved with initiation of low dose klonopin and PRN short acting ativan. Palliatve care consulted and evaluated patient concurrently with planned continued evaluation at SNF. Given patient fear and severe anxiety upon returning to home to discuss options and patient was amenable to consideration for skilled facility, PT and OT assessment as well as case management consulted and patient transitioned to SNF. Patient prior to admission remained on 4-5L at rest and with activity 7-8L with ongoing BIPAP with nap and q HS. Discharge Time: > 35 Minutes DAY OF DISCHARGE PROGRESS NOTE: Subjective: Patient without acute event overnight per self and nursing report. She notes feeling less dyspnea this AM on evaluation. She did have episode of anxiety during the day and oxygen was increased but once calmed decreased to her normal chronic level 4-5L. She worked with therapies and did require increased oxygen but this again improved following. She remains anxious but notes the klonopin is assisting. Patient denies fever, chills, nausea, emesis, abdominal pain, chest pain or dyspnea. Patient agreeable to discharge to SNF. Patient will be discharged with follow-up with primary care physician and recommended pulmonary follow-up concurrently. Objective: T 98.1, HR 87, BP 127/61, RR 16, 96% on 4L NC. Physical Examination: General: Awake, alert, oriented x 3 and cooperative, seated upright in the PCU bed, less anxious currently. Skin: Normal color, normal turgor, no icterus, no cyanosis. HEENT: AT/NC, EOMI, PERRLA, MMM. Lungs: Diminished, greater bases, appropriate effort, reports feeling improved, no rales, ronchi or marked wheezing. Heart: Currently regular rate and rhythm; no gallop, rub audible. Abdomen: Soft, NTTP, ND, normlized BS. Extremities: No cyanosis, clubbing, or edema. Neurological: Patient awake, alert, oriented as noted, cognitive function intact; pupils equally reactive to light and accommodation, cranial nerves II- XII grossly normal, moving all 4 extremities, no focal deficits, strength improving, moderately global decreased but improving. Psychiatric: Affect appears less anxious, agreeable to SNF still, no acute evidence of depressive feelings. Assessment and Plan: Please see hospital summary above. Medical Records Data Medical Nutrition Assessment Dietitian: Malnutrition Criteria Met Start: 05/01/21 17:44 Freq: Status: Active Protocol: Document 05/05/21 14:03 MAITE (Rec: 05/05/21 14:03 MAITE [id number]) Nutrition Malnutrition Evidence of Malnutrition Exists Yes Malnutrition (severe): Chronic Clinical Problem Chronic Disease or Condition Related Malnutrition Etiology Severe protein-calorie malnutrition in the context of chronic disease related to increased energy expenditure and inadequate oral intake Signs/Symptoms as evidenced by ~7% wt loss x 3 months and PO meeting less than 50% estimated nutrition needs Status Active Problem Recommendation Dietitian Recommendations/Changes Will continue liberalized diet of Regular given signs/ symptoms of malnutrition. Will d/c 120 ml ensure enlive 4 times per day w/ medpass d/t refusals. Weight / BMI Weight Weight: 119 lb 7.849 oz Body Mass Index (BMI) 22.6 ABG / Lab / Microbiology Data Result Diagrams: 05/06/21 04:16 05/06/21 04:16 Laboratory: Laboratory Results - last 24 hr 05/06/21 04:16: WBC 9.4, RBC 4.26, Hgb 11.2 L, Hct 38.3, MCV 89.9, MCH 26.3 L, MCHC 29.2 L, RDW Std Deviation 48.8 H, RDW Coeff of Mary 14.8 H, Plt Count 177, MPV 11.8, Immature Gran % (Auto) 0.400, Neut % (Auto) 78.6 H, Lymph % (Auto) 8.5 L, [facility] % (Auto) 12.0 H, Eos % (Auto) 0.4, Baso % (Auto) 0.1, Absolute Neuts (auto) 7.4, Absolute Lymphs (auto) 0.80 L, Nucleated RBC % 0 05/06/21 04:16: Sodium 137, Potassium 4.3, Chloride 98, Carbon Dioxide 38.0 H, Anion Gap 1 L, BUN 19 H, Creatinine 0.51 L, Estim Creat Clear Calc 38.94, Est GFR (MDRD) Af Amer 151, Est GFR (MDRD) Non-Af 125, BUN/Creatinine Ratio 37.0 H, Glucose 109 H, Calcium 9.2, Total Bilirubin 0.50, AST 14 L, ALT 19, Alkaline Phosphatase 57, Total Protein 6.4, Albumin 2.8 L, Globulin 3.6, Albumin/Globulin Ratio 0.8 L Microbiology: Microbiology 05/01/21 09:25 Blood Culture (Wb) #2 - Anticubital Right Blood Culture - Preliminary No growth in 48 hours. 05/01/21 09:15 Blood Culture (Wb) - Anticubital Left Blood Culture - Preliminary No growth in 48 hours. 05/01/21 13:05 Interface Orders Respiratory Panel (PCR) - Final 05/01/21 09:15 Nasal Secretion SARS-CoV-2 Antigen (Rapid) - Final Meaningful Use Info Meaningful Use Diagnoses (Choose all that apply): None applicable Discharge Plan Admission Admit Date/Time: 05/01/21 11:34 Primary Reason for Your Visit: Acute on Chronic Resp Failure, COPD/asthma exac, Anxiety Attending Provider: Shelby Ken Primary Care Provider: Sally Fan Consulting Providers: Radha Wilson ; Brennen Dietz ; Preeti Santos ; Savita Avila ; Rosie Santos ; Micheline Daly POULTRY HATCHERY MANAGER Discharge Orders/Prescriptions Prescriptions: New nystatin 100,000 unit/mL Suspension 500,000 unit PO 4X/DAY 10 Days Qty: 0 RF: 0 clonazepam 0.5 mg Tablet 0.5 mg PO BID 5 Days Qty: 10 RF: 0 Mucus Relief ER 1,200 mg Tablet Extended Release 12hr 1,200 mg PO BID 10 Days Qty: 0 RF: 0 prednisone 10 mg tablet See Taper mg PO DAILY 12 Days Qty: 30 RF: 0 Continued albuterol sulfate 2.5 MG/3 ML solution for nebulization 2.5 mg inhalation Q2H PRN PRN (Reason: Sob &/Or Wheezing) RF: 0 mirtazapine 30 MG tablet 30 mg PO QHS RF: 0 oxybutynin chloride 5 MG tablet 15 mg PO BID RF: 0 Daliresp 500 MCG tablet 500 mcg PO DAILY RF: 0 Cetirizine Hcl [Zyrtec] 10 MG tablet 10 mg PO DAILY RF: 0 metoprolol succinate 50 MG tablet 50 mg PO DAILY RF: 0 rosuvastatin 10 MG tablet 10 mg PO DAILY RF: 0 multivitamin with minerals 1 EACH tablet 1 ea PO DAILY RF: 0 Cholecalciferol (Vitamin D3) [Vitamin D3] 5,000 UNIT capsule 5,000 unit PO DAILY RF: 0 budesonide [Pulmicort] 1 mg/2 mL Suspension For Nebulization 0.5 mg INHALATION BID RF: 0 lorazepam 0.5 MG tablet 1 tab PO TID PRN (Reason: Anxiety) 5 Days Qty: 15 RF: 0 Referrals / Follow Up: Sally Fan DO [Primary Care Provider] - (Follow-up within 2-3 days discharge.) Memo Dudley MD [NON-STAFF] - (Follow-up with pulmonary within 1 week.) Disposition Disposition (needs filled in before D/C Order can be placed): [facility] Charges/Coding Visit Charges Inpatient E&M: 64285 Disch Hosp
--- NOTE | 2021-05-06 15:37 | CASEMGMT ---
NICOLAS noted patient was on bipap last night. NICOLAS was not aware patient was wearing bipap. It has been ordered while here, but patient has not been wearing it. NICOLAS spoke with Claudette at [facility] and sent the bipap settings. She will get one ordered for patient. NICOLAS arranged for patient to get picked up at 7. (NICOLAS tried to get an earlier transport, but no other times were available) NICOLAS faxed orders, negative COVID, and rock picker time to [facility]. NICOLAS completed a 7000 in [facility]. Plan: d/c to [facility] under skilled level of care on a convalescent stay. [facility] transported idi paul. Beverley Myers CHIEF DESIGN ENGINEER RUTH
--- NOTE | 2021-05-06 17:13 | NURSING ---
Report attempted to be called to [facility] x[facility] at 1710, per front desk person Winter she will leave a message to the nurse to call back.
--- NOTE | 2021-05-06 17:31 | NURSING ---
[facility] phoned stating they can not accept patient tonight due to unable to obtain a bi-pap machine for the patient.
--- NOTE | 2021-05-06 17:53 | NURSING ---
[facility] notified that patient will be coming to facility tonight. After checking with Dr. Ken, patient does not need Bi Pap at .
--- NOTE | 2021-05-06 18:13 | NURSING ---
Report attempted to be called again to the [facility] at 1810, Winter at the front line leader took number to give for someone to call back.
--- NOTE | 2021-05-06 19:19 | NURSING ---
Report called at 1916 to JUANY tatum at the [facility].
--- NOTE | 2021-05-07 09:16 | CASEMGMT ---
NICOLAS faxed d/c orders and med list to [facility], patient's [facility] case managers. NICOLAS also wrote on fax face sheet that patient went to [facility]. Beverley MIRANDA
== END 2021-05-06 19:14 | disposition skilled nursing facility (03) | DRG 190 ==
LOC: ED 09:27 → PCU 11:28
PROVIDERS: Admitting Provider Family Medicine; Emergency Provider Emergency Medicine; PCP Internal Medicine; Visit Provider Family Medicine
DX: J43.9 Emphysema, unspecified (principal); J96.21 Acute and chronic respiratory failure with hypoxia; E43 Unspecified severe protein-calorie malnutrition; I10 Essential (primary) hypertension; E78.5 Hyperlipidemia, unspecified; J30.9 Allergic rhinitis, unspecified; F41.9 Anxiety disorder, unspecified; Z99.81 Dependence on supplemental oxygen; Z20.822 Contact with and (suspected) exposure to COVID-19; F32.A Depression, unspecified; Z79.51 Long term (current) use of inhaled steroids; Z79.899 Other long term (current) drug therapy; Z66 Do not resuscitate; Z87.891 Personal history of nicotine dependence; Z68.22 Body mass index [BMI] 22.0-22.9, adult
CPT/HCPCS: 36415; 71045; 80048; 80053; 83880; 84484; 85025; 87040; 87426; 87633; 87811; 93005; 94002; 94003; 94640; 94762; 97110; 97162; 97166; 97530; 97535; 99285; J7030; J7050; A4216

== ENCOUNTER 2021-05-15 14:26 | Outpatient (CLI) | payer MEDICARE, MEDICAID, SELFPAY ==
--- NOTE | 2021-05-15 | SPU_PTH ---
PATIENT: DALTON KRUGER LOC: [facility]#:[id number] AGE/SX: 70/F ROOM: RE05/15/[address]: Dr. Willy Caldera MD : [id number] BED: DIS: 05/15/2021 SPEC #: [id number] RECD: 05/15/21 15:00 STATUS: REMI TITUS #: [id number] JEFFERY: 05/15/21 00:[address]: Willy Caldera V DEPT: CYTOLOGY RECD BY: Jose Alvarez ENTERED: 05/16/21 08:37 SP TYPE: Sputum Cy OTHR DR: Dr. Sally Fan, DO Tissues: Sputum Procedures: Pap Stain (control) Special Stain Group II Special Stain Group I AFB Stain (control) Cytospin Fluid HEADER OPERATION: Not noted PRE-OP DIAGNOSIS: J44.9 TISSUE SUBMITTED: Sputum for cytology DIAGNOSIS CYTOLOGY Sputum for cytology (cytospin and smears): Negative for malignant cells. Negative for acid-fast bacilli. See comment. AM:danielle 05/16/2021 COMMENT AFB stain with matched control supports the above diagnosis. CYTOLOGY STUDY Slides are reviewed. CYTOLOGY GROSS Received is 1 ml of mucoid opaque fluid labeled with the patient's name and and designated per the requisition as sputum. Submitted for cytology preparation. / danielle 05/16/2021 TC:5 CPT: 75653, 53564
[2021-05-15 14:32] LABS: Cytology, Body Fluid / CSF SEE PATHOLOGY REPORT
== END 2021-05-15 23:59 | disposition home or self-care (01) ==
LOC: LABSPEC 14:28
PROVIDERS: PCP Internal Medicine; Visit Provider Internal Medicine Pulmonary Disease
DX: J44.9 Chronic obstructive pulmonary disease, unspecified (principal)
CPT/HCPCS: 87070; 87077; 87186; 87205; 88108; 88312; 88313

== ENCOUNTER 2021-06-15 20:07 | Emergency (ER) | payer MEDICARE, MEDICAID, SELFPAY ==
[2021-06-15 20:08] VITALS: BP 163/59; PULSE 89; RESP 15; TEMP 36.2; O2SAT 98; BMI 23.0
--- NOTE | 2021-06-15 20:24 | EX.ED.DYSGE1 ---
HPI History of Present Illness Chief Complaint: Lower Extremity Injury Informant: patient Onset/Context/Timing Onset: Weeks (2) Context: Gradual Onset Timing: Continuous Quality: edema Location: BLE Current Severity: Moderate Maximum Severity: Moderate Worsened by: nothing Relieved by: nothing Associated Symptoms Associated Symptoms: sore/tightness where swollen; no other new sx Narrative Narrative: Patient has had edema in both of her feet worse on the right for the past 2 weeks worse in the past week. She states it started while she was in short-term rehab longterm after an admission to the hospital here. She denies any new thoracic symptoms, she has history of severe COPD on oxygen at home and has chronic dyspnea with exertion and orthopnea but none of that is worse. She denies any syncope, chest pain, palpitations. She is concerned she has a blood clot because it is asymmetric. It really is in the ankles and distal. She had a history of a blood clot 8 years ago or so and was on anticoagulants then but not since. She is on no antiplatelet medications right now. [facility] Medical History Asthma Chronic obstructive asthma COPD (chronic obstructive pulmonary disease) Dyslipidemia Emphysema Former smoker History of lung abscess History of tobacco use Hypertension On home oxygen therapy Tracheo-cutaneous fistula Home Medications Daliresp 500 mcg PO DAILY 09/21/15 [History Last Taken 04/30/21] albuterol sulfate 2.5 mg INHALATION Q2H PRN PRN 09/21/15 [History Last Taken 04/30/21] mirtazapine 30 mg PO QHS 09/21/15 [History Last Taken 04/30/21] oxybutynin chloride 15 mg PO BID 09/21/15 [History Last Taken Unknown] metoprolol succinate 50 mg PO DAILY 06/14/16 [History Last Taken 04/30/21] rosuvastatin 10 mg PO DAILY 09/19/17 [History Last Taken 04/30/21] Cholecalciferol (Vitamin D3) [Vitamin D3] 5,000 unit PO DAILY 01/11/20 [History Last Taken 05/01/21] multivitamin with minerals 1 ea PO DAILY 01/11/20 [History Last Taken 04/30/21] budesonide [Pulmicort] 0.5 mg INHALATION BID 05/01/21 [History Last Taken Unknown] clonazepam 0.5 mg PO BID 5 Days #10 tab 05/06/21 [Rx Last Taken Unknown] lorazepam 1 tab PO TID PRN 5 Days #15 tab 05/06/21 [Rx Last Taken Unknown] furosemide 20 mg PO DAILY #7 tab 06/15/21 [Rx Last Taken Unknown] ipratropium-albuterol 0.5 ml INHALATION Q8 06/15/21 [History Last Taken Unknown] Allergy/AdvReac Type Severity Reaction Status Date / Time No Known Allergies Allergy Verified 06/15/21 20:12 Family History Other Heart disease Surgical History Status post insertion of percutaneous endoscopic gastrostomy (PEG) tube Social History household members: none housing: apartment Smoking Status: Former smoker ROS ROS ED Constitutional Constitutional ED: Denies chills or fever(s) Eyes Eyes: Denies change in vision or diplopia ENT ENT ED: Denies rhinorrhea or sore throat Cardiovascular Cardiovascular: Reports as per HPI, orthopnea and pedal edema; Denies chest pain or palpitations Respiratory/Chest Respiratory/Chest: Reports as per HPI, cough, dyspnea on exertion and orthopnea; Denies hemoptysis Gastrointestinal Gastrointestinal: Denies abdominal pain, diarrhea, nausea or vomiting Genitourinary Genitourinary ED: Denies dysuria or hematuria Musculoskeletal Musculoskeletal: Denies back pain or neck pain Integumentary Denies abscess or rash Neurologic Neurologic: Denies headache(s), paresthesias or weakness Psychiatric Psychiatric: Denies anxiety or suicidal thoughts Endocrine Endocrinology: Denies excessive sweating, palpitations or polydipsia EXAM Physical Exam Const Vital Signs: 06/15/21 20:08 Temperature 97.2 F L Temperature Source Temporal Pulse Rate 89 Respiratory Rate 15 Blood Pressure 163/59 H Blood Pressure Mean 93 Pulse Ox 98 Oxygen Delivery Method Nasal Cannula Oxygen Flow Rate (L/min) 4 Positive well nourished and well developed General Appearance ED: well developed and NAD HEENT Reports moist mucous membranes normocephalic and atraumatic Eyes PERRL and EOMs intact bilaterally Neck full ROM and supple Resp normal respiratory effort Resp Narrative: Diffusely symmetrically diminished, trachea midline, end-expiratory wheezes throughout Effort and Inspection: able to speak in complete sentences Cardio regular rate, regular rhythm and no JVD Cardio Narrative: Faint heart sounds GI non-tender and non-distended Auscultation: normoactive bowel sounds Palpation: soft Back/Spine no CVA tenderness General Back: other FROM Extremity normal to inspection and no calf tenderness Extremity Narrative: Edema of both distal lower extremities, starts at the ankle on the right and is somewhat worse than the edema on the left which is pretty much limited to just the foot. 2+/4 dorsalis pedis pulses bilaterally. Soft nontender compartments throughout both lower extremities. Able to walk without difficulty. No signs of cellulitis or abscess, nor a nidus for infection. General Extremety ED: Yes edema; Negative for pulses abnormal or tenderness General Extremity: edema; Negative for pulses abnormal Neuro oriented x3, CN's II-XII intact bilaterally and no sensory deficits noted Sensorium / Orientation: awake and alert Motor Exam: strength 5/5 throughout Skin no rashes or lesions noted and no wounds MDM MDM MDM Narrative Medical decision making narrative: This patient does not appear to have a DVT as cause for this very distal edema that she has bilaterally, but and she has a history of 1 and it is asymmetric I thought it was reasonable to rule 1 out. In addition to basic labs and a BNP, a D-dimer was obtained. It is just slightly abnormal even when corrected for age, but the rest of her test including her renal function and a BNP are all normal. She is reassured, I think this is unlikely to be a DVT, but since it is very distal swelling and her D-dimer is abnormal, she does not need to be treated empirically with anticoagulants, but we will set her up for an outpatient right lower extremity ultrasound to be obtained during business hours which is not available at this time Wednesday. We will also prescribe her Lasix to take for the next week, advised to follow-up after she has the ultrasound she is comfortable with that plan. Lab Data Attestation: I reviewed the patient's lab results. Labs: Laboratory Results - last 24 hr 06/15/21 06/15/21 06/15/21 20:35 20:35 20:35 WBC 5.9 RBC 4.02 L Hgb 11.0 L Hct 37.4 MCV 93.0 MCH 27.4 MCHC 29.4 L RDW Std Deviation 51.2 H RDW Coeff of Mary 15.0 H Plt Count 266 MPV 11.0 Immature Gran % (Auto) 0.300 Neut % (Auto) 65.8 Lymph % (Auto) 22.5 [place] % (Auto) 9.3 Eos % (Auto) 1.9 Baso % (Auto) 0.2 Absolute Neuts (auto) 3.9 Absolute Lymphs (auto) 1.33 Nucleated RBC % 0 D-Dimer Quant (PE/DVT) 0.77 H* Sodium Potassium Chloride Carbon Dioxide Anion Gap BUN Creatinine Estim Creat Clear Calc Est GFR (MDRD) Af Amer Est GFR (MDRD) Non-Af BUN/Creatinine Ratio Glucose Calcium B-Natriuretic Peptide 86.2 06/15/21 20:35 WBC RBC Hgb Hct MCV MCH MCHC RDW Std Deviation RDW Coeff of Mary Plt Count MPV Immature Gran % (Auto) Neut % (Auto) Lymph % (Auto) [place] % (Auto) Eos % (Auto) Baso % (Auto) Absolute Neuts (auto) Absolute Lymphs (auto) Nucleated RBC % D-Dimer Quant (PE/DVT) Sodium 142 Potassium 3.6 Chloride 103 Carbon Dioxide 35.0 H Anion Gap 4 L BUN 12 Creatinine 0.62 Estim Creat Clear Calc 38.94 Est GFR (MDRD) Af Amer 121 Est GFR (MDRD) Non-Af 100 BUN/Creatinine Ratio 19.2 Glucose 116 H Calcium 9.6 B-Natriuretic Peptide Discharge Plan Triage Chief Complaint: Lower Extremity Injury ED Provider: Hero Dduley Dx/Rx/DC Orders Clinical Impression: Asymmetric edema of both lower extremities Instructions: ED Peripheral Edema, Bilateral Prescriptions: New furosemide 20 mg tablet 20 mg PO DAILY Qty: 7 RF: 0 No Action albuterol sulfate 2.5 MG/3 ML solution for nebulization 2.5 mg inhalation Q2H PRN PRN (Reason: Sob &/Or Wheezing) RF: 0 mirtazapine 30 MG tablet 30 mg PO QHS RF: 0 oxybutynin chloride 5 MG tablet 15 mg PO BID RF: 0 Daliresp 500 MCG tablet 500 mcg PO DAILY RF: 0 metoprolol succinate 50 MG tablet 50 mg PO DAILY RF: 0 rosuvastatin 10 MG tablet 10 mg PO DAILY RF: 0 multivitamin with minerals 1 EACH tablet 1 ea PO DAILY RF: 0 Cholecalciferol (Vitamin D3) [Vitamin D3] 5,000 UNIT capsule 5,000 unit PO DAILY RF: 0 budesonide [Pulmicort] 1 mg/2 mL Suspension For Nebulization 0.5 mg INHALATION BID RF: 0 clonazepam 0.5 mg Tablet 0.5 mg PO BID 5 Days Qty: 10 RF: 0 lorazepam 0.5 MG tablet 1 tab PO TID PRN (Reason: Anxiety) 5 Days Qty: 15 RF: 0 ipratropium-albuterol 0.5 mg-3 mg(2.5 mg base)/3 mL solution for nebulization 0.5 ml inhalation Q8 RF: 0 Other Ambulatory Orders: Venous Duplex US, Unilateral (Routine) Facility: [facility], [place] - Location: [facility] Ordered By: Dr. Hero Dudley ON-CALL NEEDED: Notify [facility] - Doppler Study Ordered (Stat) Location: None Selected Ordered By: Dr. Hero Dudley Primary Care Provider: Sally Fan Referrals: Sally Fan DO [Primary Care Provider] - (This week after your ultrasound is performed, call for appointment) Disposition Disposition: Home, Self Care
[2021-06-15 20:52] LABS: Absolute Lymphocyte Count 1.33 X10^3/uL (0.83-4.51); Absolute Neutrophil Count 3.9 X10^3/uL (2.0-7.7); Basophil# 0.01 X10^3/uL; Basophil% 0.2 % (0-1); Eosinophil# 0.11 X10^3/uL; Eosinophils% 1.9 % (0-5); Hematocrit 37.4 % (37-47); Lymphocyte # 1.33 X10^3/ul (0.83-4.51); Lymphocyte % 22.5 % (19-41); Mean Corp Hgb Conc 29.4 g/dL (32-36); Mean Corpuscular Hgb 27.4 pg (27.0-32.0); Monocyte# 0.55 X10^3/uL; Monocyte% 9.3 % (0-10); NRBC Flagged by Analyzer 0 % (0-5); Neutrophil # 3.89 X10^3/uL (2.7-7.7); Neutrophil % 65.8 % (47-70); Platelet Count 266 K/mm3 (150-450); RBC Distribution Width SD 51.2 fl (35.1-43.9); Red Blood Count 4.02 M/mm3 (4.2-5.4); White Blood Count 5.9 K/mm3 (4.4-11.0)
[2021-06-15 21:07] LABS: Anion Gap 4 (5-15); BUN 12 mg/dL (7-18); BUN/Creat Ratio 19.2 RATIO (10-20); Calcium,Total 9.6 mg/dL (8.5-10.1); Chloride 103 mmol/L (98-107); Creatinine, Serum 0.62 mg/dL (0.55-1.02); EST Glomerular Filtration Rate 100 mL/min (>60); Est Glom Filt Rate - Afr Amer 121 mL/min (>60); Estimated Creatinine Clearance 38.94 ml/min; Glucose 116 mg/dL (74-106); Potassium 3.6 mmol/L (3.5-5.1); Sodium Level 142 mmol/L (136-145)
[2021-06-15 21:12] LABS: BNP,B-Type NATRIURETIC PEPTIDE 86.2 pg/mL (0-100)
[2021-06-15 21:31] LABS: D-Dimer Quantitative (DVT/PE) 0.77 FEU/ug/m (0.27-0.49)
[2021-06-15 21:56] VITALS: BP 157/61; PULSE 82; RESP 20; O2SAT 99
== END 2021-06-15 21:59 | disposition home or self-care (01) ==
PROVIDERS: Emergency Provider Emergency Medicine; PCP Internal Medicine; Visit Provider Emergency Medicine
DX: M79.89 Other specified soft tissue disorders (principal); J44.9 Chronic obstructive pulmonary disease, unspecified; R06.00 Dyspnea, unspecified; I10 Essential (primary) hypertension; Z87.891 Personal history of nicotine dependence; Z79.899 Other long term (current) drug therapy; Z99.81 Dependence on supplemental oxygen
CPT/HCPCS: 80048; 83880; 85025; 85379; 99282

== ENCOUNTER → 2021-06-16 | Outpatient (CLI) | payer MEDICARE, MEDICAID, SELFPAY ==
--- NOTE | 2021-06-16 15:27 | VDLE_ITS ---
Reason For Study: swelling RIGHT GSV is normal. CFV is compressible, spontaneous, phasic, competent and demonstrates normal augmentation. FV is compressible, spontaneous, phasic, competent and demonstrates normal augmentation. POP V is compressible, spontaneous, phasic, competent and demonstrates normal augmentation. T/P Trunk is compressible. PTV is compressible. RT PerV is compressible. Procedure This is a venous duplex using B-mode, color flow and spectral Doppler. Exam performed in department. The exam was abbreviated due to the COVID 19 protocol. The exam was diagnostic. VL/Venous Duplex US, Unilateral Interpretation Summary There is no evidence of right lower extremity deep vein thrombosis. Right great saphenous vein appears patent and compressible segmentally. Right popliteal space 0.44 x 1.67 cm nonvascular cystic structure consistent with a Bakers cyst. Clinical correlation would be appropri ate. Abbreviated COVID-19 protocol utilized Ordering Physician: Hero Dudley Performed By: Wander Watkins RVT
== END | disposition home or self-care (01) ==
LOC: CVS 15:14
PROVIDERS: PCP Internal Medicine; Visit Provider Emergency Medicine
DX: M79.89 Other specified soft tissue disorders (principal)
CPT/HCPCS: 93971

== ENCOUNTER → 2021-08-07 | Outpatient (CLI) | payer MEDICARE, MEDICAID, SELFPAY ==
[2021-08-07 14:30] LABS: Allen Test Positive; Base Excess 8 mmol/L (-2 to +2); Bicarbonate 33.7 mmol/L (22-26); Blood Gas Specimen Type ART; O2 Delivery Device Room Air; PO2 50 mmHG (75-100); SITE R Radial; SO2 82 % (95-99); Total Carbon Dioxide 36 mmol/L; pCO2 59.5 mmHg (35-45); pH 7.36 (7.35-7.45)
== END | disposition home or self-care (01) ==
PROVIDERS: PCP Internal Medicine; Referring Provider Internal Medicine Pulmonary Disease; Visit Provider Internal Medicine Pulmonary Disease
DX: R09.02 Hypoxemia (principal); J44.9 Chronic obstructive pulmonary disease, unspecified
CPT/HCPCS: 36600; 82803

== ENCOUNTER 2021-12-02 01:13 | Emergency (ER) | payer MEDICARE, MEDICAID, SELFPAY ==
--- NOTE | 2021-12-02 01:18 | EKG12_ITS ---
Test Reason : DYSRHYTHMIA Blood Pressure : / mmHG Vent. Rate : 082 BPM Atrial Rate : 082 BPM P-R Int : 156 ms QRS Dur : 078 ms QT Int : 378 ms P-R-T Axes : 077 072 055 degrees QTc Int : 441 ms Sinus rhythm with Premature atrial complexes Otherwise normal ECG Confirmed by GHULAM KIM, REJI ([id number]), slot editor MAHSA LOPEZ ([id number]) on 12/04/2021 12:29:55 PM Referred By: TORY Confirmed By:REJI PARMAR MD
--- NOTE | 2021-12-02 01:18 | RAD_ITS ---
INDICATION: chest pain EXAMINATION/TECHNIQUE: X-RAY - XR Chest 1 View COMPARISON: May 01, 2021. FINDINGS: LINES/DEVICES: None. LUNGS: Lungs are symmetrically hyperexpanded. Chronic linear atelectasis or scarring in the lung bases. No focal consolidation, florid edema or effusion. No pneumothorax. MEDIASTINUM AND CARDIOVASCULAR STRUCTURES: Chronic mild cardiomegaly. Aortic atherosclerosis. BONES AND SOFT TISSUES: Unremarkable. RAD/Chest 1 View (Portable) IMPRESSION: Findings compatible with chronic obstructive pulmonary disease. Chronic mild cardiomegaly. Aortic atherosclerosis.. Electronically Signed: Tyler Chaudhry MD at 2:29 EDT ,
[2021-12-02 01:19] VITALS: BP 166/74; PULSE 88; RESP 20; TEMP 36.6; O2SAT 99; BMI 20.4
--- NOTE | 2021-12-02 01:19 | EDS_ITS ---
HPI History of Present Illness Chief Complaint: Palpitations Narrative Narrative: 71-year-old female presents via EMS with heart palpitations. She states that she was sitting, watching TV 45 minutes ago and began having a fast, pounding heart rate. She is unsure if it was skipping a beat. She has history of bad COPD and wears 3-1/2 L of oxygen per nasal cannula at all times. She denies any leg swelling. No new chest pain, no nausea or vomiting. She states that her heart palpitations have improved. EMS did not perform EKG in route. [facility] Medical History Asthma Chronic obstructive asthma COPD (chronic obstructive pulmonary disease) Dyslipidemia Emphysema Former smoker History of lung abscess History of tobacco use Hypertension On home oxygen therapy Tracheo-cutaneous fistula Home Medications albuterol sulfate 2.5 mg/3 mL (0.083 %) solution for nebulization 2.5 mg inhalation Q2H PRN PRN Sob &/Or Wheezing 09/21/15 [History Last Taken 04/30/21] mirtazapine 30 mg tablet 30 mg PO QHS mood 09/21/15 [History Last Taken 04/30/21] oxybutynin chloride 5 mg tablet 15 mg PO BID mood 09/21/15 [History Last Taken Unknown] roflumilast 500 mcg tablet (Daliresp) 500 mcg PO DAILY breathing 09/21/15 [History Last Taken 04/30/21] metoprolol succinate 50 mg tablet,extended release 24 hr 50 mg PO DAILY blood pressure 06/14/16 [History Last Taken 04/30/21] rosuvastatin 10 mg tablet 10 mg PO DAILY cholesterol 09/19/17 [History Last Taken 04/30/21] Cholecalciferol (Vitamin D3) [Vitamin D3] 5,000 unit PO DAILY supplement 01/11/20 [History Last Taken 05/01/21] multivitamin with minerals 1 ea PO DAILY supplement 01/11/20 [History Last Taken 04/30/21] clonazepam 0.5 mg tablet 0.5 mg PO BID 5 days #10 tabs 05/06/21 [Rx Last Taken Unknown] lorazepam 0.5 mg tablet 1 tab PO TID PRN Anxiety 5 days #15 tabs 05/06/21 [Rx Last Taken Unknown] ipratropium 0.5 mg-albuterol 3 mg (2.5 mg base)/3 mL nebulization soln 0.5 ml inhalation Q8 06/15/21 [History Last Taken Unknown] Allergy/AdvReac Type Severity Reaction Status Date / Time No Known Allergies Allergy Verified 12/02/21 01:23 Family History Other Heart disease Surgical History Status post insertion of percutaneous endoscopic gastrostomy (PEG) tube Social History household members: none housing: apartment Smoking Status: Former smoker ROS ROS ED ROS Narrative Constitutional: No fever, no chills. HEENT: No sore throat. No neck pain. No loss of vision. No rhinorrhea. Cardiovascular: No chest pain. Positive palpitations. No pedal edema. Respiratory: No cough, chronic shortness of breath. Abdominal: No abdominal pain. No nausea. No vomiting. Genitourinary: No dysuria. No hematuria. Musculoskeletal: No myalgias. No arthralgias. Neurologic: No headaches. No dizziness. No lightheadedness. Skin: No rash. No change in color. Psychiatric: No depression. No anxiety. EXAM Physical Exam Narrative Exam Narrative: Afebrile. Vital signs noted. HEENT: Normocephalic. Atraumatic. PERRL, EOMI. Neck soft and supple. No point tenderness or step off. Cardiovascular: Irregularly irregular tachycardia on examination. No murmurs, rubs, or gallops appreciated. Respiratory: No tachypnea. Lungs clear to auscultation bilaterally with diminished breath sounds bilateral bases. Gastrointestinal: Abdomen soft, nontender, with normoactive bowel sounds. No rebound or guarding. Neurological: Awake. Alert. Nonfocal, nonlateralizing. Skin: No rash. Normal color. No pallor. Musculoskeletal: No pedal edema. Full range of motion extremities. Const Vital Signs: 12/02/21 01:19 12/02/21 01:34 12/02/21 01:36 Temperature 97.9 F Temperature Source Temporal Pulse Rate 88 83 Respiratory Rate 20 H 20 H Respiratory Effort Respiratory Depth Respiratory Pattern Normal Blood Pressure 166/74 H Blood Pressure Mean 104 Pulse Ox 99 Oxygen Delivery Method Non-Rebreather Nasal Cannula Oxygen Flow Rate (L/min) 3 12/02/21 01:36 12/02/21 02:42 Temperature Temperature Source Pulse Rate 98 Respiratory Rate 22 H 18 Respiratory Effort Short of Breath Labored Accessory Muscle Use Respiratory Depth Shallow Respiratory Pattern Tachypnea Blood Pressure 140/64 H Blood Pressure Mean Pulse Ox 95 97 Oxygen Delivery Method Nasal Cannula Oxygen Flow Rate (L/min) 3.5 MDM MDM MDM Narrative Medical decision making narrative: Comprehensive work-up was pursued. She was placed on the exceptional children teacher. EKG will be obtained and interpreted by myself. My interpretation of her EKG demonstrates normal sinus rhythm with PACs but no acute ST changes. No STEMI. No atrial fibrillation. CBC is grossly normal except for a hemoglobin of 10.8, platelet count normal at 206. CMP shows chloride elevated at 108, normal creatinine with a BUN elevated at 22. Glucose is also elevated at 125 with a no rmal anion gap of 5. High-sensitivity troponin 10. BNP slightly elevated at 114.5. Chest x-ray interpreted by myself shows no acute process. No infiltrate. There are chronic changes, but I do not feel antibiotics are indicated. Her main concern was for palpitations. She states she feels improved. She was given a DuoNeb aerosolized treatment because of her diminished sounds in the bilateral bases. Afterwards, she is moving increased air. At this point in time, I feel she be discharged safely home with follow-up to her blood collector and/or her primary care physician. Return instructions to the emergency department were reviewed. Disposition is discharged home in stable condition. Lab Data Attestation: I reviewed the patient's lab results. Labs: Laboratory Results - last 24 hr 12/02/21 12/02/21 12/02/21 01:33 01:33 01:33 WBC 6.4 RBC 4.10 L Hgb 10.8 L Hct 36.9 L MCV 90.0 MCH 26.3 L MCHC 29.3 L RDW Std Deviation 48.1 H RDW Coeff of Mary 14.6 Plt Count 206 MPV 11.5 Immature Gran % (Auto) 0.300 Neut % (Auto) 66.5 Lymph % (Auto) 22.0 [place] % (Auto) 8.8 Eos % (Auto) 2.2 Baso % (Auto) 0.2 Absolute Neuts (auto) 4.2 Absolute Lymphs (auto) 1.40 Nucleated RBC % 0 Sodium 145 Potassium 3.9 Chloride 108 H Carbon Dioxide 32.0 Anion Gap 5 BUN 22 H Creatinine 0.58 Estim Creat Clear Calc 38.37 Est GFR (MDRD) Af Amer 133 Est GFR (MDRD) Non-Af 110 BUN/Creatinine Ratio 38.3 H Glucose 125 H Calcium 9.6 Total Bilirubin 0.10 L AST 19 ALT 16 Alkaline Phosphatase 53 Troponin I High Sens 10 B-Natriuretic Peptide 114.5 H Total Protein 6.9 Albumin 3.2 Globulin 3.7 Albumin/Globulin Ratio 0.9 Radiography Diagnostic Testing: Clinical Impression(s) from Imaging Studies Chest X-Ray 12/02/21 01:18 IMPRESSION: Findings compatible with chronic obstructive pulmonary disease. Chronic mild cardiomegaly. Aortic atherosclerosis.. Electronically Signed: Tyler Chaudhry MD at 2:29 EDT , Discharge Plan Triage Chief Complaint: Palpitations ED Provider: Gaston Irizarry Dx/Rx/DC Orders Clinical Impression: Palpitations, COPD exacerbation Instructions: ED COPD Flare, ED Palpitations Prescriptions: No Action albuterol sulfate 2.5 MG/3 ML solution for nebulization 2.5 mg inhalation Q2H PRN PRN (Reason: Sob &/Or Wheezing) mirtazapine 30 MG tablet 30 mg PO QHS oxybutynin chloride 5 MG tablet 15 mg PO BID Daliresp 500 MCG tablet 500 mcg PO DAILY metoprolol succinate 50 MG tablet 50 mg PO DAILY rosuvastatin 10 MG tablet 10 mg PO DAILY multivitamin with minerals 1 EACH tablet 1 ea PO DAILY Cholecalciferol (Vitamin D3) [Vitamin D3] 5,000 UNIT capsule 5,000 unit PO DAILY clonazepam 0.5 mg Tablet 0.5 mg PO BID 5 Days Qty: 10 0RF lorazepam 0.5 MG tablet 1 tab PO TID PRN (Reason: Anxiety) 5 Days Qty: 15 0RF ipratropium-albuterol 0.5 mg-3 mg(2.5 mg base)/3 mL solution for nebulization 0.5 ml inhalation Q8 Primary Care Provider: Sally Fan Referrals: Sally Fan DO [Primary Care Provider] - 2 Days Activity Restrictions/Additional Instructions: Continue your oxygen and your medications as previously directed including your albuterol. Follow-up with your blood collector, call the office tomorrow. Disposition Disposition: Home, Self Care
[2021-12-02 01:36] VITALS: PULSE 83; RESP 20; RESP 22; O2SAT 95
[2021-12-02] MEDS: Ipratropium/Albuterol Sulfate 3 ML AMPUL.NEB INHALATION (01:36)
[2021-12-02 01:37] LABS: Absolute Neutrophil Count 4.2 X10^3/uL (2.0-7.7); Basophil# 0.01 X10^3/uL; Basophil% 0.2 % (0-1); Eosinophil# 0.14 X10^3/uL; Eosinophils% 2.2 % (0-5); Hematocrit 36.9 % (37-47); Hemoglobin 10.8 g/dL (12.0-15.0); Mean Corp Hgb Conc 29.3 g/dL (32-36); Mean Corpuscular Hgb 26.3 pg (27.0-32.0); Mean Platelet Vol. 11.5 fl (6.2-12.0); Monocyte# 0.56 X10^3/uL; Monocyte% 8.8 % (0-10); NRBC Flagged by Analyzer 0 % (0-5); Neutrophil # 4.23 X10^3/uL (2.7-7.7); Neutrophil % 66.5 % (47-70); Platelet Count 206 K/mm3 (150-450); RBC Distribution Width CV 14.6 % (11.6-14.6); RBC Distribution Width SD 48.1 fl (35.1-43.9); White Blood Count 6.4 K/mm3 (4.4-11.0)
[2021-12-02] MEDS: Aspirin 81 MG TAB.CHEW 324 MG PO (01:43)
[2021-12-02 01:54] LABS: BNP,B-Type NATRIURETIC PEPTIDE 114.5 pg/mL (0-100)
[2021-12-02 02:03] LABS: ALB/GLOB Ratio 0.9 RATIO (0.9-2.4); AST(SGOT) 19 U/L (15-37); Alanine Aminotransfer ALT/SGPT 16 U/L (13-56); Albumin, Serum 3.2 g/dL (3.2-5.0); Alkaline Phosphatase 53 U/L (45-117); Anion Gap 5 (5-15); BUN 22 mg/dL (7-18); BUN/Creat Ratio 38.3 RATIO (10-20); Calcium,Total 9.6 mg/dL (8.5-10.1); Chloride 108 mmol/L (98-107); Creatinine, Serum 0.58 mg/dL (0.55-1.02); EST Glomerular Filtration Rate 110 mL/min (>60); Est Glom Filt Rate - Afr Amer 133 mL/min (>60); Estimated Creatinine Clearance 38.37 ml/min; Globulin 3.7 g/dL (2.2-4.2); Glucose 125 mg/dL (74-106); Potassium 3.9 mmol/L (3.5-5.1); Protein, Total 6.9 g/dL (6.4-8.2); Sodium Level 145 mmol/L (136-145); Troponin-I HS 10 pg/mL (3.0-54.0)
[2021-12-02 02:42] VITALS: BP 140/64; PULSE 98; RESP 18; O2SAT 97
== END 2021-12-02 04:09 | disposition home or self-care (01) ==
PROVIDERS: Emergency Provider Emergency Medicine; PCP Internal Medicine; Visit Provider Emergency Medicine
DX: J43.9 Emphysema, unspecified (principal); E78.5 Hyperlipidemia, unspecified; R73.9 Hyperglycemia, unspecified; I10 Essential (primary) hypertension; R06.02 Shortness of breath; Z99.81 Dependence on supplemental oxygen; Z79.899 Other long term (current) drug therapy; Z87.891 Personal history of nicotine dependence
CPT/HCPCS: 71045; 80053; 83880; 84484; 85025; 93005; 94640; 99251; 99285; G0463

== ENCOUNTER 2021-12-14 17:06 | Emergency (ER) | payer MEDICARE, MEDICAID, SELFPAY ==
[2021-12-14] VITALS (7 sets, daily range): BP systolic 141–158; BP diastolic 67–87; PULSE 80–94; RESP 18–24; TEMP 36.7–37; O2SAT 94–97; BMI 20.9
--- NOTE | 2021-12-14 17:15 | EKG12_ITS ---
Test Reason : SOB Blood Pressure : / mmHG Vent. Rate : 091 BPM Atrial Rate : 091 BPM P-R Int : 138 ms QRS Dur : 076 ms QT Int : 350 ms P-R-T Axes : 088 069 053 degrees QTc Int : 430 ms Sinus rhythm with marked sinus arrhythmia with PSVC's Poor R wave progression Confirmed by GHULAM KIM, REJI ([id number]), acquisition editor MAHSA LOPEZ ([id number]) on 12/16/2021 1:04:51 PM Referred By: Confirmed By:REJI PARMAR MD
--- NOTE | 2021-12-14 17:16 | ED.VIS.DYS ---
HPI History of Present Illness Chief Complaint: Shortness of Breath Narrative Narrative: Patient has COPD, today she noticed worsening breathing, she noticed yellow productive sputum, normally she has a cough without any sputum production. She is normally on 3-1/2 L of oxygen at home saturating 94%, she is saturating the same between 93 and 94% today. She is denying any fevers or chills. No chest pain. No back pain. There is no pleuritic component. No tearing sensation. No lower extremity edema or calf pain. This feels like prior COPD exacerbations [facility] Medical History Asthma Chronic obstructive asthma COPD (chronic obstructive pulmonary disease) Dyslipidemia Emphysema Former smoker History of lung abscess History of tobacco use Hypertension On home oxygen therapy Tracheo-cutaneous fistula Home Medications albuterol sulfate 2.5 mg/3 mL (0.083 %) solution for nebulization 2.5 mg inhalation Q2H PRN PRN Sob &/Or Wheezing 09/21/15 [History Last Taken 04/30/21] mirtazapine 30 mg tablet 30 mg PO QHS mood 09/21/15 [History Last Taken 04/30/21] oxybutynin chloride 5 mg tablet 15 mg PO BID mood 09/21/15 [History Last Taken Unknown] roflumilast 500 mcg tablet (Daliresp) 500 mcg PO DAILY breathing 09/21/15 [History Last Taken 04/30/21] metoprolol succinate 50 mg tablet,extended release 24 hr 50 mg PO DAILY blood pressure 06/14/16 [History Last Taken 04/30/21] rosuvastatin 10 mg tablet 10 mg PO DAILY cholesterol 09/19/17 [History Last Taken 04/30/21] Cholecalciferol (Vitamin D3) [Vitamin D3] 5,000 unit PO DAILY supplement 01/11/20 [History Last Taken 05/01/21] multivitamin with minerals 1 ea PO DAILY supplement 01/11/20 [History Last Taken 04/30/21] lorazepam 0.5 mg tablet 1 tab PO TID PRN Anxiety 5 days #15 tabs 05/06/21 [Rx Last Taken Unknown] ipratropium 0.5 mg-albuterol 3 mg (2.5 mg base)/3 mL nebulization soln 0.5 ml inhalation Q8 06/15/21 [History Last Taken Unknown] L.acidoph,bulgaricus-B.animalis-S.thermophilus 20 million cell tablet 1 tab PO 4X/DAY 12/14/21 [History Last Taken Unknown] doxycycline hyclate 100 mg capsule 100 mg PO BID #20 caps 12/14/21 [Rx Last Taken Unknown] montelukast 10 mg tablet 10 mg PO DAILY 12/14/21 [History Last Taken Unknown] prednisone 20 mg tablet 60 mg PO DAILY #15 tabs 12/14/21 [Rx Last Taken Unknown] Allergy/AdvReac Type Severity Reaction Status Date / Time No Known Allergies Allergy Verified 12/02/21 01:23 Family History Other Heart disease Surgical History Status post insertion of percutaneous endoscopic gastrostomy (PEG) tube Social History household members: none housing: apartment Smoking Status: Former smoker ROS ROS ED ROS Narrative Past medical history: Reviewed, includes COPD, hypertension, hyperlipidemia, asthma Medications: Reviewed Social history: She tells me she quit smoking. Review of systems: All systems negative except as indicated General: No fever Eyes: No visual changes ENT: No upper airway congestion, normal voice Neck: No neck pain Cardiovascular: No chest pain Respiratory: As in HPI Gastrointestinal: No abdominal pain, nausea vomiting or diarrhea Genitourinary: No dysuria Musculoskeletal: Denies myalgias no difficulty with ambulation Skin: No rash Neurological: No memory loss, confusion or any focal weakness Psych: No recent behavioral changes Hematologic: No easy bleeding or easy bruising EXAM Physical Exam Narrative Exam Narrative: Physical exam General: Patient appears chronically ill. She does not appear in significant distress currently. Head: Normocephalic, Atraumatic Eyes: Conjunctiva not pale ENT: Moist mucous membranes Neck: Supple, Nontender, No lymphadenopathy Cardiovascular: Diminished and coarse bilateral breath sounds with bilateral end expiratory wheezing. She is speaking in full sentences, she does not appear in distress. The respiratory rate is documented as 24 per nurse however when I was in the room it was 18-20. Respiratory: No distress, CTA bilaterally Abdomen: Soft, Nontender, Nondistended Back: Nontender, Normal Inspection. Negative for: CVA tenderness Extremities: Nontender, No edema Skin: Normal color, No rash Neurological: Alert, Normal Strength, Normal Sensation Psychological: Normal affect Const Vital Signs: 12/14/21 17:06 12/14/21 17:28 12/14/21 17:28 Temperature 98.6 F Temperature Source Oral Pulse Rate 80 90 Respiratory Rate 24 H Respiratory Effort Blood Pressure 158/87 H Blood Pressure Mean 110 Pulse Ox 94 94 Oxygen Delivery Method Nasal Cannula Nasal Cannula Oxygen Flow Rate (L/min) 3 3.5 12/14/21 17:23 12/14/21 17:30 12/14/21 18:32 Temperature 98.6 F Temperature Source Oral Pulse Rate 82 Respiratory Rate 18 19 H Respiratory Effort Short of Breath Labored Accessory Muscle Use Pursed Lip Blood Pressure 141/78 H Blood Pressure Mean 99 Pulse Ox 94 94 97 Oxygen Delivery Method Nasal Cannula Nasal Cannula Nasal Cannula Oxygen Flow Rate (L/min) 3.5 3.5 3.5 12/14/21 18:32 12/14/21 20:05 12/14/21 20:05 Temperature 98.6 F 98.0 F 98.0 F Temperature Source Oral Temporal Temporal Pulse Rate 90 94 92 Respiratory Rate 18 22 H 22 H Respiratory Effort Blood Pressure 158/87 H 142/75 H 142/75 H Blood Pressure Mean 110 97 97 Pulse Ox 94 94 94 Oxygen Delivery Method Nasal Cannula Nasal Cannula Nasal Cannula Oxygen Flow Rate (L/min) 3.5 4 4 MDM MDM MDM Narrative Medical decision making narrative: Patient appears well. She is significantly improved. She tells me she is back to baseline and wants to be discharged this seems reasonable however she has a COPD exacerbation which I will treat with prednisone for home and because her sputum change color consistency and frequency I will give antibiotics. Lab Data Labs: Laboratory Results - last 24 hr 12/14/21 18:15 WBC 11.2 H RBC 4.04 L Hgb 11.0 L Hct 37.5 MCV 92.8 MCH 27.2 MCHC 29.3 L RDW Std Deviation 47.5 H RDW Coeff of Mary 13.9 Plt Count 170 MPV 11.0 Immature Gran % (Auto) 0.300 Neut % (Auto) 77.9 H Lymph % (Auto) 15.1 L [place] % (Auto) 6.0 Eos % (Auto) 0.5 Baso % (Auto) 0.2 Absolute Neuts (auto) 8.8 H Absolute Lymphs (auto) 1.70 Nucleated RBC % 0 Radiography Diagnostic Testing: Clinical Impression(s) from Imaging Studies Chest X-Ray 12/14/21 19:05 IMPRESSION: Small bilateral pleural effusions. Electronically Signed: Noel Meza MD at 19:43 EDT , Chest x-ray read by me and radiologist does not show any pneumonia, there is very small pleural effusion. EKG Initial EKG: Comments: Sinus rhythm with a rate of 91. Normal AR and QTc intervals. No obvious ischemic changes. Interpreted by emergency Dr. Discharge Plan Triage Chief Complaint: Shortness of Breath ED Provider: Gil Hoffmann Dx/Rx/DC Orders Clinical Impression: Acute exacerbation of chronic obstructive pulmonary disease, Acute dyspnea Instructions: Asthma and COPD Prescriptions: New prednisone 20 mg tablet 60 mg PO DAILY Qty: 15 0RF doxycycline hyclate 100 mg capsule 100 mg PO BID Qty: 20 0RF No Action albuterol sulfate 2.5 MG/3 ML solution for nebulization 2.5 mg inhalation Q2H PRN PRN (Reason: Sob &/Or Wheezing) mirtazapine 30 MG tablet 30 mg PO QHS oxybutynin chloride 5 MG tablet 15 mg PO BID roflumilast [Daliresp] 500 MCG tablet 500 mcg PO DAILY metoprolol succinate 50 MG tablet 50 mg PO DAILY rosuvastatin 10 MG tablet 10 mg PO DAILY multivitamin with minerals 1 EACH tablet 1 ea PO DAILY Cholecalciferol (Vitamin D3) [Vitamin D3] 5,000 UNIT capsule 5,000 unit PO DAILY lorazepam 0.5 MG tablet 1 tab PO TID PRN (Reason: Anxiety) 5 Days Qty: 15 0RF ipratropium-albuterol 0.5 mg-3 mg(2.5 mg base)/3 mL solution for nebulization 0.5 ml inhalation Q8 montelukast 10 mg Tablet 10 mg PO DAILY Acidophilus Xtra 20 million cell Tablet 1 tab PO 4X/DAY Primary Care Provider: Sally Fan Referrals: Sally Fan, [Primary Care Provider] - 2 Days Disposition Disposition: Home, Self Care
[2021-12-14] MEDS: Ipratropium/Albuterol Sulfate 3 ML AMPUL.NEB INHALATION (17:28)
[2021-12-14] MEDS: Albuterol 2.5 MG/3 ML VIAL.NEB. INHALATION (17:29)
[2021-12-14] MEDS: predniSONE 20 MG Tablet 60 MG PO (17:38)
[2021-12-14 18:22] LABS: Absolute Neutrophil Count 8.8 X10^3/uL (2.0-7.7); Basophil# 0.02 X10^3/uL; Basophil% 0.2 % (0-1); Eosinophil# 0.06 X10^3/uL; Eosinophils% 0.5 % (0-5); Hematocrit 37.5 % (37-47); Lymphocyte % 15.1 % (19-41); Mean Corp Hgb Conc 29.3 g/dL (32-36); Mean Corpuscular Hgb 27.2 pg (27.0-32.0); Mean Corpuscular Volume 92.8 fL (81-99); Monocyte# 0.68 X10^3/uL; NRBC Flagged by Analyzer 0 % (0-5); Neutrophil # 8.75 X10^3/uL (2.7-7.7); Neutrophil % 77.9 % (47-70); Platelet Count 170 K/mm3 (150-450); RBC Distribution Width CV 13.9 % (11.6-14.6); RBC Distribution Width SD 47.5 fl (35.1-43.9); Red Blood Count 4.04 M/mm3 (4.2-5.4); White Blood Count 11.2 K/mm3 (4.4-11.0)
--- NOTE | 2021-12-14 19:05 | RAD_ITS ---
STUDY: X-RAY CHEST REASON FOR EXAM: Female, 71 years old. sob TECHNIQUE: PA and lateral views of the chest. COMPARISON: 12/02/2021 FINDINGS: The lungs are clear and expanded. Small bilateral pleural effusions. There is moderate cardiac enlargement. Normal mediastinum and mateus. Normal visualized pulmonary arteries. Normal visualized aortic arch and descending thoracic aorta. Normal visualized thoracic spine. Normal visualized ribs, clavicles, and shoulders. There is no demonstrated abnormality of the visualized soft tissue structures of the upper abdomen. RAD/Chest PA and Lateral IMPRESSION: Small bilateral pleural effusions. Electronically Signed: Noel Meza MD at 19:43 EDT ,
[2021-12-14] MEDS: Ceftriaxone 1 GM/50 ML BAG IV (20:05)
== END 2021-12-14 21:36 | disposition home or self-care (01) ==
PROVIDERS: Emergency Provider Emergency Medicine; PCP Internal Medicine; Visit Provider Emergency Medicine
DX: J44.1 Chronic obstructive pulmonary disease with (acute) exacerbation (principal); I10 Essential (primary) hypertension; E78.5 Hyperlipidemia, unspecified; Z99.81 Dependence on supplemental oxygen; Z79.899 Other long term (current) drug therapy; Z87.891 Personal history of nicotine dependence
CPT/HCPCS: 71046; 85025; 87040; 87428; 93005; 94640; 96365; 96366; 96367; 99251; 99284; J7050; A4216; G0463

== ENCOUNTER 2022-05-01 16:41 | Emergency (ER) | payer MEDICARE, MEDICAID, SELFPAY ==
[2022-05-01 16:41] VITALS: BP 164/68; PULSE 64; RESP 16; TEMP 36.2; O2SAT 100
[2022-05-01 16:44] VITALS: BMI 19.5
--- NOTE | 2022-05-01 16:47 | EKG12_ITS ---
Test Reason : CP Blood Pressure : / mmHG Vent. Rate : 061 BPM Atrial Rate : 061 BPM P-R Int : 154 ms QRS Dur : 078 ms QT Int : 420 ms P-R-T Axes : 083 070 052 degrees QTc Int : 422 ms Normal sinus rhythm Septal infarct , age undetermined Abnormal ECG Confirmed by TRACY KIM, CANDY ([id number]), mapping editor MAHSA LOPEZ ([id number]) on 05/04/2022 12:27:23 P M Referred By: AVERY Confirmed By:SHALOM MOLINA MD
--- NOTE | 2022-05-01 17:52 | EX.ED.GENINJ ---
HPI History of Present Illness Chief Complaint: Chest Other Narrative Narrative: 71-year-old female presenting with left rib pain. She states she bent over to do her laundry yesterday and acutely felt something in the left ribs. She states it comes and goes. She describes it as worse with movement. No shortness of breath. No chest pain otherwise. Otherwise feels well. She states she did not take ibuprofen or Tylenol because she does not take those medications. She has not tried ice or heat. No lightheadedness or dizziness. No nausea. [facility] Medical History Asthma Chronic obstructive asthma COPD (chronic obstructive pulmonary disease) Dyslipidemia Emphysema Former smoker History of lung abscess History of tobacco use Hypertension On home oxygen therapy Tracheo-cutaneous fistula Home Medications albuterol sulfate 2.5 mg/3 mL (0.083 %) solution for nebulization 2.5 mg inhalation Q2H PRN PRN Sob &/Or Wheezing 09/21/15 [History Last Taken 04/30/21] mirtazapine 30 mg tablet 30 mg PO QHS mood 09/21/15 [History Last Taken 04/30/21] oxybutynin chloride 5 mg tablet 15 mg PO BID mood 09/21/15 [History Last Taken Unknown] roflumilast 500 mcg tablet (Daliresp) 500 mcg PO DAILY breathing 09/21/15 [History Last Taken 04/30/21] metoprolol succinate 50 mg tablet,extended release 24 hr 50 mg PO DAILY blood pressure 06/14/16 [History Last Taken 04/30/21] rosuvastatin 10 mg tablet 10 mg PO DAILY cholesterol 09/19/17 [History Last Taken 04/30/21] Cholecalciferol (Vitamin D3) [Vitamin D3] 5,000 unit PO DAILY supplement 01/11/20 [History Last Taken 05/01/21] multivitamin with minerals 1 ea PO DAILY supplement 01/11/20 [History Last Taken 04/30/21] lorazepam 0.5 mg tablet 1 tab PO TID PRN Anxiety 5 days #15 tabs 05/06/21 [Rx Last Taken Unknown] ipratropium 0.5 mg-albuterol 3 mg (2.5 mg base)/3 mL nebulization soln 0.5 ml inhalation Q8 06/15/21 [History Last Taken Unknown] L.acidoph,bulgaricus-B.animalis-S.thermophilus 20 million cell tablet 1 tab PO 4X/DAY 12/14/21 [History Last Taken Unknown] doxycycline hyclate 100 mg capsule 100 mg PO BID #20 caps 12/14/21 [Rx Last Taken Unknown] montelukast 10 mg tablet 10 mg PO DAILY 12/14/21 [History Last Taken Unknown] prednisone 20 mg tablet 60 mg PO DAILY #15 tabs 12/14/21 [Rx Last Taken Unknown] lidocaine 5 % topical patch (Lidoderm) 1 patch topical DAILY PRN pain #15 ea 05/01/22 [Rx Last Taken Unknown] sertraline 25 mg tablet 25 mg PO BID 05/01/22 [History Last Taken Unknown] Allergy/AdvReac Type Severity Reaction Status Date / Time No Known Allergies Allergy Verified 05/01/22 16:44 Family History Other Heart disease Surgical History Status post insertion of percutaneous endoscopic gastrostomy (PEG) tube Social History household members: none housing: apartment Smoking Status: Former smoker ROS ROS ED Constitutional Constitutional ED: Denies chills, fever(s) or sweats Eyes Eyes: Denies blurry vision or change in vision ENT ENT ED: Denies ear pain or sore throat Cardiovascular Cardiovascular: Reports other Details: Left rib pain ; Denies palpitations or racing heartbeat Respiratory/Chest Respiratory/Chest: Denies cough, dyspnea or sputum Gastrointestinal Gastrointestinal: Denies abdominal pain, constipation, diarrhea, nausea or vomiting Genitourinary Genitourinary ED: Denies dysuria, hematuria or urinary frequency Musculoskeletal Musculoskeletal: Denies arthralgias, myalgias or neck pain Integumentary Denies abscess, Abrasions or rash Neurologic Neurologic: Denies headache(s), paresthesias or weakness Psychiatric Psychiatric: Denies anxiety, depression, suicidal ideation or suicidal thoughts Endocrine Endocrinology: Denies polydipsia or polyuria EXAM Physical Exam Const Vital Signs: 05/01/22 16:41 Temperature 97.2 F L Temperature Source Temporal Pulse Rate 64 Respiratory Rate 16 Blood Pressure 164/68 H Blood Pressure Mean 100 Pulse Ox 100 Oxygen Delivery Method Nasal Cannula Oxygen Flow Rate (L/min) 4 Positive well nourished General Appearance ED: NAD HEENT atraumatic Chest Wall Chest Narrative: Tenderness to palpation over the left lateral ribs in the midaxillary line approximately rib 6/7. No masses felt. No crepitance. Equal symmetric breath sounds and chest wall rise. Resp normal respiratory effort and clear to auscultation bilaterally Auscultation: Negative for rales or rhonchi Neuro oriented x3 and CN's II-XII intact bilaterally Sensorium / Orientation: alert Skin no rashes or lesions noted MDM MDM MDM Narrative Medical decision making narrative: Patient presenting with pain in the left lower ribs which I suspect is a strain. Acutely started hurting after holding laundry. States the pain occurs with movement and with deep palpation. I do not believe she needs any imaging. She is given a Lidoderm patch. She is counseled to take Tylenol and ibuprofen alternating doses as needed. Return precautions discussed Impression: 1. Left rib strain Discharge Plan Triage Chief Complaint: Chest Other ED Provider: Farooq Parada Dx/Rx/DC Orders Instructions: ED Chest Wall Strain Prescriptions: New lidocaine [Lidoderm] 5 % adhesive patch,medicated 1 patch topical DAILY PRN (Reason: pain) Qty: 15 0RF Rx Instructions: leave on most painful area for up to 12 hrs No Action albuterol sulfate 2.5 MG/3 ML solution for nebulization 2.5 mg inhalation Q2H PRN PRN (Reason: Sob &/Or Wheezing) mirtazapine 30 MG tablet 30 mg PO QHS oxybutynin chloride 5 MG tablet 15 mg PO BID roflumilast [Daliresp] 500 MCG tablet 500 mcg PO DAILY metoprolol succinate 50 MG tablet 50 mg PO DAILY rosuvastatin 10 MG tablet 10 mg PO DAILY multivitamin with minerals 1 EACH tablet 1 ea PO DAILY Cholecalciferol (Vitamin D3) [Vitamin D3] 5,000 UNIT capsule 5,000 unit PO DAILY lorazepam 0.5 MG tablet 1 tab PO TID PRN (Reason: Anxiety) 5 Days Qty: 15 0RF ipratropium-albuterol 0.5 mg-3 mg(2.5 mg base)/3 mL solution for nebulization 0.5 ml inhalation Q8 montelukast 10 mg Tablet 10 mg PO DAILY Acidophilus Xtra 20 million cell Tablet 1 tab PO 4X/DAY prednisone 20 mg tablet 60 mg PO DAILY Qty: 15 0RF doxycycline hyclate 100 mg capsule 100 mg PO BID Qty: 20 0RF sertraline 25 mg tablet 25 mg PO BID Label Comments: Take one (1) tablet (25 mg) by mouth twice a day, one tablet in AM, one tablet in PM. PALLIATIVE PATIENT Primary Care Provider: Sally Fan Referrals: Sally Fan DO [Primary Care Provider] - Disposition Disposition: Home, Self Care
[2022-05-01] MEDS: Lidocaine 5% Patch 1 PATCH TOPICAL (18:10)
== END 2022-05-01 18:32 | disposition home or self-care (01) ==
PROVIDERS: Emergency Provider Student in an Organized Health Care Education/Training Program; PCP Internal Medicine; Visit Provider Student in an Organized Health Care Education/Training Program
DX: S29.011A Strain of muscle and tendon of front wall of thorax, initial encounter (principal); X50.1XXA Overexertion from prolonged static or awkward postures, initial encounter; Y93.E2 Activity, laundry; J43.9 Emphysema, unspecified; I10 Essential (primary) hypertension; E78.5 Hyperlipidemia, unspecified; Z87.891 Personal history of nicotine dependence; Z79.899 Other long term (current) drug therapy
CPT/HCPCS: 93005; 99285

== ENCOUNTER → 2022-05-05 | Outpatient (CLI) | payer MEDICARE, MEDICAID, SELFPAY ==
--- NOTE | 2022-05-05 15:08 | RAD_ITS ---
STUDY: X-RAY - UNILATERAL RIBS ( LEFT ) REASON FOR EXAM: Female, 71 years old. Left lower rib pain. TECHNIQUE: 2 view(s) of the ribs. COMPARISON: Chest, December 14, 2021. FINDINGS: Normal visualized ribs without a demonstrated fracture. The visualized lung is without acute infiltrate or mass. RAD/Ribs Unil 2V No CXR IMPRESSION: Normal x-ray examination of the left ribs. Electronically Signed: Chevy Tran DO at 16:46 EDT ,
== END | disposition home or self-care (01) ==
LOC: RAD 15:03
PROVIDERS: PCP Internal Medicine; Visit Provider Internal Medicine
DX: R07.81 Pleurodynia (principal)
CPT/HCPCS: 71100

== ENCOUNTER 2022-05-28 06:49 | Inpatient (IN) | payer MEDICARE, MEDICAID, SELFPAY ==
[2022-05-28] VITALS (17 sets, daily range): BP systolic 130–164; BP diastolic 54–59; PULSE 71–115; RESP 12–97; TEMP 36.3–36.6; O2SAT 88–100; BMI 17.9
--- NOTE | 2022-05-28 07:08 | EKG12_ITS ---
Test Reason : SOB Blood Pressure : / mmHG Vent. Rate : 079 BPM Atrial Rate : 079 BPM P-R Int : 154 ms QRS Dur : 086 ms QT Int : 372 ms P-R-T Axes : 071 075 058 degrees QTc Int : 426 ms Normal sinus rhythm Borderline ECG Confirmed by SANDRA RENAE ([id number]), newspaper photo editor MAHSA LOPEZ ([id number]) on 06/02/2022 7:34:10 AM Referred By: CATHIE Confirmed By:SANDRA RENAE
--- NOTE | 2022-05-28 07:08 | RAD_ITS ---
HISTORY: COPD, SOB. TECHNIQUE: XR Chest 1 View. COMPARISON: 12/14/2021. FINDINGS: CARDIOMEDIASTINAL BORDERS: Cardiac silhouette again mildly enlarged. Mediastinal contour unchanged with calcification of the aorta. LUNGS: Upper lobe lucency with hyperinflation, compatible with the history of COPD. Calcified left apical granuloma. Chronic bibasilar scarring. PLEURA: Chronic blunting of the costophrenic angles. OSSEOUS STRUCTURES: Degenerative change. High riding humeral head from chronic rotator cuff disease. RAD/Chest 1 View (Portable) IMPRESSION: No significant interval change. COPD with bibasilar scarring. Electronically Signed: Cara Noble MD at 8:49 EDT ,
--- NOTE | 2022-05-28 07:14 | ED.VIS.DYS ---
HPI History of Present Illness Chief Complaint: Shortness of Breath Informant: patient Onset/Context/Timing Onset: Weeks (1) Context: gradual and onset Timing: Continuous Quality: Positive for Dyspnea on exertion and Wheezing Current Severity: Severe Maximum Severity: Severe Worsened by: Exertion and Coughing Relieved by: Not Relieved By Albuterol Associated Symptoms cough, fever and clear sputum Chest Pain: Positive for Tightness Narrative Narrative: Patient with COPD lives at home on 2 L nasal cannula, she was 84% on that amount of oxygen per EMS this morning. She called because her dyspnea has been worsening over the past week along with a cough, a couple of times fevers 101, some chest tightness, initially albuterol was helping but lately it has not been helping at all. She denies any GI symptoms. No headaches or myalgias. No swelling in her legs. [facility] Medical History Asthma Chronic obstructive asthma COPD (chronic obstructive pulmonary disease) Dyslipidemia Emphysema Former smoker History of lung abscess History of tobacco use Hypertension On home oxygen therapy Tracheo-cutaneous fistula Home Medications albuterol sulfate 2.5 mg/3 mL (0.083 %) solution for nebulization 2.5 mg inhalation Q2H PRN PRN Sob &/Or Wheezing 09/21/15 [History Last Taken 04/30/21] mirtazapine 30 mg tablet 30 mg PO QHS mood 09/21/15 [History Last Taken 04/30/21] oxybutynin chloride 5 mg tablet 15 mg PO BID mood 09/21/15 [History Last Taken Unknown] roflumilast 500 mcg tablet (Daliresp) 500 mcg PO DAILY breathing 09/21/15 [History Last Taken 04/30/21] metoprolol succinate 50 mg tablet,extended release 24 hr 50 mg PO DAILY blood pressure 06/14/16 [History Last Taken 04/30/21] rosuvastatin 10 mg tablet 10 mg PO DAILY cholesterol 09/19/17 [History Last Taken 04/30/21] Cholecalciferol (Vitamin D3) [Vitamin D3] 5,000 unit PO DAILY supplement 01/11/20 [History Last Taken 05/01/21] multivitamin with minerals 1 ea PO DAILY supplement 01/11/20 [History Last Taken 04/30/21] lorazepam 0.5 mg tablet 1 tab PO TID PRN Anxiety 5 days #15 tabs 05/06/21 [Rx Last Taken Unknown] ipratropium 0.5 mg-albuterol 3 mg (2.5 mg base)/3 mL nebulization soln 0.5 ml inhalation Q8 06/15/21 [History Last Taken Unknown] L.acidoph,bulgaricus-B.animalis-S.thermophilus 20 million cell tablet 1 tab PO 4X/DAY 12/14/21 [History Last Taken Unknown] doxycycline hyclate 100 mg capsule 100 mg PO BID #20 caps 12/14/21 [Rx Last Taken Unknown] montelukast 10 mg tablet 10 mg PO DAILY 12/14/21 [History Last Taken Unknown] prednisone 20 mg tablet 60 mg PO DAILY #15 tabs 12/14/21 [Rx Last Taken Unknown] lidocaine 5 % topical patch (Lidoderm) 1 patch topical DAILY PRN pain #15 ea 05/01/22 [Rx Last Taken Unknown] sertraline 25 mg tablet 25 mg PO BID 05/01/22 [History Last Taken Unknown] Allergy/AdvReac Type Severity Reaction Status Date / Time No Known Allergies Allergy Verified 05/01/22 16:44 Family History Other Heart disease Surgical History Status post insertion of percutaneous endoscopic gastrostomy (PEG) tube Social History household members: none housing: apartment Smoking Status: Former smoker ROS ROS ED Constitutional Constitutional ED: Reports fatigue and fever(s); Denies chills Eyes Eyes: Denies change in vision or diplopia ENT ENT ED: Denies rhinorrhea or sore throat Cardiovascular Cardiovascular: Reports chest pain; Denies palpitations Respiratory/Chest Respiratory/Chest: Reports cough, dyspnea, dyspnea on exertion and sputum Gastrointestinal Gastrointestinal: Denies abdominal pain, diarrhea, nausea or vomiting Genitourinary Genitourinary ED: Denies dysuria or hematuria Musculoskeletal Musculoskeletal: Denies back pain or neck pain Integumentary Denies abscess or rash Neurologic Neurologic: Denies headache(s), paresthesias or weakness Psychiatric Psychiatric: Denies anxiety or suicidal thoughts EXAM Physical Exam Const Vital Signs: 04/13/23 06:50 05/28/22 06:53 05/28/22 06:58 Temperature 97.3 F L Temperature Source Temporal Pulse Rate 82 Respiratory Rate 25 H Respiratory Effort Short of Breath Accessory Muscle Use Respiratory Depth Shallow Respiratory Pattern Tachypnea Blood Pressure 164/59 H Blood Pressure Mean 94 Pulse Ox 97 88 Oxygen Delivery Method Nasal Cannula Nasal Cannula Nasal Cannula Oxygen Flow Rate (L/min) 4 4 4 Fraction of Inspired Oxygen (FIO2) 05/28/22 06:59 05/28/22 07:30 05/28/22 07:30 Temperature Temperature Source Pulse Rate 79 91 Respiratory Rate 18 18 Respiratory Effort Respiratory Depth Respiratory Pattern Tachypnea Tachypnea Blood Pressure Blood Pressure Mean Pulse Ox 90 94 Oxygen Delivery Method Nasal Cannula Oxygen Flow Rate (L/min) 6 Fraction of Inspired Oxygen (FIO2) 40 05/28/22 07:30 05/28/22 07:48 05/28/22 08:10 Temperature Temperature Source Pulse Rate 81 85 Respiratory Rate 97 H 22 H Respiratory Effort Respiratory Depth Respiratory Pattern Normal Tachypnea Blood Pressure Blood Pressure Mean Pulse Ox 94 Oxygen Delivery Method Bi-pap Oxygen Flow Rate (L/min) Fraction of Inspired Oxygen (FIO2) 40 05/28/22 08:10 05/28/22 08:35 Temperature Temperature Source Pulse Rate 86 88 Respiratory Rate 18 18 Respiratory Effort Respiratory Depth Respiratory Pattern Normal Blood Pressure 144/54 H Blood Pressure Mean 84 Pulse Ox 94 100 Oxygen Delivery Method Bi-pap Oxygen Flow Rate (L/min) Fraction of Inspired Oxygen (FIO2) 40 Positive well nourished, well developed and cachectic Constitutional Narrative: Mild respiratory distress. Able to converse in 5 word sentences General Appearance ED: well developed, cachectic and NAD Nutritional Appearance: cachectic HEENT Reports moist mucous membranes normocephalic and atraumatic Eyes PERRL and EOMs intact bilaterally Neck full ROM and supple Resp Resp Narrative: Clear throughout but severely diminished throughout. Trachea midline equal breath sounds bilaterally. Cardio regular rate and regular rhythm Cardio Narrative: Very faint heart sounds GI non-tender and non-distended Auscultation: normoactive bowel sounds Palpation: soft Back/Spine no CVA tenderness General Back: other FROM Extremity normal to inspection General Extremety ED: Negative for edema, pulses abnormal or tenderness General Extremity: Negative for edema or pulses abnormal Neuro oriented x3, CN's II-XII intact bilaterally and no sensory deficits noted Sensorium / Orientation: awake and alert Motor Exam: strength 5/5 throughout Psych mental status grossly normal Skin no rashes or lesions noted and no wounds MDM MDM MDM Narrative Medical decision making narrative: Patient states she is feeling exhausted. After the breathing treatments, we put her on BiPAP to help her breathe, this did help, but she wanted a break from it within a couple minutes of taking it off, her oxygen levels went down into the 70s so it was immediately placed back on. Her work-up shows stable labs, chronic CO2 retention, a little prerenal azotemia but no kidney injury, normal troponin and normal BNP ruling out acute congestive heart failure as cause for the chronic findings on the chest x-ray. I do not see pneumonia on it, 2 views that I interpreted myself, radiology in agreement. Chronic changes noted. EKG unremarkable and unchanged. She has respiratory failure and will need to be admitted, I think putting her in PCU is reasonable if there is a bed available. Will send an ABG. Lab Data Attestation: I reviewed the patient's lab results. Labs: Laboratory Results - last 24 hr 05/28/22 05/28/22 05/28/22 07:15 07:15 07:15 WBC 6.0 RBC 4.34 Hgb 11.6 L Hct 39.9 MCV 91.9 MCH 26.7 L MCHC 29.1 L RDW Std Deviation 47.0 H RDW Coeff of Mary 13.9 Plt Count 163 MPV 11.9 Immature Gran % (Auto) 0.300 Neut % (Auto) 75.2 H Lymph % (Auto) 10.6 L [place] % (Auto) 11.3 H Eos % (Auto) 2.3 Baso % (Auto) 0.3 Absolute Neuts (auto) 4.5 Absolute Lymphs (auto) 0.64 L Nucleated RBC % 0 Sodium 140 Potassium 4.3 Chloride 101 Carbon Dioxide 37.0 H Anion Gap 2 L BUN 21 H Creatinine 0.59 Estim Creat Clear Calc 34.44 Est GFR (MDRD) Af Amer 128 Est GFR (MDRD) Non-Af 106 BUN/Creatinine Ratio 35.5 H Glucose 150 H Calcium 10.0 Troponin I High Sens 26 B-Natriuretic Peptide 78.3 Radiography Chest X-Ray - ED: 2 View, Read by ED Physician, No Acute Disease, Chronic Changes and No Infiltrates Diagnostic Testing: Clinical Impression(s) from Imaging Studies Chest X-Ray 05/28/22 07:08 IMPRESSION: No significant interval change. COPD with bibasilar scarring. Electronically Signed: Cara Noble MD at 8:49 EDT Reading Location ID and State: [facility] / [place] Tel , Service support , Rhythm Strip Rhythm Strip: Sinus Rhythm Rate: 80 Ectopy: None EKG Initial EKG: Attestation: I personally reviewed and interpreted this EKG as follows: Interpretation: Sinus Rhythm and No Acute Injury Pattern Prior EKG tracings: available for review Prior: Unchanged Management Discussion w/another healthcare provider: Hospitalist Critical Care Time Critical Care Time: Yes Critical care time (excluding procedures): 30-74 minutes (35 min), Including time spent:, Discussing w/Patient &/or Family/Certified Prosthetist, Discussing w/Consultants, Arranging Admission or Transfer and Performing Direct Patient Care at Bedside Discharge Plan Dx/Rx/DC Orders Clinical Impression: Acute respiratory failure with hypoxia, Acute exacerbation of chronic obstructive pulmonary disease Disposition Disposition: Acute Care Hospital [facility]
[2022-05-28] MEDS: MethylPREDNISolone 125 MG/2 ML Vial IV (07:28)
[2022-05-28] MEDS: Ipratropium/Albuterol Sulfate 3 ML AMPUL.NEB INHALATION ×3 (07:36→23:28)
[2022-05-28] MEDS: Albuterol 2.5 MG/3 ML VIAL.NEB. INHALATION ×3 (07:37→07:56)
[2022-05-28] MEDS: 0.9% Normal Saline 1,000 ML 150 ML IV (07:37)
[2022-05-28 07:40] LABS: Absolute Lymphocyte Count 0.64 X10^3/uL (0.83-4.51); Absolute Neutrophil Count 4.5 X10^3/uL (2.0-7.7); Basophil# 0.02 X10^3/uL; Basophil% 0.3 % (0-1); Eosinophil# 0.14 X10^3/uL; Eosinophils% 2.3 % (0-5); Hematocrit 39.9 % (37-47); Hemoglobin 11.6 g/dL (12.0-15.0); Lymphocyte # 0.64 X10^3/ul (0.83-4.51); Lymphocyte % 10.6 % (19-41); Mean Corp Hgb Conc 29.1 g/dL (32-36); Mean Corpuscular Hgb 26.7 pg (27.0-32.0); Mean Corpuscular Volume 91.9 fL (81-99); Mean Platelet Vol. 11.9 fl (6.2-12.0); Monocyte# 0.68 X10^3/uL; Monocyte% 11.3 % (0-10); NRBC Flagged by Analyzer 0 % (0-5); Neutrophil # 4.54 X10^3/uL (2.7-7.7); Neutrophil % 75.2 % (47-70); Platelet Count 163 K/mm3 (150-450); RBC Distribution Width CV 13.9 % (11.6-14.6); Red Blood Count 4.34 M/mm3 (4.2-5.4)
[2022-05-28 07:52] LABS: Anion Gap 2 (5-15); BUN 21 mg/dL (7-18); BUN/Creat Ratio 35.5 RATIO (10-20); Chloride 101 mmol/L (98-107); Creatinine, Serum 0.59 mg/dL (0.55-1.02); EST Glomerular Filtration Rate 106 mL/min (>60); Est Glom Filt Rate - Afr Amer 128 mL/min (>60); Estimated Creatinine Clearance 34.44 ml/min; Glucose 150 mg/dL (74-106); Potassium 4.3 mmol/L (3.5-5.1); Sodium Level 140 mmol/L (136-145); Troponin-I HS 26 pg/mL (3.0-54.0)
[2022-05-28 07:58] LABS: BNP,B-Type NATRIURETIC PEPTIDE 78.3 pg/mL (0-100)
[2022-05-28 10:01] LABS: Allen Test Positive; Base Excess 12 mmol/L (-2 to +2); Bicarbonate 38.1 mmol/L (22-26); Blood Gas Specimen Type ART; O2 Delivery Device BiPAP; PO2 73 mmHG (75-100); RR 12; SITE R Radial; SO2 91 % (95-99); Total Carbon Dioxide 41 mmol/L; pCO2 79.7 mmHg (35-45); pH 7.29 (7.35-7.45)
--- NOTE | 2022-05-28 10:09 | CPS ---
dr. mccann notified of high critical pco2. no new orders given.
--- NOTE | 2022-05-28 10:14 | ED.RN ---
ZITHROMAX STILL HAS NOT ARRIVED FROM PHARMACY. PT TO FLOOR
[2022-05-28 10:31] LABS: Magnesium 1.6 mg/dL (1.6-2.6); Phosphorus 3.4 mg/dL (2.5-4.9)
--- NOTE | 2022-05-28 10:44 | PCM.HP.STD ---
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 EMS vitals shows BP 170/80, respiratory 16 but clinically she looks tachypneic and labored breathing. The patient's shortness of breath worsened for last 3 days along with cough, wheezing, fever. Fever about 101 Fahrenheit 3 times last night. Patient cough is mainly dry but sometimes produces clear sputum. She also complained of headache. She had chest tightening in ED but got better now. Vitals in the ER shows 97% on 4 L of oxygen but tachypneic, shallow breathing using accessory is muscle and patient was put on BiPAP. ABG showed 7.28/PCO2 79 on BiPAP 40% FiO2 16/10. Chest x-ray degenerative but does not show acute infiltrate but chronic changes of COPD. Twelve-lead EKG normal sinus rhythm 79 bpm QTc 426 ms no significant change from previous EKG of 05/01/2022. The patient is further admitted on BiPAP. [facility] Medical History Asthma Chronic obstructive asthma COPD (chronic obstructive pulmonary disease) Dyslipidemia Emphysema Former smoker History of lung abscess History of tobacco use Hypertension On home oxygen therapy Tracheo-cutaneous fistula Home Medications albuterol sulfate 2.5 mg/3 mL (0.083 %) solution for nebulization 2.5 mg inhalation Q2H PRN PRN Sob &/Or Wheezing 09/21/15 [History Last Taken 04/30/21] mirtazapine 30 mg tablet 30 mg PO QHS mood 09/21/15 [History Last Taken 04/30/21] oxybutynin chloride 5 mg tablet 15 mg PO BID mood 09/21/15 [History Last Taken Unknown] roflumilast 500 mcg tablet (Daliresp) 500 mcg PO DAILY breathing 09/21/15 [History Last Taken 04/30/21] metoprolol succinate 50 mg tablet,extended release 24 hr 50 mg PO DAILY blood pressure 04/30/17 [History Last Taken 04/30/21] rosuvastatin 10 mg tablet 10 mg PO DAILY cholesterol 09/19/17 [History Last Taken 04/30/21] Cholecalciferol (Vitamin D3) [Vitamin D3] 5,000 unit PO DAILY supplement 01/11/20 [History Last Taken 05/01/21] multivitamin with minerals 1 ea PO DAILY supplement 01/11/20 [History Last Taken 04/30/21] lorazepam 0.5 mg tablet 1 tab PO TID PRN Anxiety 5 days #15 tabs 05/06/21 [Rx Last Taken Unknown] ipratropium 0.5 mg-albuterol 3 mg (2.5 mg base)/3 mL nebulization soln 0.5 ml inhalation Q8 06/15/21 [History Last Taken Unknown] L.acidoph,bulgaricus-B.animalis-S.thermophilus 20 million cell tablet 1 tab PO 4X/DAY 12/14/21 [History Last Taken Unknown] doxycycline hyclate 100 mg capsule 100 mg PO BID #20 caps 12/14/21 [Rx Last Taken Unknown] montelukast 10 mg tablet 10 mg PO DAILY 12/14/21 [History Last Taken Unknown] prednisone 20 mg tablet 60 mg PO DAILY #15 tabs 12/14/21 [Rx Last Taken Unknown] lidocaine 5 % topical patch (Lidoderm) 1 patch topical DAILY PRN pain #15 ea 05/01/22 [Rx Last Taken Unknown] sertraline 25 mg tablet 25 mg PO BID 05/01/22 [History Last Taken Unknown] Allergy/AdvReac Type Severity Reaction Status Date / Time No Known Allergies Allergy Verified 05/01/22 16:44 Family History Other Heart disease Surgical History Status post insertion of percutaneous endoscopic gastrostomy (PEG) tube Social History household members: none housing: apartment Smoking Status: Former smoker ROS ROS Narrative Complete 14 ROS is limited because patient on BiPAP and difficulty in communication on BiPAP Constitutional: Reports fatigue and weakness, thin built. Fever last night HEENT: Reports systems reviewed and no addt'l complaints, except as documented Respiratory/Chest: As described in HPI CVS: Denies coronary artery disease/TN or heart failure. No PND Gastrointestinal: Feels nauseated. Denies coffee ground emesis, hematemesis or vomiting Genitourinary: Denies burning urination or new urinary tract symptoms Musculoskeletal: Reports joint pain and limited range of motion Neurologic: Denies seizure-like activity. No strokelike symptoms skin: No ulcer. No rash Endocrinology: Reports systems reviewed and no addt'l complaints, except as documented Hematologic/Lymphatic: Reports systems reviewed and no addt'l complaints, except as documented Rest 14 ROS are negative except as mentioned in HPI Vital Signs Vital Signs Vital Signs: 05/28/22 06:50 05/28/22 06:53 05/28/22 06:58 Temperature 97.3 F L Temperature Source Temporal Pulse Rate 82 Respiratory Rate 25 H Respiratory Effort Short of Breath Accessory Muscle Use Respiratory Depth Shallow Respiratory Pattern Tachypnea Blood Pressure 164/59 H Blood Pressure Mean 94 Pulse Ox 97 88 Oxygen Delivery Method Nasal Cannula Nasal Cannula Nasal Cannula Oxygen Flow Rate (L/min) 4 4 4 Fraction of Inspired Oxygen (FIO2) 05/28/22 06:59 05/28/22 07:30 05/28/22 07:30 Temperature Temperature Source Pulse Rate 79 91 Respiratory Rate 18 18 Respiratory Effort Respiratory Depth Respiratory Pattern Tachypnea Tachypnea Blood Pressure Blood Pressure Mean Pulse Ox 90 94 Oxygen Delivery Method Nasal Cannula Oxygen Flow Rate (L/min) 6 Fraction of Inspired Oxygen (FIO2) 40 05/28/22 07:30 05/28/22 07:48 05/28/22 08:10 Temperature Temperature Source Pulse Rate 81 85 Respiratory Rate 97 H 22 H Respiratory Effort Respiratory Depth Respiratory Pattern Normal Tachypnea Blood Pressure Blood Pressure Mean Pulse Ox 94 Oxygen Delivery Method Bi-pap Oxygen Flow Rate (L/min) Fraction of Inspired Oxygen (FIO2) 40 05/28/22 08:10 05/28/22 08:35 05/28/22 09:26 Temperature 98 F Temperature Source Temporal Pulse Rate 86 88 88 Respiratory Rate 18 18 18 Respiratory Effort Respiratory Depth Respiratory Pattern Normal Blood Pressure 144/54 H 135/58 H Blood Pressure Mean 84 83 Pulse Ox 94 100 100 Oxygen Delivery Method Bi-pap Bi-pap Oxygen Flow Rate (L/min) Fraction of Inspired Oxygen (FIO2) 40 Weight Weight: 94 lb 9.253 oz Body Mass Index (BMI) 17.9 Physical Exam Narrative Physical exam General: Alert, Oriented x3, Cooperative. Moderate respiratory distress. BMI 17.9 kg/m?. Chronic severe malnutrition HEENT: Atraumatic, PERRLA, EOMI, Normocephalic Oral: On BiPAP Neck: Supple, No JVD, Negative Carotid Bruits Lungs: Air entry severely diminished in all lung ritchie bilaterally. Bilateral expiratory rhonchi. Labored breathing, tachypneic and dyspnea at rest Cardiovascular: Regular rate, Regular Rhythm, Normal S1, Normal S2, No murmurs Abdomen: Bowel Sounds Present, Soft, Non Tender, Non-Distended : No renal angle tenderness. No suprapubic tenderness. Extremities: No edema, Capillary Refill Less than 3 Seconds Skin: No rashes, No breakdown Musculoskeletal: Moderate muscle atrophy of all 4 extremities, craniofacial muscles. Loss of subcutaneous fat. No Tenderness to Palpation of Joints or Extremities Neurological: Cranial nerves II-XII grossly intact, DTR 2+/4 and Symmetrical, Neuro grossly intact Psych/Mental Status: Flat affect. Results Lab / Micro Data Result Diagrams: 05/28/22 07:15 05/28/22 07:15 Labs: Laboratory Results - last 24 hr 05/28/22 07:15: WBC 6.0, RBC 4.34, Hgb 11.6 L, Hct 39.9, MCV 91.9, MCH 26.7 L, MCHC 29.1 L, RDW Std Deviation 47.0 H, RDW Coeff of Mary 13.9, Plt Count 163, MPV 11.9, Immature Gran % (Auto) 0.300, Neut % (Auto) 75.2 H, Lymph % (Auto) 10.6 L, Burt % (Auto) 11.3 H, Eos % (Auto) 2.3, Baso % (Auto) 0.3, Absolute Neuts (auto) 4.5, Absolute Lymphs (auto) 0.64 L, Nucleated RBC % 0 05/28/22 07:15: Sodium 140, Potassium 4.3, Chloride 101, Carbon Dioxide 37.0 H, Anion Gap 2 L, BUN 21 H, Creatinine 0.59, Estim Creat Clear Calc 34.44, Est GFR (MDRD) Af Amer 128, Est GFR (MDRD) Non-Af 106, BUN/Creatinine Ratio 35.5 H, Glucose 150 H, Calcium 10.0, Troponin I High Sens 26 05/28/22 07:15: B-Natriuretic Peptide 78.3 05/28/22 07:15: Phosphorus 3.4, Magnesium 1.6 Micro: Microbiology 05/28/22 07:40 Nasal Secretion SARS-CoV-2 & FLU Antigen (Rapid) - Final ABG Data ABG results: ABG 05/28/22 09:53 Specimen Type ART Sample Site R Radial pH 7.29 L Bicarbonate Actual 38.1 H Total CO2 41 Base Excess 12 H O2 Saturation 91 L ABG pCO2 79.7 H* ABG pO2 73 L J Carlos Test Positive Respiration Rate 12 O2 Delivery Device BiPAP Crit Call To/Read Back Yes Blood Gas Notified Whom bb Rhythm Strip Rhythm Strip: Sinus Rhythm Rate: 80 Ectopy: None Radiology Impression Chest X-Ray 05/28/22 07:08 IMPRESSION: No significant interval change. COPD with bibasilar scarring. Electronically Signed: Cara Noble MD at 8:49 EDT , Assessment & Plan Assessment/Plan (1) Acute exacerbation of chronic obstructive pulmonary disease: (2) Acute and chronic respiratory failure with hypercapnia: PLAN: Plan This 71-year-old female is being admitted for acute on chronic combined respiratory failure 1. Acute on chronic combined respiratory failure due to COPD exacerbation: Patient is being admitted in PCU on monitored bed on BiPAP. [employer] consulted. ABG 7.2 11/02/1972 on BiPAP % FiO2, RR 12. 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 Continue BiPAP. Repeat ABG in 1 hour. Patient has history of chronic combined respiratory failure on home oxygen 3.5 L 07/09. She follows Dr. Caldera. 2. COPD exacerbation due to possible pneumonia: Chest x-ray individually reviewed does not show acute infiltrate but chronic emphysematous changes. As patient had fever at home therefore started on IV antibiotics ceftriaxone and Zithromax. Pneumonia work-up ordered. Rapid SARS-CoV-2 and flu antigen are negative. On bronchodilators scheduled every 4 hourly, IV Solu-Medrol, incentive spirometry, Mucinex and Pep. 3. Hypertension, dyslipidemia: Blood pressure is controlled. Monitor BP and titrate the dose of antihypertensive medications. 4. Former smoker, history of lung abscess and tracheocutaneous fistula and COVID-19 infection in the past: Patient started smoking as a teenager more than a pack per day and then quit in 1998. Therefore 30 to 35 pack years of smoking. Past medical history also shows tracheocutaneous fistula. VTE prophylaxis: Enoxaparin 40 mill subcu daily. Moderate risk. Living will/advanced directive/end of life care: Patient does not have living will or advanced directive. Her daughter is next to kin. In her chart, her son Mr. Sebastian Harrison is listed as next of kin. After discussion of benefits/risks procedures involved with full code, DNR CC arrest and DNR CC, the patient opted for DNRCC arrest with no intubation. She clearly mentioned that she did not want intubation or ventilator. Patient doesn't want artificial life support including intubation, ventilator and/chest compression, and DC shock if needed Total time spent in [id number] encounter in discussion of advanced directive 17 minutes. Microbiology Past 72 Hours 05/28/22 07:40 Nasal Secretion SARS-CoV-2 & FLU Antigen (Rapid) - Final Laboratory Results 05/28/22 07:15: WBC 6.0, RBC 4.34, Hgb 11.6 L, Hct 39.9, MCV 91.9, MCH 26.7 L, MCHC 29.1 L, RDW Std Deviation 47.0 H, RDW Coeff of Mary 13.9, Plt Count 163, MPV 11.9, Immature Gran % (Auto) 0.300, Neut % (Auto) 75.2 H, Lymph % (Auto) 10.6 L, Burt % (Auto) 11.3 H, Eos % (Auto) 2.3, Baso % (Auto) 0.3, Absolute Neuts (auto) 4.5, Absolute Lymphs (auto) 0.64 L, Nucleated RBC % 0 05/28/22 07:15: Sodium 140, Potassium 4.3, Chloride 101, Carbon Dioxide 37.0 H, Anion Gap 2 L, BUN 21 H, Creatinine 0.59, Estim Creat Clear Calc 34.44, Est GFR (MDRD) Af Amer 128, Est GFR (MDRD) Non-Af 106, BUN/Creatinine Ratio 35.5 H, Glucose 150 H, Calcium 10.0, Troponin I High Sens 26 05/28/22 07:15: B-Natriuretic Peptide 78.3 05/28/22 07:15: Phosphorus 3.4, Magnesium 1.6 05/28/22 09:40: COVID-19 (EDUAR) Pending 05/28/22 09:53: Specimen Type ART, Sample Site R Radial, pH 7.29 L, Bicarbonate Actual 38.1 H, Total CO2 41, Base Excess 12 H, O2 Saturation 91 L, ABG pCO2 79.7 H*, ABG pO2 73 L, J Carlos Test Positive, Respiration Rate 12, O2 Delivery Device BiPAP, Crit Call To/Read Back Yes, Blood Gas Notified Whom bb Charges/Coding Visit Charges Inpatient E&M: 17277 Init Hosp L3 Procedures Hospitalists Procedures: 84259 Advncd Care Plan 30 Min
[2022-05-28] MEDS: KCL 20MEQ in 0.9% NS 20 MEQ/1,000 ML IV.SOLN. 75 MEQ IV (11:04)
--- NOTE | 2022-05-28 11:20 | CPS ---
Patient complaining of nausea, BiPAP removed. RN notified, patient placed on nasal cannula.
[2022-05-28] MEDS: Ondansetron 4 MG/2 ML Vial IV ×2 (11:36→23:40)
[2022-05-28] MEDS: Enoxaparin 40 MG/0.4 ML Syringe SC (12:56)
[2022-05-28] MEDS: guaiFENesin 1,200 MG Tablet 1200 MG PO ×2 (12:56→21:21)
[2022-05-28] MEDS: Ceftriaxone 1 GM/50 ML BAG IV (13:02)
--- NOTE | 2022-05-28 13:04 | EX.PCM.CONCC ---
Assessment & Plan Assessment/Plan (1) Acute and chronic respiratory failure with hypercapnia: (2) COPD (chronic obstructive pulmonary disease): PLAN: Plan RECOMMENDATIONS: 1. Titrate oxygen to maintain saturations between 90 and 94% 2. Agree with IV steroids, bronchodilators and mucolytic 3. BiPAP with sleep and rescue 4. Obtain sputum culture. Possible addition of Bactrim pending results 5. Consider dietitian/therapies consult 6. ABG as needed for change in mental status IMPRESSIONS: 1. Acute on chronic hypercarbic respiratory failure secondary to COPD exacerbation Exact etiology is unclear at this time. Viral panel is currently pending. Patient does have a history of stenotrophomonas that would only be sensitive to Bactrim therapy. We will obtain a sputum culture to see if this is present. Otherwise, patient can be treated with azithromycin and ceftriaxone for now. No acute infiltrates noted on imaging, but this may be a function of decreased lung parenchyma. Patient reportedly has advanced lung disease at baseline. We will treat with IV steroids, bronchodilators and mucolytic. Patient may require BiPAP rescue. Keeping saturations between 90 and 94% should minimize risk of carbon dioxide accumulation and obtundation. Would obtain an ABG as necessary. Failure to use BiPAP with sleep does increase the risk for ICU transfer. 2. Hypertension/dyslipidemia/advanced age/cachexia/debility Complicates care, management, recovery and prognosis. Likely okay to continue with baseline blood pressure and lipid medications. Patient would benefit from nutritional optimization. Unclear if patient has pulmonary cachexia versus a possible underlying malignant process. Patient could have a low-dose CT scan as an outpatient. Patient is not demonstrating a significant concern for concomitant cardiovascular issues, but an element of pulmonary hypertension given chronic hypoxia and advanced lung disease would be a possibility. Patient does not have a recent echocardiogram. Unclear if this needs to be done as an inpatient. Did confirm the patient is a DNR Comfort Care arrest without intubation. HPI Consult Data Date of Consult: 05/28/22 HPI Narrative HPI Narrative: DALTON KRUGER is a 71 F, with past medical history listed below, who presents to [facility] on 05/28/2022 secondary to progressive shortness of breath over the last 3 to 7 days. Patient reportedly is on supplemental oxygen at 2-1/2 L/min at baseline secondary to COPD. Patient reportedly follows with Dr. Caldera at baseline, but did not bother calling his office to report any issues. This morning, EMS was called because the patient was having worsening dyspnea along with a cough that was nonproductive, fever to 101 ?F and some chest tightness. Patient had initially treated with albuterol, but found that this was being less and less effective. Patient denied any GI or symptoms. No headache or myalgias. Patient has not reported any lower extremity edema. Patient does have some weight loss, but is unclear on how much over what period of time. In the ER, patient was afebrile, but tachypneic at 25 breaths/min. Patient initially was hypertensive at 164/59 and requiring 4 to 6 L to maintain saturations. Laboratory work-up showed a white blood cell count of 6, hemoglobin of 11.6 and platelets of 163. Chemistries showed a CO2 of 37, creatinine of 0.6 and a BNP of 78. Glucose was elevated at 150. Chest x-ray showed significant hyperinflation with bibasilar scarring. EKG showed normal sinus rhythm with no acute ST or T wave changes. Patient did have an ABG showing significant CO2 retention on BiPAP rescue. Patient overall feels subjectively unchanged after being admitted. Patient was having significant respiratory distress, so pulmonary consult was obtained. Patient states she has been following with Dr. Metz, but is unclear on the last time she was seen. Patient states that she has very advanced emphysema, but is unclear of her FEV1. Review of the medical record shows patient does have a history of Stenotrophomonas maltophilia that was only sensitive to Bactrim in late April 2021. Patient also has a history of COVID-19 in January 2021. Patient is not aware of any concomitant cardiovascular issues. Patient reportedly lives independently in her own home. Patient is not reporting any steps at home. Review of systems otherwise negative from a constitutional, HEENT, respiratory, cardiovascular, GI, genitourinary, musculoskeletal, skin, neurologic, psychiatric and hematologic system unless stated above. [facility] Medical History (Updated 05/28/22 @ 13:[address] Anjel Rtoh MD) Asthma Chronic obstructive asthma COPD (chronic obstructive pulmonary disease) Dyslipidemia Emphysema Former smoker History of lung abscess History of tobacco use Hypertension On home oxygen therapy Tracheo-cutaneous fistula Home Medications albuterol sulfate 2.5 mg/3 mL (0.083 %) solution for nebulization 2.5 mg inhalation Q2H PRN PRN Sob &/Or Wheezing 09/21/15 [History Last Taken 04/30/21] mirtazapine 30 mg tablet 30 mg PO QHS mood 09/21/15 [History Last Taken 04/30/21] oxybutynin chloride 5 mg tablet 15 mg PO BID mood 09/21/15 [History Last Taken Unknown] roflumilast 500 mcg tablet (Daliresp) 500 mcg PO DAILY breathing 09/21/15 [History Last Taken 04/30/21] metoprolol succinate 50 mg tablet,extended release 24 hr 50 mg PO DAILY blood pressure 06/14/16 [History Last Taken 04/30/21] rosuvastatin 10 mg tablet 10 mg PO DAILY cholesterol 09/19/17 [History Last Taken 04/30/21] Cholecalciferol (Vitamin D3) [Vitamin D3] 5,000 unit PO DAILY supplement 01/11/20 [History Last Taken 05/01/21] multivitamin with minerals 1 ea PO DAILY supplement 01/11/20 [History Last Taken 04/30/21] lorazepam 0.5 mg tablet 1 tab PO TID PRN Anxiety 5 days #15 tabs 05/06/21 [Rx Last Taken Unknown] ipratropium 0.5 mg-albuterol 3 mg (2.5 mg base)/3 mL nebulization soln 0.5 ml inhalation Q8 06/15/21 [History Last Taken Unknown] L.acidoph,bulgaricus-B.animalis-S.thermophilus 20 million cell tablet 1 tab PO 4X/DAY 12/14/21 [History Last Taken Unknown] doxycycline hyclate 100 mg capsule 100 mg PO BID #20 caps 12/14/21 [Rx Last Taken Unknown] montelukast 10 mg tablet 10 mg PO DAILY 12/14/21 [History Last Taken Unknown] prednisone 20 mg tablet 60 mg PO DAILY #15 tabs 12/14/21 [Rx Last Taken Unknown] lidocaine 5 % topical patch (Lidoderm) 1 patch topical DAILY PRN pain #15 ea 05/01/22 [Rx Last Taken Unknown] sertraline 25 mg tablet 25 mg PO BID 05/01/22 [History Last Taken Unknown] Allergy/AdvReac Type Severity Reaction Status Date / Time No Known Allergies Allergy Verified 05/01/22 16:44 Family History Other Heart disease Surgical History Status post insertion of percutaneous endoscopic gastrostomy (PEG) tube Social History household members: none housing: apartment Smoking Status: Former smoker ROS ROS Narrative See HPI Physical Exam Const alert and oriented x3 Constitutional Narrative: Moderate conversational dyspnea. General Appearance: in distress Positive for moderate and frail HEENT normocephalic and head/scalp atraumatic HEENT Narrative: Temporal wasting noted. Supplemental oxygen in place. Eyes PERRL, EOMs intact bilaterally, conjunctivae normal and no scleral icterus Neck full ROM and no lymphadenopathy Chest Chest Narrative: Increased AP diameter Resp Effort and Inspection: prolonged expiratory phase Auscultation: wheezes expiratory wheezes and throughout and diminished lung sounds; Negative for rales or rhonchi Cardio regular rate, regular rhythm, S1 normal heart sound, S2 normal heart sound, no murmurs, no rub and no gallops GI normal to inspection, nondistended, normoactive bowel sounds Extremity no clubbing, cyanosis or edema Skin no rashes or lesions noted Skin Narrative: Some dermal atrophy appreciated Neuro oriented x3, CN's II-XII intact bilaterally and moves all extremities Psych cooperative and affect normal Medical Records Data Attestation: I reviewed the patient's medical records (See HPI) Lab / Micro Data Attestation: I reviewed the patient's lab results. Result Diagrams: 05/28/22 07:15 05/28/22 07:15 Labs: Laboratory Results - last 24 hr 05/28/22 07:15: WBC 6.0, RBC 4.34, Hgb 11.6 L, Hct 39.9, MCV 91.9, MCH 26.7 L, MCHC 29.1 L, RDW Std Deviation 47.0 H, RDW Coeff of Mary 13.9, Plt Count 163, MPV 11.9, Immature Gran % (Auto) 0.300, Neut % (Auto) 75.2 H, Lymph % (Auto) 10.6 L, [place] % (Auto) 11.3 H, Eos % (Auto) 2.3, Baso % (Auto) 0.3, Absolute Neuts (auto) 4.5, Absolute Lymphs (auto) 0.64 L, Nucleated RBC % 0 05/28/22 07:15: Sodium 140, Potassium 4.3, Chloride 101, Carbon Dioxide 37.0 H, Anion Gap 2 L, BUN 21 H, Creatinine 0.59, Estim Creat Clear Calc 34.44, Est GFR (MDRD) Af Amer 128, Est GFR (MDRD) Non-Af 106, BUN/Creatinine Ratio 35.5 H, Glucose 150 H, Calcium 10.0, Troponin I High Sens 26 05/28/22 07:15: B-Natriuretic Peptide 78.3 05/28/22 07:15: Phosphorus 3.4, Magnesium 1.6 Micro: Microbiology 05/28/22 07:40 Nasal Secretion SARS-CoV-2 & FLU Antigen (Rapid) - Final ABG Data ABG results: ABG 05/28/22 09:53 Specimen Type ART Sample Site R Radial pH 7.29 L Bicarbonate Actual 38.1 H Total CO2 41 Base Excess 12 H O2 Saturation 91 L ABG pCO2 79.7 H* ABG pO2 73 L J Carlos Test Positive Respiration Rate 12 O2 Delivery Device BiPAP Crit Call To/Read Back Yes Blood Gas Notified Whom bb Attestation: I personally reviewed and interpreted this ABG as follows: (Partially compensated acute respiratory acidosis with increased AA gradient) Rhythm Strip Rhythm Strip: Sinus Rhythm Rate: 80 Ectopy: None Radiology Impression Chest X-Ray 05/28/22 07:08 IMPRESSION: No significant interval change. COPD with bibasilar scarring. Electronically Signed: Cara Noble MD at 8:49 EDT , Charges/Coding Visit Charges Inpatient E&M: 07553 Init Hosp L3
[2022-05-28] MEDS: Ensure Plus High Protein 120 ML LIQUID PO (17:06)
[2022-05-28] MEDS: Sertraline 50 MG Tablet 25 MG PO (21:21)
[2022-05-28] MEDS: Oxybutynin 5 MG Tablet 15 MG PO (21:21)
[2022-05-28] MEDS: Atorvastatin Calcium 20 MG Tablet PO (21:21)
[2022-05-28] MEDS: 0.9% Saline Lock 10 ML Syringe IV (21:21)
[2022-05-28] MEDS: Montelukast 10 MG Tablet PO (21:21)
[2022-05-28] MEDS: Mirtazapine 30 MG Tablet PO (21:22)
--- NOTE | 2022-05-28 23:30 | CPS ---
pt had me remove the bipap due to pt feeling sick
[2022-05-29] VITALS (19 sets, daily range): BP systolic 144–157; BP diastolic 56–70; PULSE 84–115; RESP 12–115; TEMP 36.5–36.9; O2SAT 77–100; BMI 18.3
[2022-05-29] MEDS: Ipratropium/Albuterol Sulfate 3 ML AMPUL.NEB INHALATION ×6 (03:19→23:09)
[2022-05-29] MEDS: 0.9% Saline Lock 10 ML Syringe IV ×4 (05:19→22:42)
[2022-05-29 06:32] LABS: Absolute Lymphocyte Count 0.47 X10^3/uL (0.83-4.51); Basophil# 0.01 X10^3/uL; Basophil% 0.2 % (0-1); Hematocrit 37.3 % (37-47); Hemoglobin 10.3 g/dL (12.0-15.0); Lymphocyte # 0.47 X10^3/ul (0.83-4.51); Lymphocyte % 7.8 % (19-41); Mean Corp Hgb Conc 27.6 g/dL (32-36); Mean Corpuscular Hgb 26.3 pg (27.0-32.0); Mean Corpuscular Volume 95.2 fL (81-99); Monocyte# 0.46 X10^3/uL; Monocyte% 7.6 % (0-10); NRBC Flagged by Analyzer 0 % (0-5); Neutrophil # 5.04 X10^3/uL (2.7-7.7); Neutrophil % 83.7 % (47-70); POSITIVE DIFFERENTIAL YES; Platelet Count 150 K/mm3 (150-450); RBC Distribution Width CV 13.8 % (11.6-14.6); Red Blood Count 3.92 M/mm3 (4.2-5.4)
[2022-05-29 06:35] LABS: Differential Indicated SCAN CRITERIA MET
[2022-05-29 07:20] LABS: Anion Gap 0 (5-15); BUN 20 mg/dL (7-18); BUN/Creat Ratio 40.4 RATIO (10-20); Calcium,Total 9.7 mg/dL (8.5-10.1); Chloride 102 mmol/L (98-107); Differential Comment SCANNED; EST Glomerular Filtration Rate 130 mL/min (>60); Est Glom Filt Rate - Afr Amer 158 mL/min (>60); Estimated Creatinine Clearance 35.32 ml/min; Glucose 147 mg/dL (74-106); Potassium 4.9 mmol/L (3.5-5.1); Sodium Level 138 mmol/L (136-145)
[2022-05-29] MEDS: Ondansetron 4 MG/2 ML Vial IV (09:06)
[2022-05-29] MEDS: Enoxaparin 40 MG/0.4 ML Syringe SC (09:09)
[2022-05-29] MEDS: Ceftriaxone 1 GM/50 ML BAG IV (09:16)
--- NOTE | 2022-05-29 10:05 | PN.CC_ITS ---
Assessment & Plan Assessment/Plan (1) Acute and chronic respiratory failure with hypercapnia: (2) COPD (chronic obstructive pulmonary disease): PLAN: Plan RECOMMENDATIONS: 1. Titrate oxygen to maintain saturations between 90 and 94% 2. Agree with IV steroids, bronchodilators and mucolytic 3. BiPAP with sleep and rescue 4. Await sputum culture. Possible addition of Bactrim if decompensates 5. Consider dietitian/therapies consult 6. ABG as needed for change in mental status IMPRESSIONS: 1. Acute on chronic hypercarbic respiratory failure secondary to COPD exacerbation Exact etiology is unclear at this time. Viral panel is negative. Patient does have a history of stenotrophomonas that would only be sensitive to Bactrim therapy. We will obtain a sputum culture to see if this is present. May need to add Bactrim if patient decompensates. Otherwise, patient can be treated with azithromycin and ceftriaxone for now. No acute infiltrates noted on imaging, but this may be a function of decreased lung parenchyma. Patient reportedly has advanced lung disease at baseline. We will treat with IV steroids, bronchodilators and mucolytic. We will hold IV steroids at the current dosing given lack of clinical improvement. Patient may require BiPAP rescue. Keeping saturations between 90 and 94% should minimize risk of carbon dioxide accumulation and obtundation. Would obtain an ABG as necessary. Failure to use BiPAP with sleep does increase the risk for ICU transfer. 2. Hypertension/dyslipidemia/advanced age/cachexia/debility Complicates care, management, recovery and prognosis. Likely okay to continue with baseline blood pressure and lipid medications. Patient would benefit from nutritional optimization. Unclear if patient has pulmonary cachexia versus a possible underlying malignant process. Patient could have a low-dose CT scan as an outpatient. Patient is not demonstrating a significant concern for concomitant cardiovascular issues, but an element of pulmonary hypertension given chronic hypoxia and advanced lung disease would be a possibility. Patient does not have a recent echocardiogram. Unclear if this needs to be done as an inpatient. Did confirm the patient is a DNR Comfort Care arrest without intubation. Subjective Subjective Patient overall feels subjectively unchanged compared to previous. Patient states that she feels nauseous this morning. Discussed this with nursing and they were concerned that she was using this to avoid wearing BiPAP. Patient does report a wet cough, but little to no production. Objective Data Objective Data Vital Signs: Vital Signs Temp Pulse Resp BP Pulse Ox O2 Del Method O2 Flow Rate 36.5 C L 115 H 18 150/61 H 99 Nasal Cannula 3 05/29/22 09:37 05/29/22 09:37 05/29/22 09:37 05/29/22 09:37 05/29/22 09:37 05/29/22 09:37 05/29/22 09:37 FiO2 40 05/29/22 03:33 Oxygen Flow Rate (L/min) 3 Oxygen Delivery Method Nasal Cannula Weight: 44 kg Body Mass Index (BMI) 18.3 Intake & Output: Intake and Output for Last 24 Hours 05/27/22 05/28/22 05/29/22 23:59 23:59 23:59 Intake Total 1012.5 / 1012.5 1000 / 1000 Output Total 200 / 200 200 / 200 Balance 812.5 / 812.5 800 / 800 Lab / Micro Data Attestation: I reviewed the patient's lab results. Result Diagrams: 05/29/22 05:56 05/29/22 05:56 Labs: Laboratory Results - last 24 hr 05/28/22 07:15: Phosphorus 3.4, Magnesium 1.6 05/28/22 09:40: COVID-19 (EDUAR) Negative 05/29/22 05:56: WBC 6.0, RBC 3.92 L, Hgb 10.3 L, Hct 37.3, MCV 95.2, MCH 26.3 L, MCHC 27.6 L D, RDW Std Deviation 48.0 H, RDW Coeff of Mary 13.8, Plt Count 150, MPV 12.0, Immature Gran % (Auto) 0.700, Neut % (Auto) 83.7 H, Lymph % (Auto) 7.8 L, [place] % (Auto) 7.6, Eos % (Auto) 0.0, Baso % (Auto) 0.2, Absolute Neuts (auto) 5.0, Absolute Lymphs (auto) 0.47 L, Nucleated RBC % 0, Differential Comment S CANNED 05/29/22 05:56: Sodium 138, Potassium 4.9, Chloride 102, Carbon Dioxide 36.0 H, Anion Gap 0 L, BUN 20 H, Creatinine 0.50 L, Estim Creat Clear Calc 35.32, Est GFR (MDRD) Af Amer 158, Est GFR (MDRD) Non-Af 130, BUN/Creatinine Ratio 40.4 H, Glucose 147 H, Calcium 9.7 Micro: Microbiology 05/28/22 09:40 Mucosa - Nasopharyngeal Respiratory Panel (PCR) - Final 05/28/22 07:40 Nasal Secretion SARS-CoV-2 & FLU Antigen (Rapid) - Final Rhythm Strip Rhythm Strip: Sinus Rhythm Rate: 88 Ectopy: None Physical Exam Const alert and oriented x3 Constitutional Narrative: Mild conversational dyspnea. General Appearance: in distress Positive for mild and frail HEENT normocephalic and head/scalp atraumatic Eyes PERRL, EOMs intact bilaterally, conjunctivae normal and no scleral icterus Neck full ROM and no lymphadenopathy Chest Chest Narrative: Increased AP diameter Resp Resp Narrative: Slightly better air exchange today compared to yesterday Effort and Inspection: prolonged expiratory phase Auscultation: wheezes expiratory wheezes and throughout and diminished lung sounds; Negative for rales or rhonchi Cardio regular rate, regular rhythm, S1 normal heart sound, S2 normal heart sound, no murmurs, no rub and no gallops GI normal to inspection, nondistended, normoactive bowel sounds Extremity no clubbing, cyanosis or edema Skin no rashes or lesions noted Skin Narrative: Some dermal atrophy appreciated Neuro oriented x3, CN's II-XII intact bilaterally and moves all extremities Psych cooperative and affect normal Charges/Coding Visit Charges Inpatient E&M: 72939 Subs Hosp L3
--- NOTE | 2022-05-29 10:45 | CASEMGMT ---
RN CM Face to Face with patient for initial transition planning/care coordination assessment. RN CM introduced self and role at [facility]. Patient sitting, alert and oriented, resting head on arm of chair. Patient willing to participate in assessment and is able to answer all questions appropriately. Care providers, pharmacy, and demographics verified. Patient is unsure of disposition at discharge, but is willing to go to SNF if needed. Will monitor progress with discharge. Patient states she has no further needs or concerns at this time. CM to follow for discharge planning needs that may arise. PCP: Mita Specialists: Verenice Sosa Pharmacy: [facility] Insurance: [employer] Prescription Benefit: yes Living Will/HPOA: none LNOK: son, sister Living Arrangements: Patient lives alone in a single story apartment with 1 step to enter. Patient states she is independent at home. Transportation: neighbor DME/HHC: Patient states she has shower chair, walker, wheelchair, medical alert, bipap, nebulizer, pulse ox, and home oxygen with portability through [employer] at 2lpm continuously. Patient has Waiver services but is not sure her CM at [facility]. Patient has been to [facility] in the past. Disposition Plan: TBD, anticipate HHC vs SNF pending progress with therapy. Tara NAPIER, RN, CM
[2022-05-29] MEDS: proCHLORPERazine 10 MG/2 ML Vial 5 MG IV ×2 (11:37→22:34)
--- NOTE | 2022-05-29 13:11 | PCM.PN.HOSP ---
Subjective Subjective Has some nausea this morning but otherwise did okay overnight oxygen is at baseline Objective Data Objective Data Vital Signs: Vital Signs Temp Pulse Resp BP Pulse Ox O2 Del Method O2 Flow Rate 97.7 F L 115 H 18 150/61 H 99 Nasal Cannula 3 05/29/22 09:37 05/29/22 09:37 05/29/22 09:37 05/29/22 09:37 05/29/22 09:37 05/29/22 09:37 05/29/22 09:37 FiO2 40 05/29/22 03:33 Oxygen Flow Rate (L/min) 3 Oxygen Delivery Method Nasal Cannula Weight: 97 lb 0.054 oz Body Mass Index (BMI) 18.3 Intake & Output: Intake and Output for Last 24 Hours 05/28/22 05/29/22 05/30/22 03:59 03:59 03:59 Intake Total 2011. 50 / 50 Output Total 200 / 200 200 / 200 Balance 1812.5 / 1812.5 -150 / -150 Medical Nutrition Assessment Dietitian: Malnutrition Criteria Met Start: 05/29/22 11:20 Freq: Status: Active Protocol: Document 05/29/22 11:21 LO (Rec: 05/29/22 11:21 [id number]) Nutrition Malnutrition Evidence of Malnutrition Exists Yes Malnutrition (severe): Chronic Evidenced By Suboptimal Energy Intake ( Severe),Weight Loss (Severe) Clinical Problem Chronic Disease or Condition Related Malnutrition Etiology related to COPD Signs/Symptoms as evidenced by <75% intake of estimated energy needs for >1 month and 6.5% weight loss in 1 month and 10.3% in 6 months Status Active Problem Unintended Weight Loss Etiology related to unknown etiology Signs/Symptoms as evidenced by 9.2lbs (8.8%) weight loss in 1 month Status Inactive Problem Recommendation Dietitian Recommendations/Changes Continue Regular diet to optimize oral intakes. Continue 120mL EPHP 4x with medpass to provide supplemental energy. RD will order Magic Cup BID to provide supplemental energy. Lab / Micro Data Result Diagrams: 05/29/22 05:56 05/29/22 05:56 Labs: Laboratory Results - last 24 hr 05/28/22 09:40: COVID-19 (EDUAR) Negative 05/29/22 05:56: WBC 6.0, RBC 3.92 L, Hgb 10.3 L, Hct 37.3, MCV 95.2, MCH 26.3 L, MCHC 27.6 L D, RDW Std Deviation 48.0 H, RDW Coeff of Mary 13.8, Plt Count 150, MPV 12.0, Immature Gran % (Auto) 0.700, Neut % (Auto) 83.7 H, Lymph % (Auto) 7.8 L, [place] % (Auto) 7.6, Eos % (Auto) 0.0, Baso % (Auto) 0.2, Absolute Neuts (auto) 5.0, Absolute Lymphs (auto) 0.47 L, Nucleated RBC % 0, Differential Comment SCANNED 05/29/22 05:56: Sodium 138, Potassium 4.9, Chloride 102, Carbon Dioxide 36.0 H, Anion Gap 0 L, BUN 20 H, Creatinine 0.50 L, Estim Creat Clear Calc 35.32, Est GFR (MDRD) Af Amer 158, Est GFR (MDRD) Non-Af 130, BUN/Creatinine Ratio 40.4 H, Glucose 147 H, Calcium 9.7 Micro: Microbiology 05/28/22 09:40 Mucosa - Nasopharyngeal Respiratory Panel (PCR) - Final 05/28/22 07:40 Nasal Secretion SARS-CoV-2 & FLU Antigen (Rapid) - Final Rhythm Strip Rhythm Strip: Sinus Rhythm Rate: 88 Ectopy: None Physical Exam Narrative General: Alert, Oriented x3, Cooperative, No apparent distress HEENT: Atraumatic, PERRLA, EOMI, Normocephalic Oral: Moist Mucosa Neck: Supple, No JVD Lungs: Diminished, Normal air movement, No rhonchi, wheeze, No rales Cardiovascular: Regular rate, Regular Rhythm, Normal S1, Normal S2, No murmurs Abdomen: Soft, Non Tender, Non-Distended, No Hepato-splenomegaly Extremities: No edema, Capillary Refill Less than 3 Seconds Skin: No rashes, No breakdown Musculoskeletal: No Tenderness to Palpation of Joints or Extremities Neurological: Cranial nerves II-XII grossly intact, Motor Exam 5/5 strength throughout, Sensory exam intact to light touch and pain Psych/Mental Status: Normal Affect, Appropriate Assessment & Plan Assessment/Plan (1) Acute exacerbation of chronic obstructive pulmonary disease: (2) Acute and chronic respiratory failure with hypercapnia: PLAN: Plan This 71-year-old female is being admitted for acute on chronic combined respiratory failure 1. Acute on chronic combined respiratory failure due to COPD exacerbation: Patient is being admitted in PCU on monitored bed on BiPAP. Medical Radiation Dosimetrist consulted. ABG 7.2 11/02/1972 on BiPAP % FiO2, RR 12. Discussed with the archivist [employer] and respiratory therapist. Continue BiPAP. Repeat ABG in 1 hour. Patient has history of chronic combined respiratory failure on home oxygen 3.5 L 07/09. She follows Dr. Caldera. 05/29/2022: She did have significant oxygen requirements when ambulating from the bed to the chair she had been turned up to about 10 L nasal cannula but she did recover and is now back down to her baseline oxygen requirement 2. COPD exacerbation due to possible pneumonia: Chest x-ray individually reviewed does not show acute infiltrate but chronic emphysematous changes. As patient had fever at home therefore started on IV antibiotics ceftriaxone and Zithromax. Pneumonia work-up ordered. Rapid SARS-CoV-2 and flu antigen are negative. On bronchodilators scheduled every 4 hourly, IV Solu-Medrol, incentive spirometry, Mucinex and Pep. 05/29/2022: Appreciate pulmonology's assistance, sputum sample is pending 3. Hypertension, dyslipidemia: Blood pressure is controlled. Monitor BP and titrate the dose of antihypertensive medications. 4. Former smoker, history of lung abscess and tracheocutaneous fistula and COVID-19 infection in the past: Patient started smoking as a teenager more than a pack per day and then quit in 1998. Therefore 30 to 35 pack years of smoking. Past medical history also shows tracheocutaneous fistula. 5. Anxiety/depression ? Stable ? Continue with Zoloft and Remeron DVT: Lovenox Charges/Coding Visit Charges Inpatient E&M: 71567 Subs Hosp L2
[2022-05-29] MEDS: Oxybutynin 5 MG Tablet 15 MG PO (13:27)
[2022-05-29] MEDS: Metoprolol(XL)Succ 50 MG Tablet PO (13:28)
[2022-05-29] MEDS: guaiFENesin 1,200 MG Tablet 1200 MG PO (13:28)
[2022-05-29] MEDS: Sertraline 50 MG Tablet 25 MG PO (13:29)
[2022-05-29] MEDS: Azithromycin 250 MG Tablet 500 MG PO (13:29)
[2022-05-30] VITALS (22 sets, daily range): BP systolic 118–164; BP diastolic 59–77; PULSE 67–109; RESP 12–24; TEMP 36.1–36.6; O2SAT 91–98; BMI 18.2
--- NOTE | 2022-05-30 00:32 | NURSING ---
Patient family requests update to contacts with Donald Mcclendon being contacted first in and emergency [phone] and then granddaughter Kishor Mcclendon at [phone] are local Daughter Jeanie is not local
[2022-05-30] MEDS: LORazepam 2 MG/ML Syringe 0.5 MG IV (00:39)
[2022-05-30] MEDS: 0.9% Saline Lock 10 ML Syringe IV ×5 (00:43→19:35)
[2022-05-30] MEDS: Ipratropium/Albuterol Sulfate 3 ML AMPUL.NEB INHALATION ×6 (02:10→23:28)
[2022-05-30 07:38] LABS: Absolute Lymphocyte Count 0.51 X10^3/uL (0.83-4.51); Absolute Neutrophil Count 4.4 X10^3/uL (2.0-7.7); Basophil# 0.01 X10^3/uL; Basophil% 0.2 % (0-1); Hematocrit 37.5 % (37-47); Hemoglobin 10.5 g/dL (12.0-15.0); Lymphocyte # 0.51 X10^3/ul (0.83-4.51); Lymphocyte % 9.4 % (19-41); Mean Corpuscular Hgb 27.1 pg (27.0-32.0); Mean Corpuscular Volume 96.6 fL (81-99); Mean Platelet Vol. 12.2 fl (6.2-12.0); Monocyte# 0.49 X10^3/uL; NRBC Flagged by Analyzer 0 % (0-5); Neutrophil # 4.41 X10^3/uL (2.7-7.7); Neutrophil % 80.8 % (47-70); POSITIVE DIFFERENTIAL YES; Platelet Count 155 K/mm3 (150-450); RBC Distribution Width CV 13.8 % (11.6-14.6); RBC Distribution Width SD 48.6 fl (35.1-43.9); Red Blood Count 3.88 M/mm3 (4.2-5.4); White Blood Count 5.5 K/mm3 (4.4-11.0)
[2022-05-30 07:45] LABS: Differential Indicated SCAN CRITERIA MET
[2022-05-30 08:49] LABS: Anion Gap 0 (5-15); BUN 38 mg/dL (7-18); BUN/Creat Ratio 54.4 RATIO (10-20); Calcium,Total 10.4 mg/dL (8.5-10.1); Chloride 101 mmol/L (98-107); EST Glomerular Filtration Rate 87 mL/min (>60); Est Glom Filt Rate - Afr Amer 106 mL/min (>60); Estimated Creatinine Clearance 35.24 ml/min; Glucose 120 mg/dL (74-106); Potassium 5.2 mmol/L (3.5-5.1); Sodium Level 139 mmol/L (136-145)
--- NOTE | 2022-05-30 09:12 | NURSING ---
0800 dr trujillo in to round on pt with pulm. mask changed out on bipap to smaller one that fit pt's face. pt 97% on 50% and bipap down to 45% at this time. will monitor. dr. camacho updated on pt's night and that unable to danie being off bipap at all overnight.
--- NOTE | 2022-05-30 09:14 | NURSING ---
pt assessment done with vitals. pt only sating 84% and and cps had been able to wean bipap down to 35% while sleeping. upon awakening for vitals and assessment. pt dropped however to 81% on 35%. fi02 increased to 40% but no change after several minutes. cps called and bipap to 60% and coming to assess. minimal airleak obs. lungsounds extremely dim. after 5min spo2 up to 96% on 60% so o2 back down to 50. will monitor
--- NOTE | 2022-05-30 09:30 | PCM.PN.INT ---
Assessment & Plan Assessment/Plan (1) Acute and chronic respiratory failure with hypercapnia: (2) COPD (chronic obstructive pulmonary disease): PLAN: Plan RECOMMENDATIONS: 1. Titrate oxygen to maintain saturations between 90 and 94% 2. Agree with IV steroids, bronchodilators and mucolytic 3. BiPAP with sleep and rescue 4. Await sputum culture. Possible addition of Bactrim if decompensates 5. Consider dietitian/therapies consult 6. ABG as needed for change in mental status IMPRESSIONS: 1. Acute on chronic hypercarbic respiratory failure secondary to COPD exacerbation Exact etiology is unclear at this time. Viral panel is negative. Patient does have a history of stenotrophomonas that would only be sensitive to Bactrim therapy. We will obtain a sputum culture to see if this is present. May need to add Bactrim if patient decompensates. Otherwise, patient can be treated with azithromycin and ceftriaxone for now. No acute infiltrates noted on imaging, but this may be a function of decreased lung parenchyma. Patient reportedly has advanced lung disease at baseline. We will treat with IV steroids, bronchodilators and mucolytic. We will hold IV steroids at the current dosing given lack of clinical improvement. Patient may require BiPAP rescue. Keeping saturations between 90 and 94% should minimize risk of carbon dioxide accumulation and obtundation. Would obtain an ABG as necessary. Failure to use BiPAP with sleep does increase the risk for ICU transfer. Very narrow therapeutic window. Guarded prognosis given advanced lung disease at baseline. 2. Hypertension/dyslipidemia/advanced age/cachexia/debility Complicates care, management, recovery and prognosis. Likely okay to continue with baseline blood pressure and lipid medications. Patient would benefit from nutritional optimization. Unclear if patient has pulmonary cachexia versus a possible underlying malignant process. Patient could have a low-dose CT scan as an outpatient. Patient is not demonstrating a significant concern for concomitant cardiovascular issues, but an element of pulmonary hypertension given chronic hypoxia and advanced lung disease would be a possibility. Patient does not have a recent echocardiogram. Unclear if this needs to be done as an inpatient. Did confirm the patient is a DNR Comfort Care arrest without intubation. Subjective Subjective Patient intermittently compliant with BiPAP therapy. Patient reportedly has not had much p.o. intake secondary to need for BiPAP. Oxygenation has been variable. No productive cough is been reported. Objective Data Objective Data Vital Signs: Vital Signs Temp Pulse Resp BP Pulse Ox O2 Del Method O2 Flow Rate 36.1 C L 80 17 118/74 97 Bi-pap 50 05/30/22 03:50 05/30/22 08:34 05/30/22 04:34 05/30/22 03:50 05/30/22 08:34 05/30/22 03:50 05/29/22 22:00 FiO2 30 05/30/22 08:34 Oxygen Flow Rate (L/min) 50 Oxygen Delivery Method Bi-pap Weight: 43.9 kg Body Mass Index (BMI) 18.2 Intake & Output: Intake and Output for Last 24 Hours 05/28/22 05/29/22 05/30/22 23:59 23:59 23:59 Intake Total 1012.5 / 1012.5 1290 / 1290 Output Total 200 / 200 200 / 200 300 / 300 Balance 812.5 / 812.5 1090 / 1090 -300 / -300 Medical Nutrition Assessment Dietitian: Malnutrition Criteria Met Start: 05/29/22 11:20 Freq: Status: Active Protocol: Document 05/29/22 11:21 LO (Rec: 05/29/22 11:21 [id number]) Nutrition Malnutrition Evidence of Malnutrition Exists Yes Malnutrition (severe): Chronic Evidenced By Suboptimal Energy Intake ( Severe),Weight Loss (Severe) Clinical Problem Chronic Disease or Condition Related Malnutrition Etiology related to COPD Signs/Symptoms as evidenced by <75% intake of estimated energy needs for >1 month and 6.5% weight loss in 1 month and 10.3% in 6 months Status Active Problem Unintended Weight Loss Etiology related to unknown etiology Signs/Symptoms as evidenced by 9.2lbs (8.8%) weight loss in 1 month Status Inactive Problem Recommendation Dietitian Recommendations/Changes Continue Regular diet to optimize oral intakes. Continue 120mL EPHP 4x with medpass to provide supplemental energy. RD will order Magic Cup BID to provide supplemental energy. Lab / Micro Data Attestation: I reviewed the patient's lab results. Result Diagrams: 05/30/22 06:55 05/30/22 06:55 Labs: Laboratory Results - last 24 hr 05/30/22 06:55: WBC 5.5, RBC 3.88 L, Hgb 10.5 L, Hct 37.5, MCV 96.6, MCH 27.1, MCHC 28.0 L, RDW Std Deviation 48.6 H, RDW Coeff of Mary 13.8, Plt Count 155, MPV 12.2 H, Immature Gran % (Auto) 0.600, Neut % (Auto) 80.8 H, Lymph % (Auto) 9.4 L, Elbert % (Auto) 9.0, Eos % (Auto) 0.0, Baso % (Auto) 0.2, Absolute Neuts (auto) 4.4, Absolute Lymphs (auto) 0.51 L, Nucleated RBC % 0 05/30/22 06:55: Sodium 139, Potassium 5.2 H, Chloride 101, Carbon Dioxide 38.0 H, Anion Gap 0 L, BUN 38 H, Creatinine 0.70, Estim Creat Clear Calc 35.24, Est GFR (MDRD) Af Amer 106, Est GFR (MDRD) Non-Af 87, BUN/Creatinine Ratio 54.4 H, Glucose 120 H, Calcium 10.4 H Micro: Microbiology 05/28/22 09:40 Mucosa - Nasopharyngeal Respiratory Panel (PCR) - Final 05/28/22 07:40 Nasal Secretion SARS-CoV-2 & FLU Antigen (Rapid) - Final Rhythm Strip Rhythm Strip: Sinus Rhythm Rate: 90 Ectopy: None Physical Exam Const Constitutional Narrative: Mild conversational dyspnea. RASS -1. On BiPAP during my evaluation. Good synchrony. General Appearance: in distress Positive for mild and frail HEENT normocephalic and head/scalp atraumatic Eyes PERRL, EOMs intact bilaterally, conjunctivae normal and no scleral icterus Neck full ROM and no lymphadenopathy Chest Chest Narrative: Increased AP diameter Resp Resp Narrative: Slightly better air exchange today compared to yesterday Effort and Inspection: prolonged expiratory phase Auscultation: wheezes expiratory wheezes and throughout and diminished lung sounds; Negative for rales or rhonchi Cardio regular rate, regular rhythm, S1 normal heart sound, S2 normal heart sound, no murmurs, no rub and no gallops GI normal to inspection, nondistended, normoactive bowel sounds Extremity no clubbing, cyanosis or edema Skin no rashes or lesions noted Skin Narrative: Some dermal atrophy appreciated Neuro oriented x3, CN's II-XII intact bilaterally and moves all extremities Psych cooperative and affect normal Charges/Coding Visit Charges Inpatient E&M: 15600 Subs Hosp L3
--- NOTE | 2022-05-30 10:44 | NURSING ---
granddaughter here and updated. texting other family members all wanting updates and will updated when everyone gets here. pt awake. repositioned for comfort. spo2 at fio2 at this time 94%.
[2022-05-30] MEDS: Ceftriaxone 1 GM/50 ML BAG IV (11:06)
[2022-05-30] MEDS: Enoxaparin 40 MG/0.4 ML Syringe SC (11:07)
--- NOTE | 2022-05-30 12:11 | PN.HOSP_ITS ---
Subjective Subjective Had to be placed on BiPAP secondary to declining respiratory status and increased work of breathing Objective Data Objective Data Vital Signs: Vital Signs Temp Pulse Resp BP Pulse Ox O2 Del Method O2 Flow Rate 97.9 F 67 16 137/59 H 98 Bi-pap 50 05/30/22 09:50 05/30/22 09:50 05/30/22 09:50 05/30/22 09:50 05/30/22 09:50 05/30/22 09:50 05/29/22 22:00 FiO2 50 05/30/22 09:50 Oxygen Flow Rate (L/min) 50 Oxygen Delivery Method Bi-pap Weight: 96 lb 12.527 oz Body Mass Index (BMI) 18.2 Intake & Output: Intake and Output for Last 24 Hours 05/29/22 05/30/22 05/31/22 03:59 03:59 03:59 Intake Total 2011. / 290 / 290 Output Total 200 / 200 200 / 200 300 / 300 Balance 1812.5 / 1812.5 90 / 90 -300 / -300 Medical Nutrition Assessment Dietitian: Malnutrition Criteria Met Start: 05/29/22 11:20 Freq: Status: Active Protocol: Document 05/29/22 11:21 LO (Rec: 05/29/22 11:21 LO [id number]) Nutrition Malnutrition Evidence of Malnutrition Exists Yes Malnutrition (severe): Chronic Evidenced By Suboptimal Energy Intake ( Severe),Weight Loss (Severe) Clinical Problem Chronic Disease or Condition Related Malnutrition Etiology related to COPD Signs/Symptoms as evidenced by <75% intake of estimated energy needs for >1 month and 6.5% weight loss in 1 month and 10.3% in 6 months Status Active Problem Unintended Weight Loss Etiology related to unknown etiology Signs/Symptoms as evidenced by 9.2lbs (8.8%) weight loss in 1 month Status Inactive Problem Recommendation Dietitian Recommendations/Changes Continue Regular diet to optimize oral intakes. Continue 120mL EPHP 4x with medpass to provide supplemental energy. RD will order Magic Cup BID to provide supplemental energy. Lab / Micro Data Result Diagrams: 05/30/22 06:55 05/30/22 06:55 Labs: Laboratory Results - last 24 hr 05/30/22 06:55: WBC 5.5, RBC 3.88 L, Hgb 10.5 L, Hct 37.5, MCV 96.6, MCH 27.1, MCHC 28.0 L, RDW Std Deviation 48.6 H, RDW Coeff of Mary 13.8, Plt Count 155, MPV 12.2 H, Immature Gran % (Auto) 0.600, Neut % (Auto) 80.8 H, Lymph % (Auto) 9.4 L , [place] % (Auto) 9.0, Eos % (Auto) 0.0, Baso % (Auto) 0.2, Absolute Neuts (auto) 4.4, Absolute Lymphs (auto) 0.51 L, Nucleated RBC % 0 05/30/22 06:55: Sodium 139, Potassium 5.2 H, Chloride 101, Carbon Dioxide 38.0 H , Anion Gap 0 L, BUN 38 H, Creatinine 0.70, Estim Creat Clear Calc 35.24, Est GFR (MDRD) Af Amer 106, Est GFR (MDRD) Non-Af 87, BUN/Creatinine Ratio 54.4 H, Glucose 120 H, Calcium 10.4 H Micro: Microbiology 05/28/22 09:40 Mucosa - Nasopharyngeal Respiratory Panel (PCR) - Final 05/28/22 07:40 Nasal Secretion SARS-CoV-2 & FLU Antigen (Rapid) - Final Rhythm Strip Rhythm Strip: Sinus Rhythm Rate: 90 Ectopy: None Physical Exam Narrative General: Alert, Oriented x3, Cooperative, mild respiratory distress HEENT: Atraumatic, PERRLA, EOMI, Normocephalic Oral: Moist Mucosa Neck: Supple, No JVD Lungs: Diminished, improved air movement, No rhonchi, wheeze, No rales, slightly tachypneic Cardiovascular: Regular rate, Regular Rhythm, Normal S1, Normal S2, No murmurs Abdomen: Soft, Non Tender, Non-Distended, No Hepato-splenomegaly Extremities: No edema, Capillary Refill Less than 3 Seconds Skin: No rashes, No breakdown Musculoskeletal: No Tenderness to Palpation of Joints or Extremities Neurological: Cranial nerves II-XII grossly intact, Motor Exam 5/5 strength throughout, Sensory exam intact to light touch and pain Psych/Mental Status: Normal Affect, Appropriate Assessment & Plan Assessment/Plan (1) Acute exacerbation of chronic obstructive pulmonary disease: (2) Acute and chronic respiratory failure with hypercapnia: PLAN: Plan 1. Acute on chronic combined respiratory failure due to COPD exacerbation: Patient is being admitted in PCU on monitored bed on BiPAP. Dealer Development Manager consulted. ABG 7.2 11/02/1972 on BiPAP % FiO2, RR 12. Discussed with the childcare aide and respiratory therapist. Continue BiPAP. Repeat ABG in 1 hour. Patient has history of chronic combined respiratory failure on home oxygen 3.5 L 07/09. She follows Dr. Caldera. 05/29/2022: She did have significant oxygen requirements when ambulating from the bed to the chair she had been turned up to about 10 L nasal cannula but she did recover and is now back down to her baseline oxygen requirement 05/30/2022: Developed some respiratory distress to be placed on BiPAP. She is currently on 50% FiO2 tolerating it fairly well though demonstrating some signs of increased work of breathing. Daughter concerned by the lack of IV fluids however given her respiratory issues and the fact that her renal function is stable we will hold off of any IV fluids at the moment 2. COPD exacerbation due to possible pneumonia: Chest x-ray individually reviewed does not show acute infiltrate but chronic emphysematous changes. As patient had fever at home therefore started on IV antibiotics ceftriaxone and Zithromax. Pneumonia work-up ordered. Rapid SARS-CoV-2 and flu antigen are n egative. On bronchodilators scheduled every 4 hourly, IV Solu-Medrol, incentive spirometry, Mucinex and Pep. 05/29/2022: Appreciate pulmonology's assistance, sputum sample is pending 3. Hypertension, dyslipidemia: Blood pressure is controlled. Monitor BP and titrate the dose of antihypertensive medications. 4. Former smoker, history of lung abscess and tracheocutaneous fistula and COVID-19 infection in the past: Patient started smoking as a teenager more than a pack per day and then quit in 1998. Therefore 30 to 35 pack years of smoking. Past medical history also shows tracheocutaneous fistula. ? In discussion with pulmonology her respiratory status is likely end-stage COPD 5. Anxiety/depression ? Stable ? Continue with Zoloft and Remeron DVT: Lovenox Charges/Coding Visit Charges Inpatient E&M: 88861 Subs Hosp L2
[2022-05-30] MEDS: LORazepam 0.5 MG Tablet PO (17:23)
[2022-05-30] MEDS: Metoprolol(XL)Succ 50 MG Tablet PO (17:25)
[2022-05-30] MEDS: Azithromycin 250 MG Tablet 500 MG PO (17:26)
--- NOTE | 2022-05-30 17:32 | NURSING ---
pt more anxious and agreeable to trying a break from bipap. sats have been good past half of shift and reassurance given. bipap off and pt on 5l and pt up in chair mode. mouth care given and pt hair fixed and sats remain good. pt shown monitor and that sats are actually higher that what target range is. pt looks much more comfortable now and relaxed.
--- NOTE | 2022-05-30 18:47 | NURSING ---
son attempted to lay pt back then called out saying moms sob and her oxygen went down when tryed laying back a bit spo2 87% on 5l and pt with increased dyspnea and anxiety when went into room. encouraged slow deep breaths and o2 increased to 6l. pt sats 90% still having hard time communicating with pt and family that per pulm that targeted range is 89-94%.
[2022-05-30] MEDS: proCHLORPERazine 10 MG/2 ML Vial 5 MG IV (19:35)
[2022-05-30] MEDS: Acetaminophen 325 MG Tablet 650 MG PO (19:35)
[2022-05-30] MEDS: Sertraline 50 MG Tablet 25 MG PO (23:18)
[2022-05-30] MEDS: Oxybutynin 5 MG Tablet 15 MG PO (23:19)
[2022-05-30] MEDS: Mirtazapine 30 MG Tablet PO (23:20)
[2022-05-31] VITALS (26 sets, daily range): BP systolic 113–185; BP diastolic 52–80; PULSE 69–105; RESP 12–22; TEMP 36.5–36.8; O2SAT 83–100; BMI 18.2
[2022-05-31] MEDS: 0.9% Saline Lock 10 ML Syringe IV ×3 (00:18→22:58)
[2022-05-31] MEDS: Ipratropium/Albuterol Sulfate 3 ML AMPUL.NEB INHALATION ×6 (03:45→23:20)
[2022-05-31 06:19] LABS: Anion Gap -1 (5-15); BUN 48 mg/dL (7-18); BUN/Creat Ratio 74.5 RATIO (10-20); Calcium,Total 10.5 mg/dL (8.5-10.1); Chloride 99 mmol/L (98-107); Creatinine, Serum 0.64 mg/dL (0.55-1.02); EST Glomerular Filtration Rate 96 mL/min (>60); Est Glom Filt Rate - Afr Amer 116 mL/min (>60); Estimated Creatinine Clearance 35.24 ml/min; Glucose 132 mg/dL (74-106); Potassium 4.6 mmol/L (3.5-5.1); Sodium Level 139 mmol/L (136-145)
[2022-05-31] MEDS: LORazepam 0.5 MG Tablet PO ×2 (08:15→19:46)
--- NOTE | 2022-05-31 09:54 | NURSING ---
upon walking into the pts room she states My chest hurts and I do not feel right Oxygen levels 83%. Placed pt on BIBAP. Called for EKG and charge nurse at bedside. Charge nurse will update provider. 0958 Resp at bedside.
--- NOTE | 2022-05-31 09:58 | EKG12_ITS ---
Test Reason : CP Blood Pressure : / mmHG Vent. Rate : 089 BPM Atrial Rate : 089 BPM P-R Int : 132 ms QRS Dur : 090 ms QT Int : 344 ms P-R-T Axes : 088 081 059 degrees QTc Int : 418 ms Normal sinus rhythm Normal ECG When compared with ECG of 28-MAY-2022 07:20, MANUAL COMPARISON REQUIRED, DATA IS UNCONFIRMED Confirmed by SANDRA RENAE ([id number]), assignment editor MAHSA LOPEZ ([id number]) on 06/03/2022 10:23:12 AM Referred By: PITER Confirmed By:SANDRA RENAE
--- NOTE | 2022-05-31 10:04 | PCM.PN.HOSP ---
Subjective Subjective No new issues overnight, she was on BiPAP most of the day yesterday and then she was able to be transitioned to nasal cannula early this morning Objective Data Objective Data Vital Signs: Vital Signs Temp Pulse Resp BP Pulse Ox O2 Del Method O2 Flow Rate 98.0 F 97 22 H 175/80 H 83 Nasal Cannula 3 05/31/22 09:52 05/31/22 09:52 05/31/22 09:52 05/31/22 09:52 05/31/22 09:52 05/31/22 09:52 05/31/22 09:52 FiO2 60 05/31/22 03:40 Oxygen Flow Rate (L/min) 3 Oxygen Delivery Method Nasal Cannula Weight: 96 lb 12.527 oz Body Mass Index (BMI) 18.2 Intake & Output: Intake and Output for Last 24 Hours 05/30/22 05/31/22 06/01/22 03:59 03:59 03:59 Intake Total 290 / 290 150 / 150 Output Total 200 / 200 900 / 900 200 / 200 Balance 90 / 90 -750 / -750 -200 / -200 Medical Nutrition Assessment Dietitian: Malnutrition Criteria Met Start: 05/29/22 11:20 Freq: Status: Active Protocol: Document 05/29/22 11:21 LO (Rec: 05/29/22 11:21 [id number]) Nutrition Malnutrition Evidence of Malnutrition Exists Yes Malnutrition (severe): Chronic Evidenced By Suboptimal Energy Intake ( Severe),Weight Loss (Severe) Clinical Problem Chronic Disease or Condition Related Malnutrition Etiology related to COPD Signs/Symptoms as evidenced by <75% intake of estimated energy needs for >1 month and 6.5% weight loss in 1 month and 10.3% in 6 months Status Active Problem Unintended Weight Loss Etiology related to unknown etiology Signs/Symptoms as evidenced by 9.2lbs (8.8%) weight loss in 1 month Status Inactive Problem Recommendation Dietitian Recommendations/Changes Continue Regular diet to optimize oral intakes. Continue 120mL EPHP 4x with medpass to provide supplemental energy. RD will order Magic Cup BID to provide supplemental energy. Lab / Micro Data Result Diagrams: 05/30/22 06:55 05/31/22 05:15 Labs: Laboratory Results - last 24 hr 05/31/22 05:15: Sodium 139, Potassium 4.6, Chloride 99, Carbon Dioxide 41.0 H, Anion Gap -1 L, BUN 48 H, Creatinine 0.64, Estim Creat Clear Calc 35.24, Est GFR (MDRD) Af Amer 116, Est GFR (MDRD) Non-Af 96, BUN/Creatinine Ratio 74.5 H, Glucose 132 H, Calcium 10.5 H Micro: Microbiology 05/28/22 09:40 Mucosa - Nasopharyngeal Respiratory Panel (PCR) - Final 05/28/22 07:40 Nasal Secretion SARS-CoV-2 & FLU Antigen (Rapid) - Final Rhythm Strip Rhythm Strip: Sinus Rhythm Rate: 90 Ectopy: None Physical Exam Narrative General: Arousable, Cooperative, mild respiratory distress HEENT: Atraumatic, PERRLA, EOMI, Normocephalic Oral: Moist Mucosa Neck: Supple, No JVD Lungs: Diminished, improved air movement, No rhonchi, wheeze, No rales, slightly tachypneic Cardiovascular: Regular rate, Regular Rhythm, Normal S1, Normal S2, No murmurs Abdomen: Soft, Non Tender, Non-Distended, No Hepato-splenomegaly Extremities: No edema, Capillary Refill Less than 3 Seconds Skin: No rashes, No breakdown Musculoskeletal: No Tenderness to Palpation of Joints or Extremities Neurological: Motor Exam 5/5 strength throughout, Sensory exam intact to light touch and pain Psych/Mental Status: Flat affect, Appropriate Assessment & Plan Assessment/Plan (1) Acute exacerbation of chronic obstructive pulmonary disease: (2) Acute and chronic respiratory failure with hypercapnia: PLAN: Plan 1. Acute on chronic combined respiratory failure due to COPD exacerbation: Patient is being admitted in PCU on monitored bed on BiPAP. Records Management Specialist consulted. ABG 7.2 11/02/1972 on BiPAP % FiO2, RR 12. Discussed with the device test engineer and respiratory therapist. Continue BiPAP. Repeat ABG in 1 hour. Patient has history of chronic combined respiratory failure on home oxygen 3.5 L 07/09. She follows Dr. Caldera. 05/29/2022: She did have significant oxygen requirements when ambulating from the bed to the chair she had been turned up to about 10 L nasal cannula but she did recover and is now back down to her baseline oxygen requirement 05/30/2022: Developed some respiratory distress to be placed on BiPAP. She is currently on 50% FiO2 tolerating it fairly well though demonstrating some signs of increased work of breathing. Daughter concerned by the lack of IV fluids however given her respiratory issues and the fact that her renal function is stable we will hold off of any IV fluids at the moment 05/31/2022: We will check an ABG today given her slight somnolence given that she is arousable 2. COPD exacerbation due to possible pneumonia: Chest x-ray individually reviewed does not show acute infiltrate but chronic emphysematous changes. As patient had fever at home therefore started on IV antibiotics ceftriaxone and Zithromax. Pneumonia work-up ordered. Rapid SARS-CoV-2 and flu antigen are negative. On bronchodilators scheduled every 4 hourly, IV Solu-Medrol, incentive spirometry, Mucinex and Pep. 05/29/2022: Appreciate pulmonology's assistance, sputum sample is pending 05/31/2022: In discussion with pulmonology, she is likely end-stage with her COPD despite continued Solu-Medrol and antibiotics and negative virology studies she is not improving quickly. We will attempt to have a family discussion when they arrive 3. Hypertension, dyslipidemia: Blood pressure is controlled. Monitor BP and titrate the dose of antihypertensive medications. 4. Former smoker, history of lung abscess and tracheocutaneous fistula and COVID-19 infection in the past: Patient started smoking as a teenager more than a pack per day and then quit in 1998. Therefore 30 to 35 pack years of smoking. Past medical history also shows tracheocutaneous fistula. ? In discussion with pulmonology her respiratory status is likely end-stage COPD 5. Anxiety/depression ? Stable ? Continue with Zoloft and Remeron DVT: Lovenox Charges/Coding Visit Charges Inpatient E&M: 11715 Subs Hosp L2
[2022-05-31] MEDS: Sertraline 50 MG Tablet 25 MG PO ×2 (10:09→22:56)
[2022-05-31] MEDS: Metoprolol(XL)Succ 50 MG Tablet PO (10:09)
[2022-05-31] MEDS: Enoxaparin 40 MG/0.4 ML Syringe SC (10:09)
[2022-05-31] MEDS: Azithromycin 250 MG Tablet 500 MG PO (10:09)
[2022-05-31] MEDS: Oxybutynin 5 MG Tablet 15 MG PO ×2 (10:10→22:58)
[2022-05-31] MEDS: guaiFENesin 1,200 MG Tablet 1200 MG PO (10:10)
[2022-05-31] MEDS: Ceftriaxone 1 GM/50 ML BAG IV (10:10)
[2022-05-31 11:45] LABS: Allen Test Positive; Base Excess 21 mmol/L (-2 to +2); Blood Gas Specimen Type ART; O2 Delivery Device Cannula; PO2 87 mmHG (75-100); SITE L Radial; SO2 93 % (95-99); Total Carbon Dioxide > 50 mmol/L; pCO2 117.7 mmHg (35-45); pH 7.23 (7.35-7.45)
--- NOTE | 2022-05-31 12:22 | PN.CC_ITS ---
Assessment & Plan Assessment/Plan (1) Acute and chronic respiratory failure with hypercapnia: (2) COPD (chronic obstructive pulmonary disease): PLAN: Plan RECOMMENDATIONS: 1. Titrate oxygen to maintain saturations between 90 and 94% 2. Agree with continued IV steroids, bronchodilators and mucolytic 3. BiPAP with sleep and rescue 4. Will add Bactrim given history of stenotrophomonas and failure to improve 5. Continue dietitian/therapies consult 6. ABG as needed for change in mental status IMPRESSIONS: 1. Acute on chronic hypercarbic respiratory failure secondary to COPD exacerbation Exact etiology is unclear at this time. Viral panel is negative. Patient does have a history of stenotrophomonas that would only be sensitive to Bactrim therapy. We will obtain a sputum culture to see if this is present. May need to add Bactrim if patient decompensates. Otherwise, patient can be treated with azithromycin and ceftriaxone for now. No acute infiltrates noted on imaging, but this may be a function of decreased lung parenchyma. Patient reportedly has advanced lung disease at baseline. We will treat with IV steroids, bronchodilators and mucolytic. We will hold IV steroids at the current dosing given lack of clinical improvement. Patient will require BiPAP rescue. Keeping saturations between 90 and 94% should minimize risk of carbon dioxide accumulation and obtundation. Would obtain an ABG as necessary. Failure to use BiPAP with sleep does increase the risk for ICU transfer. Very narrow therapeutic window. Guarded prognosis given advanced lung disease at baseline. Will add Bactrim given failure to improve 2. Hypertension/dyslipidemia/advanced age/cachexia/debility Complicates care, management, recovery and prognosis. Likely okay to continue with baseline blood pressure and lipid medications. Patient would benefit from nutritional optimization. Unclear if patient has pulmonary cachexia versus a possible underlying malignant process. Patient could have a low-dose CT scan as an outpatient. Patient is not demonstrating a significant concern for concomitant cardiovascular issues, but an element of pulmonary hypertension given chronic hypoxia and advanced lung disease would be a possibility. Patient does not have a recent echocardiogram. Unclear if this needs to be done as an inpatient. Did confirm the patient is a DNR Comfort Care arrest without intubation. Subjective Subjective Patient very somnolent during my evaluation. Subsequent ABG did show signific ant CO2 retention and patient has been placed on BiPAP. Patient continues to have poor insight into her overall condition. Objective Data Objective Data Vital Signs: Vital Signs Temp Pulse Resp BP Pulse Ox O2 Del Method O2 Flow Rate 36.7 C 79 20 H 113/63 97 Bi-pap 3 05/31/22 11:21 05/31/22 11:21 05/31/22 11:21 05/31/22 11:21 05/31/22 11:21 05/31/22 11:21 05/31/22 09:52 FiO2 50 05/31/22 10:39 Oxygen Flow Rate (L/min) 3 Oxygen Delivery Method Bi-pap Weight: 43.9 kg Body Mass Index (BMI) 18.2 Intake & Output: Intake and Output for Last 24 Hours 05/29/22 05/30/22 05/31/22 23:59 23:59 23:59 Intake Total 1290 / 1290 150 / 150 200 / 200 Output Total 200 / 200 800 / 900 300 / 300 Balance 1090 / 1090 -650 / -750 -100 / -100 Medical Nutrition Assessment Dietitian: Malnutrition Criteria Met Start: 05/29/22 11:20 Freq: Status: Active Protocol: Document 05/29/22 11:21 LO (Rec: 05/29/22 11:21 [id number]) Nutrition Malnutrition Evidence of Malnutrition Exists Yes Malnutrition (severe): Chronic Evidenced By Suboptimal Energy Intake ( Severe),Weight Loss (Severe) Clinical Problem Chronic Disease or Condition Related Malnutrition Etiology related to COPD Signs/Symptoms as evidenced by <75% intake of estimated energy needs for >1 month and 6.5% weight loss in 1 month and 10.3% in 6 months Status Active Problem Unintended Weight Loss Etiology related to unknown etiology Signs/Symptoms as evidenced by 9.2lbs (8.8%) weight loss in 1 month Status Inactive Problem Recommendation Dietitian Recommendations/Changes Continue Regular diet to optimize oral intakes. Continue 120mL EPHP 4x with medpass to provide supplemental energy. RD will order Magic Cup BID to provide supplemental energy. Lab / Micro Data Attestation: I reviewed the patient's lab results. Result Diagrams: 05/30/22 06:55 05/31/22 05:15 Labs: Laboratory Results - last 24 hr 05/31/22 05:15: Sodium 139, Potassium 4.6, Chloride 99, Carbon Dioxide 41.0 H, Anion Gap -1 L, BUN 48 H, Creatinine 0.64, Estim Creat Clear Calc 35.24, Est GFR (MDRD) Af Amer 116, Est GFR (MDRD) Non-Af 96, BUN/Creatinine Ratio 74.5 H, Glucose 132 H, Calcium 10.5 H Micro: Microbiology 05/28/22 09:40 Mucosa - Nasopharyngeal Respiratory Panel (PCR) - Final 05/28/22 07:40 Nasal Secretion SARS-CoV-2 & FLU Antigen (Rapid) - Final ABG Data ABG results: ABG 05/31/22 10:24 Specimen Type ART Sample Site L Radial pH 7.23 L Bicarbonate Actual 49.0 H Total CO2 > 50 Base Excess 21 H O2 Saturation 93 L ABG pCO2 117.7 H* ABG pO2 87 J Carlos Test Positive O2 Delivery Device Cannula Liter Flow 4.0 Crit Call To/Read Back Yes Blood Gas Notified Whom [facility] Rhythm Strip Rhythm Strip: Sinus Rhythm Rate: 89 Ectopy: None Physical Exam Const Constitutional Narrative: Mild conversational dyspnea. RASS -2. Off BiPAP during my evaluation. General Appearance: in distress Positive for mild and frail HEENT normocephalic and head/scalp atraumatic Eyes PERRL, EOMs intact bilaterally, conjunctivae normal and no scleral icterus Neck full ROM and no lymphadenopathy Chest Chest Narrative: Increased AP diameter Resp Resp Narrative: Slightly better air exchange today compared to yesterday Effort and Inspection: prolonged expiratory phase Auscultation: wheezes expiratory wheezes and throughout and diminished lung sounds; Negative for rales or rhonchi Cardio regular rate, regular rhythm, S1 normal heart sound, S2 normal heart sound, no murmurs, no rub and no gallops GI normal to inspection, nondistended, normoactive bowel sounds Extremity no clubbing, cyanosis or edema Skin no rashes or lesions noted Skin Narrative: Some dermal atrophy appreciated Neuro oriented x3, CN's II-XII intact bilaterally and moves all extremities Psych cooperative and affect normal Charges/Coding Visit Charges Inpatient E&M: 00705 Subs Hosp L3
[2022-05-31] MEDS: Smz/Tmp Ds Tablet 1 TABLET PO (15:01)
[2022-05-31] MEDS: Montelukast 10 MG Tablet PO (22:56)
[2022-05-31] MEDS: Mirtazapine 30 MG Tablet PO (22:56)
[2022-05-31] MEDS: Atorvastatin Calcium 20 MG Tablet PO (22:56)
[2022-05-31] MEDS: Menthol/Lanolin/Calamine/Znox 113 GM Tube 1 APPLIC TOPICAL (22:57)
[2022-06-01] VITALS (19 sets, daily range): BP systolic 120–180; BP diastolic 70–97; PULSE 75–98; RESP 14–20; TEMP 36.1–36.6; O2SAT 91–97; BMI 18.5
[2022-06-01] MEDS: Ipratropium/Albuterol Sulfate 3 ML AMPUL.NEB INHALATION ×6 (04:02→23:12)
[2022-06-01 06:46] LABS: Absolute Lymphocyte Count 0.63 X10^3/uL (0.83-4.51); Absolute Neutrophil Count 3.5 X10^3/uL (2.0-7.7); Basophil# 0.01 X10^3/uL; Basophil% 0.2 % (0-1); Hemoglobin 10.7 g/dL (12.0-15.0); Lymphocyte # 0.63 X10^3/ul (0.83-4.51); Lymphocyte % 14.5 % (19-41); Mean Corp Hgb Conc 28.2 g/dL (32-36); Mean Corpuscular Hgb 26.4 pg (27.0-32.0); Mean Corpuscular Volume 93.8 fL (81-99); Mean Platelet Vol. 12.6 fl (6.2-12.0); Monocyte# 0.21 X10^3/uL; Monocyte% 4.8 % (0-10); NRBC Flagged by Analyzer 0 % (0-5); Neutrophil # 3.46 X10^3/uL (2.7-7.7); Platelet Count 181 K/mm3 (150-450); RBC Distribution Width CV 13.2 % (11.6-14.6); RBC Distribution Width SD 45.7 fl (35.1-43.9); Red Blood Count 4.05 M/mm3 (4.2-5.4); White Blood Count 4.3 K/mm3 (4.4-11.0)
[2022-06-01 07:11] LABS: Anion Gap -2 (5-15); BUN 43 mg/dL (7-18); BUN/Creat Ratio 66.8 RATIO (10-20); Calcium,Total 10.7 mg/dL (8.5-10.1); Chloride 97 mmol/L (98-107); Creatinine, Serum 0.64 mg/dL (0.55-1.02); EST Glomerular Filtration Rate 96 mL/min (>60); Est Glom Filt Rate - Afr Amer 116 mL/min (>60); Estimated Creatinine Clearance 35.72 ml/min; Glucose 120 mg/dL (74-106); Potassium 4.8 mmol/L (3.5-5.1); Sodium Level 139 mmol/L (136-145)
[2022-06-01] MEDS: Sertraline 50 MG Tablet 25 MG PO ×2 (08:08→21:58)
[2022-06-01] MEDS: Oxybutynin 5 MG Tablet 15 MG PO ×2 (08:08→21:59)
[2022-06-01] MEDS: guaiFENesin 1,200 MG Tablet 1200 MG PO ×2 (08:08→22:02)
[2022-06-01] MEDS: Metoprolol(XL)Succ 50 MG Tablet PO (08:09)
[2022-06-01] MEDS: Smz/Tmp Ds Tablet 1 TABLET PO (08:10)
[2022-06-01] MEDS: Menthol/Lanolin/Calamine/Znox 113 GM Tube 1 APPLIC TOPICAL ×2 (08:10→22:04)
[2022-06-01] MEDS: 0.9% Saline Lock 10 ML Syringe IV ×2 (08:12→22:46)
--- NOTE | 2022-06-01 09:07 | PCM.PN.HOSP ---
Reason for Visit Reason for Visit: Diagnoses Chronic obstructive pulmonary disease with (acute) exacerbation (05/28/22) Chronic obstructive pulmonary disease, unspecified (05/28/22) Acute and chronic respiratory failure with hypercapnia (05/28/22) Subjective Subjective Still confused. Per RN, this AM pt express desire for hospice treatment. Objective Data Objective Data Vital Signs: Vital Signs Temp Pulse Resp BP Pulse Ox O2 Del Method O2 Flow Rate 36.6 C 88 20 H 180/97 H 93 Bi-pap 4 06/01/22 05:41 06/01/22 08:09 06/01/22 05:42 06/01/22 08:09 06/01/22 05:41 06/01/22 05:42 05/31/22 16:27 FiO2 40 06/01/22 05:30 Oxygen Flow Rate (L/min) 4 Oxygen Delivery Method Bi-pap Weight: 44.5 kg Body Mass Index (BMI) 18.5 Intake & Output: Intake and Output for Last 24 Hours 05/30/22 05/31/22 06/01/22 23:59 23:59 23:59 Intake Total 150 / 150 350 / 350 Output Total 800 / 900 550 / 950 600 / 600 Balance -650 / -750 -200 / -600 -600 / -600 Medical Nutrition Assessment Dietitian: Malnutrition Criteria Met Start: 05/29/22 11:20 Freq: Status: Active Protocol: Document 05/29/22 11:21 LO (Rec: 05/29/22 11:21 LO [id number]) Nutrition Malnutrition Evidence of Malnutrition Exists Yes Malnutrition (severe): Chronic Evidenced By Suboptimal Energy Intake ( Severe),Weight Loss (Severe) Clinical Problem Chronic Disease or Condition Related Malnutrition Etiology related to COPD Signs/Symptoms as evidenced by <75% intake of estimated energy needs for >1 month and 6.5% weight loss in 1 month and 10.3% in 6 months Status Active Problem Unintended Weight Loss Etiology related to unknown etiology Signs/Symptoms as evidenced by 9.2lbs (8.8%) weight loss in 1 month Status Inactive Problem Recommendation Dietitian Recommendations/Changes Continue Regular diet to optimize oral intakes. Continue 120mL EPHP 4x with medpass to provide supplemental energy. RD will order Magic Cup BID to provide supplemental energy. Lab / Micro Data Result Diagrams: 06/01/22 05:50 06/01/22 05:50 Labs: Laboratory Results - last 24 hr 06/01/22 05:50: WBC 4.3 L, RBC 4.05 L, Hgb 10.7 L, Hct 38.0, MCV 93.8, MCH 26.4 L, MCHC 28.2 L, RDW Std Deviation 45.7 H, RDW Coeff of Mary 13.2, Plt Count 181, MPV 12.6 H, Immature Gran % (Auto) 0.500, Neut % (Auto) 80.0 H, Lymph % (Auto) 14.5 L, [place] % (Auto) 4.8, Eos % (Auto) 0.0, Baso % (Auto) 0.2, Absolute Neuts (auto) 3.5, Absolute Lymphs (auto) 0.63 L, Nucleated RBC % 0 06/01/22 05:50: Sodium 139, Potassium 4.8, Chloride 97 L, Carbon Dioxide 44.0 H, Anion Gap -2 L, BUN 43 H, Creatinine 0.64, Estim Creat Clear Calc 35.72, Est GFR (MDRD) Af Amer 116, Est GFR (MDRD) Non-Af 96, BUN/Creatinine Ratio 66.8 H, Glucose 120 H, Calcium 10.7 H Micro: Microbiology 05/28/22 09:40 Mucosa - Nasopharyngeal Respiratory Panel (PCR) - Final 05/28/22 07:40 Nasal Secretion SARS-CoV-2 & FLU Antigen (Rapid) - Final ABG Data ABG results: ABG 05/31/22 10:24 Specimen Type ART Sample Site L Radial pH 7.23 L Bicarbonate Actual 49.0 H Total CO2 > 50 Base Excess 21 H O2 Saturation 93 L ABG pCO2 117.7 H* ABG pO2 87 J Carlos Test Positive O2 Delivery Device Cannula Liter Flow 4.0 Crit Call To/Read Back Yes Blood Gas Notified Whom [employer] Rhythm Strip Rhythm Strip: Sinus Rhythm Rate: 89 Ectopy: None Physical Exam Const alert and no apparent distress Orientation / Consciousness: confused HEENT head/scalp atraumatic, moist oral mucous membranes, oropharynx normal, dentition normal and gingiva normal Eyes PERRL, EOMs intact bilaterally and conjunctivae normal Neck no lymphadenopathy, supple, no JVD and no carotid bruits Resp Resp Narrative: diminished. scattered wheezes. Cardio regular rate, regular rhythm and S1 normal heart sound GI normal to inspection, nondistended, normoactive bowel sounds and soft to palpation Neuro Sensorium / Orientation: awake Assessment & Plan Assessment/Plan (1) Acute exacerbation of chronic obstructive pulmonary disease: PLAN: COPD exacerbation due to possible pneumonia: Chest x-ray individually reviewed does not show acute infiltrate but chronic emphysematous changes. As patient had fever at home therefore started on IV antibiotics ceftriaxone and Zithromax. Pneumonia work-up ordered. Rapid SARS-CoV-2 and flu antigen are negative. On bronchodilators scheduled every 4 hourly, IV Solu-Medrol, incentive spirometry, Mucinex and Pep. 05/29/2022: Appreciate pulmonology's assistance, sputum sample is pending 05/31/2022: In discussion with pulmonology, she is likely end-stage with her COPD despite continued Solu-Medrol and antibiotics and negative virology studies she is not improving quickly. We will attempt to have a family discussion when they arrive (2) Acute and chronic respiratory failure with hypercapnia: PLAN: Acute on chronic combined respiratory failure due to COPD exacerbation: Patient is being admitted in PCU on monitored bed on BiPAP. Esthetician Permanent Makeup Artist consulted. ABG 7.2 11/02/1973 on BiPAP % FiO2, RR 12. Discussed with the product development coordinator and respiratory therapist. Continue BiPAP. Repeat ABG in 1 hour. Patient has history of chronic combined respiratory failure on home oxygen 3.5 L 07/09. She follows Dr. Caldera. 05/29/2022: She did have significant oxygen requirements when ambulating from the bed to the chair she had been turned up to about 10 L nasal cannula but she did recover and is now back down to her baseline oxygen requirement 05/30/2022: Developed some respiratory distress to be placed on BiPAP. She is currently on 50% FiO2 tolerating it fairly well though demonstrating some signs of increased work of breathing. Daughter concerned by the lack of IV fluids however given her respiratory issues and the fact that her renal function is stable we will hold off of any IV fluids at the moment 05/31/2022: pCO2 on ABG was 117. Palliative care consult. PLAN: Plan Chronic conditions: Hypertension, dyslipidemia: Blood pressure is controlled. Monitor BP and titrate the dose of antihypertensive medications. Former smoker, history of lung abscess and tracheocutaneous fistula and COVID-19 infection in the past: Patient started smoking as a teenager more than a pack per day and then quit in 1998. Therefore 30 to 35 pack years of smoking. Past medical history also shows tracheocutaneous fistula Anxiety/depression? Stable? Continue with Zoloft and Remeron DVT prophylaxis: Lovenox Advanced care planning: greater than 30 minutes at bedside where I dw pt and family about her advanced COPD, hospice serviced and quality of life. Pt and family agreeable to meeting with hospice. Pt is favoring going home with hospice. Charges/Coding Visit Charges Inpatient E&M: 00777 Subs Hosp L2 Procedures Hospitalists Procedures: 33158 Critial Care Addl 30 Min
[2022-06-01] MEDS: Ceftriaxone 1 GM/50 ML BAG IV (10:30)
--- NOTE | 2022-06-01 11:30 | CASEMGMT ---
SW met with patient and her family. SW introduced self and role at [facility]. SW told patient and family that therapy is recommending senior living facility. Patient and family agreeable. SW provided patient and family with a list of senior living facility providers including quality and resource use data and consistent with patient?s preferred geographic region, medical needs, and insurance network were provided from the [facility]. Patient's son said [facility] first choice [facility] as he lives right by the facility. SW left the list with them and let them know SW will make a referral. Beverley Myers PRACTICAL NURSING FACULTY NEWS DEPARTMENT INTERN
--- NOTE | 2022-06-01 11:40 | CASEMGMT ---
Referral sent to [facility] per patient request. Komal Purcell
--- NOTE | 2022-06-01 13:08 | CASEMGMT ---
Addendum entered by Tara Rayo 06/01/22 14:07: Patient is currently active with [facility] and last seen on 05/29/22. Original Note: RN LINA received order for palliative consult from mathematical physicist. Palliative screening tool completed and referral sent to [facility]. CM will continue to follow this patient and plan for a safe discharge.
--- NOTE | 2022-06-01 13:14 | PCM.PN.INT ---
Assessment & Plan Assessment/Plan (1) Acute and chronic respiratory failure with hypercapnia: (2) COPD (chronic obstructive pulmonary disease): PLAN: Plan RECOMMENDATIONS: 1. Wean oxygen to maintain saturations 88 to 92%. 2. Continue AVAPS therapy nightly and during the day as needed. 3. Continue antimicrobials, scheduled bronchodilators and IV steroids. 4. Aggressive management of anxiety/air hunger. Continue as needed Ativan. Start scheduled BuSpar. 5. The patient would benefit from palliative care referral. IMPRESSIONS: 1. Acute on chronic combined respiratory failure I do suspect that the patient's current exacerbation is likely due to underlying, poorly controlled anxiety and air hunger. She apparently has advanced age lung disease and is followed by Dr. Caldera on an outpatient basis. I do not have any records to confirm this assertion, however. She is being maintained on empiric antibiotics, scheduled bronchodilators and IV steroids. At this time, I would recommend starting scheduled BuSpar and continuing as needed Ativan. I do believe that the patient would benefit from palliative care referral, as she may require long-acting morphine to provide adequate symptom control of her air hunger. No acute infectious etiology has yet to be identified. 2. History of hypertension/hyperlipidemia/advanced age/pulmonary cachexia Complicates care, management, recovery and prognosis. CODE STATUS remains DNR CCA without intubation. Continue supportive measures as noted above. This note was generated with [employer] dictation software. It may contain incorrect words, spelling, and punctuation that were not noted in checking the note before signing. Subjective Subjective The patient was seen and examined at the bedside this morning. Events from the last 24 hours have been reviewed. The patient is afebrile hemodynamically stable. She has been transitioning from nasal cannula to AVAPS throughout the course of the morning. Family is present at the bedside. Everyone is concerned about the patient's underlying lung conditions and associated air hunger and anxiety. She is followed regularly by Dr. Caldera. Objective Data Objective Data The patient's most recent lab work, culture data and imaging studies have all been personally reviewed. Infectious work-up has been unrevealing to date. Vital Signs: Vital Signs Temp Pulse Resp BP Pulse Ox O2 Del Method O2 Flow Rate 97.1 F L 88 20 H 173/84 H 94 Nasal Cannula 4 06/01/22 09:00 06/01/22 10:24 06/01/22 10:24 06/01/22 09:00 06/01/22 09:00 06/01/22 10:00 06/01/22 10:00 FiO2 40 06/01/22 07:15 Oxygen Flow Rate (L/min) 4 Oxygen Delivery Method Nasal Cannula Weight: 98 lb 1.691 oz Body Mass Index (BMI) 18.5 Intake & Output: Intake and Output for Last 24 Hours 05/30/22 05/31/22 06/01/22 23:59 23:59 23:59 Intake Total 150 / 150 350 / 350 50 / 50 Output Total 800 / 900 550 / 950 600 / 600 Balance -650 / -750 -200 / -600 -550 / -550 Medical Nutrition Assessment Dietitian: Malnutrition Criteria Met Start: 05/29/22 11:20 Freq: Status: Active Protocol: Document 05/29/22 11:21 LO (Rec: 05/29/22 11:21 LO [id number]) Nutrition Malnutrition Evidence of Malnutrition Exists Yes Malnutrition (severe): Chronic Evidenced By Suboptimal Energy Intake ( Severe),Weight Loss (Severe) Clinical Problem Chronic Disease or Condition Related Malnutrition Etiology related to COPD Signs/Symptoms as evidenced by <75% intake of estimated energy needs for >1 month and 6.5% weight loss in 1 month and 10.3% in 6 months Status Active Problem Unintended Weight Loss Etiology related to unknown etiology Signs/Symptoms as evidenced by 9.2lbs (8.8%) weight loss in 1 month Status Inactive Problem Recommendation Dietitian Recommendations/Changes Continue Regular diet to optimize oral intakes. Continue 120mL EPHP 4x with medpass to provide supplemental energy. RD will order Magic Cup BID to provide supplemental energy. Lab / Micro Data Attestation: I reviewed the patient's lab results. Result Diagrams: 06/01/22 05:50 06/01/22 05:50 Labs: Laboratory Results - last 24 hr 06/01/22 05:50: WBC 4.3 L, RBC 4.05 L, Hgb 10.7 L, Hct 38.0, MCV 93.8, MCH 26.4 L, MCHC 28.2 L, RDW Std Deviation 45.7 H, RDW Coeff of Mary 13.2, Plt Count 181, MPV 12.6 H, Immature Gran % (Auto) 0.500, Neut % (Auto) 80.0 H, Lymph % (Auto) 14.5 L, [place] % (Auto) 4.8, Eos % (Auto) 0.0, Baso % (Auto) 0.2, Absolute Neuts (auto) 3.5, Absolute Lymphs (auto) 0.63 L, Nucleated RBC % 0 06/01/22 05:50: Sodium 139, Potassium 4.8, Chloride 97 L, Carbon Dioxide 44.0 H, Anion Gap -2 L, BUN 43 H, Creatinine 0.64, Estim Creat Clear Calc 35.72, Est GFR (MDRD) Af Amer 116, Est GFR (MDRD) Non-Af 96, BUN/Creatinine Ratio 66.8 H, Glucose 120 H, Calcium 10.7 H Micro: Microbiology 05/28/22 09:40 Mucosa - Nasopharyngeal Respiratory Panel (PCR) - Final 05/28/22 07:40 Nasal Secretion SARS-CoV-2 & FLU Antigen (Rapid) - Final Rhythm Strip Rhythm Strip: Sinus Rhythm Rate: 89 Ectopy: None Physical Exam Const alert Constitutional Narrative: Frail and cachectic in appearance. General Appearance: cooperative HEENT normocephalic and head/scalp atraumatic Eyes PERRL, EOMs intact bilaterally and conjunctivae normal Neck supple General: trachea midline Chest Chest Narrative: Increased AP diameter. Resp Effort and Inspection: able to speak in complete sentences and prolonged expiratory phase Auscultation: wheezes and diminished lung sounds Cardio regular rate and regular rhythm GI normal to inspection, nondistended, normoactive bowel sounds Extremity no clubbing, cyanosis or edema Skin no rashes or lesions noted Neuro CN's II-XII intact bilaterally, moves all extremities and no focal motor deficits Psych Mood & Affect: anxious Charges/Coding Visit Charges Inpatient E&M: 47019 Subs Hosp L3
--- NOTE | 2022-06-01 13:23 | CASEMGMT ---
Patient was accepted by [facility]. Precert is required.
[2022-06-01] MEDS: Sodium Chloride 0.65% 1 SPRAY SPRAY.BTL 2 SPRAY NASAL (15:11)
[2022-06-01] MEDS: Enoxaparin 40 MG/0.4 ML Syringe SC (15:16)
--- NOTE | 2022-06-01 15:22 | CASEMGMT ---
SW was notified that patient would like to talk with Hospice. SW confirmed with patient and her family that she would like to go to [place] [facility]. Patient and family confirmed this is the plan. Kellen was notified via [facility]. SW called Hospice and made a referral as well as faxed information. Plan: d/c to Kellen at [place] [facility]. Beverley Myers HOSPITAL ACCOUNT MANAGER RUTH
[2022-06-01] MEDS: LORazepam 0.5 MG Tablet PO (20:14)
[2022-06-01] MEDS: busPIRone 5 MG Tablet 10 MG PO (21:59)
[2022-06-01] MEDS: Mirtazapine 30 MG Tablet PO (22:00)
[2022-06-01] MEDS: Atorvastatin Calcium 20 MG Tablet PO (22:00)
[2022-06-01] MEDS: Montelukast 10 MG Tablet PO (22:01)
[2022-06-01] MEDS: clonazePAM 0.5 MG Tablet PO (23:56)
[2022-06-02] VITALS (11 sets, daily range): BP systolic 133–184; BP diastolic 69–86; PULSE 69–80; RESP 15–20; TEMP 35.9–36.4; O2SAT 94–99; BMI 18.6
[2022-06-02] MEDS: Ipratropium/Albuterol Sulfate 3 ML AMPUL.NEB INHALATION ×5 (03:15→19:36)
[2022-06-02] MEDS: 0.9% Saline Lock 10 ML Syringe IV ×3 (05:09→21:18)
--- NOTE | 2022-06-02 07:54 | CASEMGMT ---
SW received a voice mail from Hospice yesterday evening. They were to be meeting with patient and family yesterday between 10:00 and 18:30. Beverley MIRANDA
--- NOTE | 2022-06-02 08:32 | PCM.PN.HOSP ---
Reason for Visit Reason for Visit: Diagnoses Chronic obstructive pulmonary disease with (acute) exacerbation (05/28/22) Chronic obstructive pulmonary disease, unspecified (05/28/22) Acute and chronic respiratory failure with hypercapnia (05/28/22) Subjective Subjective Does not feel well. Family met with hospice yesterday and did not wish to have hospice services at this time. Objective Data Objective Data Vital Signs: Vital Signs Temp Pulse Resp BP Pulse Ox O2 Del Method O2 Flow Rate 36.1 C L 78 16 184/86 H 95 Nasal Cannula 6 06/02/22 03:39 06/02/22 06:56 06/02/22 06:56 06/02/22 03:39 06/02/22 06:56 06/02/22 06:56 06/02/22 06:56 FiO2 40 06/01/22 23:15 Oxygen Flow Rate (L/min) 6 Oxygen Delivery Method Nasal Cannula Weight: 44.8 kg Body Mass Index (BMI) 18.6 Intake & Output: Intake and Output for Last 24 Hours 05/31/22 06/01/22 06/02/22 23:59 23:59 23:59 Intake Total 350 / 350 530 / 530 Output Total 550 / 950 1400 / 1400 200 / 200 Balance -200 / -600 -870 / -870 -200 / -200 Medical Nutrition Assessment Dietitian: Malnutrition Criteria Met Start: 05/29/22 11:20 Freq: Status: Active Protocol: Document 06/01/22 16:41 RMA (Rec: 06/01/22 16:41 RMA [id number]) Nutrition Malnutrition Evidence of Malnutrition Exists Yes Malnutrition (severe): Chronic Evidenced By Suboptimal Energy Intake ( Severe),Weight Loss (Severe) Clinical Problem Chronic Disease or Condition Related Malnutrition Etiology related to increased energy expenditure/COPD Signs/Symptoms as evidenced by <75% intake of estimated energy needs for >1 month and 6.5% weight loss in 1 month and 10.3% in 6 months Status Active Problem Unintended Weight Loss Etiology related to inadequate energy intake and increased energy expenditure Signs/Symptoms as evidenced by 6.5% weight loss in 1 month Status Active Problem Recommendation Dietitian Recommendations/Changes Continue liberalized Regular diet with Magic Cup BID at meals. Continue 120mL EPHP 4x with medpass to provide supplemental energy as tolerated. Consider supplementing PO with enteral nutrition support if PO and weight continue to decline. Lab / Micro Data Result Diagrams: 06/01/22 05:50 06/01/22 05:50 Micro: Microbiology 05/28/22 09:40 Mucosa - Nasopharyngeal Respiratory Panel (PCR) - Final 05/28/22 07:40 Nasal Secretion SARS-CoV-2 & FLU Antigen (Rapid) - Final Rhythm Strip Rhythm Strip: Sinus Rhythm Rate: 89 Ectopy: None Physical Exam Const alert and no apparent distress Constitutional Narrative: cachetic. miserable appearance. no respiratory distress. HEENT head/scalp atraumatic and moist oral mucous membranes Resp normal respiratory effort and no retractions Resp Narrative: diminished. Cardio regular rate, regular rhythm, S1 normal heart sound and S2 normal heart sound GI normal to inspection, nondistended, normoactive bowel sounds, soft to palpation, non-tender and non-distended Assessment & Plan Assessment/Plan (1) Acute exacerbation of chronic obstructive pulmonary disease: PLAN: COPD exacerbation due to possible pneumonia: Chest x-ray individually reviewed does not show acute infiltrate but chronic emphysematous changes. As patient had fever at home therefore started on IV antibiotics ceftriaxone and Zithromax. Pneumonia work-up ordered. Rapid SARS-CoV-2 and flu antigen are negative. On bronchodilators scheduled every 4 hourly, IV Solu-Medrol, incentive spirometry, Mucinex and Pep. 05/29/2022: Appreciate pulmonology's assistance, sputum sample is pending 05/31/2022: In discussion with pulmonology, she is likely end-stage with her COPD despite continued Solu-Medrol and antibiotics and negative virology studies she is not improving quickly. We will attempt to have a family discussion when they arrive (2) Acute and chronic respiratory failure with hypercapnia: PLAN: Acute on chronic combined respiratory failure due to COPD exacerbation: Patient is being admitted in PCU on monitored bed on BiPAP. Supply Assistant consulted. ABG 7.2 11/02/1972 on BiPAP % FiO2, RR 12. Discussed with the certified indoor environmentalist and respiratory therapist. Continue BiPAP. Repeat ABG in 1 hour. Patient has history of chronic combined respiratory failure on home oxygen 3.5 L 07/09. She follows Dr. Caldera. 05/29/2022: She did have significant oxygen requirements when ambulating from the bed to the chair she had been turned up to about 10 L nasal cannula but she did recover and is now back down to her baseline oxygen requirement 05/30/2022: Developed some respiratory distress to be placed on BiPAP. She is currently on 50% FiO2 tolerating it fairly well though demonstrating some signs of increased work of breathing. Daughter concerned by the lack of IV fluids however given her respiratory issues and the fact that her renal function is stable we will hold off of any IV fluids at the moment 05/31/2022: pCO2 on ABG was 117. Palliative care consult. PLAN: Plan Chronic conditions: Hypertension, dyslipidemia: Blood pressure is controlled. Monitor BP and titrate the dose of antihypertensive medications. Former smoker, history of lung abscess and tracheocutaneous fistula and COVID-19 infection in the past: Patient started smoking as a teenager more than a pack per day and then quit in 1998. Therefore 30 to 35 pack years of smoking. Past medical history also shows tracheocutaneous fistula Anxiety/depression? Stable? Continue with Zoloft and Remeron DVT prophylaxis: Lovenox Disposition: pending insurance authorization to SNF with palliative care services. Family declining hospice services at this time. Charges/Coding Visit Charges Inpatient E&M: 38088 Subs Hosp L2
[2022-06-02] MEDS: Ensure Plus High Protein 120 ML LIQUID PO (08:55)
[2022-06-02] MEDS: Sodium Chloride 0.65% 1 SPRAY SPRAY.BTL 2 SPRAY NASAL (08:56)
[2022-06-02] MEDS: Menthol/Lanolin/Calamine/Znox 113 GM Tube 1 APPLIC TOPICAL ×2 (08:57→21:20)
[2022-06-02] MEDS: Enoxaparin 40 MG/0.4 ML Syringe SC (08:58)
[2022-06-02] MEDS: Acetaminophen 325 MG Tablet 650 MG PO ×2 (08:58→21:17)
[2022-06-02] MEDS: LORazepam 0.5 MG Tablet PO ×2 (08:58→21:17)
[2022-06-02] MEDS: Oxybutynin 5 MG Tablet 15 MG PO ×2 (08:59→21:20)
[2022-06-02] MEDS: busPIRone 5 MG Tablet 10 MG PO ×2 (08:59→21:18)
[2022-06-02] MEDS: Smz/Tmp Ds Tablet 1 TABLET PO (08:59)
[2022-06-02] MEDS: Metoprolol(XL)Succ 50 MG Tablet PO (08:59)
[2022-06-02] MEDS: Ceftriaxone 1 GM/50 ML BAG IV (09:00)
[2022-06-02] MEDS: guaiFENesin 1,200 MG Tablet 1200 MG PO ×2 (09:00→21:22)
[2022-06-02] MEDS: Sertraline 50 MG Tablet 25 MG PO ×2 (09:00→21:19)
--- NOTE | 2022-06-02 10:10 | PN.CC_ITS ---
Assessment & Plan Assessment/Plan (1) Acute and chronic respiratory failure with hypercapnia: (2) COPD (chronic obstructive pulmonary disease): PLAN: Plan RECOMMENDATIONS: 1. Wean oxygen to maintain saturations 88 to 92%. 2. Continue AVAPS therapy nightly and during the day as needed. 3. Continue antimicrobials, scheduled bronchodilators and IV steroids. 4. Aggressive management of anxiety/air hunger. Continue as needed Ativan and BuSpar. 5. Resume palliative care involvement after discharge. 6. Precertification pending for residential facility. IMPRESSIONS: 1. Acute on chronic combined respiratory failure I do suspect that the patient's current exacerbation is likely due to underlying, poorly controlled anxiety and air hunger. She apparently has advanced age lung disease and is followed by Dr. Caldera on an outpatient basis. I do not have any records to confirm this assertion, however. She is being noreen ntained on empiric antibiotics, scheduled bronchodilators and IV steroids. At this time, I would recommend continuing scheduled BuSpar and as needed Ativan. The patient would benefit from resumption of palliative care services after discharge. 2. History of hypertension/hyperlipidemia/advanced age/pulmonary cachexia Complicates care, management, recovery and prognosis. CODE STATUS remains DNR CCA without intubation. Continue supportive measures as noted above. This note was generated with Ja[employer] dictation software. It may contain incorrect words, spelling, and punctuation that were not noted in checking the note before signing. Subjective Subjective The patient was seen and examined at the bedside this morning. Events from the last 24 hours have been reviewed. The patient is currently afebrile, hemodynamically stable and maintaining appropriate oxygen saturations on 6 L/min via nasal cannula. The patient continues to require intermittent AVAPS support throughout the day, however. Objective Data Objective Data The patient's most recent lab work, culture data and imaging studies have all been personally reviewed. Infectious work-up has been unrevealing to date. Vital Signs: Vital Signs Temp Pulse Resp BP Pulse Ox O2 Del Method O2 Flow Rate 97.0 F L 74 16 159/80 H 95 Nasal Cannula 6 06/02/22 03:39 06/02/22 08:59 06/02/22 06:56 06/02/22 08:59 06/02/22 06:56 06/02/22 06:56 06/02/22 06:56 FiO2 40 06/01/22 23:15 Oxygen Flow Rate (L/min) 6 Oxygen Delivery Method Nasal Cannula Weight: 98 lb 12.273 oz Body Mass Index (BMI) 18.6 Intake & Output: Intake and Output for Last 24 Hours 05/31/22 06/01/22 06/02/22 23:59 23:59 23:59 Intake Total 350 / 350 530 / 530 50 / 50 Output Total 550 / 950 1400 / 1400 200 / 200 Balance -200 / -600 -870 / -870 -150 / -150 Medical Nutrition Assessment Dietitian: Malnutrition Criteria Met Start: 05/29/22 11:20 Freq: Status: Active Protocol: Document 06/01/22 16:41 RMA (Rec: 06/01/22 16:41 RMA [id number]) Nutrition Malnutrition Evidence of Malnutrition Exists Yes Malnutrition (severe): Chronic Evidenced By Suboptimal Energy Intake ( Severe),Weight Loss (Severe) Clinical Problem Chronic Disease or Condition Related Malnutrition Etiology related to increased energy expenditure/COPD Signs/Symptoms as evidenced by <75% intake of estimated energy needs for >1 month and 6.5% weight loss in 1 month and 10.3% in 6 months Status Active Problem Unintended Weight Loss Etiology related to inadequate energy intake and increased energy expenditure Signs/Symptoms as evidenced by 6.5% weight loss in 1 month Status Active Problem Recommendation Dietitian Recommendations/Changes Continue liberalized Regular diet with Magic Cup BID at meals. Continue 120mL EPHP 4x with medpass to provide supplemental energy as tolerated. Consider supplementing PO with enteral nutrition support if PO and weight continue to decline. Lab / Micro Data Attestation: I reviewed the patient's lab results. Result Diagrams: 06/01/22 05:50 06/01/22 05:50 Labs: Laboratory Results - last 24 hr 06/01/22 05:50: WBC 4.3 L, RBC 4.05 L, Hgb 10.7 L, Hct 38.0, MCV 93.8, MCH 26.4 L, MCHC 28.2 L, RDW Std Deviation 45.7 H, RDW Coeff of Mary 13.2, Plt Count 181, MPV 12.6 H, Immature Gran % (Auto) 0.500, Neut % (Auto) 80.0 H, Lymph % (Auto) 14.5 L, Martin % (Auto) 4.8, Eos % (Auto) 0.0, Baso % (Auto) 0.2, Absolute Neuts (auto) 3.5, Absolute Lymphs (auto) 0.63 L, Nucleated RBC % 0 06/01/22 05:50: Sodium 139, Potassium 4.8, Chloride 97 L, Carbon Dioxide 44.0 H, Anion Gap -2 L, BUN 43 H, Creatinine 0.64, Estim Creat Clear Calc 35.72, Est GFR (MDRD) Af Amer 116, Est GFR (MDRD) Non-Af 96, BUN/Creatinine Ratio 66.8 H, Glucose 120 H, Calcium 10.7 H Micro: Microbiology 05/28/22 09:40 Mucosa - Nasopharyngeal Respiratory Panel (PCR) - Final 05/28/22 07:40 Nasal Secretion SARS-CoV-2 & FLU Antigen (Rapid) - Final Rhythm Strip Rhythm Strip: Sinus Rhythm Rate: 89 Ectopy: None Physical Exam Const alert Constitutional Narrative: Frail and cachectic in appearance. General Appearance: cooperative HEENT normocephalic and head/scalp atraumatic Eyes PERRL, EOMs intact bilaterally and conjunctivae normal Neck supple General: trachea midline Chest Chest Narrative: Increased AP diameter. Resp Effort and Inspection: able to speak in complete sentences and prolonged expiratory phase Auscultation: diminished lung sounds Cardio regular rate and regular rhythm GI normal to inspection, nondistended, normoactive bowel sounds Extremity no clubbing, cyanosis or edema Skin no rashes or lesions noted Neuro CN's II-XII intact bilaterally, moves all extremities and no focal motor deficits Psych Mood & Affect: anxious Charges/Coding Visit Charges Inpatient E&M: 14445 Subs Hosp L2
--- NOTE | 2022-06-02 10:36 | CASEMGMT ---
SW called Allison at [facility]osp[facility] and family decided they want patient to go to [facility] and then pursue [facility]ospice afterwards. Physician notified as well as [facility]. Beverley MIRANDA
--- NOTE | 2022-06-02 16:07 | CHAPLAIN ---
Type of Pastoral Visit ___ Initial Visit ___ Follow-up Visit ___ On-call Visit ___ General Patient Visit ___ Spiritual Assessment ___ Family Conference ___ Bereavement ___ Rapid Response ___ Code Blue ___ Other (describe below) Pastoral Care Referral From ___ Patient ___ Family ___ Nurse ___ Physician ___ Boiler Blower ___ High School Librarian ___ Other (describe below) Sacrament/Intervention ___ Active listening ___ Anointing ___ Catholic ___ Bereavement ___ Communion ___ Carleen exploration ___ ___ Life review ___ Prayer ___ Reconciliation ___ Sacrament of Sick ___ Supportive presence ___ Wedding ___ Other (describe below) Pastoral Comments patient was sleeping with a bi-pap on and thus was not disturbed by this bonderizer
[2022-06-02] MEDS: Mirtazapine 30 MG Tablet PO (21:19)
[2022-06-02] MEDS: Montelukast 10 MG Tablet PO (21:19)
[2022-06-02] MEDS: Atorvastatin Calcium 20 MG Tablet PO (21:22)
[2022-06-03] VITALS (26 sets, daily range): BP systolic 130–161; BP diastolic 54–83; PULSE 69–94; RESP 14–24; TEMP 36.4–36.9; O2SAT 59–100; BMI 18.8
[2022-06-03] MEDS: Ipratropium/Albuterol Sulfate 3 ML AMPUL.NEB INHALATION ×6 (03:50→23:10)
[2022-06-03] MEDS: 0.9% Saline Lock 10 ML Syringe IV ×6 (06:03→21:23)
--- NOTE | 2022-06-03 06:36 | CPS ---
Pt wore her own trilogy home vent. The pressure however is not high enough. had to bleed in 12L O2. Otherwise pt could not hold sats on own machine.
--- NOTE | 2022-06-03 08:20 | CPS ---
Talked with Dr. Keyes about ABG being done. Patient declined ABG when I came to draw it. Patient seemed oriented to place, name, . Dr. Keyes notified of patient refusing the ABG
[2022-06-03] MEDS: Smz/Tmp Ds Tablet 1 TABLET PO (08:42)
[2022-06-03] MEDS: LORazepam 0.5 MG Tablet PO ×3 (08:43→21:23)
[2022-06-03] MEDS: busPIRone 5 MG Tablet 10 MG PO ×2 (08:43→21:27)
[2022-06-03] MEDS: Oxybutynin 5 MG Tablet 15 MG PO ×2 (08:43→21:27)
[2022-06-03] MEDS: Metoprolol(XL)Succ 50 MG Tablet PO (08:44)
[2022-06-03] MEDS: Sertraline 50 MG Tablet 25 MG PO ×2 (08:44→21:24)
[2022-06-03] MEDS: guaiFENesin 1,200 MG Tablet 1200 MG PO ×2 (08:44→21:25)
[2022-06-03] MEDS: Enoxaparin 40 MG/0.4 ML Syringe SC (08:45)
--- NOTE | 2022-06-03 08:51 | PN.HOSP_ITS ---
Reason for Visit Reason for Visit: Diagnoses Chronic obstructive pulmonary disease with (acute) exacerbation (05/28/22) Chronic obstructive pulmonary disease, unspecified (05/28/22) Acute and chronic respiratory failure with hypercapnia (05/28/22) Subjective Subjective Ongoing confusion. Repeat ABG was going to be attempted due to the ongoing co nfusion, but patient adamantly refused (per RT), so was not attempted. Objective Data Objective Data Vital Signs: Vital Signs Temp Pulse Resp BP Pulse Ox O2 Del Method O2 Flow Rate 36.7 C 77 17 161/75 H 90 Nasal Cannula 5 06/03/22 08:35 06/03/22 08:35 06/03/22 08:35 06/03/22 08:35 06/03/22 08:35 06/03/22 08:35 06/03/22 08:35 FiO2 40 06/03/22 03:20 Oxygen Flow Rate (L/min) 5 Oxygen Delivery Method Nasal Cannula Weight: 45.1 kg Body Mass Index (BMI) 18.8 Intake & Output: Intake and Output for Last 24 Hours 06/01/22 06/02/22 06/03/22 23:59 23:59 23:59 Intake Total 530 / 530 290 / 290 Output Total 1400 / 1400 300 / 300 0 / 0 Balance -870 / -870 -10 / -10 0 / 0 Medical Nutrition Assessment Dietitian: Malnutrition Criteria Met Start: 05/29/22 11 :20 Freq: Status: Active Protocol: Document 06/01/22 16:41 RMA (Rec: 06/01/22 16:41 RMA [id number]) Nutrition Malnutrition Evidence of Malnutrition Exists Yes Malnutrition (severe): Chronic Evidenced By Suboptimal Energy Intake ( Severe),Weight Loss (Severe) Clinical Problem Chronic Disease or Condition Related Malnutrition Etiology related to increased energy expenditure/COPD Signs/Symptoms as evidenced by <75% intake of estimated energy needs for >1 month and 6.5% weight loss in 1 month and 10.3% in 6 months Status Active Problem Unintended Weight Loss Etiology related to inadequate energy intake and increased energy expenditure Signs/Symptoms as evidenced by 6.5% weight loss in 1 month Status Active Problem Recommendation Dietitian Recommendations/Changes Continue liberalized Regular diet with Magic Cup BID at meals. Continue 120mL EPHP 4x with medpass to provide supplemental energy as tolerated. Consider supplementing PO with enteral nutrition support if PO and weight continue to decline. Lab / Micro Data Result Diagrams: 06/01/22 05:50 06/01/22 05:50 Micro: Microbiology 05/28/22 09:40 Mucosa - Nasopharyngeal Respiratory Panel (PCR) - Final 05/28/22 07:40 Nasal Secretion SARS-CoV-2 & FLU Antigen (Rapid) - Final Rhythm Strip Rhythm Strip: Sinus Rhythm Rate: 89 Ectopy: None Physical Exam Const alert and no apparent distress Constitutional Narrative: on BiPAP HEENT head/scalp atraumatic and moist oral mucous membranes Resp normal respiratory effort Resp Narrative: diminished. Cardio regular rate, regular rhythm, S1 normal heart sound and S2 normal heart sound GI normal to inspection, nondistended, normoactive bowel sounds, soft to palpation, non-tender and non-distended Neuro Sensorium / Orientation: awake and alert Assessment & Plan Assessment/Plan (1) Acute exacerbation of chronic obstructive pulmonary disease: PLAN: COPD exacerbation due to possible pneumonia: Chest x-ray individually revi ewed does not show acute infiltrate but chronic emphysematous changes. As patient had fever at home therefore started on IV antibiotics ceftriaxone and Zithromax. Pneumonia work-up ordered. Rapid SARS-CoV-2 and flu antigen are negative. On bronchodilators scheduled every 4 hourly, IV Solu-Medrol, incentive spirometry, Mucinex and Pep. 05/29/2022: Appreciate pulmonology's assistance, sputum sample is pending 05/31/2022: In discussion with pulmonology, she is likely end-stage with her COPD despite continued Solu-Medrol and antibiotics and negative virology studies she is not improving quickly. We will attempt to have a family discussion when they arrive Slow prednisone taper. BiPAP 18/8 with 50% FiO2 with sleep, naps and as needed. . But may use AVAPS if it provides more comfort. Patient had taken on AVAPS this AM and family and staff were unaware (apparently no alarms went off) (2) Acute and chronic respiratory failure with hypercapnia: PLAN: Acute on chronic combined respiratory failure due to COPD exacerbation: Patient is being admitted in PCU on monitored bed on BiPAP. Medical Education Manager consulted. ABG 7.2 11/02/1972 on BiPAP % FiO2, RR 12. Discussed with the multiple knife edge trimmer operator and respiratory therapist. Continue BiPAP. Repeat ABG in 1 hour. Patient has history of chronic combined respiratory failure on home oxygen 3.5 L 07/09. She follows Dr. Caldera. 05/29/2022: She did have significant oxygen requirements when ambulating from the bed to the chair she had been turned up to about 10 L nasal cannula but she did recover and is now back down to her baseline oxygen requirement 05/30/2022: Developed some respiratory distress to be placed on BiPAP. She is currently on 50% FiO2 tolerating it fairly well though demonstrating some signs of increased work of breathing. Daughter concerned by the lack of IV fluids however given her respiratory issues and the fact that her renal function is stable we will hold off of any IV fluids at the moment 05/31/2022: pCO2 on ABG was 117. Palliative care consult. (3) Metabolic encephalopathy: PLAN: 2/2 CO2 narcosis. Needs to use BiPAP/AVAPS PLAN: Plan Chronic conditions: * Hypertension, dyslipidemia: Blood pressure is controlled. Monitor BP and titrate the dose of antihypertensive medications. * Former smoker, history of lung abscess and tracheocutaneous fistula and COVID- 19 infection in the past: Patient started smoking as a teenager more than a pack per day and then quit in 1998. Therefore 30 to 35 pack years of smoking. * Past medical history also shows tracheocutaneous fistula * Anxiety/depression? Stable? Continue with Zoloft and Remeron DVT prophylaxis: Lovenox Disposition: pending insurance authorization to SNF with palliative care services. Family declining hospice services at this time. DW patient, would continue with palliative services as we are still treating her medically, and a point where she more uncomfortable, then rolling over into hospice may be appropriate.
--- NOTE | 2022-06-03 09:07 | CASEMGMT ---
Patient was approved for [facility] at [facility]. SW notified physician. Beverley Myers TESTING SPECIALISTRaza MIRANDA
--- NOTE | 2022-06-03 09:38 | CASEMGMT ---
NICOLAS spoke with Alin from Respiratory therapy. Patient is on AVAPS setting which nursing homes cannot do. Patient was on bipap settings on Wednesday SW printed those settings and Alin said those would be sufficient. These settings were sent to [facility] yesterday. Beverley MIRANDA
[2022-06-03] MEDS: Menthol/Lanolin/Calamine/Znox 113 GM Tube 1 APPLIC TOPICAL ×2 (10:17→21:28)
[2022-06-03] MEDS: Ceftriaxone 1 GM/50 ML BAG IV (10:26)
--- NOTE | 2022-06-03 10:59 | PCM.TXEXTCAR ---
Diet Diet Order/Speech Therapy: 05/28/22 10:28 Diet: Regular - General Food consistency:: Regular Liquid Consistency:: Regular/Thin Type of Dietary Supplement:: Magic Cup BID Routine Orders/Code Status O2 Liters per Minute: 5 O2 Frequency: BiPAP QHS, with naps and PRN. BiPAP 18/8 with 50% FiO2. Keep PO Greater than or Equal to (%): 90 Code Status: DNRCC-A (no intubation. ) Therapies Weight Bearing: Full weight bearing Physical Therapy: Eval and Treat Occupational Therapy: Eval and Treat Problem/Diagnosis (1) Acute exacerbation of chronic obstructive pulmonary disease: Status: Chronic Code(s): J44.1 - Chronic obstructive pulmonary disease with (acute) exacerbation Plan: COPD exacerbation due to possible pneumonia: Chest x-ray individually reviewed does not show acute infiltrate but chronic emphysematous changes. As patient had fever at home therefore started on IV antibiotics ceftriaxone and Zithromax. Pneumonia work-up ordered. Rapid SARS-CoV-2 and flu antigen are negative. On bronchodilators scheduled every 4 hourly, IV Solu-Medrol, incentive spirometry, Mucinex and Pep. 05/29/2022: Appreciate pulmonology's assistance, sputum sample is pending 05/31/2022: In discussion with pulmonology, she is likely end-stage with her COPD despite continued Solu-Medrol and antibiotics and negative virology studies she is not improving quickly. We will attempt to have a family discussion when they arrive Slow prednisone taper. BiPAP 18/8 with 50% FiO2 with sleep, naps and as needed. . But may use AVAPS if it provides more comfort. Patient had taken on AVAPS this AM and family and staff were unaware (apparently no alarms went off) (2) Acute and chronic respiratory failure with hypercapnia: Status: Chronic Code(s): J96.22 - Acute and chronic respiratory failure with hypercapnia Plan: Acute on chronic combined respiratory failure due to COPD exacerbation: Patient is being admitted in PCU on monitored bed on BiPAP. Color Drum Worker consulted. ABG 7.2 11/02/1972 on BiPAP % FiO2, RR 12. Discussed with the registered nurses and respiratory therapist. Continue BiPAP. Repeat ABG in 1 hour. Patient has history of chronic combined respiratory failure on home oxygen 3.5 L 07/09. She follows Dr. Caldera. 05/29/2022: She did have significant oxygen requirements when ambulating from the bed to the chair she had been turned up to about 10 L nasal cannula but she did recover and is now back down to her baseline oxygen requirement 05/30/2022: Developed some respiratory distress to be placed on BiPAP. She is currently on 50% FiO2 tolerating it fairly well though demonstrating some signs of increased work of breathing. Daughter concerned by the lack of IV fluids however given her respiratory issues and the fact that her renal function is stable we will hold off of any IV fluids at the moment 05/31/2022: pCO2 on ABG was 117. Palliative care consult. (3) Metabolic encephalopathy: Status: Acute Code(s): G93.41 - Metabolic encephalopathy Plan: 2/2 CO2 narcosis. Needs to use BiPAP/AVAPS Plan Chronic conditions: Hypertension, dyslipidemia: Blood pressure is controlled. Monitor BP and titrate the dose of antihypertensive medications. Former smoker, history of lung abscess and tracheocutaneous fistula and COVID-19 infection in the past: Patient started smoking as a teenager more than a pack per day and then quit in 1998. Therefore 30 to 35 pack years of smoking. Past medical history also shows tracheocutaneous fistula Anxiety/depression? Stable? Continue with Zoloft and Remeron DVT prophylaxis: Lovenox Disposition: pending insurance authorization to SNF with palliative care services. Family declining hospice services at this time. DW patient, would continue with palliative services as we are still treating her medically, and a point where she more uncomfortable, then rolling over into hospice may be appropriate. Allergies/Procedures Done in Hospital Allergies No Known Allergies Allergy (Verified 05/01/22 16:44) Type of Care/Length of Stay Estimated LOS: Convalescent Care Less Than 30 days Type of Care Needed: Skilled Rehab Potential: Fair Prognosis: Fair Additional Orders/Day of Discharge Day of Discharge: 06/03/22 Dietary and Speech Recommendations Dietitian Recommendations/Changes: Continue liberalized Regular diet with Magic Cup BID at meals. Continue 120mL EPHP 4x with medpass to provide supplemental energy as tolerated. Consider supplementing PO with enteral nutrition support if PO and weight continue to decline. Discharge Plan Admission Admit Date/Time: 05/28/22 08:55 Primary Reason for Your Visit: COPD exacerbation. Attending Provider: Alin Keyes Primary Care Provider: Sally Fan Consulting Providers: Anjel Roth ; Itz Sheldon ; Roshan Webster ; Kosta Solorio ; Samantha Capellan SECRET SERVICE AGENT ; Elvis Fermin ; Antolin Guidry ; Radha Wilson ; Brennen Dietz ; Preeti Santos ; Rosie Santos ; Micheline Daly SECRET SERVICE AGENT Discharge Orders/Prescriptions Prescriptions: New lorazepam 0.5 mg Tablet 0.5 mg PO TID PRN PRN (Reason: Anxiety) 3 Days Qty: 9 0RF buspirone 5 mg Tablet 10 mg PO BID Qty: 0 0RF sulfamethoxazole-trimethoprim 800-160 mg Tablet 1 tab PO BID 3 Days Qty: 0 0RF Mucus Relief ER 1,200 mg Tablet Extended Release 12hr 1,200 mg PO BID Qty: 0 0RF menthol-zinc oxide [Calmoseptine] 0.44-20.6 % Ointment 1 applic topical BID Qty: 113 0RF Protocol: *Topical Application Instructions APPLICATION INSTRUCTIONS: apply to bilateral buttocks Ensure Plus High Protein 0.08 gram-1.5 kcal/mL Liquid 120 ml PO 4X/DAY Qty: 0 0RF Deep Sea Nasal 0.65 % Aerosol,[place] 2 spray NASAL TID PRN PRN (Reason: Nasal Dryness) Qty: 0 0RF prednisone 10 mg tablet 10 mg PO DAILY Qty: 30 0RF Rx Instructions: 4 tabs daily for 3 days, then 3 tabs daily for 3 days, then 2 tabs daily for 3 days, then 1 tab daily for 3 days Continued albuterol sulfate 2.5 MG/3 ML solution for nebulization 2.5 mg inhalation Q2H PRN PRN (Reason: Sob &/Or Wheezing) mirtazapine 30 MG tablet 30 mg PO QHS oxybutynin chloride 5 MG tablet 15 mg PO BID roflumilast [Daliresp] 500 MCG tablet 500 mcg PO DAILY metoprolol succinate 50 MG tablet 50 mg PO DAILY rosuvastatin 10 MG tablet 10 mg PO DAILY multivitamin with minerals 1 EACH tablet 1 ea PO DAILY Cholecalciferol (Vitamin D3) [Vitamin D3] 5,000 UNIT capsule 5,000 unit PO DAILY ipratropium-albuterol 0.5 mg-3 mg(2.5 mg base)/3 mL solution for nebulization 0.5 ml inhalation Q8 montelukast 10 mg Tablet 10 mg PO DAILY roberta Lassiter-Caprice.animalis-S.therm 20 million cell Tablet 1 tab PO 4X/DAY sertraline 25 mg tablet 25 mg PO BID Label Comments: Take one (1) tablet (25 mg) by mouth twice a day, one tablet in AM, one tablet in PM. PALLIATIVE PATIENT lidocaine [Lidoderm] 5 % adhesive patch,medicated 1 patch topical DAILY PRN (Reason: pain) Qty: 15 0RF Rx Instructions: leave on most painful area for up to 12 hrs Discontinued lorazepam 0.5 MG tablet 1 tab PO TID PRN (Reason: Anxiety) 5 Days Qty: 15 0RF prednisone 20 mg tablet 60 mg PO DAILY Qty: 15 0RF doxycycline hyclate 100 mg capsule 100 mg PO BID Qty: 20 0RF Referrals / Follow Up: Sally Fan DO [Primary Care Provider] - Disposition Disposition (needs filled in before D/C Order can be placed): [facility]
--- NOTE | 2022-06-03 11:10 | DS.PCM_ITS ---
Providers Date of Admission: 05/28/22 Primary Care Physician: Dr. Sally Fan, DO Consultations 05/28/22 10:42 Consult: Television Cameraman / Pulmonary Medicine Routine Consulting Provider: [facility] Reason for Consult: Ac on chr comb resp failure, copd, fever EMERGENT Consult: No Notified: Yes Date Notified: 05/28/22 Time Notified: 10:42 Method of Notification: Verbal 06/01/22 10:25 Consult: Hospice / Palliative Care Routine Consulting Provider: [facility] Reason for Consult: end stage COPD EMERGENT Consult: No Notified: Yes Date Notified: 06/01/22 Time Notified: 10:26 Method of Notification: Verbal Comments:: contacted by Beverley VALENZUELA Reason For Visit: COPD EXA Diagnosis Discharge Diagnosis (1) Acute exacerbation of chronic obstructive pulmonary disease: Status: Chronic Code(s): J44.1 - Chronic obstructive pulmonary disease with (acute) exacerbation Plan: COPD exacerbation due to possible pneumonia: Chest x-ray individually reviewed does not show acute infiltrate but chronic emphysematous changes. As patient had fever at home therefore started on IV antibiotics ceftriaxone and Zithromax. Pneumonia work-up ordered. Rapid SARS-CoV-2 and flu antigen are negative. On bronchodilators scheduled every 4 hourly, IV Solu-Medrol, incentive spirometry, Mucinex and Pep. 05/29/2022: Appreciate pulmonology's assistance, sputum sample is pending 05/31/2022: In discussion with pulmonology, she is likely end-stage with her COPD despite continued Solu-Medrol and antibiotics and negative virology studies she is not improving quickly. We will attempt to have a family discussion when they arrive Slow prednisone taper. BiPAP 18/8 with 50% FiO2 with sleep, naps and as needed. . But may use AVAPS if it provides more comfort. Patient had taken on AVAPS this AM and family and staff were unaware (apparently no alarms went off). 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 (2) Acute and chronic respiratory failure with hypercapnia: Status: Chronic Code(s): J96.22 - Acute and chronic respiratory failure with hypercapnia Plan: Acute on chronic combined respiratory failure due to COPD exacerbation: Patient is being admitted in PCU on monitored bed on BiPAP. Graphics Coordinator consulted. ABG 7.2 11/02/1972 on BiPAP % FiO2, RR 12. Discussed with the area field worker and respiratory therapist. Continue BiPAP. Repeat ABG in 1 hour. Patient has history of chronic combined respiratory failure on home oxygen 3.5 L 07/09. She follows Dr. Caldera. 05/29/2022: She did have significant oxygen requirements when ambulating from the bed to the chair she had been turned up to about 10 L nasal cannula but she did recover and is now back down to her baseline oxygen requirement 05/30/2022: Developed some respiratory distress to be placed on BiPAP. She is currently on 50% FiO2 tolerating it fairly well though demonstrating some signs of increased work of breathing. Daughter concerned by the lack of IV fluids however given her respiratory issues and the fact that her renal function is stable we will hold off of any IV fluids at the moment 05/31/2022: pCO2 on ABG was 117. Palliative care consult. (3) Metabolic encephalopathy: Status: Acute Code(s): G93.41 - Metabolic encephalopathy Plan: 2/2 CO2 narcosis. Needs to use BiPAP/AVAPS Plan Chronic conditions: * Hypertension, dyslipidemia: Blood pressure is controlled. Monitor BP and titrate the dose of antihypertensive medications. * Former smoker, history of lung abscess and tracheocutaneous fistula and COVID- 19 infection in the past: Patient started smoking as a teenager more than a pack per day and then quit in 1998. Therefore 30 to 35 pack years of smoking. * Past medical history also shows tracheocutaneous fistula * Anxiety/depression? Stable? Continue with Zoloft and Remeron DVT prophylaxis: Lovenox Disposition: pending insurance authorization to SNF with palliative care tammy hernandez. Family declining hospice services at this time. DW patient, would continue with palliative services as we are still treating her medically, and a point where she more uncomfortable, then rolling over into hospice may be appropriate. Medications at Discharge Home Medications albuterol sulfate 2.5 mg/3 mL (0.083 %) solution for nebulization 2.5 mg inhalation Q2H PRN PRN Sob &/Or Wheezing 09/21/15 mirtazapine 30 mg tablet 30 mg PO QHS mood 09/21/15 oxybutynin chloride 5 mg tablet 15 mg PO BID mood 09/21/15 roflumilast 500 mcg tablet (Daliresp) 500 mcg PO DAILY breathing 09/21/15 metoprolol succinate 50 mg tablet,extended release 24 hr 50 mg PO DAILY blood pressure 06/14/16 rosuvastatin 10 mg tablet 10 mg PO DAILY cholesterol 09/19/17 Cholecalciferol (Vitamin D3) [Vitamin D3] 5,000 unit PO DAILY supplement 01/11/20 multivitamin with minerals 1 ea PO DAILY supplement 01/11/20 ipratropium 0.5 mg-albuterol 3 mg (2.5 mg base)/3 mL nebulization soln 0.5 ml inhalation Q8 06/15/21 L.acidoph,bulgaricus-B.animalis-S.thermophilus 20 million cell tablet 1 tab PO 4X/DAY 12/14/21 montelukast 10 mg tablet 10 mg PO DAILY 12/14/21 lidocaine 5 % topical patch (Lidoderm) 1 patch topical DAILY PRN pain #15 ea 05/01/22 sertraline 25 mg tablet 25 mg PO BID 05/01/22 buspirone 5 mg tablet 10 mg PO BID #0 tabs 06/03/22 food supplemt, lactose-reduced 0.08 gram-1.5 kcal/mL oral liquid (Ensure Plus High Protein) 120 ml PO 4X/DAY #0 mL 06/03/22 guaifenesin 1,200 mg tablet, extended release 12 hr (Mucus Relief ER) 1,200 mg PO BID #0 tabs 06/03/22 lorazepam 0.5 mg tablet 0.5 mg PO TID PRN PRN Anxiety 3 days #9 tabs 06/03/22 menthol 0.44 %-zinc oxide 20.6 % topical ointment (Calmoseptine) 1 applic topical BID #113 grams 06/03/22 prednisone 10 mg tablet 10 mg PO DAILY #30 tabs 06/03/22 sodium chloride 0.65 % nasal spray aerosol (Deep Sea Nasal) 2 spray NASAL TID PRN PRN Nasal Dryness #0 mL 06/03/22 sulfamethoxazole 800 mg-trimethoprim 160 mg tablet 1 tab PO BID 3 days #0 tabs 06/03/22 Hospital Course Operations None Procedures None Summary of Care Provided Minutes Spent on Discharge: 35 Medical Records Data Medical Nutrition Assessment Dietitian: Malnutrition Criteria Met Start: 05/29/22 11:20 Freq: Status: Active Protocol: Document 06/01/22 16:41 RMA (Rec: 06/01/22 16:41 RMA [id number]) Nutrition Malnutrition Evidence of Malnutrition Exists Yes Malnutrition (severe): Chronic Evidenced By Suboptimal Energy Intake ( Severe),Weight Loss (Severe) Clinical Problem Chronic Disease or Condition Related Malnutrition Etiology related to increased energy expenditure/COPD Signs/Symptoms as evidenced by <75% intake of estimated energy needs for >1 month and 6.5% weight loss in 1 month and 10.3% in 6 months Status Active Problem Unintended Weight Loss Etiology related to inadequate energy intake and increased energy expenditure Signs/Symptoms as evidenced by 6.5% weight loss in 1 month Status Active Problem Recommendation Dietitian Recommendations/Changes Continue liberalized Regular diet with Magic Cup BID at meals. Continue 120mL EPHP 4x with medpass to provide supplemental energy as tolerated. Consider supplementing PO with enteral nutrition support if PO and weight continue to decline. Weight / BMI Weight Weight: 45.1 kg Body Mass Index (BMI) 18.8 ABG / Lab / Microbiology Data Result Diagrams: 06/01/22 05:50 06/01/22 05:50 Microbiology: Microbiology 05/28/22 09:40 Mucosa - Nasopharyngeal Respiratory Panel (PCR) - Final 05/28/22 07:40 Nasal Secretion SARS-CoV-2 & FLU Antigen (Rapid) - Final Meaningful Use Info Meaningful Use Diagnoses (Choose all that apply): None applicable Discharge Plan Admission Admit Date/Time: 05/28/22 08:55 Primary Reason for Your Visit: COPD exacerbation. Attending Provider: Alin Keyes Primary Care Provider: Sally Fan Consulting Providers: Anjel Roth ; Itz Sheldon ; Roshan Webster ; Kosta oSlorio ; Samantha Capellan BOILER FIREMAN ; Elvis Fermin ; Antolin Guidry ; Radha Wilson ; Brennen Dietz ; Preeti Santos ; Rosie Santos ; Micheline Daly BOILER FIREMAN Discharge Orders/Prescriptions Prescriptions: New lorazepam 0.5 mg Tablet 0.5 mg PO TID PRN PRN (Reason: Anxiety) 3 Days Qty: 9 0RF buspirone 5 mg Tablet 10 mg PO BID Qty: 0 0RF sulfamethoxazole-trimethoprim 800-160 mg Tablet 1 tab PO BID 3 Days Qty: 0 0RF Mucus Relief ER 1,200 mg Tablet Extended Release 12hr 1,200 mg PO BID Qty: 0 0RF menthol-zinc oxide [Calmoseptine] 0.44-20.6 % Ointment 1 applic topical BID Qty: 113 0RF Protocol: *Topical Application Instructions APPLICATION INSTRUCTIONS: apply to bilateral buttocks Ensure Plus High Protein 0.08 gram-1.5 kcal/mL Liquid 120 ml PO 4X/DAY Qty: 0 0RF Deep Sea Nasal 0.65 % Aerosol,[place] 2 spray NASAL TID PRN PRN (Reason: Nasal Dryness) Qty: 0 0RF prednisone 10 mg tablet 10 mg PO DAILY Qty: 30 0RF Rx Instructions: 4 tabs daily for 3 days, then 3 tabs daily for 3 days, then 2 tabs daily for 3 days, then 1 tab daily for 3 days Continued albuterol sulfate 2.5 MG/3 ML solution for nebulization 2.5 mg inhalation Q2H PRN PRN (Reason: Sob &/Or Wheezing) mirtazapine 30 MG tablet 30 mg PO QHS oxybutynin chloride 5 MG tablet 15 mg PO BID roflumilast [Daliresp] 500 MCG tablet 500 mcg PO DAILY metoprolol succinate 50 MG tablet 50 mg PO DAILY rosuvastatin 10 MG tablet 10 mg PO DAILY multivitamin with minerals 1 EACH tablet 1 ea PO DAILY Cholecalciferol (Vitamin D3) [Vitamin D3] 5,000 UNIT capsule 5,000 unit PO DAILY ipratropium-albuterol 0.5 mg-3 mg(2.5 mg base)/3 mL solution for nebulization 0.5 ml inhalation Q8 montelukast 10 mg Tablet 10 mg PO DAILY L.acid,bulg-B.animalis-S.therm 20 million cell Tablet 1 tab PO 4X/DAY sertraline 25 mg tablet 25 mg PO BID Label Comments: Take one (1) tablet (25 mg) by mouth twice a day, one tablet in AM, one tablet in PM. PALLIATIVE PATIENT lidocaine [Lidoderm] 5 % adhesive patch,medicated 1 patch topical DAILY PRN (Reason: pain) Qty: 15 0RF Rx Instructions: leave on most painful area for up to 12 hrs Discontinued lorazepam 0.5 MG tablet 1 tab PO TID PRN (Reason: Anxiety) 5 Days Qty: 15 0RF prednisone 20 mg tablet 60 mg PO DAILY Qty: 15 0RF doxycycline hyclate 100 mg capsule 100 mg PO BID Qty: 20 0RF Referrals / Follow Up: Sally Fan DO [Primary Care Provider] - Disposition Disposition (needs filled in before D/C Order can be placed): [facility] Charges/Coding Visit Charges Inpatient E&M: 52411 Disch Hosp >30min
--- NOTE | 2022-06-03 11:49 | CASEMGMT ---
Addendum entered by Beverley Myers 06/03/22 13:15: NICOLAS arranged for patient to get picked up at [facility]. NICOLAS sent COVID test and nut picker time to [facility]. NICOLAS notified RN and admission discharge rn of nut picker time. Plan: d/c to [facility] at [place] under skilled level of care on a convalescent stay. [facility] will transport via wheelchair. Beverley MIRANDA Original Note: Patient is ready for discharge. NICOLAS sent d/c orders and med list to [facility] via [employer]. Awaiting COVID test to set up transport. NICOLAS spoke with patient and her daughter and they were both aware patient will be going to [facility] today. Await COVID test. Beverley MIRANDA
[2022-06-03] MEDS: Ensure Plus High Protein 120 ML LIQUID PO (11:53)
--- NOTE | 2022-06-03 14:06 | CASEMGMT ---
Patient's discharge is canceled due to respiratory issues. NICOLAS notified Claudette at [facility]. Beverley Myers LABOR RELATIONS OFFICER FOOD ASSEMBLER KITCHEN
[2022-06-03] MEDS: Furosemide 40 MG/4 ML Vial IV (15:03)
--- NOTE | 2022-06-03 15:07 | RAD_ITS ---
STUDY: X-RAY CHEST REASON FOR EXAM: Female, 71 years old. respiratory failure. TECHNIQUE: Single frontal view of the chest. COMPARISON: May 28, 2022 FINDINGS: Lungs are hyperaerated. Elevated left hemidiaphragm. The lungs are clear and expanded. Increased interstitial markings right lung base again noted. Blunting of the costophrenic angle on the right. Normal size heart. Normal mediastinum and mateus. Normal visualized pulmonary arteries. Normal visualized aortic arch and descending thoracic aorta. Normal visualized thoracic spine. Normal visualized ribs, clavicles, and shoulders. There is no demonstrated abnormality of the visualized soft tissue structures of the upper abdomen. RAD/Chest 1 View (Portable) IMPRESSION: COPD. Stable pleural parenchymal reaction right lung base. Electronically Signed: Ever Don MD at 17:14 EDT ,
--- NOTE | 2022-06-03 15:15 | CHAPLAIN ---
Type of Pastoral Visit _x__ Initial Visit ___ Follow-up Visit ___ On-call Visit ___ General Patient Visit ___ Spiritual Assessment ___ Family Conference ___ Bereavement ___ Rapid Response ___ Code Blue ___ Other (describe below) Pastoral Care Referral From _x__ Patient _x__ Family ___ Nurse ___ Physician ___ Die Forger ___ Dust Collector Attendant ___ Other (describe below) Sacrament/Intervention _x__ Active listening ___ Anointing ___ Samaritan ___ Bereavement ___ Communion ___ Carleen exploration ___ ___ Life review _x__ Prayer ___ Reconciliation ___ Sacrament of Sick _x__ Supportive presence ___ Wedding ___ Other (describe below) Pastoral Comments several family members are in the room with the patient; apologies are happening between family members about 'previous yelling' but all is calm and no distress seen on patient; pt keeps her head down and looking at food tray; offer of support and presence; pt and family say a prayer would be helpful; X-ray techs also waiting to come into room; offered time to express feelings, and to give a prayer
[2022-06-03] MEDS: Acetaminophen 325 MG Tablet 650 MG PO (21:22)
[2022-06-03] MEDS: Mirtazapine 30 MG Tablet PO (21:25)
[2022-06-03] MEDS: Montelukast 10 MG Tablet PO (21:25)
[2022-06-03] MEDS: Atorvastatin Calcium 20 MG Tablet PO (21:26)
--- NOTE | 2022-06-03 23:39 | CPS ---
o2 decreased to 40%
[2022-06-04] VITALS (10 sets, daily range): BP systolic 142–175; BP diastolic 68–85; PULSE 71–89; RESP 14–20; TEMP 2.5–36.8; O2SAT 91–96; BMI 17.3
[2022-06-04] MEDS: Ipratropium/Albuterol Sulfate 3 ML AMPUL.NEB INHALATION ×3 (03:05→10:32)
[2022-06-04 06:13] LABS: Absolute Lymphocyte Count 0.75 X10^3/uL (0.83-4.51); Absolute Neutrophil Count 4.7 X10^3/uL (2.0-7.7); Hematocrit 40.1 % (37-47); Hemoglobin 11.6 g/dL (12.0-15.0); Lymphocyte # 0.75 X10^3/ul (0.83-4.51); Lymphocyte % 12.3 % (19-41); Mean Corp Hgb Conc 28.9 g/dL (32-36); Mean Corpuscular Hgb 26.6 pg (27.0-32.0); Mean Platelet Vol. 11.6 fl (6.2-12.0); Monocyte# 0.61 X10^3/uL; NRBC Flagged by Analyzer 0 % (0-5); Neutrophil % 77.2 % (47-70); Platelet Count 196 K/mm3 (150-450); RBC Distribution Width CV 13.2 % (11.6-14.6); RBC Distribution Width SD 44.4 fl (35.1-43.9); Red Blood Count 4.36 M/mm3 (4.2-5.4); White Blood Count 6.1 K/mm3 (4.4-11.0)
[2022-06-04 06:50] LABS: Anion Gap -2 (5-15); BUN 56 mg/dL (7-18); BUN/Creat Ratio 47.1 RATIO (10-20); Calcium,Total 10.2 mg/dL (8.5-10.1); Chloride 92 mmol/L (98-107); Creatinine, Serum 1.19 mg/dL (0.55-1.02); EST Glomerular Filtration Rate 47 mL/min (>60); Est Glom Filt Rate - Afr Amer 57 mL/min (>60); Estimated Creatinine Clearance 28.13 ml/min; Glucose 165 mg/dL (74-106); Potassium 4.8 mmol/L (3.5-5.1); Sodium Level 134 mmol/L (136-145)
[2022-06-04] MEDS: Oxybutynin 5 MG Tablet 15 MG PO (08:50)
[2022-06-04] MEDS: busPIRone 5 MG Tablet 10 MG PO (08:50)
[2022-06-04] MEDS: guaiFENesin 1,200 MG Tablet 1200 MG PO (08:51)
[2022-06-04] MEDS: Metoprolol(XL)Succ 50 MG Tablet PO (08:51)
[2022-06-04] MEDS: Sertraline 50 MG Tablet 25 MG PO (08:52)
[2022-06-04] MEDS: LORazepam 0.5 MG Tablet PO (09:27)
--- NOTE | 2022-06-04 11:30 | PCM.PN.HOSP ---
Reason for Visit Reason for Visit: Diagnoses Metabolic encephalopathy (05/28/22) Chronic obstructive pulmonary disease with (acute) exacerbation (05/28/22) Chronic obstructive pulmonary disease, unspecified (05/28/22) Acute and chronic respiratory failure with hypercapnia (05/28/22) Subjective Subjective Breathing better. Able to maintain sats greater than 88% on 3liters overnight. Pt denies any current complaints, other than BiPAP masks not fitting her face. Objective Data Objective Data Vital Signs: Vital Signs Temp Pulse Resp BP Pulse Ox O2 Del Method O2 Flow Rate 36.8 C 89 20 H 154/68 H 96 Nasal Cannula 3 06/04/22 10:45 06/04/22 10:45 06/04/22 10:45 06/04/22 10:45 06/04/22 10:45 06/04/22 10:45 06/04/22 10:45 FiO2 45 06/04/22 07:04 Oxygen Flow Rate (L/min) 3 Oxygen Delivery Method Nasal Cannula Weight: 41.7 kg Body Mass Index (BMI) 17.3 Intake & Output: Intake and Output for Last 24 Hours 06/02/22 06/03/22 06/04/22 23:59 23:59 23:59 Intake Total 290 / 290 400 / 520 120 / 120 Output Total 300 / 300 150 / 150 Balance -10 / -10 250 / 370 120 / 120 Medical Nutrition Assessment Dietitian: Malnutrition Criteria Met Start: 05/29/22 11:20 Freq: Status: Active Protocol: Document 06/01/22 16:41 RMA (Rec: 06/01/22 16:41 RMA [id number]) Nutrition Malnutrition Evidence of Malnutrition Exists Yes Malnutrition (severe): Chronic Evidenced By Suboptimal Energy Intake ( Severe),Weight Loss (Severe) Clinical Problem Chronic Disease or Condition Related Malnutrition Etiology related to increased energy expenditure/COPD Signs/Symptoms as evidenced by <75% intake of estimated energy needs for >1 month and 6.5% weight loss in 1 month and 10.3% in 6 months Status Active Problem Unintended Weight Loss Etiology related to inadequate energy intake and increased energy expenditure Signs/Symptoms as evidenced by 6.5% weight loss in 1 month Status Active Problem Recommendation Dietitian Recommendations/Changes Continue liberalized Regular diet with Magic Cup BID at meals. Continue 120mL EPHP 4x with medpass to provide supplemental energy as tolerated. Consider supplementing PO with enteral nutrition support if PO and weight continue to decline. Lab / Micro Data Result Diagrams: 06/04/22 05:56 06/04/22 05:56 Labs: Laboratory Results - last 24 hr 06/04/22 05:56: WBC 6.1, RBC 4.36, Hgb 11.6 L, Hct 40.1, MCV 92.0, MCH 26.6 L, MCHC 28.9 L, RDW Std Deviation 44.4 H, RDW Coeff of Mary 13.2, Plt Count 196, MPV 11.6, Immature Gran % (Auto) 0.500, Neut % (Auto) 77.2 H, Lymph % (Auto) 12.3 L, [place] % (Auto) 10.0, Eos % (Auto) 0.0, Baso % (Auto) 0.0, Absolute Neuts (auto) 4.7, Absolute Lymphs (auto) 0.75 L, Nucleated RBC % 0 06/04/22 05:56: Sodium 134 L, Potassium 4.8, Chloride 92 L, Carbon Dioxide 44.0 H, Anion Gap -2 L, BUN 56 H, Creatinine 1.19 H, Estim Creat Clear Calc 28.13, Est GFR (MDRD) Af Amer 57 L, Est GFR (MDRD) Non-Af 47 L, BUN/Creatinine Ratio 47.1 H, Glucose 165 H, Calcium 10.2 H Micro: Microbiology 06/03/22 12:04 Nasal Secretion SARS-CoV-2 Antigen (Rapid) - Final 05/28/22 09:40 Mucosa - Nasopharyngeal Respiratory Panel (PCR) - Final 05/28/22 07:40 Nasal Secretion SARS-CoV-2 & FLU Antigen (Rapid) - Final Radiography Diagnostic Testing: Radiology Impression Chest X-Ray 06/03/22 15:07 IMPRESSION: COPD. Stable pleural parenchymal reaction right lung base. Electronically Signed: Ever Don MD at 17:14 EDT , Rhythm Strip Rhythm Strip: Sinus Rhythm Rate: 89 Ectopy: None Physical Exam Const alert and no apparent distress Resp normal respiratory effort and no retractions Resp Narrative: diminished bilaterally. Cardio regular rate, regular rhythm, S1 normal heart sound and S2 normal heart sound GI normal to inspection, nondistended, normoactive bowel sounds, soft to palpation, non-tender and non-distended Assessment & Plan Assessment/Plan (1) Acute exacerbation of chronic obstructive pulmonary disease: PLAN: COPD exacerbation due to possible pneumonia: Chest x-ray individually reviewed does not show acute infiltrate but chronic emphysematous changes. As patient had fever at home therefore started on IV antibiotics ceftriaxone and Zithromax. Pneumonia work-up ordered. Rapid SARS-CoV-2 and flu antigen are negative. On bronchodilators scheduled every 4 hourly, IV Solu-Medrol, incentive spirometry, Mucinex and Pep. 05/29/2022: Appreciate pulmonology's assistance, sputum sample is pending 05/31/2022: In discussion with pulmonology, she is likely end-stage with her COPD despite continued Solu-Medrol and antibiotics and negative virology studies she is not improving quickly. We will attempt to have a family discussion when they arrive Slow prednisone taper. BiPAP 18/8 with 50% FiO2 with sleep, naps and as needed. . But may use AVAPS if it provides more comfort. Patient had taken on AVAPS this AM and family and staff were unaware (apparently no alarms went off) (2) Acute and chronic respiratory failure with hypercapnia: PLAN: Acute on chronic combined respiratory failure due to COPD exacerbation: Patient is being admitted in PCU on monitored bed on BiPAP. Administrative Processor consulted. ABG 7.2 11/02/1973 on BiPAP % FiO2, RR 12. Discussed with the building serviceman and respiratory therapist. Continue BiPAP. Repeat ABG in 1 hour. Patient has history of chronic combined respiratory failure on home oxygen 3.5 L 07/09. She follows Dr. Caldera. 05/29/2022: She did have significant oxygen requirements when ambulating from the bed to the chair she had been turned up to about 10 L nasal cannula but she did recover and is now back down to her baseline oxygen requirement 05/30/2022: Developed some respiratory distress to be placed on BiPAP. She is currently on 50% FiO2 tolerating it fairly well though demonstrating some signs of increased work of breathing. Daughter concerned by the lack of IV fluids however given her respiratory issues and the fact that her renal function is stable we will hold off of any IV fluids at the moment 05/31/2022: pCO2 on ABG was 117. Palliative care consult. 06/03: worse on NC and unable to be safely discharged. Did improve later when I checked on her. She did received furosemide challenge. It is unclear if that actually helped as she did not have evidence of pulmonary vascular congestion on CXR. Other possiblities could be transient mucous plugging. 06/04: improved today. Will discharge. (3) Metabolic encephalopathy: PLAN: 2/2 CO2 narcosis. Needs to use BiPAP/AVAPS PLAN: Plan Chronic conditions: Hypertension, dyslipidemia: Blood pressure is controlled. Monitor BP and titrate the dose of antihypertensive medications. Former smoker, history of lung abscess and tracheocutaneous fistula and COVID-19 infection in the past: Patient started smoking as a teenager more than a pack per day and then quit in 1998. Therefore 30 to 35 pack years of smoking. Past medical history also shows tracheocutaneous fistula Anxiety/depression? Stable? Continue with Zoloft and Remeron DVT prophylaxis: Lovenox Disposition: to SNF with palliative care services. Family declining hospice services at this time. DW patient, would continue with palliative services as we are still treating her medically, and a point where she more uncomfortable, then rolling over into hospice may be appropriate. Discharge held yesterday due to transient hypoxia. As she is doing better today, I feel that she can be discharged safely today. Charges/Coding Visit Charges Inpatient E&M: 39713 Disch Hosp (discharge summary completed 06/03. No new changes. )
[2022-06-04] MEDS: Enoxaparin 40 MG/0.4 ML Syringe SC (11:32)
[2022-06-04] MEDS: Menthol/Lanolin/Calamine/Znox 113 GM Tube 1 APPLIC TOPICAL (11:33)
--- NOTE | 2022-06-04 11:43 | PHA.DC.MR ---
Pharmacy Service has performed discharge medication reconciliation for this patient upon transfer to [facility]. Home Medications albuterol sulfate 2.5 mg/3 mL (0.083 %) solution for nebulization 2.5 mg inhalation Q2H PRN PRN Sob &/Or Wheezing 09/21/15 mirtazapine 30 mg tablet 30 mg PO QHS mood 09/21/15 oxybutynin chloride 5 mg tablet 15 mg PO BID mood 09/21/15 roflumilast 500 mcg tablet (Daliresp) 500 mcg PO DAILY breathing 09/21/15 metoprolol succinate 50 mg tablet,extended release 24 hr 50 mg PO DAILY blood pressure 06/14/16 rosuvastatin 10 mg tablet 10 mg PO DAILY cholesterol 09/19/17 Cholecalciferol (Vitamin D3) [Vitamin D3] 5,000 unit PO DAILY supplement 01/11/20 multivitamin with minerals 1 ea PO DAILY supplement 01/11/20 ipratropium 0.5 mg-albuterol 3 mg (2.5 mg base)/3 mL nebulization soln 0.5 ml inhalation Q8 06/15/21 L.acidoph,bulgaricus-B.animalis-S.thermophilus 20 million cell tablet 1 tab PO 4X/DAY 12/14/21 montelukast 10 mg tablet 10 mg PO DAILY 12/14/21 lidocaine 5 % topical patch (Lidoderm) 1 patch topical DAILY PRN pain #15 ea 05/01/22 sertraline 25 mg tablet 25 mg PO BID 05/01/22 buspirone 5 mg tablet 10 mg PO BID #0 tabs 06/03/22 food supplemt, lactose-reduced 0.08 gram-1.5 kcal/mL oral liquid (Ensure Plus High Protein) 120 ml PO 4X/DAY #0 mL 06/03/22 guaifenesin 1,200 mg tablet, extended release 12 hr (Mucus Relief ER) 1,200 mg PO BID #0 tabs 06/03/22 lorazepam 0.5 mg tablet 0.5 mg PO TID PRN PRN Anxiety 3 days #9 tabs 06/03/22 menthol 0.44 %-zinc oxide 20.6 % topical ointment (Calmoseptine) 1 applic topical BID #113 grams 06/03/22 prednisone 10 mg tablet 10 mg PO DAILY #30 tabs 06/03/22 sodium chloride 0.65 % nasal spray aerosol (Deep Sea Nasal) 2 spray NASAL TID PRN PRN Nasal Dryness #0 mL 06/03/22 sulfamethoxazole 800 mg-trimethoprim 160 mg tablet 1 tab PO BID 3 days #0 tabs 06/03/22 The patient's discharge medication list was reviewed for discrepancies and discrepancies were resolved.
--- NOTE | 2022-06-04 11:59 | CASEMGMT ---
Patient is being discharged to [facility] today. NICOLAS called [facility] and arranged for patient to get picked up at 1230 via wheelchair van. NICOLAS notified RN, company secretary, patient, Claudette at [facility], and patient's granddaughter Kishor. Plan: d/c to [facility] at [place] under skilled level of care on a convalescent stay. [facility] transported via wheelchair van. Beverley Myers DIRECTOR OF SPECIAL EVENTS [facility]UTH
[2022-06-04] MEDS: Ceftriaxone 1 GM/50 ML BAG IV (12:04)
[2022-06-04] MEDS: Ensure Plus High Protein 120 ML LIQUID PO (12:05)
[2022-06-04] MEDS: Smz/Tmp Ds Tablet 1 TABLET PO (12:05)
--- NOTE | 2022-06-04 17:11 | NURSING ---
Called report to the [facility] at [facility] at 1215H. Transport due to be here at 1230H.
== END 2022-06-04 12:40 | disposition skilled nursing facility (03) | DRG 189 ==
LOC: ED 08:53 → PCU 10:02
PROVIDERS: Family Medicine; Admitting Provider Internal Medicine; Emergency Provider Emergency Medicine; PCP Internal Medicine
DX: J96.22 Acute and chronic respiratory failure with hypercapnia (principal); G93.41 Metabolic encephalopathy; J18.9 Pneumonia, unspecified organism; R64 Cachexia; Z68.1 Body mass index [BMI] 19.9 or less, adult; J43.9 Emphysema, unspecified; J96.21 Acute and chronic respiratory failure with hypoxia; I10 Essential (primary) hypertension; E78.5 Hyperlipidemia, unspecified; F41.9 Anxiety disorder, unspecified; F32.A Depression, unspecified; R73.9 Hyperglycemia, unspecified; Z66 Do not resuscitate; Z20.822 Contact with and (suspected) exposure to COVID-19; Z99.81 Dependence on supplemental oxygen; Z79.899 Other long term (current) drug therapy; Z87.891 Personal history of nicotine dependence; Z86.16 Personal history of COVID-19
CPT/HCPCS: 36415; 36600; 71045; 80048; 82803; 83735; 83880; 84100; 84484; 85025; 87426; 87428; 87633; 87635; 93005; 94002; 94003; 94640; 94668; 94762; 97110; 97162; 97166; 97530; 97535; 97803; 99285; J7030; J7040; A4216; J1940; J2405; U0003; U0005

== ENCOUNTER 2022-06-23 22:38 | Inpatient (IN) | payer MEDICARE, MEDICAID, SELFPAY ==
[2022-06-23 22:39] VITALS: BP 162/67; PULSE 78; RESP 18; TEMP 36.6; O2SAT 93; BMI 18.6
[2022-06-23 22:42] VITALS: BP 162/67; PULSE 82; PULSE 83; RESP 18; TEMP 36.6; O2SAT 93; O2SAT 94
[2022-06-23 22:44] VITALS: O2SAT 93
--- NOTE | 2022-06-23 23:25 | RAD_ITS ---
INDICATION: cough EXAMINATION/TECHNIQUE: X-RAY - XR Chest 1 View COMPARISON: FINDINGS: LINES/DEVICES: None. LUNGS: Irregular opacities and volume loss are seen in the lung bases suggesting scarring. There are superimposed airspace opacities in the left lung base suggesting pneumonia. MEDIASTINUM AND CARDIOVASCULAR STRUCTURES: Cardiac silhouette not enlarged. Central airways and mediastinal contour are unremarkable. BONES AND SOFT TISSUES: Unremarkable. RAD/Chest 1 View (Portable) IMPRESSION: Left lower lobe pneumonia. Electronically Signed: Byo Ryder MD at 23:39 EDT ,
[2022-06-23 23:34] LABS: Absolute Lymphocyte Count 0.94 X10^3/uL (0.83-4.51); Absolute Neutrophil Count 3.2 X10^3/uL (2.0-7.7); Basophil# 0.01 X10^3/uL; Basophil% 0.2 % (0-1); Eosinophil# 0.03 X10^3/uL; Eosinophils% 0.6 % (0-5); Hematocrit 32.4 % (37-47); Lymphocyte # 0.94 X10^3/ul (0.83-4.51); Lymphocyte % 19.5 % (19-41); Mean Corp Hgb Conc 27.8 g/dL (32-36); Mean Corpuscular Hgb 27.5 pg (27.0-32.0); Mean Corpuscular Volume 99.1 fL (81-99); Mean Platelet Vol. 12.1 fl (6.2-12.0); Monocyte# 0.59 X10^3/uL; Monocyte% 12.2 % (0-10); NRBC Flagged by Analyzer 0 % (0-5); Neutrophil # 3.21 X10^3/uL (2.7-7.7); Neutrophil % 66.5 % (47-70); Platelet Count 121 K/mm3 (150-450); RBC Distribution Width CV 13.5 % (11.6-14.6); RBC Distribution Width SD 48.3 fl (35.1-43.9); Red Blood Count 3.27 M/mm3 (4.2-5.4); White Blood Count 4.8 K/mm3 (4.4-11.0)
[2022-06-24] VITALS (20 sets, daily range): BP systolic 126–167; BP diastolic 56–73; PULSE 62–112; RESP 12–24; TEMP 36.1–36.6; O2SAT 55–100; BMI 17.7
--- NOTE | 2022-06-24 00:06 | CPS ---
Critical VBG values, Dr. Jean aware.
[2022-06-24 00:14] LABS: BUN 24 mg/dL (7-18); BUN/Creat Ratio 39.6 RATIO (10-20); Calcium,Total 10.3 mg/dL (8.5-10.1); Carbon Dioxide > 45.0 mmol/L (21.0-32.0); Chloride 95 mmol/L (98-107); Creatinine, Serum 0.61 mg/dL (0.55-1.02); EST Glomerular Filtration Rate 103 mL/min (>60); Est Glom Filt Rate - Afr Amer 125 mL/min (>60); Glucose 111 mg/dL (74-106); Magnesium 1.9 mg/dL (1.6-2.6); Potassium 4.4 mmol/L (3.5-5.1); Sodium Level 143 mmol/L (136-145)
[2022-06-24 02:10] LABS: Blood Gas Specimen Type VEN; VBG BASE EXCESS 23 mmol/L (-1.0-3.5); VBG Bicarbonate 49 mmol/L (22-26); VBG PO2 35 mmHg (25-40); VBG SO2 60 % (50-70); VBG pCO2 86.8 mmHg (41-51); VBG pH 7.36 (7.32-7.42)
[2022-06-24 02:10] LABS: Allen Test Positive; Base Excess 29 mmol/L (-2 to +2); Bicarbonate 55.5 mmol/L (22-26); Blood Gas Specimen Type ART; FI02 70; O2 Delivery Device BiPAP; PEEP 12; PO2 25 mmHG (75-100); RR 12; SITE R Radial; SO2 32 % (95-99); Total Carbon Dioxide > 50 mmol/L; Vt 450; pCO2 117.5 mmHg (35-45); pH 7.28 (7.35-7.45)
--- NOTE | 2022-06-24 02:12 | CPS ---
Critical blood gas values at 1:20. Dr. Miranda burris.
--- NOTE | 2022-06-24 03:01 | PCM.HP.STD ---
HPI - General General Date of Admission: 06/24/22 Date of Service: 06/24/22 Chief Complaint: Altered mental status HPI Narrative DALTON KRUGER, is a 71 F with a significant history of end-stage COPD who is DNR CC on hospice but hospice was revoked for patient to come to the hospital in the setting of patient being confused and family thinking that patient will improve on BiPAP as was previously the case. His symptoms started in the afternoon of the day of presentation. History was taken from patient's granddaughter who was at the bedside as the ED patient was obtunded with BiPAP on and could not provide any history. Daughter who was at the bedside denies patient having any recent fever or symptoms except confusion; sleepiness and difficulty breathing. [facility] Medical History (Updated 06/24/22 @ 03:[address] Allan Luong MD) Asthma Chronic obstructive asthma COPD (chronic obstructive pulmonary disease) Dyslipidemia Emphysema Former smoker History of lung abscess History of tobacco use Hypertension On home oxygen therapy Tracheo-cutaneous fistula Home Medications albuterol sulfate 2.5 mg/3 mL (0.083 %) solution for nebulization 2.5 mg inhalation Q2H PRN PRN Sob &/Or Wheezing 09/21/15 [History Last Taken 04/30/21] mirtazapine 30 mg tablet 30 mg PO QHS mood 09/21/15 [History Last Taken 04/30/21] oxybutynin chloride 5 mg tablet 15 mg PO BID mood 09/21/15 [History Last Taken Unknown] roflumilast 500 mcg tablet (Daliresp) 500 mcg PO DAILY breathing 09/21/15 [History Last Taken 04/30/21] metoprolol succinate 50 mg tablet,extended release 24 hr 50 mg PO DAILY blood pressure 06/14/16 [History Last Taken 04/30/21] ipratropium 0.5 mg-albuterol 3 mg (2.5 mg base)/3 mL nebulization soln 0.5 ml inhalation Q8 06/15/21 [History Last Taken Unknown] lidocaine 5 % topical patch (Lidoderm) 1 patch topical DAILY PRN pain #15 ea 05/01/22 [Rx Last Taken Unknown] sertraline 25 mg tablet 25 mg PO BID 05/01/22 [History Last Taken Unknown] buspirone 5 mg tablet 10 mg PO BID #0 tabs 06/03/22 [Rx Last Taken Unknown] guaifenesin 1,200 mg tablet, extended release 12 hr (Mucus Relief ER) 1,200 mg PO BID #0 tabs 06/03/22 [Rx Last Taken Unknown] menthol 0.44 %-zinc oxide 20.6 % topical ointment (Calmoseptine) 1 applic topical BID #113 grams 06/03/22 [Rx Last Taken Unknown] sodium chloride 0.65 % nasal spray aerosol (Deep Sea Nasal) 2 spray NASAL TID PRN PRN Nasal Dryness #0 mL 06/03/22 [Rx Last Taken Unknown] lorazepam 0.5 mg tablet 0.5 mg PO TID 06/24/22 [History Last Taken Unknown] Allergy/AdvReac Type Severity Reaction Status Date / Time No Known Allergies Allergy Verified 06/23/22 22:43 Family History Other Heart disease Surgical History Status post insertion of percutaneous endoscopic gastrostomy (PEG) tube Social History household members: none housing: apartment Smoking Status: Former smoker ROS Review of Systems ROS Unobtainable: other Details: Pertinent positives and pertinent negatives that could be provided by patient's family is as noted in HPI. All other systems were reviewed; and patient's family did not know or they were negative. Vital Signs Vital Signs Vital Signs: 06/23/22 22:39 06/23/22 22:42 06/23/22 22:42 Temperature 97.9 F 97.9 F Temperature Source Temporal Temporal Pulse Rate 78 83 82 Respiratory Rate 18 18 18 Respiratory Effort Respiratory Depth Respiratory Pattern Blood Pressure 162/67 H 162/67 H 162/67 H Blood Pressure Mean 98 98 98 Pulse Ox 93 93 94 Oxygen Delivery Method Nasal Cannula Nasal Cannula Nasal Cannula Oxygen Flow Rate (L/min) 6 6 6 Fraction of Inspired Oxygen (FIO2) 06/23/22 22:44 06/24/22 00:25 06/24/22 01:04 Temperature Temperature Source Pulse Rate 80 Respiratory Rate 19 H Respiratory Effort Normal Non-Labored Respiratory Depth Normal Respiratory Pattern Normal Normal Blood Pressure Blood Pressure Mean Pulse Ox 96 55 Oxygen Delivery Method Nasal Cannula Bi-pap Oxygen Flow Rate (L/min) 6 Fraction of Inspired Oxygen (FIO2) 30 30 06/24/22 01:50 06/24/22 02:02 Temperature Temperature Source Pulse Rate 76 Respiratory Rate 16 Respiratory Effort Respiratory Depth Respiratory Pattern Normal Blood Pressure Blood Pressure Mean Pulse Ox 95 93 Oxygen Delivery Method Bi-pap Oxygen Flow Rate (L/min) Fraction of Inspired Oxygen (FIO2) 40 40 Weight Weight: 44.6 kg Body Mass Index (BMI) 18.6 Physical Exam Narrative Physical exam: General: Thin frame elderly female Head: Normocephalic, atraumatic, no tenderness Eyes: Eyes closed shut. ENT, no trauma, dry mucous membranes, no rhinorrhea Neck: Nontender, No thyromegaly. CVS: Regular rate and rhythm. S1-S2 present. No murmur, gallop or rub. Respiratory : Diminish, chest wall nontender Abdomen: Soft, nontender, nondistended, normal bowel sounds, no masses : Deferred Back: Nontender, no CVA tenderness Extremities: No edema;no trauma Skin: Normal color, no trauma, abrasions Neuro: obtunded Psychiatry: mildly agitated Results Lab / Micro Data Result Diagrams: 06/23/22 23:20 06/23/22 23:20 Labs: Laboratory Results - last 24 hr 06/23/22 23:20: WBC 4.8, RBC 3.27 L, Hgb 9.0 L, Hct 32.4 L, MCV 99.1 H, MCH 27.5, MCHC 27.8 L, RDW Std Deviation 48.3 H, RDW Coeff of Mary 13.5, Plt Count 121 L, MPV 12.1 H, Immature Gran % (Auto) 1.000 H, Neut % (Auto) 66.5, Lymph % (Auto) 19.5, [place] % (Auto) 12.2 H, Eos % (Auto) 0.6, Baso % (Auto) 0.2, Absolute Neuts (auto) 3.2, Absolute Lymphs (auto) 0.94, Nucleated RBC % 0 06/23/22 23:20: Sodium 143, Potassium 4.4, Chloride 95 L, Carbon Dioxide > 45.0 H*, Anion Gap TNP, BUN 24 H, Creatinine 0.61, Estim Creat Clear Calc 35.80, Est GFR (MDRD) Af Amer 125, Est GFR (MDRD) Non-Af 103, BUN/Creatinine Ratio 39.6 H, Glucose 111 H, Calcium 10.3 H, Magnesium 1.9 ABG Data ABG results: ABG 06/24/22 06/24/22 00:02 01:20 Specimen Type SHAWN ART Sample Site R Radial pH 7.28 L Bicarbonate Actual 55.5 H Total CO2 > 50 Base Excess 29 H O2 Saturation 32 L O2 % 70 ABG pCO2 117.5 H* ABG pO2 25 L* J Carlos Test Positive VBG pH 7.36 VBG pO2 35 VBG HCO3 49 H VBG O2 Sat (Calc) 60 VBG Base Excess 23 H POC Mix VBG pCO2 Pt Tmp 86.8 H* Respiration Rate 12 O2 Delivery Device BiPAP Tidal Volume 450 POC PEEP 12 Crit Call To/Read Back Yes Yes Radiology Impression Chest X-Ray 06/23/22 23:25 IMPRESSION: Left lower lobe pneumonia. Electronically Signed: Boy Ryder MD at 23:39 EDT , Assessment & Plan Assessment/Plan (1) Metabolic encephalopathy: (2) Acute and chronic respiratory failure with hypercapnia: (3) Hypertension: PLAN: Plan Acute metabolic encephalopathy secondary to acute on chronic respiratory failure with hypercapnia Initial VBG on 6 L showed PCO2 of 86.8. Follow-up PCO2 on BiPAP/AVAPS was 117.5 Started on BiPAP/ AVAPS therapy at emergency department and continued. Scheduled DuoNeb Albuterol as needed Solu-Medrol ordered Titrate oxygen as needed. Hold home p.o. meds. Hold Ativan and narcotics. Possible bacterial pneumonia Gram-positive, gram-negative, atypical or viral. Impression of chest x-ray by radiologist: Left lower lobe pneumonia. Hospitalist independent chest x-ray interpretation: Left lower lobe opacities. Patient has no fever. She does not have a white count. Family does not report any cough. We will check a procalcitonin. Ceftriaxone and azithromycin ordered. Trend CBC Dry mucous membrane Gentle IV hydration ordered. Trend BMP. Hypertension Blood pressure is not within goal. In the setting of patient being kept n.p.o. Home metoprolol p.o. held.. Hydralazine ordered. Trend blood pressures and adjust blood pressure medications. DVT prophylaxis Subcutaneous Lovenox ordered.
--- NOTE | 2022-06-24 03:04 | EDS_ITS ---
HPI History of Present Illness Chief Complaint: Shortness of Breath Narrative Narrative: Patient is a 71-year-old [facility] and has end-stage COPD wearing 6 L of nasal cannula oxygen 07/09. She is currently in hospice secondary to this. Family states that the [facility] does not provide her BiPAP appropriately and when this happens her CO2 climbs and she develops a change to her mental status. They state they noticed that she was more lethargic/depressed today and they have concern for an elevated CO2 value. Therefore hospice was revoked and patient was sent to the ER for evaluation. Upon arrival the patient is obtunded but will awake to voice and follow commands but not offer further history. [facility] Medical History Asthma Chronic obstructive asthma COPD (chronic obstructive pulmonary disease) Dyslipidemia Emphysema Former smoker History of lung abscess History of tobacco use Hypertension On home oxygen therapy Tracheo-cutaneous fistula Home Medications albuterol sulfate 2.5 mg/3 mL (0.083 %) solution for nebulization 2.5 mg inhalation Q2H PRN PRN Sob &/Or Wheezing 09/21/15 [History Last Taken 04/30/21] mirtazapine 30 mg tablet 30 mg PO QHS mood 09/21/15 [History Last Taken 04/30/21] oxybutynin chloride 5 mg tablet 15 mg PO BID mood 09/21/15 [History Last Taken Unknown] roflumilast 500 mcg tablet (Daliresp) 500 mcg PO DAILY breathing 09/21/15 [History Last Taken 04/30/21] metoprolol succinate 50 mg tablet,extended release 24 hr 50 mg PO DAILY blood pressure 06/14/16 [History Last Taken 04/30/21] ipratropium 0.5 mg-albuterol 3 mg (2.5 mg base)/3 mL nebulization soln 0.5 ml inhalation Q8 06/15/21 [History Last Taken Unknown] lidocaine 5 % topical patch (Lidoderm) 1 patch topical DAILY PRN pain #15 ea 05/01/22 [Rx Last Taken Unknown] sertraline 25 mg tablet 25 mg PO BID 05/01/22 [History Last Taken Unknown] buspirone 5 mg tablet 10 mg PO BID #0 tabs 06/03/22 [Rx Last Taken Unknown] guaifenesin 1,200 mg tablet, extended release 12 hr (Mucus Relief ER) 1,200 mg PO BID #0 tabs 06/03/22 [Rx Last Taken Unknown] menthol 0.44 %-zinc oxide 20.6 % topical ointment (Calmoseptine) 1 applic topical BID #113 grams 06/03/22 [Rx Last Taken Unknown] sodium chloride 0.65 % nasal spray aerosol (Deep Sea Nasal) 2 spray NASAL TID PRN PRN Nasal Dryness #0 mL 06/03/22 [Rx Last Taken Unknown] lorazepam 0.5 mg tablet 0.5 mg PO TID 06/24/22 [History Last Taken Unknown] Allergy/AdvReac Type Severity Reaction Status Date / Time No Known Allergies Allergy Verified 06/23/22 22:43 Family History Other Heart disease Surgical History Status post insertion of percutaneous endoscopic gastrostomy (PEG) tube Social History household members: none housing: apartment Smoking Status: Former smoker ROS ROS ED Constitutional Constitutional ED: Denies chills or fever(s) ENT ENT ED: Denies sore throat Cardiovascular Cardiovascular: Denies chest pain Respiratory/Chest Respiratory/Chest: Reports dyspnea and dyspnea on exertion; Denies cough Gastrointestinal Gastrointestinal: Denies abdominal pain, diarrhea, nausea or vomiting Genitourinary Genitourinary ED: Denies dysuria Musculoskeletal Musculoskeletal: Denies myalgias Integumentary Denies rash Neurologic Neurologic: Denies headache(s) Hematologic/Lymphatic Hematologic/Lymphatic: Denies easy bleeding or easy bruising EXAM Physical Exam Const Vital Signs: 06/23/22 22:39 06/23/22 22:42 06/23/22 22:42 Temperature 97.9 F 97.9 F Temperature Source Temporal Temporal Pulse Rate 78 83 82 Respiratory Rate 18 18 18 Respiratory Effort Respiratory Depth Respiratory Pattern Blood Pressure 162/67 H 162/67 H 162/67 H Blood Pressure Mean 98 98 98 Pulse Ox 93 93 94 Oxygen Delivery Method Nasal Cannula Nasal Cannula Nasal Cannula Oxygen Flow Rate (L/min) 6 6 6 Fraction of Inspired Oxygen (FIO2) 06/23/22 22:44 06/24/22 00:25 06/24/22 01:04 Temperature Temperature Source Pulse Rate 80 Respiratory Rate 19 H Respiratory Effort Normal Non-Labored Respiratory Depth Normal Respiratory Pattern Normal Normal Blood Pressure Blood Pressure Mean Pulse Ox 96 55 Oxygen Delivery Method Nasal Cannula Bi-pap Oxygen Flow Rate (L/min) 6 Fraction of Inspired Oxygen (FIO2) 30 30 06/24/22 01:50 06/24/22 02:02 Temperature Temperature Source Pulse Rate 76 Respiratory Rate 16 Respiratory Effort Respiratory Depth Respiratory Pattern Normal Blood Pressure Blood Pressure Mean Pulse Ox 95 93 Oxygen Delivery Method Bi-pap Oxygen Flow Rate (L/min) Fraction of Inspired Oxygen (FIO2) 40 40 Positive well nourished and well developed General Appearance ED: well developed HEENT Reports dry mucous membranes HEENT Narrative: No tongue or lip swelling no oral lesions no airway edema or compromise Mouth ED: Yes dry mucous membranes Mouth: dry mucous membranes Eyes PERRL and EOMs intact bilaterally General Eye ED: Yes pale conjunctiva Neck supple and no JVD Neck Narrative: No nuchal rigidity or meningeal signs noted Chest Wall palpation of chest normal Chest Narrative: No bony deformity or crepitance Resp Resp Narrative: Breath sounds are severely diminished throughout with faint expiratory wheeze in the bilateral lower lobes. Otherwise no nasal flaring retractions tachypnea or accessory muscle use Cardio regular rate and regular rhythm Rate: other Other Details: Radial pulses are plus 2 out of 4 bilaterally are equal and symmetric GI normal to inspection, nondistended, normoactive bowel sounds, non-tender, non- distended and no masses GI Narrative: No voluntary guarding or rigidity no pulsatile mass Auscultation: normoactive bowel sounds Palpation: soft Extremity normal to inspection Extremity Narrative: No asymmetric edema no pitting edema negative Homans' sign bilaterally Neuro CN's II-XII intact bilaterally Neuro Narrative: Patient is obtunded with GCS of 14. She will wake to voice and answer questions appropriately such as location but then quickly fall back asleep. No focal neurologic deficit noted Sensorium / Orientation: orientation impaired Psych Psych Narrative: Patient has a depressed/flat affect Skin no rashes or lesions noted Skin Narrative: Skin is pale in color MDM MDM MDM Narrative Medical decision making narrative: The patient presented to the ER obtunded with GCS of 14. However she is protecting her airway and there are no signs of compromise with tongue or lip swelling. Differential diagnosis includes acute exacerbation of COPD with hypercapnia pneumonia versus pneumothorax versus acute blood loss anemia. A VBG was obtained to confirm her CO2 was elevated on her nasal cannula and this test does confirm hypercapnia with a PCO2 of 87. Secondary to this she was started on BiPAP. Despite being on this her mental status diminished and repeat CO2 is showing further elevation with a value of 117. Chest x-ray questions pneumonia but the patient does not have a fever or excessive cough or white count and therefore this is most likely more scarring or chronic in nature. However based on her worsening mental status and breathing she will be started on antibiotic. The patient is a DNR comfort care only no intubation and therefore BiPAP is the most invasive we can get at this time as she has signed paperwork stating she does not want intubated or placed on a ventilator. As the patient's had worsening of her mental status and elevation to her CO2 I do not feel it is safe for [facility] to [facility] at [facility]. Therefore medicine was contacted and they do agree to accept the patient to continue monitoring her if she has improvement with prolonged BiPAP exposure. The plan of care was discussed with the patient's family History & Record Review Discussion w/independent historian: Patient and Family Lab Data Attestation: I reviewed the patient's lab results. Labs: Laboratory Results - last 24 hr 06/23/22 06/23/22 23:20 23:20 WBC 4.8 RBC 3.27 L Hgb 9.0 L Hct 32.4 L MCV 99.1 H MCH 27.5 MCHC 27.8 L RDW Std Deviation 48.3 H RDW Coeff of Mary 13.5 Plt Count 121 L MPV 12.1 H Immature Gran % (Auto) 1.000 H Neut % (Auto) 66.5 Lymph % (Auto) 19.5 [place] % (Auto) 12.2 H Eos % (Auto) 0.6 Baso % (Auto) 0.2 Absolute Neuts (auto) 3.2 Absolute Lymphs (auto) 0.94 Nucleated RBC % 0 Sodium 143 Potassium 4.4 Chloride 95 L Carbon Dioxide > 45.0 H* Anion Gap TNP BUN 24 H Creatinine 0.61 Estim Creat Clear Calc 35.80 Est GFR (MDRD) Af Amer 125 Est GFR (MDRD) Non-Af 103 BUN/Creatinine Ratio 39.6 H Glucose 111 H Calcium 10.3 H Magnesium 1.9 ABG Data ABG results: ABG 06/24/22 06/24/22 00:02 01:20 Specimen Type SHAWN ART Sample Site R Radial pH 7.28 L Bicarbonate Actual 55.5 H Total CO2 > 50 Base Excess 29 H O2 Saturation 32 L O2 % 70 ABG pCO2 117.5 H* ABG pO2 25 L* J Carlos Test Positive VBG pH 7.36 VBG pO2 35 VBG HCO3 49 H VBG O2 Sat (Calc) 60 VBG Base Excess 23 H POC Mix VBG pCO2 Pt Tmp 86.8 H* Respiration Rate 12 O2 Delivery Device BiPAP Tidal Volume 450 POC PEEP 12 Crit Call To/Read Back Yes Yes Radiography Diagnostic Testing: Clinical Impression(s) from Imaging Studies Chest X-Ray 06/23/22 23:25 IMPRESSION: Left lower lobe pneumonia. Electronically Signed: Boy Ryder MD at 23:39 EDT Reading Location ID and State: [facility] / [place] Tel , Service support , Chest x-ray as interpreted by the emergency medicine physician reveals hazy opacity in the left lower lobe concerning for scarring versus pneumonia Management Discussion w/another healthcare provider: Hospitalist Discharge Plan Triage Chief Complaint: Shortness of Breath ED Provider: Santhosh Jean Dx/Rx/DC Orders Clinical Impression: Acute and chronic respiratory failure with hypercapnia, Acute exacerbation of chronic obstructive pulmonary disease Prescriptions: No Action albuterol sulfate 2.5 MG/3 ML solution for nebulization 2.5 mg inhalation Q2H PRN PRN (Reason: Sob &/Or Wheezing) mirtazapine 30 MG tablet 30 mg PO QHS oxybutynin chloride 5 MG tablet 15 mg PO BID roflumilast [Daliresp] 500 MCG tablet 500 mcg PO DAILY metoprolol succinate 50 MG tablet 50 mg PO DAILY rosuvastatin 10 MG tablet 10 mg PO DAILY multivitamin with minerals 1 EACH tablet 1 ea PO DAILY Cholecalciferol (Vitamin D3) [Vitamin D3] 5,000 UNIT capsule 5,000 unit PO DAILY ipratropium-albuterol 0.5 mg-3 mg(2.5 mg base)/3 mL solution for nebulization 0.5 ml inhalation Q8 montelukast 10 mg Tablet 10 mg PO DAILY L.acid,bulg-B.animalis-S.therm 20 million cell Tablet 1 tab PO 4X/DAY sertraline 25 mg tablet 25 mg PO BID Label Comments: Take one (1) tablet (25 mg) by mouth twice a day, one tablet in AM, one tablet in PM. PALLIATIVE PATIENT lidocaine [Lidoderm] 5 % adhesive patch,medicated 1 patch topical DAILY PRN (Reason: pain) Qty: 15 0RF Rx Instructions: leave on most painful area for up to 12 hrs lorazepam 0.5 mg Tablet 0.5 mg PO TID PRN PRN (Reason: Anxiety) 3 Days Qty: 9 0RF buspirone 5 mg Tablet 10 mg PO BID Qty: 0 0RF Mucus Relief ER 1,200 mg Tablet Extended Release 12hr 1,200 mg PO BID Qty: 0 0RF menthol-zinc oxide [Calmoseptine] 0.44-20.6 % Ointment 1 applic topical BID Qty: 113 0RF Protocol: *Topical Application Instructions APPLICATION INSTRUCTIONS: apply to bilateral buttocks Ensure Plus High Protein 0.08 gram-1.5 kcal/mL Liquid 120 ml PO 4X/DAY Qty: 0 0RF Deep Sea Nasal 0.65 % Aerosol,[place] 2 spray NASAL TID PRN PRN (Reason: Nasal Dryness) Qty: 0 0RF prednisone 10 mg tablet 10 mg PO DAILY Qty: 30 0RF Rx Instructions: 4 tabs daily for 3 days, then 3 tabs daily for 3 days, then 2 tabs daily for 3 days, then 1 tab daily for 3 days Primary Care Provider: Gil Waterman Referrals: Gil Waterman MD [Primary Care Provider] - Disposition Disposition: Acute Care [facility]
[2022-06-24] MEDS: MethylPREDNISolone 125 MG/2 ML Vial IV (03:39)
[2022-06-24] MEDS: Ceftriaxone 1 GM/50 ML BAG IV ×2 (03:40→21:01)
[2022-06-24] MEDS: 0.9% Normal Saline 1,000 ML 75 ML IV ×2 (04:25→17:25)
[2022-06-24] MEDS: Methylprednisolone Sod Succ 40 MG/ML VIAL IV ×3 (05:12→21:02)
[2022-06-24 06:11] LABS: VBG TCO2 > 50 mmol/L (23-33)
[2022-06-24 07:09] LABS: Absolute Lymphocyte Count 0.38 X10^3/uL (0.83-4.51); Absolute Neutrophil Count 4.5 X10^3/uL (2.0-7.7); Basophil# 0.01 X10^3/uL; Basophil% 0.2 % (0-1); Eosinophil# 0.01 X10^3/uL; Eosinophils% 0.2 % (0-5); Hematocrit 30.8 % (37-47); Hemoglobin 8.3 g/dL (12.0-15.0); Lymphocyte # 0.38 X10^3/ul (0.83-4.51); Lymphocyte % 7.4 % (19-41); Mean Corp Hgb Conc 26.9 g/dL (32-36); Mean Corpuscular Hgb 26.4 pg (27.0-32.0); Mean Corpuscular Volume 98.1 fL (81-99); Mean Platelet Vol. 11.7 fl (6.2-12.0); Monocyte# 0.25 X10^3/uL; Monocyte% 4.9 % (0-10); NRBC Flagged by Analyzer 0 % (0-5); Neutrophil # 4.46 X10^3/uL (2.7-7.7); Neutrophil % 86.9 % (47-70); POSITIVE DIFFERENTIAL YES; Platelet Count 102 K/mm3 (150-450); RBC Distribution Width CV 13.7 % (11.6-14.6); RBC Distribution Width SD 48.8 fl (35.1-43.9); Red Blood Count 3.14 M/mm3 (4.2-5.4); White Blood Count 5.1 K/mm3 (4.4-11.0)
[2022-06-24 07:10] LABS: Differential Indicated SCAN CRITERIA MET
[2022-06-24 07:32] LABS: BUN 24 mg/dL (7-18); BUN/Creat Ratio 41.4 RATIO (10-20); Calcium,Total 10.1 mg/dL (8.5-10.1); Carbon Dioxide > 45.0 mmol/L (21.0-32.0); Chloride 94 mmol/L (98-107); Creatinine, Serum 0.58 mg/dL (0.55-1.02); EST Glomerular Filtration Rate 108 mL/min (>60); Est Glom Filt Rate - Afr Amer 131 mL/min (>60); Estimated Creatinine Clearance 35.32 ml/min; Glucose 178 mg/dL (74-106); Potassium 4.6 mmol/L (3.5-5.1); Sodium Level 140 mmol/L (136-145)
[2022-06-24] MEDS: Ipratropium/Albuterol Sulfate 3 ML AMPUL.NEB INHALATION ×4 (07:46→19:33)
[2022-06-24] MEDS: Enoxaparin 40 MG/0.4 ML Syringe SC (08:27)
[2022-06-24] MEDS: Menthol/Lanolin/Calamine/Znox 113 GM Tube 1 APPLIC TOPICAL ×2 (08:27→21:02)
[2022-06-24 09:05] LABS: Procalcitonin 0.06 ng/mL (0.00-0.09)
--- NOTE | 2022-06-24 09:30 | CASEMGMT ---
Addendum entered by Beverley Myers 06/24/22 11:01: NICOLAS spoke with Allison at [facility] and they offered to provide a bipap, but family declined. NICOLAS received a call from Claudette with [facility] and patient switches back and forth from her bipap and the bipap [facility] provides throughout the night. NICOLAS asked Respiratory therapist to try patient on the bipap settings she was discharged on last time to see if they are still okay. Beverley MIRANDA Original Note: NICOLAS called Allison at [facility]. She reviewed patient's notes and it appears they get a lot of calls from [facility] regarding patient being feisty, refusing meds, being agitated, and painful. Allison said family also calls in and they feel patient is being snowed and patient doesn't like her diet changes. NICOLAS called Claudette at [facility] and she said they did have a bipap for patient, but patient's family did not like [facility]'s bipap so they wanted patient to wear her own. However, NICOLAS remembers from last admission Respiratory Therapy said patient's home bipap does not have accurate settings. Claudette said she will check to see which if any bipap patient has been wearing. Beverley Myers HEADING MAKERRaza MIRANDA
--- NOTE | 2022-06-24 13:15 | CASEMGMT ---
NICOLAS met with patient's daughter Jeanie. NICOLAS asked about the discharge plan. Jeanie said she and her brother would like patient to go to the inpatient Hospice unit. NICOLAS explained that when patient is ready for discharge a insurance licensing supervisor will evaluate patient to make sure she qualifies. NICOLAS then explained that she will be there long enough to get her symptoms managed and will then have to move to another [facility] or home. Jeanie expressed understanding. NICOLAS called Allison at [facility] and updated her on the family's anticipated plan. Allison thanked NICOLAS for the update. NICOLAS also called Claudette at [facility] and updated her as well. Beverley Myers PUBLIC AFFAIRS SPECIALIST RUTH
--- NOTE | 2022-06-24 15:37 | PN.HOSP_ITS ---
Hospitalist Note Patient was seen and examined briefly today, she was transported from a local extended care facility due to decreased level of consciousness and respiratory distress, she was noted to be hypercapnic and hypoxic, according to social media sr strategy manager, patient [facility] not [facility] properly for the correct pressures, her family felt that she was not comfortable using the facilities BiPAP machine at the appropriate settings and so they insisted that she use her home machine. When the family noted that she was less responsive and having respiratory distress, they requested transfer to the hospital for evaluation and rescinded hospice. As of the time of this dictation today, according to social media sr strategy manager, patient's family wants the patient to be evaluated by hospice for admission into the inpatient hospice facility. This will most probably happen tomorrow instead of today however. At this time, patient still remains on BiPAP, they were unable to get a repeat blood gas early this morning and I told respiratory therapy that we would hold off for now obtaining another blood gas. Patient responds to painful stimuli, her pulse ox this afternoon was 95% on an FiO2 of 50 on BiPAP. Patient is a DNR CC
[2022-06-24 16:35] LABS: Allen Test Positive; Base Excess 26 mmol/L (-2 to +2); Blood Gas Specimen Type ART; Comment AVAPS; FI02 55; O2 Delivery Device BiPAP; PEEP 10; PO2 77 mmHG (75-100); RR 18; SITE L Radial; SO2 92 % (95-99); Total Carbon Dioxide > 50 mmol/L; Vt 500; pH 7.32 (7.35-7.45)
--- NOTE | 2022-06-24 16:47 | CPS ---
Increased EPAP to 12 and RR to [address] Merritt
--- NOTE | 2022-06-24 17:49 | PCM.HOSP.N ---
Hospitalist Note Patient was seen and examined late this afternoon, arterial blood gas was obtained which showed elevated PCO2, it does not appear that the patient is responding to BiPAP. I had a talk with the patient's family-her daughter and granddaughter, they also talked by phone with the patient's son, it is their opinion that they want the patient's BiPAP to be adjusted upward to see if she can respond, they are not in favor of repeating the patient's blood gases due to the discomfort and trying to obtain the blood gas. At this point I will adjust the patient's BiPAP settings, I reiterated that the patient may not respond to this adjustment and may in fact deteriorate, family is aware of this. Patient is making hand gestures like she does not want treatment any longer but I am not sure she understands a full extent of the conversation that we are having in the room. Patient's son is supposed to come in from out of town tomorrow, family also expressed a desire to have the patient go to inpatient hospice possibly tomorrow.
[2022-06-25] VITALS (16 sets, daily range): BP systolic 146–168; BP diastolic 55–78; PULSE 66–97; RESP 12–21; TEMP 36.3–36.7; O2SAT 94–98
[2022-06-25] MEDS: Methylprednisolone Sod Succ 40 MG/ML VIAL IV ×2 (06:27→13:57)
[2022-06-25] MEDS: 0.9% Normal Saline 1,000 ML 75 ML IV (06:28)
[2022-06-25] MEDS: Ipratropium/Albuterol Sulfate 3 ML AMPUL.NEB INHALATION ×2 (08:13→14:14)
[2022-06-25] MEDS: Menthol/Lanolin/Calamine/Znox 113 GM Tube 1 APPLIC TOPICAL (09:36)
[2022-06-25] MEDS: Enoxaparin 40 MG/0.4 ML Syringe SC (09:37)
[2022-06-25] MEDS: Albuterol 2.5 MG/3 ML VIAL.NEB. INHALATION (10:43)
--- NOTE | 2022-06-25 14:04 | CASEMGMT ---
Per physician patient is ready to be evaluated for inpatient Hospice. SW called patient's daughter Gerald and left her a voice mail requesting a return call. NICOLAS called Allison at [facility]osp[facility] and let her know SW will fax over information on patient and she is ready to be evaluated for the inpatient unit. NICOLAS faxed information to Hospice. Beverley Myers SEMICONDUCTOR WAFERS ETCHER STRIPPERRaza MIRANDA
--- NOTE | 2022-06-25 14:41 | CASEMGMT ---
SW spoke with patient's daughter Jeanie and rest of the family. Jeanie told SW they would like patient to go to the inpatient Hospice unit. SW let them know SW will call Hospice and have a nurse come evaluate patient for the inpatient unit. Beverley MIRANDA
--- NOTE | 2022-06-25 14:57 | CASEMGMT ---
Hospice is here and will evaluate patient for the inpatient unit. Beverley Myers INSPECTOR SCREEN PRINTING RUTH
--- NOTE | 2022-06-25 18:18 | PCM.DC.SUM ---
Providers Date of Admission: 06/24/22 Date of Discharge: 06/25/22 Primary Care Physician: Dr. Gil Waterman MD Reason For Visit: ACUTE ON CHRONIC HYPOXIC & HYPERCAPNIC RESP FAILUR Diagnosis Discharge Diagnosis (1) Metabolic encephalopathy: Status: Acute Code(s): G93.41 - Metabolic encephalopathy (2) Acute and chronic respiratory failure with hypercapnia: Status: Chronic Code(s): J96.22 - Acute and chronic respiratory failure with hypercapnia (3) Hypertension: Status: Chronic Code(s): I10 - Essential (primary) hypertension Plan 1 acute on chronic combined respiratory failure #2 encephalopathy secondary to #1 #3 end-stage COPD #4 essential hypertension Medications at Discharge Home Medications albuterol sulfate 2.5 mg/3 mL (0.083 %) solution for nebulization 2.5 mg inhalation Q2H PRN PRN Sob &/Or Wheezing 09/21/15 mirtazapine 30 mg tablet 30 mg PO QHS mood 09/21/15 oxybutynin chloride 5 mg tablet 15 mg PO BID mood 09/21/15 roflumilast 500 mcg tablet (Daliresp) 500 mcg PO DAILY breathing 09/21/15 metoprolol succinate 50 mg tablet,extended release 24 hr 50 mg PO DAILY blood pressure 06/14/16 ipratropium 0.5 mg-albuterol 3 mg (2.5 mg base)/3 mL nebulization soln 0.5 ml inhalation Q8 06/15/21 lidocaine 5 % topical patch (Lidoderm) 1 patch topical DAILY PRN pain #15 ea 05/01/22 sertraline 25 mg tablet 25 mg PO BID 05/01/22 buspirone 5 mg tablet 10 mg PO BID #0 tabs 06/03/22 guaifenesin 1,200 mg tablet, extended release 12 hr (Mucus Relief ER) 1,200 mg PO BID #0 tabs 06/03/22 menthol 0.44 %-zinc oxide 20.6 % topical ointment (Calmoseptine) 1 applic topical BID #113 grams 06/03/22 sodium chloride 0.65 % nasal spray aerosol (Deep Sea Nasal) 2 spray NASAL TID PRN PRN Nasal Dryness #0 mL 06/03/22 lorazepam 0.5 mg tablet 0.5 mg PO TID 06/24/22 Hospital Course Operations None Procedures None Summary of Care Provided Minutes Spent on Discharge: 31 Hospital Course: Patient was seen and examined in the emergency room after being transported in from an extended care facility due to altered mental status and respiratory distress, she was found to be hypercapnic and and hypoxic respiratory failure, patient has a history of end-stage COPD, conversations were carried out with the patient's family in the emergency room and it was agreed that the patient would be admitted as a comfort care and be seen in consultation by hospice. I had several conversations with the patient's family members and they wanted the patient's son to come into town from out of town to see the patient before any medical changes were made. Patient was kept on BiPAP and given comfort meds, she was seen in consultation by hospice on 06/25/2022 and hospice agreed to take the patient as an inpatient to the hospice facility. On 06/25/2022, patient was seen and examined: On examination she appeared lethargic and frail, she does not appear to be in any distress. Vital signs as documented. Skin warm and dry and without overt rashes. Neck without JVD, thyroid appears normal, trachea is midline, neck is supple. Lungs clear, patient's respirations were shallow and rapid. Heart exam notable for regular rhythm, normal sounds and absence of murmurs, rubs or gallops. Abdomen unremarkable and without evidence of organomegaly, masses, or abdominal aortic enlargement, bowel sounds are present in all 4 quadrants, no abdominal tenderness was noted. Extremities nonedematous, no cyanosis was noted, no clubbing was noted. Neuro: Cranial nerves II through XII are grossly intact, no focal motor deficits were noted, sensation to light touch and pinprick is intact, motor exam 5/5 throughout. Psych: Patient was lethargic, she did not appear to be in any distress Patient was transferred to the inpatient hospice facility on 06/25/2022 in stable but terminal condition. Medical Records Data Medical Nutrition Assessment Dietitian: Malnutrition Criteria Met Start: 06/24/22 16:07 Freq: Status: Active Protocol: Document 06/24/22 16:07 (Rec: 06/24/22 16:07 AG [id number]) Nutrition Malnutrition Evidence of Malnutrition Exists Yes Malnutrition (severe): Chronic Evidenced By Suboptimal Energy Intake ( Severe),Weight Loss (Severe), Physical Changes (Severe) Clinical Problem Chronic Disease or Condition Related Malnutrition Etiology severe, chronic malnutrition related to inadequate energy intake w/ increased energy needs d/t COPD Signs/Symptoms as evidenced by estimated PO intake meeting <75% of estimated energy needs > 3 months; unintentional wt loss of ~19% over past 15 months or sooner; Severe muscle wasting /fat loss evident per physical exam in orbital, clavicle, acromion, and temporal areas; BMI 17.7 Status Active Problem Recommendation Dietitian Recommendations/Changes regular diet as medically indicated; may benefit from modified textures (minced/ moist at SNF) to assist w/ PO intake but given overall plan of care, likely appropriate for regular textures as desired; ensure plus 120mL 4x/ day and magic cup w/ lunch and dinner when diet advanced Weight / BMI Weight Weight: 44 kg Body Mass Index (BMI) 17.7 ABG / Lab / Microbiology Data Result Diagrams: 06/24/22 06:30 06/24/22 06:30 Meaningful Use Info Meaningful Use Diagnoses (Choose all that apply): None applicable Discharge Plan Admission Admit Date/Time: 06/24/22 02:38 Attending Provider: Davie Merritt Primary Care Provider: Gil Waterman Consulting Providers: Allan Luong Discharge Orders/Prescriptions Prescriptions: No Action albuterol sulfate 2.5 MG/3 ML solution for nebulization 2.5 mg inhalation Q2H PRN PRN (Reason: Sob &/Or Wheezing) mirtazapine 30 MG tablet 30 mg PO QHS oxybutynin chloride 5 MG tablet 15 mg PO BID roflumilast [Daliresp] 500 MCG tablet 500 mcg PO DAILY metoprolol succinate 50 MG tablet 50 mg PO DAILY ipratropium-albuterol 0.5 mg-3 mg(2.5 mg base)/3 mL solution for nebulization 0.5 ml inhalation Q8 sertraline 25 mg tablet 25 mg PO BID Label Comments: Take one (1) tablet (25 mg) by mouth twice a day, one tablet in AM, one tablet in PM. PALLIATIVE PATIENT lidocaine [Lidoderm] 5 % adhesive patch,medicated 1 patch topical DAILY PRN (Reason: pain) Qty: 15 0RF Rx Instructions: leave on most painful area for up to 12 hrs buspirone 5 mg Tablet 10 mg PO BID Qty: 0 0RF Mucus Relief ER 1,200 mg Tablet Extended Release 12hr 1,200 mg PO BID Qty: 0 0RF menthol-zinc oxide [Calmoseptine] 0.44-20.6 % Ointment 1 applic topical BID Qty: 113 0RF Protocol: *Topical Application Instructions APPLICATION INSTRUCTIONS: apply to bilateral buttocks Deep Sea Nasal 0.65 % Aerosol,[place] 2 spray NASAL TID PRN PRN (Reason: Nasal Dryness) Qty: 0 0RF lorazepam 0.5 mg tablet 0.5 mg PO TID Referrals / Follow Up: Gil Waterman MD [Primary Care Provider] - Disposition Disposition (needs filled in before D/C Order can be placed): Hospice in Medical Facility Charges/Coding Visit Charges Inpatient E&M: 00643 Disch Hosp >30min
--- NOTE | 2022-06-25 18:51 | NURSING ---
Report called to nurse Flores for pt to be d/c to inpatient hospice.
--- NOTE | 2022-06-25 20:36 | NURSING ---
physician ambulance here to transport patient to hospice center. patient discharged.
== END 2022-06-25 20:20 | disposition hospice, inpatient (51) | DRG 189 ==
LOC: ED 06-24 03:13 → PCU 06-24 03:18
PROVIDERS: Admitting Provider Hospitalist; Emergency Provider Emergency Medicine; PCP Family Medicine; Visit Provider Internal Medicine
DX: J96.22 Acute and chronic respiratory failure with hypercapnia (principal); G93.41 Metabolic encephalopathy; E43 Unspecified severe protein-calorie malnutrition; J15.9 Unspecified bacterial pneumonia; Z68.1 Body mass index [BMI] 19.9 or less, adult; Z99.81 Dependence on supplemental oxygen; J43.9 Emphysema, unspecified; I10 Essential (primary) hypertension; E78.5 Hyperlipidemia, unspecified; Z51.5 Encounter for palliative care; Z66 Do not resuscitate; Z79.899 Other long term (current) drug therapy; Z87.891 Personal history of nicotine dependence
CPT/HCPCS: 36415; 36600; 71045; 80048; 82803; 83735; 84145; 85025; 94002; 94003; 94640; 94762; 97802; 99285; J7030; J7050